=== PATIENT | female | born 1965 | race Caucasian/White ===

== ENCOUNTER 2020-10-11 16:15 | Outpatient (CLI) | payer OTHER, SELFPAY ==
--- NOTE | ~2020-10-11 | MM_ITS ---
EXAMINATION: MM screening [facility]ierra BI w gisell HISTORY: Screening TECHNIQUE: Craniocaudal and mediolateral oblique 3-D tomosynthesis images were obtained and synthetic 2-D images were generated. CAD analysis was submitted and interpreted. COMPARISON: Comparison to multiple prior studies sequentially, with oldest reviewed study dated 03/25. BREAST PARENCHYMAL COMPOSITION: There are scattered areas of fibroglandular density. FINDINGS: There is no evidence of suspicious mass, calcification, or architectural distortion to sugg est malignancy in either breast. There has been no suspicious interval change. IMPRESSION: 1. No mammographic evidence of malignancy. 2. Recommend routine screening mammography in one year. BI-RADS Category 1: Negative Reviewed, dictated and finalized at location A.
== END 2020-10-11 16:16 | disposition home or self-care (01) ==
PROVIDERS: Visit Provider Physician Assistant
DX: Z12.31 Encounter for screening mammogram for malignant neoplasm of breast (principal)
CPT/HCPCS: 77063; 77067

== ENCOUNTER 2022-01-20 09:03 | Emergency (ER) | payer OTHER, SELFPAY ==
[2022-01-20] VITALS (7 sets, daily range): BP systolic 139–167; BP diastolic 85–92; PULSE 82–97; RESP 18–20; TEMP 36.8; O2SAT 98–100
--- NOTE | ~2022-01-20 | XR_ITS ---
EXAMINATION: XR chest 2V 01/20/2022 09:48 INDICATION: Left-sided chest pain PROCEDURE: 2 view chest COMPARISON: 03/14/2020 FINDINGS: The lungs are clear. The cardiomediastinal silhouette is within normal limits. There are no pleural effusions. There is no pneumothorax suspected. IMPRESSION: 1: NO ACUTE CARDIOPULMONARY DISEASE. Reviewed, dictated and finalized at location B. A ARTIST
--- NOTE | 2022-01-20 09:04 | ECG_ITS ---
Measurements Intervals Mcgrew Rate: 92 P: 45 SC: 134 QRS: 17 QRSD: 85 T: 43 QT: 358 QTc: 443 Interpretive Statements SINUS RHYTHM BORDERLINE R WAVE PROGRESSION, ANTERIOR LEADS BORDERLINE ECG NO PREVIOUS ECG AVAILABLE FOR COMPARISON Electronically Signed On 01-20-2022 9:13:46 [employer] by Ap Hernández D.O.
[2022-01-20 09:31] LABS: Basophils Percent Auto 0.4 % (0.2-1.2); Eosinophils Absolute Auto 0.4 K/mm3 (0-0.3); Eosinophils Percent Auto 3.8 % (0-4.4); Hematocrit 39.7 % (37.0-47.0); Hemoglobin 12.9 g/dL (12.0-15.0); Immature Granulocyte Absolute 0.04 K/mm3 (0.00-0.031); Immature Granulocyte Percent A 0.4 % (0-0.5); Lymphocytes Absolute Auto 2.27 K/mm3 (0.9-3.2); Lymphocytes Percent Auto 20.8 % (18.3-44.2); Mean Corpuscular HGB Conc 32.5 g/dl (32-36); Mean Corpuscular Hemoglobin 28.1 pg (26-34); Mean Corpuscular Volume 86.5 fl (80-100); Mean Platelet Volume 10.5 fl (7.4-10.4); Monocytes Absolute Auto 0.6 K/mm3 (0.1-0.6); Monocytes Percent Auto 5.3 % (2.6-8.5); Neutrophils Absolute Auto 7.6 K/mm3 (1.3-6.7); Neutrophils Percent Auto 69.3 % (45.5-73.1); Platelet Count Result 225 k/mm3 (150-375); Red Blood Count 4.59 M/mm3 (4.2-5.4); Red Cell Distribution Width 13.8 % (11.5-14.5); White Blood Count 10.9 K/mm3 (4.5-10.0)
[2022-01-20 09:41] LABS: Prothrombin Time 12.6 Seconds (11.1-14.7)
[2022-01-20 10:07] LABS: Alanine Aminotransferase 33 U/L (6-35); Albumin Level 4.5 g/dL (3.5-5.1); Alkaline Phosphatase 107 U/L (38-126); Anion Gap 9 mmol/L (8-16); Aspartate Amino Transferase 24 U/L (14-36); Bilirubin,Total 0.4 mg/dL (0.2-1.3); Blood Urea Nitrogen 19 mg/dL (7-17); Calcium 9.3 mg/dL (8.4-10.2); Carbon Dioxide 26 mmol/L (22-30); Chloride 103 mmol/L (98-107); Estimated CRCL calculation 116 ml/min; Estimated Glomerular Filt Rate > 60; Glucose 112 mg/dL (65-110); Lipase 119 U/L (23-300); Sodium 138 mmol/L (137-145); Troponin I < 0.012 ng/mL (0.000-0.034)
--- NOTE | 2022-01-20 11:24 | ED.GENADULT ---
HPI - General Adult General Chief complaint: Chest Pain Stated complaint: chest pain Time Seen by Provider: 01/20/22 10:07 History of Present Illness HPI narrative: 56-year-old female with a past medical history of hypertension presents for evaluation of nonexertional left-sided chest pain that is reproducible with palpation over rib #3. Pain has been consistent for the past 24 hours there are no aggravating or alleviating factors. There is no radiation. Related Data Allergies Allergy/AdvReac Type Severity Reaction Status Date / Time No Known Allergies Allergy Unknown Unverified 05/31/17 01:16 Review of Systems Review of Systems: CONSTITUTIONAL: Denies fever, chills, or sweats. EYES: Denies visual changes, redness, or discharge. ENT: Denies rhinorrhea, congestion, sore throat, or otalgia. CARDIOVASCULAR: Denies chest pain, palpitations, or edema. RESPIRATORY: Denies cough or dyspnea. GASTROINTESTINAL: Denies abdominal pain, nausea, vomiting, or diarrhea. GENITOURINARY: Denies dysuria or hematuria. SKIN: Denies rash or itching. MUSCULOSKELETAL: Denies back pain, joint pain, or myalgia. NEUROLOGIC: Denies headache, numbness, or weakness. PSYCHIATRIC: Denies anxiety or depression. [facility] Family History Family History (Updated 09/28/15 @ 23:19 by DOCTOR UNKNOWN) Father Family history of alcoholism Family history of diabetes mellitus in first degree relative Family history of malignant neoplasm of brain Social History Social History Smoking status: Never smoker Alcohol intake: never Exam Narrative: GENERAL: Well-appearing, well-nourished, and in no acute distress. HEAD: Normocephalic, atraumatic. EYES: PERRLA and EOMI. ENT: Nares clear, no rhinorrhea or epistaxis. Mucous membranes moist. NECK: Supple. CHEST: Clear to auscultation. No respiratory distress. HEART: Regular rate and rhythm. No murmur heard. Normal peripheral pulses. ABDOMEN: Soft, nontender, nondistended, normal active bowel sounds. EXTREMITIES: Normal range of motion. No edema. SKIN: Warm, dry, no rash. NEURO: No focal deficits. Alert and oriented x3. PSYCH: Normal mood and affect. Course Vital Signs Vital signs: Vital Signs Temperature 98.3 F 01/20/22 09:08 Pulse Rate 94 01/20/22 09:08 Respiratory Rate 18 01/20/22 09:08 Blood Pressure 167/88 H 01/20/22 09:08 Pulse Oximetry 100 01/20/22 09:08 Oxygen Delivery Room Air 01/20/22 09:08 Temperature 98.3 F 01/20/22 09:08 Pulse Rate 88 01/20/22 10:47 Respiratory Rate 18 01/20/22 10:47 Blood Pressure 152/92 H 01/20/22 10:47 Pulse Oximetry 98 01/20/22 10:47 Oxygen Delivery Room Air 01/20/22 09:08 Medical Decision Making MDM Narrative Medical decision making narrative: Cardiac work-up initiated upon arrival but this does seem to be a musculoskeletal chest pain. Cardiac work-up is unremarkable. Vital Signs Vital Signs: Vital Signs Temperature 98.3 F 01/20/22 09:08 Pulse Rate 94 01/20/22 09:08 Respiratory Rate 18 01/20/22 09:08 Blood Pressure 167/88 H 01/20/22 09:08 Pulse Oximetry 100 01/20/22 09:08 Oxygen Delivery Room Air 01/20/22 09:08 Temperature 98.3 F 01/20/22 09:08 Pulse Rate 88 01/20/22 10:47 Respiratory Rate 18 01/20/22 10:47 Blood Pressure 152/92 H 01/20/22 10:47 Pulse Oximetry 98 01/20/22 10:47 Oxygen Delivery Room Air 01/20/22 09:08 Lab Data Result diagrams: 01/20/22 09:21 01/20/22 09:21 Labs: Lab Results 01/20/22 01/20/22 01/20/22 Range/Units 09:21 09:21 09:21 WBC 10.9 H (4.5-10.0) K/mm3 RBC 4.59 (4.2-5.4) M/mm3 Hgb 12.9 (12.0-15.0) g/dL Hct 39.7 (37.0-47.0) % MCV 86.5 (80-100) fl MCH 28.1 (26-34) pg MCHC 32.5 (32-36) g/dl RDW 13.8 (11.5-14.5) % Plt Count 225 (150-375) k/mm3 MPV 10.5 H (7.4-10.4) fl Immature Gran % (Auto) 0.4 (0-0.5) % Neut % (Auto) 69.3 (45.5-73.1) % Lymph
== END 2022-01-20 12:02 | disposition home or self-care (01) ==
PROVIDERS: Emergency Provider Emergency Medicine; PCP Physician Assistant
DX: R07.89 Other chest pain (principal); I10 Essential (primary) hypertension; R94.31 Abnormal electrocardiogram [ECG] [EKG]
CPT/HCPCS: 36415; 71046; 80053; 83690; 84484; 85025; 85610; 85730; 93005; 99284

== ENCOUNTER 2022-03-18 07:00 | Outpatient (CLI) | payer OTHER, SELFPAY ==
[2022-03-18 07:28] LABS: Alanine Aminotransferase 31 U/L (6-35); Alkaline Phosphatase 87 U/L (38-126); Anion Gap 2 mmol/L (8-16); Aspartate Amino Transferase 22 U/L (14-36); Bilirubin,Total 0.3 mg/dL (0.2-1.3); Blood Urea Nitrogen 26 mg/dL (7-17); Calcium 8.7 mg/dL (8.4-10.2); Carbon Dioxide 31 mmol/L (22-30); Chloride 103 mmol/L (98-107); Estimated Glomerular Filt Rate > 60; Glucose 110 mg/dL (65-110); Sodium 136 mmol/L (137-145)
[2022-03-18 07:40] LABS: Creatinine Urine 116.1 mg/dL
[2022-03-18 10:48] LABS: Cholesterol 217 mg/dL (0-200); HDL Direct 45 mg/dL; Triglycerides 132 mg/dL (<150)
[2022-03-18 10:54] LABS: LDL Cholesterol Direct 125 mg/dL
== END 2022-03-18 07:01 | disposition home or self-care (01) ==
PROVIDERS: PCP Physician Assistant; Visit Provider Physician Assistant
DX: I10 Essential (primary) hypertension (principal); E78.5 Hyperlipidemia, unspecified
CPT/HCPCS: 36415; 80053; 80061; 82043

== ENCOUNTER 2022-12-09 15:28 | Outpatient (CLI) | payer OTHER, SELFPAY ==
--- NOTE | ~2022-12-09 | MM_ITS ---
EXAMINATION: MM screening [place] BI w gisell HISTORY: Screening mammogram TECHNIQUE: Craniocaudal and mediolateral oblique 3-D tomosynthesis images were obtained and synthetic 2-D images were generated. CAD analysis was submitted and interpreted. COMPARISON: 10/11/2020, 03/24/2017 bilateral screening mammogram examinations BREAST PARENCHYMAL COMPOSITION: There are scattered areas of fibroglandular density. FINDINGS: There is no evidence of suspicious mass, calcification, or architectural distortion to sugg est malignancy in either breast. There has been no suspicious interval change. IMPRESSION: 1. No mammographic evidence of malignancy. 2. Recommend routine screening mammography in one year. BI-RADS Category 1: Negative Reviewed, dictated and finalized at location A.
== END 2022-12-09 15:29 | disposition home or self-care (01) ==
PROVIDERS: PCP Physician Assistant; Visit Provider Physician Assistant
DX: Z12.31 Encounter for screening mammogram for malignant neoplasm of breast (principal)
CPT/HCPCS: 77063; 77067

== ENCOUNTER 2023-06-13 09:11 | Inpatient (IN) | payer OTHER, SELFPAY ==
[2023-06-13] VITALS (7 sets, daily range): BP systolic 139–153; BP diastolic 66–82; PULSE 96–103; RESP 16–20; TEMP 36.9–39.3; O2SAT 97–100; BMI 29.5
--- NOTE | ~2023-06-13 | XR_ITS ---
EXAMINATION: XR abdomen gastric tube insert DATE: 06/18/2023 11:38 INDICATION: Nasogastric tube placement TECHNIQUE: A supine view of the abdomen and lower chest was obtained for evaluation of feeding tube placement. COMPARISON: None. FINDINGS: Nasogastric tube tip in the body the stomach with proximal side-port just above the level of the vinnie roesophageal junction. Cholecystectomy clips in right upper quadrant. There is persistent gaseous dis tention of the colon consistent with distal colonic obstruction. Small linear band of discoid atelect asis/scarring at the right costophrenic angle. Heart size is normal. No pleural effusion. IMPRESSION: 1. Nasogastric tube tip in the body the stomach. Consider advancement by [address] the proximal s wendy-port below level of the gastroesophageal junction. 2. Persistent gaseous distention of the colon consistent with distal colonic obstruction. Reviewed, dictated and finalized at location A. IMPRESSION: 1. Nasogastric tube tip in the body the stomach. Consider advancement by [address] the proximal side-port below level of the gastroesophageal junction. 2. Persistent gaseous distention of the colon consistent with distal colonic ob struction.
--- NOTE | ~2023-06-13 | XR_ITS ---
EXAMINATION: XR abdomen/kub 1V DATE: 06/22/2023 07:01 INDICATION: Abdominal pain. TECHNIQUE: A supine view of the abdomen on 3 radiographs was obtained. COMPARISON: Abdomen radiographs 06/20/23 FINDINGS: There are dilated loops of small bowel. The colon is decompressed. Skin rishabh are noted. Surgical clips in the right upper quadrant are likely from cholecystectomy. The nasogastric tube tip is in the stomach. IMPRESSION: 1. Dilated small bowel, consistent with adynamic ileus. Reviewed, dictated and finalized at location E.
--- NOTE | ~2023-06-13 | CT_ITS ---
EXAMINATION: CT abdomen pelvis w con DATE: 06/13/2023 10:43 INDICATION: Left lower quadrant abdominal pain TECHNIQUE: Computed tomography (CT) of the abdomen and pelvis was performed without intravenous contr ast. Automated exposure control and iterative reconstruction technique were employed. The dose-length product was 1198.91 mGy-cm. COMPARISON: None FINDINGS: Calcified right lower lobe nodule and calcified right hilar lymph nodes consistent with old granuloma tous disease. Heart size is normal. No pericardial or pleural effusion. Cholecystectomy clips the gal lbladder fossa. Liver, spleen, pancreas, right adrenal gland and right kidney are normal. 11 mm left renal cyst. There is mild thickening of the left adrenal gland without discrete nodule. Small fat-con taining umbilical hernia and immediately adjacent moderate-sized fat-containing infraumbilical ventra l hernia. There is colonic wall thickening beginning in the distal transverse colon with some surroun ding paracolonic inflammatory stranding which becomes progressively all of consistent with a distal c olitis. In addition there several scattered colonic diverticula without adjacent or focal inflammator y stranding to suggest diverticulitis. Small bowel and appendix are normal. 2.3 similar fibroid at th e left side of the uterine body. Bilateral adnexa and the bladder are unremarkable. No abscess or tali e intraperitoneal gas or fluid. No pathologically enlarged abdominal or pelvic lymphadenopathy. Mild scattered nonhemodynamically significant atherosclerotic plaque in the abdominal aorta, bilateral com mon iliac arteries and at the origins of the celiac axis and right renal artery. Mild lumbar and paul re lumbosacral spondylosis. IMPRESSION: 1. Distal colitis which could be infectious, inflammatory or less likely ischemic in etiology. 2. Small fat-containing umbilical and moderate-sized infraumbilical ventral hernias. 3. Uterine fibroid. Reviewed, dictated and finalized at location A. IMPRESSION: 1. Distal colitis which could be infectious, inflammatory or less likely ischem ic in etiology. 2. Small fat-containing umbilical and moderate-sized infraumbilical ventral her nias. 3. Uterine fibroid.
--- NOTE | ~2023-06-13 | XR_ITS ---
XR abdomen/kub 1V 06/20/2023 09:45 Indication: Abdominal pain and bloating Procedure: KUB Comparison: 06/17/2023 Findings: Status post recent laparotomy. There are cholecystectomy clips. There is moderate gas throu ghout the small bowel which is mildly dilated measuring up to 3.5 cm. The colon is relatively decompr essed. Impression: 1: Dilated small bowel with air-fluid levels, most likely postoperative ileus. Reviewed, dictated and finalized at location A. Impression: 1: Dilated small bowel with air-fluid levels, most likely postoperative ileus.
--- NOTE | ~2023-06-13 | XR_ITS ---
Supine and upright views of the abdomen Clinical history: Colitis Findings: There is extensive air distention of large bowel, with decompression of the distal sigmoid colon and rectum. No free air evident. No abnormal mass lesion or calcification is seen. Osseous stru ctures are intact. Impression: Extensive air distention of large bowel with decompression of distal sigmoid colon and rectum. This c orrelates with the transition point at the proximal to mid sigmoid colon seen on CT scan. Reviewed, dictated and finalized at location M. Impression: Extensive air distention of large bowel with decompression of distal sigmoid co anuj and rectum. This correlates with the transition point at the proximal to mi d sigmoid colon seen on CT scan.
--- NOTE | ~2023-06-13 | XR_ITS ---
XR abdomen gastric tube insert INDICATION: Evaluate NG tube position. TECHNIQUE: Limited KUB perform for evaluating NG tube . COMPARISON: 06/18/2023 FINDINGS: NG tube tip in the stomach. Visualized bowel gas pattern is unremarkable. IMPRESSION: 1: NG tube tip in the stomach. Reviewed, dictated and finalized at location A.
--- NOTE | ~2023-06-13 | US_ITS ---
EXAMINATION: US venous doppler UE DATE: 06/22/2023 14:55 INDICATION: Left arm swelling and pain . TECHNIQUE: Grayscale ultrasound images without and with compression and Doppler ultrasound images of the upper extremity veins were obtained. COMPARISON: None. FINDINGS: Examination limited by bandage material on the upper arm. Axillary and basilic veins demonstrated no flow or compressibility and are dilated by heterogeneous intraluminal material, with scattered echoge nicities, some of which have dirty posterior shadowing. The visualized portions of the left internal jugular vein, subclavian vein, brachial veins, cephalic vein, radial vein, and ulnar vein are patent. IMPRESSION: Deep venous thrombosis involving the left axillary and basilic veins, likely acute or subacute. Suspe cted foci of gas within the thrombus, may be secondary to venous access or infection. An indwelling c atheter was not definitively identified during this examination but is reportedly present. Reviewed, dictated and finalized at location K. IMPRESSION: Deep venous thrombosis involving the left axillary and basilic veins, likely ac [place] or subacute. Suspected foci of gas within the thrombus, may be secondary to venous access or infection. An indwelling catheter was not definitively identi fied during this examination but is reportedly present.
--- NOTE | ~2023-06-13 | CT_ITS ---
EXAMINATION: CTA chest PE abdomen pel DATE: 06/23/2023 16:46 INDICATION: Shortness of breath and fever TECHNIQUE: Computed tomography (CT) pulmonary angiogram of the chest was performed with 100 mL Omnipa que-350 intravenous contrast. Additional 3D reconstructions utilizing coronal maximum intensity proje ction (MIP) were performed. CT of the abdomen and pelvis was performed with intravenous contrast util izing the same contrast bolus following a short delay. Automated exposure control and iterative recon struction technique were employed. The dose-length product was 1792.59 mGy-cm. COMPARISON: None FINDINGS: Chest: Adequate but suboptimal contrast desiccation of the pulmonary arteries but when combined with moderat e scattered respiratory motion artifact limits evaluation in the segmental and subsegmental pulmonary arteries. No definitive pulmonary embolism. Mild discoid atelectasis at the right middle and lower l obes. Calcified right lower lobe nodule and calcified right hilar and mediastinal lymph nodes consist ent with old granulomatous disease. No pneumonia, pulmonary edema or pleural effusion. Heart size is normal. No pericardial effusion. Thoracic aorta is normal caliber with no dissection. Mild thoracic a nd moderate lower cervical spondylosis. Abdomen/pelvis: Nasogastric tube coiled in the stomach. Cholecystectomy clips the gallbladder fossa. Liver, spleen, p ancreas, right adrenal gland and kidney are normal. Mild thickening of the left adrenal gland without discrete nodule. 11 mm cyst at the lower pole of the left kidney. Status post subtotal colectomy wit h fluid within a Armijo's pouch and the pelvis and right lower quadrant and ileostomy. No bowel obst ruction. Anteverted uterus and bilateral adnexa are unremarkable. Small amount of gas and a Arias cat heter within the decompressed bladder. There is a small amount of ascites scattered throughout the ab domen and pelvis. No abscess or free intraperitoneal gas. Couple small likely postoperative fluid col lections at the site of the ostomy and the repaired infraumbilical ventral hernia along with some dinah rounding stranding and a few tiny foci of likely residual postoperative gas subcutaneous tissues of t he abdominal wall. No pathologically enlarged abdominal or pelvic lymphadenopathy. Severe spondylosis at the lumbosacral junction with mild spondylosis more cephalad lumbar spine. IMPRESSION: 1. Postoperative change consistent with recent subtotal colectomy with right lower quadrant and ileos josue and repair of a prior infraumbilical fat-containing ventral hernia. 2. Small amount of nonloculated ascites scattered throughout the abdomen and pelvis. No abscess or fr ee intraperineal gas. 2. No evident pulmonary embolism with sensitivity decreased in the segmental pulmonary arteries and e ssentially nondiagnostic in the subsegmental pulmonary arteries due to primarily to a moderate amount of diffuse respiratory motion artifact. Reviewed, dictated and finalized at location A. IMPRESSION: 1. Postoperative change consistent with recent subtotal colectomy with right lo wer quadrant and ileostomy and repair of a prior infraumbilical fat-containing ventral hernia. 2. Small amount of nonloculated ascites scattered throughout the abdomen and pe lvis. No abscess or free intraperineal gas. 2. No evident pulmonary embolism with sensitivity decreased in the segmental pu lmonary arteries and essentially nondiagnostic in the subsegmental pulmonary ar teries due to primarily to a moderate amount of diffuse respiratory motion suzie fact.
--- NOTE | ~2023-06-13 | CT_ITS ---
Non-contrast CT scan of the Abdomen and Pelvis Clinical indication: Abdominal pain Technique: 2.5 mm axial scans were obtained through the abdomen and pelvis without intravenous or or al contrast. Dose reduction technique was used on this scan by utilizing automated exposure control a nd iterative reconstruction technique. The dose-length product (DLP) was 1295.67 mGy-cm. COMPARISON: 06/13/2023 Findings: Images through the lung bases reveal no abnormalities. Probable punctate nonobstructing right renal stone. No left renal stone. No ureteral stone or hydrone phrosis on either side.. The liver, spleen, pancreas, and right adrenal gland appear normal. Stable probable left adrenal nodu le. Cholecystectomy clips are present. There are atherosclerotic calcifications of the aorta. There is extensive distention of the majority of large bowel, with transition point at the distal sig moid colon/proximal rectum. There is apparent wall thickening of the rectum in this region. No absces s or free air evident. Probable mild wall thickening of the distended portions of the large bowel. Mo derate sized fat-containing umbilical hernia present. Small bowel nondistended. Images through the pelvis were performed. There is no evidence of ascites or lymphadenopathy. Urinary bladder unremarkable. No adnexal mass evident. Impression: Extensive distention of large bowel with transition point in the distal sigmoid colon, with extensive wall thickening of the rectum at this region. Diagnostic considerations include acute infectious/inf lammatory distal sigmoid/rectal colitis versus possibly chronic stricture or underlying neoplasm resu lting in partial large bowel obstruction. Correlate clinically. Consider colonoscopy for direct inspe ction as indicated. Probable mild wall thickening of the distended portions of large bowel, which could reflect superimpo sed mild infectious/infarct or colitis. Moderate sized fat-containing umbilical hernia. Punctate nonobstructing right renal stone. Reviewed, dictated and finalized at [facility]. Impression: Extensive distention of large bowel with transition point in the distal sigmoid colon, with extensive wall thickening of the rectum at this region. Diagnostic considerations include acute infectious/inflammatory distal sigmoid/rectal col itis versus possibly chronic stricture or underlying neoplasm resulting in part ial large bowel obstruction. Correlate clinically. Consider colonoscopy for dir ect inspection as indicated. Probable mild wall thickening of the distended portions of large bowel, which c ould reflect superimposed mild infectious/infarct or colitis. Moderate sized fat-containing umbilical hernia. Punctate nonobstructing right renal stone.
--- NOTE | ~2023-06-13 | US_ITS ---
EXAMINATION:US venous doppler LE BI INDICATION:Calf pain TECHNIQUE: Multiple grayscale, color flow and Doppler images of the right and left lower extremity de ep venous systems were obtained and reviewed. COMPARISON:No prior studies for comparison. FINDINGS: The common femoral, superficial femoral and popliteal veins demonstrate normal respiratory variation, augmentation and compressibility. Color flow is also seen within the posterior tibial, pe roneal, greater saphenous and profunda veins. IMPRESSION: 1: No lower extremity deep venous thrombosis. Reviewed, dictated and finalized at location B.
--- NOTE | ~2023-06-13 | XR_ITS ---
EXAMINATION: XR enema water soluble DATE: 06/15/2023 13:26 INDICATION: Large bowel obstruction TECHNIQUE: A repacker radiograph was obtained. A catheter was inserted into the patient's rectum. Water- soluble contrast was infused by gravity. Fluoroscopic spot images and conventional radiographs were o btained. Fluoroscopy exposure time was 1.4 minutes. A total of 13 fluoroscopic images and 3 overhead radiographs were obtained. Total DAP was 58.6 Gycm^2 COMPARISON: None. FINDINGS: There is a high-grade stricture at the junction of the descending and sigmoid colon which required ap proximately 1 minute for the contrast to begin to transit the stricture into the dilated descending c olon. Given the severity of the stricture it was elected to terminate the study prior to passage of a significant quantity of contrast beyond the stricture. There is irregular mucosal contour at the lev el of the stricture with small loculated extraluminal extension of contrast potentially within a dive rticulum at the distal margin of the region of stricture. IMPRESSION: 1. High-grade stenosis at the junction of the descending and sigmoid colon which raises concern for m alignancy. Differential would also include stricture related to diverticulitis, colitis or other infl ammatory etiology. Recommend colonoscopy for further evaluation. Reviewed, dictated and finalized at location A. IMPRESSION: 1. High-grade stenosis at the junction of the descending and sigmoid colon whic h raises concern for malignancy. Differential would also include stricture rela jamaal to diverticulitis, colitis or other inflammatory etiology. Recommend colono scopy for further evaluation.
--- NOTE | 2023-06-13 09:32 | ED.ABDPAIN ---
HPI - Abdominal Pain General Chief Complaint: Abdominal Pain <Abhijeet Alcocer APRN - Last Filed: 06/13/23 13:39> Stated Complaint: ABD Pain <Abhijeet Alcocer APRN - Last Filed: 06/13/23 13:39> Time Seen by Provider: 06/13/23 09:23 <Abhijeet Alcocer APRN - Last Filed: 06/13/23 13:39> Source: patient <Abhijeet Alcocer APRN - Last Filed: 06/13/23 13:39> Mode of arrival: ambulatory <Abhijeet Alcocer APRN - Last Filed: 06/13/23 13:39> Limitations: no limitations <Abhijeet Alcocer APRN - Last Filed: 06/13/23 13:39> History of Present Illness HPI narrative: Felipa is a 58-year-old female patient presenting to the ER today with complaints of mid lower and left lower quadrant abdominal pain since around noon yesterday. She reports she does have history of diverticulitis. Denies any fever has had some chills and body aches. Rates her pain currently a 5/10 and it comes in waves. Last bowel movement was 1 hour go it was loose without blood. Not currently experiencing any nausea or vomiting but did vomit this morning when she was brushing her teeth. She denies any urinary symptoms. <Abhijeet Alcocer APRN - Last Filed: 06/13/23 13:39> Related Data Allergies/Adverse Reactions: Allergies Allergy/AdvReac Type Severity Reaction Status Date / Time No Known Allergies Allergy Unknown Unverified 06/13/23 09:26 <Abhijeet Alcocer APRN - Last Filed: 06/13/23 13:39> Review of Systems Review of Systems: Pertinent positives per HPI. Patient denies any fever, rash, headache, visual changes, dizziness, cough, runny nose, sore throat, shortness of breath, chest pain, palpitations, diarrhea, constipation, or any urinary issues. <Abhijeet Alcocer APRN - Last Filed: 06/13/23 13:39> [facility] Family History Family History: Family History Father Family history of alcoholism Family history of diabetes mellitus in first degree relative Family history of malignant neoplasm of brain <Abhijeet Alcocer APRN - Last Filed: 06/13/23 13:39> Social History Social History: Social History Smoking status: Never smoker Alcohol intake: never <Abhijeet Alcocer APRN - Last Filed: 06/13/23 13:39> Comments At the time of my signature, I reviewed and agree with the nursing past medical, surgical, social, and family history. There is no relevant family history pertinent to the patient complaint. <Abhijeet Alcocer APRN - Last Filed: 06/13/23 13:39> Exam Narrative: General: Well-developed, well nourished, in no apparent distress. Head: Normocephalic, atraumatic. Cardio: Regular rate and rhythm, s1 and s2 normal, no murmur appreciated. Resp: Clear to auscultation bilaterally, no rhonchi, rales, wheezing or rubs. Abdomen: Soft, pliable, bowel sounds present in all quadrants, tender to palpation over the mid and left lower abdomen, no organomegly, no CVAT tenderness. <Abhijeet Alcocer APRN - Last Filed: 06/13/23 13:39> Course Course Emergency Course: Portions of this record may have been created with voice recognition software. <Abhijeet Alcocer APRN - Last Filed: 06/13/23 13:39> OPERATIONAL TRAINER/PA Physician Supervision This visit was performed by both a physician and an APC. I performed all aspects of the MDM as documented. <Camille Gonzalez MD - Last Filed: 06/13/23 13:40> Vital Signs Vital signs: Vital Signs Temperature 99.0 F 06/13/23 09:17 Pulse Rate 97 06/13/23 09:17 Respiratory Rate 20 06/13/23 09:17 Blood Pressure 148/82 H 06/13/23 09:17 Pulse Oximetry 97 06/13/23 09:17 Oxygen Delivery Room Air 06/13/23 09:17 Temperature 99.0 F 06/13/23 09:17 Pulse Rate 103 H 06/13/23 10:05 Respiratory Rate 20 06/13/23 10:05 Blood Pressure 140/80 06/13/23 10:05 Pulse Oximetry 100 06/13/23 10:05 Oxy
[2023-06-13] MEDS: SODIUM CHLORIDE 0.9% IV 1,000 ML 999 ML IV CONT ×2 (09:51→11:56)
[2023-06-13 09:53] LABS: Hematocrit 38.9 % (37.0-47.0); Hemoglobin 12.9 g/dL (12.0-15.0); Mean Corpuscular HGB Conc 33.2 g/dl (32-36); Mean Corpuscular Hemoglobin 28.1 pg (26-34); Mean Corpuscular Volume 84.7 fl (80-100); Mean Platelet Volume 10.7 fl (7.4-10.4); Platelet Count Result 273 k/mm3 (150-375); Red Blood Count 4.59 M/mm3 (4.2-5.4); Red Cell Distribution Width 14.1 % (11.5-14.5); White Blood Count 25.2 K/mm3 (4.5-10.0)
[2023-06-13] MEDS: ONDANSETRON INJ 4 MG/2 ML VIAL IV PUSH ×3 (10:00→21:05)
[2023-06-13] MEDS: HYDROmorphone HCL INJ (*CRX) 1 MG/ML SYR 0.5 MG IV PUSH ×2 (10:00→12:44)
[2023-06-13 10:03] LABS: Alanine Aminotransferase 41 U/L (6-35); Albumin Level 4.3 g/dL (3.5-5.1); Alkaline Phosphatase 96 U/L (38-126); Anion Gap 9 mmol/L (4-12); Aspartate Amino Transferase 29 U/L (14-36); Bilirubin,Total 0.8 mg/dL (0.2-1.3); Blood Urea Nitrogen 25 mg/dL (7-17); Calcium 9.2 mg/dL (8.4-10.2); Carbon Dioxide 22 mmol/L (22-30); Chloride 104 mmol/L (98-107); Estimated CRCL calculation 107 ml/min; Estimated Glomerular Filt Rate > 60; Glucose 152 mg/dL (65-110); Lipase 66 U/L (23-300); Potassium 3.6 mmol/L (3.4-5.0); Sodium 135 mmol/L (137-145)
[2023-06-13 10:25] LABS: Band Neutrophils Percent 21 % (0-6); Lymphocytes Absolute Manual 2.01 K/mm3 (1.1-4.5); Monocytes Absolute Manual 1.51 K/mm3 (0.1-0.90); Monocytes Percent Manual 6 % (3-9); Neutrophils Absolute Manual 21.67 K/mm3 (1.7-7.2); Neutrophils Percent Manual 65 % (46-73); Platelet Estimate Adequate (Adequate); Schistocytes None Seen; Total Cells Counted 100
[2023-06-13] MEDS: CEFEPIME 2 GM/NS 50 ML 2 GM/50 ML BAG IVPB ×2 (11:56→21:04)
[2023-06-13 12:11] LABS: Lactic Acid Reflex 1.9 mmol/L (0.7-2.0)
[2023-06-13 12:14] LABS: Appearance Urine Clear (Clear); Bilirubin Urine Negative (Negative); Blood Urine Negative (Negative); Color Urine Yellow (Yellow); Glucose Urine UA Negative (Negative); Ketones Urine Negative (Negative); Leukocyte Esterase Ur Negative LEU/UL (Negative); Nitrate Urine Negative (Negative); Protein Urine Negative (Negative); Urobilinogen Urine 0.2 mg/dL (<2.0); pH Urine 5.5 (5.0-9.0)
[2023-06-13] MEDS: metroNIDAZOLE 500 MG/ISO 100ML 500 MG/100 ML BAG 100 MG IVPB ×2 (12:25→21:04)
[2023-06-13 12:41] LABS: Add Urine Microscopic? NO
--- NOTE | 2023-06-13 12:58 | PM.IMHP ---
H&P: HPI History of Present Illness Date/Time: 06/13/23 12:58 Chief Complaint: Abdominal pain Narrative: This is a 58-year-old female with a significant past medical history of hypertension and diverticulosis who presented to the hospital today with complaints of abdominal pain. Patient states that her pain started yesterday afternoon and got much worse after eating a cheeseburger from [employer]. She states that her pain is mostly in the left and right lower quadrants and radiates to her lower back. Her abdomen is distended, soft, with hypoactive bowel sounds. She states she is passing gas and had a loose stool today. She denies any fever, chills, vomiting, shortness of breath, or chest pain. She reports nausea, abdominal pain that is 5/10 currently, headache, lightheadedness, and diarrhea. She states she was told she has diverticulosis from a previous colonoscopy that was performed over 7 years ago. She does not follow with a GI doctor. I asked her about recent antibiotics and she stated that her PCP put her on Augmentin recently for an upper respiratory infection. Workup in the hospital included CT of abdomen pelvis which showed distal colitis which could be infectious, inflammatory, small fat containing umbilical and moderate size infraumbilical ventral hernias, uterine fibroid. Initial labs show a white blood cell count of 25.2, band neutrophils 21, sodium 135, ALT 41. UA was obtained and was normal. Blood cultures were obtained and are pending. EKG shows sinus rhythm with a rate of 92, QTC 443. Patient was given 2 L normal saline, Dilaudid and Zofran while in the ED. She will continue on IV fluids, was started on cefepime, and Flagyl. We will check a C. diff and get stool cultures. Review of Systems Review of Systems: All systems reviewed & are unremarkable except as noted in HPI and below Constitutional: Constitutional: Reports as per HPI and Reports no additional constitutional complaints Eyes: Eyes: Reports as per HPI and Reports no additional eye complaints ENT: Reports system reviewed and no additional complaints, except as documented and Reports as per HPI Cardiovascular: Cardiovascular: Reports as per HPI and Reports no additional cardiovascular complaints Respiratory: Respiratory: Reports as per HPI and Reports no additional respiratory complaints Gastrointestinal: Gastrointestinal: Reports as per HPI and Reports no additional gastrointestinal complaints Genitourinary: Genitourinary: Reports no additional female genitourinary complaints and Reports as per HPI Musculoskeletal: Musculoskeletal: Reports no additional musculoskeletal complaints and Reports as per HPI Integumentary/Breasts: Skin/Breast: Reports system reviewed and no additional complaints, except as docu and Reports as per HPI Neurologic: Reports system reviewed and no additional complaints, except as documented and Reports as per HPI Psychiatric: Psychiatric: Reports no additional psychiatric complaints and Reports as per HPI PMFSH Past Medical History Medical History Diverticulosis Family History Family History Father Family history of alcoholism Family history of diabetes mellitus in first degree relative Family history of malignant neoplasm of brain Social History Social History Smoking status: Never smoker Alcohol intake: never Substance use: never Do You Feel Safe in your Home?: Yes Lack of Transportation: No Lack of Food: Never True Current Housing: I Have Housing Concerned About Future Housing: No Difficulty Paying Gas/Electric Bills: No Difficulty Paying for Meds: No Currently Unemployed: No Education: High School Diploma/GED Difficulty w/ Childcare or Family Care: No Spiritual care concerns: No Meds Home Medications and Allergies Home Me
--- NOTE | 2023-06-13 13:30 | PC.NURSE ---
Pt to OR via stretcher. Family present at bedside.
[2023-06-13] MEDS: SODIUM CHLORIDE 0.9% IV 1,000 ML 125 ML IV CONT ×2 (15:18→21:11)
--- NOTE | 2023-06-13 15:22 | ADMGEN ---
This patient, Felipa Kendall, was admitted to 3 [facility] Surg Room 320-01. Patient/family oriented to hospital policies and general routines including ID bracelet, bed and alarms, visiting hours, pain management, procedures, bathroom and other care routines, personal items, smoking policy, room service/diet, and visiting hours. Information on how to activate the Rapid Response Team has been discussed. Patient/Family are encouraged to report perceived risks to care and to ask questions if they do not understand what they are told or what they should do.
[2023-06-13] MEDS: HYDROmorphone HCL INJ (*CRX) 1 MG/ML SYR IV PUSH ×2 (15:27→21:05)
[2023-06-13] MEDS: ACETAMINOPHEN 325 MG TABLET 650 MG PO (15:31)
[2023-06-13] MEDS: LOSARTAN POTASSIUM 50 MG TABLET PO (17:41)
[2023-06-13 19:09] LABS: Toxigenic C. Diff POSITIVE (NEGATIVE)
[2023-06-13] MEDS: FIDAXOMICIN 200 MG TABLET PO (21:04)
[2023-06-14] MEDS: HYDROmorphone HCL INJ (*CRX) 1 MG/ML SYR IV PUSH ×4 (02:17→21:38)
[2023-06-14] MEDS: metroNIDAZOLE 500 MG/ISO 100ML 500 MG/100 ML BAG 100 MG IVPB (05:03)
[2023-06-14] MEDS: CEFEPIME 2 GM/NS 50 ML 2 GM/50 ML BAG IVPB (05:04)
[2023-06-14 05:52] VITALS: BP 148/73; PULSE 94; RESP 24; TEMP 36.4; O2SAT 97
[2023-06-14 08:17] LABS: Hemoglobin 11.5 g/dL (12.0-15.0); Mean Corpuscular HGB Conc 32.9 g/dl (32-36); Mean Corpuscular Hemoglobin 28.2 pg (26-34); Mean Corpuscular Volume 85.8 fl (80-100); Mean Platelet Volume 10.7 fl (7.4-10.4); Platelet Count Result 224 k/mm3 (150-375); Red Blood Count 4.08 M/mm3 (4.2-5.4); Red Cell Distribution Width 14.1 % (11.5-14.5); White Blood Count 11.8 K/mm3 (4.5-10.0)
[2023-06-14 08:32] LABS: Alanine Aminotransferase 76 U/L (6-35); Albumin Level 3.2 g/dL (3.5-5.1); Alkaline Phosphatase 84 U/L (38-126); Anion Gap 7 mmol/L (4-12); Aspartate Amino Transferase 59 U/L (14-36); Bilirubin,Total 0.9 mg/dL (0.2-1.3); Blood Urea Nitrogen 27 mg/dL (7-17); Carbon Dioxide 20 mmol/L (22-30); Chloride 106 mmol/L (98-107); Estimated CRCL calculation 126 ml/min; Estimated Glomerular Filt Rate > 60; Glucose 139 mg/dL (65-110); Potassium 3.1 mmol/L (3.4-5.0); Sodium 133 mmol/L (137-145)
[2023-06-14] MEDS: FIDAXOMICIN 200 MG TABLET PO ×2 (08:45→21:34)
[2023-06-14] MEDS: LOSARTAN POTASSIUM 50 MG TABLET PO (08:45)
[2023-06-14 09:22] LABS: Band Neutrophils Percent 52 % (0-6); Metamyelocytes Percent 7 %; Monocytes Percent Manual 6 % (3-9); Neutrophils Absolute Manual 9.55 K/mm3 (1.7-7.2); Neutrophils Percent Manual 29 % (46-73); Platelet Estimate Adequate (Adequate); Total Cells Counted 100
[2023-06-14 09:23] LABS: Schistocytes None Seen
[2023-06-14] MEDS: POTASSIUM CHLORIDE INJ 40 MEQ in SODIUM CHLORIDE 0.9% IV 500 ML 80 MEQ IVPB (10:35)
[2023-06-14] MEDS: ONDANSETRON INJ 4 MG/2 ML VIAL IV PUSH ×2 (11:32→21:38)
--- NOTE | 2023-06-14 12:08 | PM.IMPN ---
Progress Note: A&P Assessment and Plan (1) Colitis: Code(s): K52.9 - Noninfective gastroenteritis and colitis, unspecified Status: Acute Assessment and Plan: Patient complaining of abdominal pain. CT of the abdomen pelvis shows distal colitis which could be infectious versus inflammatory, small fat containing umbilical and moderate-sized infraumbilical ventral hernias, uterine fibroid Initial white blood cell count 25.2 with left shift Continue with IV fluids @100 cc/hr Continue with pain control Advance diet as tolerated to a regular diet C Diff positive and Dificid started (cefepime and Flagyl discontinued) Stool cultures pending. Consider GI consult if no improvement (2) Bandemia: Code(s): D72.825 - Bandemia Status: Acute Assessment and Plan: 06/12 WBC count 25.2, band count 21 06/13 WBC count 11.8, band count 52 (3) Leukocytosis: Qualifiers: Leukocytosis type: unspecified Qualified Code(s): D72.829 - Elevated white blood cell count, unspecified Code(s): D72.829 - Elevated white blood cell count, unspecified Status: Acute Assessment and Plan: WBC count 25.2 WBC count 11.8 (4) Abdominal pain: Qualifiers: Abdominal location: lower abdomen, unspecified Qualified Code(s): R10.30 - Lower abdominal pain, unspecified Code(s): R10.9 - Unspecified abdominal pain Status: Acute Assessment and Plan: Likely due to C. diff infection [place] 5-325 q4h pain 4-6 Dilaudid 1 mg ordered q3h for pain rated 7-10 (5) Hypertension: Code(s): I10 - Essential (primary) hypertension Status: Acute Assessment and Plan: Continue Losartan Subjective Date/time seen: 06/14/23 12:08 Interval history: Patient is still experiencing severe abdominal pain. Bentyl on to patient's medication regimen. She is having diarrhea approximately every hour. Added Imodium with parameters of not using if patient is having less than 5 bowel movements daily. Patient is having abdominal extension. Patient's white count improved today. Patient having dry heaves and nausea. Exam Narrative: GENERAL: Uncomfortable, visilely in pain HENMT: moist mucous membranes EYES: EOM intact b/l NECK: no lymphadenopathy RESPIRATORY: clear to auscultation, no increased respiratory effort CARDIO: Regular rate and rhythm GI: distention, diffuse tenderness hypoactive bowel sounds SKIN/EXTREMITIES: no rashes, no edema, no redness or tenderness NEURO: PROM intact, answers questions appropriately, A&O x4 Objective Data Vital Signs Vital Signs: Vital Signs - 24 hr 06/13/23 13:44 06/13/23 15:31 06/13/23 15:43 Temperature 102.8 F H Pulse Rate 100 Respiratory Rate 20 Blood Pressure 146/82 H Pulse Oximetry 100 Oxygen Delivery Room Air 06/13/23 14:45 06/13/23 16:31 06/13/23 20:36 Temperature 102.8 F H 99.7 F H 98.5 F Pulse Rate 96 102 H Respiratory Rate 18 16 Blood Pressure 153/80 H 139/66 Pulse Oximetry 98 98 Oxygen Delivery 06/14/23 05:52 Temperature 97.5 F L Pulse Rate 94 Respiratory Rate 24 H Blood Pressure 148/73 H Pulse Oximetry 97 Oxygen Delivery Intake/Output Intake/Output: Intake & Output 06/11/23 06/12/23 06/13/23 06/14/23 23:59 23:59 23:59 23:59 Intake Total 3035.4 1500 Balance 3035.4 1500 Meds/Results Medications: Active Medications Generic Name Dose Route Start Last Admin Trade Name Freq PRN Reason Stop Dose Admin Acetaminophen 650 mg 06/13/23 13:05 06/13/23 15:31 Acetaminophen 325 Mg Tablet PO 650 mg Q4H PRN Administration Mild Pain (1-3) or Fever Dicyclomine HCl 20 mg 06/14/23 11:22 Dicyclomine Hcl 10 Mg Capsule PO QID PRN Abdominal Cramping Enoxaparin Sodium 40 mg 06/14/23 09:00 06/14/23 08:54 Enoxaparin 40 Mg/0.4 Ml Syringe SUB-Q Not Given DAILY BISMARK Fidaxomicin 200 mg 06/13/23 21:00 06/14/23
[2023-06-14] MEDS: DICYCLOMINE HCL 10 MG CAPSULE 20 MG PO (13:32)
[2023-06-14 14:00] VITALS: BP 137/78; PULSE 98; RESP 22; TEMP 36.6; O2SAT 98
[2023-06-14] MEDS: BELLADONNA ALK/PHENOB ELIX 10 ML, MAG HYDROX/ALUMINUM HYD/SIMETH 30 ML, LIDOCAINE HCL 2... PO (14:59)
[2023-06-14 15:44] VITALS: O2SAT 96
[2023-06-14] MEDS: HYDROcodone/acetaminophen (*CRX) 5-325 MG TABLET 1 TAB PO ×2 (16:09→21:34)
[2023-06-14] MEDS: LIDOCAINE HCL 1% LOCAL INJ 2 ML AMPUL 5 ML INFILTRATE (18:43)
[2023-06-14] MEDS: SALINE LOCK FLUSH 10 ML IV PUSH (21:34)
[2023-06-14] MEDS: SODIUM CHLORIDE 0.9% IV 1,000 ML 125 ML IV CONT (21:34)
[2023-06-14 22:00] VITALS: BP 136/84; PULSE 105; RESP 22; TEMP 36.8; O2SAT 97
[2023-06-15 05:50] VITALS: BP 142/79; PULSE 98; RESP 12; TEMP 36.3; O2SAT 97
[2023-06-15 05:55] LABS: Hematocrit 35.7 % (37.0-47.0); Hemoglobin 11.6 g/dL (12.0-15.0); Mean Corpuscular HGB Conc 32.5 g/dl (32-36); Mean Corpuscular Volume 86.2 fl (80-100); Mean Platelet Volume 10.9 fl (7.4-10.4); Platelet Count Result 235 k/mm3 (150-375); Red Blood Count 4.14 M/mm3 (4.2-5.4); Red Cell Distribution Width 14.5 % (11.5-14.5); White Blood Count 11.2 K/mm3 (4.5-10.0)
[2023-06-15 06:17] LABS: Alanine Aminotransferase 115 U/L (6-35); Albumin Level 3.1 g/dL (3.5-5.1); Alkaline Phosphatase 119 U/L (38-126); Anion Gap 5 mmol/L (4-12); Aspartate Amino Transferase 88 U/L (14-36); Bilirubin,Total 0.8 mg/dL (0.2-1.3); Blood Urea Nitrogen 25 mg/dL (7-17); Calcium 8.2 mg/dL (8.4-10.2); Carbon Dioxide 23 mmol/L (22-30); Chloride 105 mmol/L (98-107); Estimated CRCL calculation 126 ml/min; Estimated Glomerular Filt Rate > 60; Glucose 153 mg/dL (65-110); Potassium 3.4 mmol/L (3.4-5.0); Sodium 133 mmol/L (137-145)
[2023-06-15 08:10] LABS: Band Neutrophils Percent 41 % (0-6); Eosinophils Absolute Manual 0.22 K/mm3 (0.02-0.50); Eosinophils Percent Manual 2 % (0-4); Lymphocytes Absolute Manual 1.79 K/mm3 (1.1-4.5); Monocytes Absolute Manual 1.45 K/mm3 (0.1-0.90); Monocytes Percent Manual 13 % (3-9); Neutrophils Absolute Manual 7.72 K/mm3 (1.7-7.2); Neutrophils Percent Manual 28 % (46-73); Total Cells Counted 100
[2023-06-15 08:11] LABS: Platelet Estimate Adequate (Adequate); Schistocytes None Seen
[2023-06-15 08:12] LABS: Burr Cells 1+
[2023-06-15] MEDS: HYDROmorphone HCL INJ (*CRX) 1 MG/ML SYR IV PUSH ×4 (08:13→20:48)
--- NOTE | 2023-06-15 08:31 | WPDGICN ---
Assessment and Plan Assessment and plan (1) Abdominal pain, bilateral lower quadrant: Code(s): R10.31 - Right lower quadrant pain; R10.32 - Left lower quadrant pain Status: Acute (2) C. difficile colitis: Code(s): A04.72 - Enterocolitis due to Clostridium difficile, not specified as recurrent Status: Acute (3) Normocytic anemia: Code(s): D64.9 - Anemia, unspecified Status: Acute (4) Elevated liver transaminase level: Code(s): R74.01 - Elevation of levels of liver transaminase levels Status: Acute (5) Hyponatremia: Code(s): E87.1 - Hypo-osmolality and hyponatremia Status: Acute (6) Abdominal distention: Code(s): R14.0 - Abdominal distension (gaseous) Status: Acute (7) Large bowel obstruction: Code(s): K56.609 - Unspecified intestinal obstruction, unspecified as to partial versus complete obstruction Status: Acute Plan 1) BLQ abdominal pain/ abdominal distention/ Abnormal imaging digestive/ C-Diff colitis/ concern for large bowel obstruction: Last colonoscopy > 7 years ago Per patient she was diagnosed with diverticulosis at that time. Family history negative for CRC or IBD. No primary GI provider. Acute onset of lower abdominal pain that started Thursday. Recently diagnosed with COVID after and was having diarrhea since then with more than 5 liquid BM's per day. Treated with Augmentin for URI. CT on admission showed distal colitis and small fat containing umbilical and moderate-sized ventral hernias. Stool studies noted to be positive for C diff 13. Repeat CT this morning showed extensive distention of the small bowel transition point in the distal sigmoid colon, with extensive wall thickening of the rectum at this region. Patient has significant abdominal distention and generalized tenderness to palpation. Patient states she has been unable to pass gas but has been having excessive belching. She had a small amount of yellow stool this morning but does not feel like she is completely evacuating. Admits to excessive NSAID use taking Aleve and ibuprofen multiple times daily over the past few weeks. Denies any aspirin or anticoagulant use. Denies any hematochezia or melena. -Continue antibiotics -Consult surgery -Unclear if acute inflammation is causing the bowel narrowing noted on CT but will try to hold off on endoscopy at this time given her increased risk for complication -Avoid narcotics -Keep patient NPO -If not done this admission, patient will need to have an outpatient colonoscopy once stable 2) Normocytic anemia: Labs today showed Hgb 12, Hct 36, MCV 86 and platelets 235. No signs of active GI bleeding at this time. -May be dilational -Primary care team to continue monitoring and transfuse as needed to keep Hgb > 7 3) Elevated liver transaminase: No prior history of liver disease or transaminase elevation. Normal appearing liver on CT. Labs today showed normal bilirubin and alkaline phosphatase, AST 88, ALT 115, albumin 3.1. -Likely acute elevation secondary to infection vs medication -If transaminase continue to increase will consider liver workup 4) Hyponatremia: Mild with sodium at 133. -May be secondary to GI fluid loss -Primary care team to continue monitoring and correct GI Consult Note Consult date/time: 06/15/23 08:31 HPI: Felipa Kendall is a 58 year old female who presented to the ER with complaints of lower abdominal pain. Past medical surgical history includes hypertension, cholecystectomy and diverticulosis. GI consulted for C-Diff. Patient seen with mother, daughter and son in law at [facility] throughout the entire visit. Patient with an acute onset of lower abdominal pain starting yesterday afternoon after eating a cheeseburger. Pain was occurring in both the left and right lower quadrant pain radiating to her lower back. Prior history of diverticulosis noted on colonoscopy performed greater
--- NOTE | 2023-06-15 08:45 | PC.NURSE ---
To CT per hospital bed.
[2023-06-15] MEDS: LOSARTAN POTASSIUM 50 MG TABLET PO (09:12)
[2023-06-15] MEDS: ENOXAPARIN 40 MG/0.4 ML SYRINGE SUB-Q (09:12)
[2023-06-15] MEDS: FIDAXOMICIN 200 MG TABLET PO ×2 (09:12→20:48)
[2023-06-15] MEDS: SODIUM CHLORIDE 0.9% IV 1,000 ML 125 ML IV CONT (10:08)
[2023-06-15] MEDS: ONDANSETRON INJ 4 MG/2 ML VIAL IV PUSH (11:20)
--- NOTE | 2023-06-15 12:13 | PC.NURSE ---
To radiology per hospital bed,
--- NOTE | 2023-06-15 12:34 | PM.IMPN ---
Progress Note: A&P Assessment and Plan (1) Colitis: Code(s): K52.9 - Noninfective gastroenteritis and colitis, unspecified Status: Acute Assessment and Plan: Patient complaining of abdominal pain. CT of the abdomen pelvis shows distal colitis which could be infectious versus inflammatory, small fat containing umbilical and moderate-sized infraumbilical ventral hernias, uterine fibroid Initial white blood cell count 25.2 with left shift Continue with IV fluids @100 cc/hr Continue with pain control C Diff positive and Dificid started (cefepime and Flagyl discontinued) Stool cultures pending. 06/14 CT abdomen pelvis showing distension of large bowel. Extensive wall thickening of the rectum causing partial large bowel obstruction. GI consult and they recommended a general surgery consult. General surgery recommending in a for partial large bowel obstruction. Patient will need colonoscopy as an outpatient once she is healed. NPO diet. (2) Bandemia: Code(s): D72.825 - Bandemia Status: Acute Assessment and Plan: 06/12 WBC count 25.2, band count 21 06/13 WBC count 11.8, band count 52 (3) Leukocytosis: Qualifiers: Leukocytosis type: unspecified Qualified Code(s): D72.829 - Elevated white blood cell count, unspecified Code(s): D72.829 - Elevated white blood cell count, unspecified Status: Acute Assessment and Plan: WBC count 25.2 -> 11.8 -> 11.2 (4) Abdominal pain: Qualifiers: Abdominal location: lower abdomen, unspecified Qualified Code(s): R10.30 - Lower abdominal pain, unspecified Code(s): R10.9 - Unspecified abdominal pain Status: Acute Assessment and Plan: Likely due to C. diff infection [place] 5-325 q4h pain 4-6 Dilaudid 1 mg ordered q3h for pain rated 7-10 (5) Hypertension: Code(s): I10 - Essential (primary) hypertension Status: Acute Assessment and Plan: Continue Losartan Subjective Date/time seen: 06/15/23 12:34 Interval history: Patient in an extensive amount of pain. She has abdominal distension and tenderness. She is belching quite a bit but not passing any gas. She is having small amount of stool production and describes it as yellow. She continues to have nausea with vomiting yellow bile. GI consult the patient today. After GI saw the patient general surgery was then consulted due to patient's partial large bowel obstruction. Exam Narrative: GENERAL: Uncomfortable, visilely in pain HENMT: moist mucous membranes EYES: EOM intact b/l NECK: no lymphadenopathy RESPIRATORY: clear to auscultation, no increased respiratory effort CARDIO: Regular rate and rhythm GI: distention, diffuse tenderness, hypoactive bowel sounds SKIN/EXTREMITIES: no rashes, no edema, no redness or tenderness NEURO: PROM intact, answers questions appropriately, A&O x4 Objective Data Vital Signs Vital Signs: Vital Signs - 24 hr 06/14/23 15:44 06/14/23 14:00 06/14/23 22:00 Temperature 97.8 F 98.3 F Pulse Rate 98 105 H Respiratory Rate 22 H 22 H Blood Pressure 137/78 136/84 Pulse Oximetry 96 98 97 Oxygen Delivery Room Air 06/14/23 20:00 06/15/23 05:50 06/15/23 08:00 Temperature 97.4 F L Pulse Rate 98 Respiratory Rate 12 Blood Pressure 142/79 H Pulse Oximetry 97 Oxygen Delivery Room Air Room Air Intake/Output Intake/Output: Intake & Output 06/12/23 06/13/23 06/14/23 06/15/23 23:59 23:59 23:59 23:59 Intake Total 3035.4 3062 1550 Balance 3035.4 3062 1550 Meds/Results Medications: Active Medications Generic Name Dose Route Start Last Admin Trade Name Freq PRN Reason Stop Dose Admin Acetaminophen 650 mg 06/13/23 13:05 06/13/23 15:31 Acetaminophen 325 Mg Tablet PO 650 mg Q4H PRN Administration Mild Pain (1-3) or Fever Hydrocodone Bitart/Acetaminophen 1 tab 06/14/23 12:28 06/14/23 21:34 [place]
--- NOTE | 2023-06-15 13:02 | PC.NURSE ---
Returned to room per hospital bed from Radiology.
--- NOTE | 2023-06-15 13:14 | PM.CNGS ---
Assessment and Plan Assessment and plan (1) Large bowel obstruction: Code(s): K56.609 - Unspecified intestinal obstruction, unspecified as to partial versus complete obstruction Status: Acute Assessment and Plan: Repeat CT today showed possible large bowel obstruction. Bowel function slowed since yesterday and no longer having diarrhea today. Abdominal distention is worse and still having nausea and vomiting today. Recommended NG tube placement, patient refused at this time. Keep NPO with IV fluids. GI consulted, no plans for endoscopic evaluation at this time. Will order Hypaque enema now to further evaluate the possible large bowel obstruction. Discussed with nursing to place NG if patient is agreeable after Hypaque enema. Further plan depending on imaging. (2) C. difficile colitis: Code(s): A04.72 - Enterocolitis due to Clostridium difficile, not specified as recurrent Status: Acute Assessment and Plan: Continue abx, GI consulted, trend labs (3) Hypertension: Code(s): I10 - Essential (primary) hypertension Status: Chronic Plan I have discussed the patient's case and plan of care with Dr. Arndt. Thank you for allowing us to see the patient in consultation and we will continue to follow along with you. History of Present Illness Consult details Consult date: 06/15/23 Reason for consult: other (Large bowel obstruction) Requesting physician: Lindsey Olvera, NORA Narrative: This is a 58-year-old woman with a history of hypertension, who we have been asked to see in surgical consultation for a large bowel obstruction. She presented to the ER 2 days ago with complaints of lower abdominal pain. She was recently treated with a course of Augmentin for an upper respiratory infection. She began to notice lower abdominal pain, bloating, nausea, and vomiting. Workup in the ER showed [place]ocytosis [place] [id number] scan of the abdomen and pelvis showed distal colitis, small fat containing umbilical and moderate-sized infraumbilical ventral hernias, and uterine fibroid. She was admitted. Stool studies showed she was positive for C diff. She is currently on fidaxomicin. Her abdominal pain and bloating has gotten progressively worse over the last 2 days. She feels more distended. She was in the bathroom dry heaving prior to my evaluation. She had a repeat CT scan today that showed extensive distention of large bowel with transition point in the distal sigmoid colon with extensive wall thickening of the rectum at this region, could be acute infectious/inflammatory distal sigmoid/rectal colitis versus possibly chronic stricture or underlying neoplasm resulting in partial large bowel obstruction. Probable mild wall thickening of the distended portions of large bowel, which could reflect superimposed mild infectious/infarct or colitis. GI has been consulted and recommended continuing antibiotics and surgery consult. They are not planning endoscopy at this time. She was seen on the medical floor and feels like her abdominal pain has gotten worse since being admitted. She reports over 10 liquid stools yesterday. She feels like she is not completely evacuating. Today, she had tiny pebble like stools. Denies any blood in her stool. White blood cell count trending down to 11,000 today. Lactic acid on admission was normal. Review of Systems Review of Systems: All systems reviewed & are unremarkable except as noted in HPI and below PMFSH Past Medical History Medical History Diverticulosis Hypertension Surgical History Surgical History History of delivery History of cholecystectomy Family History Family History Father Family history of alcoholism Family history of diabetes mellitus in first degree rela
[2023-06-15 14:00] VITALS: BP 150/75; PULSE 95; RESP 20; TEMP 36.6; O2SAT 100
[2023-06-15] MEDS: SALINE LOCK FLUSH 10 ML IV PUSH (20:50)
[2023-06-15 21:10] VITALS: BP 126/64; PULSE 100; RESP 18; TEMP 35.7; O2SAT 100
[2023-06-16] VITALS (7 sets, daily range): BP systolic 147–166; BP diastolic 75–96; PULSE 85–105; RESP 16–24; TEMP 35.6–37.2; O2SAT 96–100; BMI 29.5
[2023-06-16] MEDS: HYDROmorphone HCL INJ (*CRX) 1 MG/ML SYR IV PUSH ×5 (01:27→22:03)
[2023-06-16] MEDS: SALINE LOCK FLUSH 10 ML IV PUSH ×2 (06:05→16:05)
[2023-06-16] MEDS: SODIUM CHLORIDE 0.9% IV 1,000 ML 125 ML IV CONT (06:17)
[2023-06-16 07:06] LABS: Hematocrit 36.1 % (37.0-47.0); Hemoglobin 11.9 g/dL (12.0-15.0); Mean Corpuscular Hemoglobin 27.9 pg (26-34); Mean Corpuscular Volume 84.5 fl (80-100); Platelet Count Result 315 k/mm3 (150-375); Red Blood Count 4.27 M/mm3 (4.2-5.4); Red Cell Distribution Width 14.9 % (11.5-14.5); White Blood Count 13.1 K/mm3 (4.5-10.0)
[2023-06-16 07:17] LABS: Alanine Aminotransferase 233 U/L (6-35); Alkaline Phosphatase 187 U/L (38-126); Anion Gap 7 mmol/L (4-12); Aspartate Amino Transferase 143 U/L (14-36); Bilirubin,Total 0.8 mg/dL (0.2-1.3); Blood Urea Nitrogen 29 mg/dL (7-17); Calcium 8.1 mg/dL (8.4-10.2); Carbon Dioxide 22 mmol/L (22-30); Chloride 106 mmol/L (98-107); Estimated CRCL calculation 126 ml/min; Estimated Glomerular Filt Rate > 60; Glucose 144 mg/dL (65-110); Magnesium 2.8 mg/dL (1.6-2.3); Potassium 3.4 mmol/L (3.4-5.0); Sodium 135 mmol/L (137-145)
[2023-06-16 07:25] LABS: Lactic Acid Reflex 1.2 mmol/L (0.7-2.0)
[2023-06-16 07:57] LABS: Band Neutrophils Percent 47 % (0-6); Eosinophils Absolute Manual 0.39 K/mm3 (0.02-0.50); Eosinophils Percent Manual 3 % (0-4); Lymphocytes Absolute Manual 2.09 K/mm3 (1.1-4.5); Monocytes Absolute Manual 1.57 K/mm3 (0.1-0.90); Monocytes Percent Manual 12 % (3-9); Neutrophils Absolute Manual 9.03 K/mm3 (1.7-7.2); Neutrophils Percent Manual 22 % (46-73); Platelet Estimate Adequate (Adequate); Schistocytes None Seen; Total Cells Counted 100
[2023-06-16] MEDS: diphenhydrAMINE HCl INJ 50 MG/ML VIAL IV PUSH (10:19)
--- NOTE | 2023-06-16 12:57 | P.PNIM_ITS ---
Progress Note: A&P Assessment and Plan (1) Colitis: Code(s): K52.9 - Noninfective gastroenteritis and colitis, unspecified Status: Acute Assessment and Plan: Patient complaining of abdominal pain. CT of the abdomen pelvis shows distal colitis which could be infectious versus inflammatory, small fat containing umbilical and moderate-sized infraumbilical ventral hernias, uterine fibroid * Initial white blood cell count 25.2 with left shift * Continue with IV fluids @100 cc/hr * Continue with pain control * C Diff positive and Dificid started (cefepime and Flagyl discontinued) * Stool cultures pending. * 06/14 CT abdomen pelvis showing distension of large bowel. Extensive wall thickening of the rectum causing partial large bowel obstruction. * GI consult and they recommended a general surgery consult. * General surgery consulted for partial large bowel obstruction. * Water-soluble enema revealing stricture of the sigmoid colon. * NPO diet. * 06/15 Plan for sigmoidoscopy this afternoon. * Monitor for signs of toxic megacolon * Surgery recommending starting TPN. (2) Bandemia: Code(s): D72.825 - Bandemia Status: Acute Assessment and Plan: * 06/12 WBC count 25.2, band count 21 * 06/13 WBC count 11.8, band count 52 * 06/15 WBC count 13.1, band count 47 (3) Leukocytosis: Qualifiers: Leukocytosis type: unspecified Qualified Code(s): D72.829 - Elevated white blood cell count, unspecified Code(s): D72.829 - Elevated white blood cell count, unspecified Status: Acute Assessment and Plan: * WBC count 25.2 -> 11.8 -> 11.2 -> 13.1 (4) Abdominal pain: Qualifiers: Abdominal location: lower abdomen, unspecified Qualified Code(s): R10.30 - Lower abdominal pain, unspecified Code(s): R10.9 - Unspecified abdominal pain Status: Acute Assessment and Plan: Likely due to C. diff infection * [employer] 5-325 q4h pain 4-6 * Dilaudid 1 mg ordered q3h for pain rated 7-10 (5) Hypertension: Code(s): I10 - Essential (primary) hypertension Status: Chronic Assessment and Plan: * Continue Losartan Subjective Date/time seen: 04/16/24 12:58 Interval history: Patient extremely uncomfortable and abdomen is distended when in the room. Peritoneal signs present. She is not passing any gas but is still having liquid bowel movements. After her enema yesterday she did not have any formed stool. Enema did show patient with a colonic stricture. She is planning to get sigmoidoscopy later this afternoon. Monitor for signs toxic megacolon. Exam Narrative: GENERAL: Uncomfortable, visilely in pain HENMT: moist mucous membranes EYES: EOM intact b/l NECK: no lymphadenopathy RESPIRATORY: clear to auscultation, no increased respiratory effort CARDIO: Regular rate and rhythm GI: distention, diffuse tenderness, hypoactive bowel sounds, peritoneal signs SKIN/EXTREMITIES: no rashes, no edema, no redness or tenderness NEURO: PROM intact, answers questions appropriately, A&O x4 Objective Data Vital Signs Vital Signs: Vital Signs - 24 hr 06/15/23 14:00 06/15/23 21:10 06/15/23 20:00 Temperature 97.8 F 96.3 F L Pulse Rate 95 100 Respiratory Rate 20 18 Blood Pressure 150/75 H 126/64 Pulse Oximetry 100 100 Oxygen Delivery Room Air
--- NOTE | 2023-06-16 12:57 | PM.IMPN ---
Progress Note: A&P Assessment and Plan (1) Colitis: Code(s): K52.9 - Noninfective gastroenteritis and colitis, unspecified Status: Acute Assessment and Plan: Patient complaining of abdominal pain. CT of the abdomen pelvis shows distal colitis which could be infectious versus inflammatory, small fat containing umbilical and moderate-sized infraumbilical ventral hernias, uterine fibroid Initial white blood cell count 25.2 with left shift Continue with IV fluids @100 cc/hr Continue with pain control C Diff positive and Dificid started (cefepime and Flagyl discontinued) Stool cultures pending. 06/14 CT abdomen pelvis showing distension of large bowel. Extensive wall thickening of the rectum causing partial large bowel obstruction. GI consult and they recommended a general surgery consult. General surgery consulted for partial large bowel obstruction. Water-soluble enema revealing stricture of the sigmoid colon. NPO diet. 06/15 Plan for sigmoidoscopy this afternoon. Monitor for signs of toxic megacolon Surgery recommending starting TPN. (2) Bandemia: Code(s): D72.825 - Bandemia Status: Acute Assessment and Plan: 06/12 WBC count 25.2, band count 21 06/13 WBC count 11.8, band count 52 06/15 WBC count 13.1, band count 47 (3) Leukocytosis: Qualifiers: Leukocytosis type: unspecified Qualified Code(s): D72.829 - Elevated white blood cell count, unspecified Code(s): D72.829 - Elevated white blood cell count, unspecified Status: Acute Assessment and Plan: WBC count 25.2 -> 11.8 -> 11.2 -> 13.1 (4) Abdominal pain: Qualifiers: Abdominal location: lower abdomen, unspecified Qualified Code(s): R10.30 - Lower abdominal pain, unspecified Code(s): R10.9 - Unspecified abdominal pain Status: Acute Assessment and Plan: Likely due to C. diff infection [place] 5-325 q4h pain 4-6 Dilaudid 1 mg ordered q3h for pain rated 7-10 (5) Hypertension: Code(s): I10 - Essential (primary) hypertension Status: Chronic Assessment and Plan: Continue Losartan Subjective Date/time seen: 06/16/23 12:58 Interval history: Patient extremely uncomfortable and abdomen is distended when in the room. Peritoneal signs present. She is not passing any gas but is still having liquid bowel movements. After her enema yesterday she did not have any formed stool. Enema did show patient with a colonic stricture. She is planning to get sigmoidoscopy later this afternoon. Monitor for signs toxic megacolon. Exam Narrative: GENERAL: Uncomfortable, visilely in pain HENMT: moist mucous membranes EYES: EOM intact b/l NECK: no lymphadenopathy RESPIRATORY: clear to auscultation, no increased respiratory effort CARDIO: Regular rate and rhythm GI: distention, diffuse tenderness, hypoactive bowel sounds, peritoneal signs SKIN/EXTREMITIES: no rashes, no edema, no redness or tenderness NEURO: PROM intact, answers questions appropriately, A&O x4 Objective Data Vital Signs Vital Signs: Vital Signs - 24 hr 06/15/23 14:00 06/15/23 21:10 06/15/23 20:00 Temperature 97.8 F 96.3 F L Pulse Rate 95 100 Respiratory Rate 20 18 Blood Pressure 150/75 H 126/64 Pulse Oximetry 100 100 Oxygen Delivery Room Air 06/16/23 05:00 06/16/23 08:00 Temperature 96.1 F L Pulse Rate 85 Respiratory Rate 20 Blood Pressure 166/91 H Pulse Oximetry 97 Oxygen Delivery Room Air Intake/Output Intake/Output: Intake & Output 06/13/23 06/14/23 06/15/23 06/16/23 23:59 23:59 23:59 23:59 Intake Total 3035.4 3062 3100 Balance 3035.4 3062 3100 Meds/Results Medications: Active Medications Generic Name Dose Route Start Last Admin Trade Name Justusq PRN Reason Stop Dose Admin Acetaminophen 650 mg 06/13/23 13:05 06/13/23 15:31 Acetaminophen 325 Mg Tablet PO 650 mg Q4H PRN Administrat
--- NOTE | 2023-06-16 12:58 | PM.PNGS ---
Progress Note: A&P Assessment and Plan (1) Large bowel obstruction: Code(s): K56.609 - Unspecified intestinal obstruction, unspecified as to partial versus complete obstruction Status: Acute Assessment and Plan: Hypaque enema showed high-grade stenosis at the junction of the descending and sigmoid, raising concern for malignancy or other inflammatory stricture. We spoke with GI, who is planning sigmoidoscopy today to further evaluate. Will await these results. Patient refused NG tube, continue bowel rest, IV fluids. Recommend starting Clinimix/TPN as she has been about 5 days without nutrition and will not have any oral intake again today. (2) C. difficile colitis: Code(s): A04.72 - Enterocolitis due to Clostridium difficile, not specified as recurrent Status: Acute Assessment and Plan: Continue abx Plan I have discussed the patient's case and plan of care with Dr. Arndt. Subjective Subjective Date/Time Seen: 06/16/23 12:58 Patient reports: still having pain Interval history: Patient seen today and appears more comfortable than when I saw her yesterday. No more vomiting, but still feels nauseous. She refused NG tube placement. She reports lots of belching. Still not passing any gas. She does report having about 6 very tiny heart/yellow liquid stools in the past 12 hours. She does not feel like she is evacuating. She feels like her abdominal distension and pain is worse today. She is also complaining of generalized weakness. WBC up slightly to 13,000, lactic acid normal today. Exam Const: General: no acute distress and uncomfortable Orientation/consciousness: patient oriented x3 GI: Inspection: distended and other (raised red scattered rash around the RUQ and RLQ) GI Palp: Yes Soft to palpation, Yes Tenderness to palpation present (GI) (diffusely tender), No Guarding due to palpation present (GI) and No Rebound tenderness present Percussion: Yes tympanic to percussion Auscultation: absent bowel sounds Objective Data Vital Signs Vital Signs: Vital Signs - 24 hr 06/15/23 14:00 06/15/23 21:10 06/15/23 20:00 Temperature 97.8 F 96.3 F L Pulse Rate 95 100 Respiratory Rate 20 18 Blood Pressure 150/75 H 126/64 Pulse Oximetry 100 100 Oxygen Delivery Room Air 06/16/23 05:00 06/16/23 08:00 Temperature 96.1 F L Pulse Rate 85 Respiratory Rate 20 Blood Pressure 166/91 H Pulse Oximetry 97 Oxygen Delivery Room Air Intake/Output Intake/Output: Intake & Output 06/13/23 06/14/23 06/15/23 06/16/23 23:59 23:59 23:59 23:59 Intake Total 3035.4 3062 3100 Balance 3035.4 3062 3100 Meds/Results Medications: Active Medications Generic Name Dose Route Start Last Admin Trade Name Freq PRN Reason Stop Dose Admin Acetaminophen 650 mg 06/13/23 13:05 06/13/23 15:31 Acetaminophen 325 Mg Tablet PO 650 mg Q4H PRN Administration Mild Pain (1-3) or Fever Hydrocodone Bitart/Acetaminophen 1 tab 06/14/23 12:28 06/14/23 21:34 Hydrocodone/Acetaminophen (*Crx) 5-325 Mg Tablet PO 1 tab Q4H PRN Administration Pain Rated 4-6 Dicyclomine HCl 20 mg 06/14/23 11:22 06/14/23 13:32 Dicyclomine Hcl 10 Mg Capsule PO 20 mg QID PRN Administration Abdominal Cramping Enoxaparin Sodium 40 mg 06/14/23 09:00 06/15/23 09:12 Enoxaparin 40 Mg/0.4 Ml Syringe SUB-Q 40 mg DAILY BISMARK Administration Fidaxomicin 200 mg 06/13/23 21:00 06/15/23 20:48 Fidaxomicin 200 Mg Tablet PO 200 mg Q12HR BISMARK Administration Hydromorphone HCl 1 mg 06/13/23 14:43 06/16/23 09:56 Hydromorphone Hcl Inj (*Crx) 1 Mg/Ml Syr IV PUSH 1 mg Q3H PRN Administration Pain Rated 7-10 Sodium Chloride 1,000 mls @ 100 mls/hr 06/13/23 11:55 06/16/23 08:30 Normal Saline Iv IV CONT Not Given .Q10H BISMARK Loperamide HCl 2 mg 06/14/23 11:23 Loperamide Hcl 2 Mg Capsule PO PRN PRN Diarrhea Losartan Potassium 50 mg
--- NOTE | 2023-06-16 13:30 | PC.NURSE ---
To GI lab per tim.
[2023-06-16] MEDS: LACTATED RINGERS 1,000 ML 150 ML IV CONT (14:03)
--- NOTE | 2023-06-16 14:08 | WPDANESEPPF ---
Anes - Initial Pre Proc Eval Procedure: Operation Date: 06/16/23 15:30 Proposed Procedures p Sigmoidoscopy - Parrish Farris MD Date/Time: 06/16/23 14:08 Surgeon: Shiraz Kurtz MD Pre Op Diagnosis: Colitis/Abdomen/Leukocytosis Patient Data Age: 58 Gender: F Height: 1.75 m Weight: 90.9 kg Last Vital Signs Temp 98.9 F 06/16/23 14:00 Pulse 102 H 06/16/23 14:00 Resp 20 06/16/23 14:00 BP 161/96 H 06/16/23 14:00 Pulse Ox 98 06/16/23 14:00 O2 Del Method Room Air 06/16/23 14:00 Allergies Allergy/AdvReac Type Severity Reaction Status Date / Time No Known Allergies Allergy Unknown Unverified 06/16/23 13:59 Home Medications Medication Instructions Recorded Confirmed Type losartan 50 mg tablet 50 mg PO DAILY 06/13/23 06/13/23 History Laboratory Tests 06/16/23 06:47 WBC 13.1 H K/mm3 (4.5-10.0) RBC 4.27 M/mm3 (4.2-5.4) Hgb 11.9 L g/dL (12.0-15.0) Hct 36.1 L % (37.0-47.0) MCV 84.5 fl (80-100) MCH 27.9 pg (26-34) MCHC 33.0 g/dl (32-36) RDW 14.9 H % (11.5-14.5) Plt Count 315 k/mm3 (150-375) MPV 11.0 H fl (7.4-10.4) Immature Gran % (Auto) Not Reportable Neut % (Auto) Not Reportable Lymph % (Auto) Not Reportable [place] % (Auto) Not Reportable Eos % (Auto) Not Reportable Baso % (Auto) Not Reportable Lymph # (Auto) Not Reportable [place] # (Auto) Not Reportable Eos # (Auto) Not Reportable Baso # (Auto) Not Reportable Abs Immat Gran (auto) Not Reportable Absolute Neuts (auto) Not Reportable Absolute Nucleated RBC Not Reportable Total Counted 100 Neutrophils % (Manual) 22 L % (46-73) Band Neutrophils % 47 H % (0-6) Lymphocytes % (Manual) 16.0 L % (18-44) Monocytes % (Manual) 12 H % (3-9) Eosinophils % (Manual) 3 % (0-4) Nucleated RBC % Not Reportable Abs Neuts (Manual) 9.03 H K/mm3 (1.7-7.2) Abs Lymphs (Manual) 2.09 K/mm3 (1.1-4.5) Abs Monocytes (Manual) 1.57 H K/mm3 (0.1-0.90) Absolute Eos (Manual) 0.39 K/mm3 (0.02-0.50) Platelet Estimate Adequate (Adequate) Schistocytes None seen Sodium 135 L mmol/L (137-145) Potassium 3.4 mmol/L (3.4-5.0) Chloride 106 mmol/L (98-107) Carbon Dioxide 22 mmol/L (22-30) Anion Gap 7 mmol/L (4-12) BUN 29 H mg/dL (7-17) Creatinine 0.50 L mg/dL (0.7-1.0) Estim Creat Clear Calc 126 ml/min Estimated GFR > 60 (59 - ) Glucose 144 H mg/dL (65-110) Lactic Acid 1.2 mmol/L (0.7-2.0) Calcium 8.1 L mg/dL (8.4-10.2) Magnesium 2.8 H mg/dL (1.6-2.3) Total Bilirubin 0.8 mg/dL (0.2-1.3) AST 143 H U/L (14-36) ALT 233 H U/L (6-35) Alkaline Phosphatase 187 H U/L (38-126) Total Protein 6.0 L g/dL (6.3-8.2) Albumin 3.0 L g/dL (3.5-5.1) Patient hx anesthesia problems: none Family hx anesthesia problems: none Results Review: All pre-operative results and documents have been reviewed as part of the pre-operative evaluation. [facility] Past Medical History Medical History Diverticulosis Hypertension Surgical History Surgical History History of delivery History of cholecystectomy Family History Family History Father Family history of alcoholism Family history of diabetes mellitus in first degree relative Family history of malignant neoplasm of brain Social History Social History Smoking status: Never smoker Alcohol intake: never Substance use: never Do You Feel Safe in your Home?: Yes Lack of Transportation: No Lack of Food: Never True Current Housing: I Have Housing Concerned Abou
--- NOTE | 2023-06-16 15:38 | PC.NURSE ---
Returned to room per stretcher from GI Lab.
[2023-06-16] MEDS: LOSARTAN POTASSIUM 50 MG TABLET PO (16:04)
[2023-06-16] MEDS: ENOXAPARIN 40 MG/0.4 ML SYRINGE SUB-Q (16:05)
[2023-06-16] MEDS: FIDAXOMICIN 200 MG TABLET PO (16:05)
[2023-06-16] MEDS: FAT EMULSIONS IV 20% 250 ML 20.83 ML IVPB (16:05)
[2023-06-16] MEDS: metroNIDAZOLE 500 MG/ISO 100ML 500 MG/100 ML BAG 100 MG IVPB ×2 (16:12→22:06)
[2023-06-16] MEDS: AMINO ACIDS 4.25%/D5W/LYTES/CA 2,000 ML 80 ML IV CONT (17:38)
[2023-06-16 18:28] LABS: Glucose Point of Care 138 mg/dl (65-105)
[2023-06-16 23:32] LABS: Hematocrit 36.4 % (37.0-47.0); Hemoglobin 11.8 g/dL (12.0-15.0); Mean Corpuscular HGB Conc 32.4 g/dl (32-36); Mean Corpuscular Hemoglobin 27.9 pg (26-34); Mean Corpuscular Volume 86.1 fl (80-100); Mean Platelet Volume 10.9 fl (7.4-10.4); Platelet Count Result 323 k/mm3 (150-375); Red Blood Count 4.23 M/mm3 (4.2-5.4); Red Cell Distribution Width 14.9 % (11.5-14.5); White Blood Count 17.2 K/mm3 (4.5-10.0)
[2023-06-16 23:42] LABS: Alanine Aminotransferase 179 U/L (6-35); Albumin Level 2.9 g/dL (3.5-5.1); Alkaline Phosphatase 156 U/L (38-126); Anion Gap 7 mmol/L (4-12); Aspartate Amino Transferase 60 U/L (14-36); Bilirubin,Total 0.4 mg/dL (0.2-1.3); Blood Urea Nitrogen 31 mg/dL (7-17); Calcium 8.2 mg/dL (8.4-10.2); Carbon Dioxide 23 mmol/L (22-30); Chloride 105 mmol/L (98-107); Estimated CRCL calculation 167 ml/min; Estimated Glomerular Filt Rate > 60; Glucose 158 mg/dL (65-110); Magnesium 2.7 mg/dL (1.6-2.3); Partial Thromboplastin Time 25.4 Seconds (22.3-36.8); Potassium 3.2 mmol/L (3.4-5.0); Sodium 135 mmol/L (137-145)
[2023-06-16 23:49] LABS: Transferrin 144 mg/dL (206-381)
[2023-06-16 23:55] LABS: Band Neutrophils Percent 27 % (0-6); Lymphocytes Absolute Manual 2.23 K/mm3 (1.1-4.5); Metamyelocytes Percent 1 %; Monocytes Absolute Manual 0.86 K/mm3 (0.1-0.90); Monocytes Percent Manual 5 % (3-9); Neutrophils Absolute Manual 13.93 K/mm3 (1.7-7.2); Neutrophils Percent Manual 54 % (46-73); Platelet Estimate Adequate (Adequate); Total Cells Counted 100
[2023-06-16 23:58] LABS: Anisocytosis 1+; Burr Cells 1+; Hypochromasia 1+; Schistocytes None Seen
[2023-06-17 00:14] LABS: Glucose Point of Care 161 mg/dl (65-105)
[2023-06-17] MEDS: DICYCLOMINE HCL 10 MG CAPSULE 20 MG PO ×3 (01:50→20:50)
[2023-06-17] MEDS: HYDROcodone/acetaminophen (*CRX) 5-325 MG TABLET 1 TAB PO ×3 (04:39→12:55)
[2023-06-17] MEDS: hydrOXYzine HCl 50 MG/ML VIAL IM (04:39)
[2023-06-17] MEDS: FIDAXOMICIN 200 MG TABLET PO (04:40)
[2023-06-17] MEDS: HYDROmorphone HCL INJ (*CRX) 1 MG/ML SYR IV PUSH ×4 (05:43→20:35)
[2023-06-17] MEDS: metroNIDAZOLE 500 MG/ISO 100ML 500 MG/100 ML BAG 100 MG IVPB ×3 (05:44→20:53)
[2023-06-17 06:00] VITALS: BP 146/80; PULSE 103; RESP 14; TEMP 36.5; O2SAT 97
[2023-06-17 06:32] LABS: Hematocrit 36.4 % (37.0-47.0); Mean Corpuscular Hemoglobin 27.7 pg (26-34); Mean Corpuscular Volume 84.1 fl (80-100); Mean Platelet Volume 10.9 fl (7.4-10.4); Platelet Count Result 316 k/mm3 (150-375); Red Blood Count 4.33 M/mm3 (4.2-5.4); White Blood Count 20.2 K/mm3 (4.5-10.0)
[2023-06-17 06:40] LABS: Lactic Acid Reflex 1.2 mmol/L (0.7-2.0)
[2023-06-17 06:41] LABS: Anion Gap 4 mmol/L (4-12); Blood Urea Nitrogen 30 mg/dL (7-17); Calcium 8.2 mg/dL (8.4-10.2); Carbon Dioxide 25 mmol/L (22-30); Chloride 103 mmol/L (98-107); Estimated CRCL calculation 167 ml/min; Estimated Glomerular Filt Rate > 60; Glucose 150 mg/dL (65-110); Phosphorus 1.5 mg/dL (2.5-4.5); Potassium 3.2 mmol/L (3.4-5.0); Sodium 132 mmol/L (137-145)
[2023-06-17] MEDS: POTASSIUM CHLORIDE INJ 40 MEQ in SODIUM CHLORIDE 0.9% IV 500 ML 130 MEQ IVPB (06:46)
[2023-06-17] MEDS: SALINE LOCK FLUSH 10 ML IV PUSH ×2 (06:47→20:53)
--- NOTE | 2023-06-17 07:25 | WPDANESPN ---
Anes - Prog Note Post-Op Date/Time: 06/17/23 07:25 Cardiovascular status: normal Respiratory status: normal Airway patency: baseline Mental status: baseline Post-Op hydration status: normal Vital Signs: Last Vital Signs Temp 97.7 F 06/17/23 06:00 Pulse 103 H 06/17/23 06:00 Resp 14 06/17/23 06:00 BP 146/80 H 06/17/23 06:00 Pulse Ox 97 06/17/23 06:00 O2 Del Method Room Air 06/16/23 20:00 Pain Score (VAS): 0/10 I/O: Intake & Output 06/16/23 06/16/23 06/17/23 15:59 23:59 07:59 Intake Total 0 200 Balance 0 200 Laboratory Tests 06/17/23 06:01 06/17/23 06:01 06/16/23 06/16/23 06/16/23 06:47 18:25 23:18 WBC 13.1 H 17.2 H RBC 4.27 4.23 Hgb 11.9 L 11.8 L Hct 36.1 L 36.4 L MCV 84.5 86.1 MCH 27.9 27.9 MCHC 33.0 32.4 RDW 14.9 H 14.9 H Plt Count 315 323 MPV 11.0 H 10.9 H Immature Gran % (Auto) Not Reportable Not Reportable Neut % (Auto) Not Reportable Not Reportable Lymph % (Auto) Not Reportable Not Reportable [place] % (Auto) Not Reportable Not Reportable Eos % (Auto) Not Reportable Not Reportable Baso % (Auto) Not Reportable Not Reportable Lymph # (Auto) Not Reportable Not Reportable [place] # (Auto) Not Reportable Not Reportable Eos # (Auto) Not Reportable Not Reportable Baso # (Auto) Not Reportable Not Reportable Abs Immat Gran (auto) Not Reportable Not Reportable Absolute Neuts (auto) Not Reportable Not Reportable Absolute Nucleated RBC Not Reportable Not Reportable Total Counted 100 100 Neutrophils % (Manual) 22 L 54 Band Neutrophils % 47 H 27 H Lymphocytes % (Manual) 16.0 L 13.0 L Monocytes % (Manual) 12 H 5 Eosinophils % (Manual) 3 Metamyelocytes % 1 Nucleated RBC % Not Reportable Not Reportable Abs Neuts (Manual) 9.03 H 13.93 H Abs Lymphs (Manual) 2.09 2.23 Abs Monocytes (Manual) 1.57 H 0.86 Absolute Eos (Manual) 0.39 Platelet Estimate Adequate Adequate Hypochromasia 1+ Anisocytosis 1+ [place] Cells 1+ Schistocytes None seen None seen APTT 25.4 Sodium 135 L Potassium 3.2 L Chloride 105 Carbon Dioxide 23 Anion Gap 7 BUN 31 H Creatinine 0.40 L Estim Creat Clear Calc 167 Estimated GFR > 60 Glucose 158 H POC Capillary Glucose 138 H Lactic Acid 1.2 Calcium 8.2 L Phosphorus Magnesium 2.7 H Transferrin 144 L Total Bilirubin 0.4 AST 60 H ALT 179 H Alkaline Phosphatase 156 H Total Protein 5.0 L Albumin 2.9 L 06/17/23 06/17/23 00:11 06:01 WBC 20.2 H RBC 4.33 Hgb 12.0 Hct 36.4 L MCV 84.1 MCH 27.7 MCHC 33.0 RDW 15.0 H Plt Count 316 MPV 10.9 H Immature Gran % (Auto) Neut % (Auto) Lymph % (Auto) [place] % (Auto) Eos % (Auto) Baso % (Auto) Lymph # (Auto) [place] # (Auto) Eos # (Auto) Baso # (Auto) Abs Immat Gran (auto) Absolute Neuts (auto) Absolute Nucleated RBC Total Counted Neutrophils % (Manual) Band Neutrophils % Lymphocytes % (Manual) Monocytes % (Manual) Eosinophils % (Manual) Metamyelocytes % Nucleated RBC % Abs Neuts (Manual) Abs Lymphs (Manual) Abs Monocytes (Manual) Absolute Eos (Manual) Platelet Estimate Hypochromasia Anisocytosis [place] Cells Schistocytes APTT Sodium 132 L Potassium 3.2 L Chloride 103 Carbon Dioxide 25 Anion Gap 4 BUN 30 H Creatinine 0.40 L Estim Creat Clear Calc 167 Estimated GFR > 60 Glucose 150 H POC Capillary Glucose 161 H Lactic Acid 1.2 Calcium 8.2 L Phosphorus 1.5 L Magnesium Transferrin Total Bilirubin AST ALT Alkaline Phosphatase Total Protein Albumin Microbiology 06/13/23 17:19 Stool Escherichia coli Shiga Toxins - Final 06/13/23 17:19 Stool Salmonella/Shigella Culture - Final 06/13/23 17:19 Stool Campylobacter Antigen Assay - Final Post-procedural complaints: none Patient Fe
--- NOTE | 2023-06-17 08:08 | PM.IMPN ---
Progress Note: A&P Assessment and Plan (1) Colitis: Code(s): K52.9 - Noninfective gastroenteritis and colitis, unspecified Status: Acute (2) Bandemia: Code(s): D72.825 - Bandemia Status: Acute (3) Leukocytosis: Qualifiers: Leukocytosis type: unspecified Qualified Code(s): D72.829 - Elevated white blood cell count, unspecified Code(s): D72.829 - Elevated white blood cell count, unspecified Status: Acute (4) Abdominal pain: Qualifiers: Abdominal location: lower abdomen, unspecified Qualified Code(s): R10.30 - Lower abdominal pain, unspecified Code(s): R10.9 - Unspecified abdominal pain Status: Acute (5) Hypertension: Code(s): I10 - Essential (primary) hypertension Status: Chronic (6) C. difficile colitis: Code(s): A04.72 - Enterocolitis due to Clostridium difficile, not specified as recurrent Status: Acute (7) Large bowel obstruction: Code(s): K56.609 - Unspecified intestinal obstruction, unspecified as to partial versus complete obstruction Status: Acute (8) Diverticulitis: Code(s): K57.92 - Diverticulitis of intestine, part unspecified, without perforation or abscess without bleeding Status: Acute Plan Diverticulitis/bowel obstruction/C diff colitis WBC trending up today 06/16 Continue with IV fluids @100 cc/hr Continue with pain control C Diff positive and Dificid started Flagyl/Zosyn IV IV fluids Stool cultures pending no growth 06/14? CT abdomen pelvis showing distension of large bowel.? Extensive wall thickening of the rectum causing partial large bowel obstruction. GI consult and they recommended a general surgery consult. General surgery consulted for partial large bowel obstruction. Water-soluble enema revealing stricture of the sigmoid colon. NPO diet. 06/15 Plan for sigmoidoscopy showed C diff colitis and diverticulitis. Monitor for signs of toxic megacolon TPN strated. PPI BID With worsening WBC and abdominal pain patient likely needs surgical intervention with a subtotal colectomy Attempting transfer for fecal transplant [facility] Hypertension Takes losartan at home currently NPO Will add hydralazine 20 mg IV for systolics over 160 until patient tolerating oral intake BP per unit protocol Code status: Full code per patient DVT prophylaxis: SCD Stress ulcer prophylaxis: Protonix 40 BID PT/OT notes: Pending Disposition: Patient continues admission for severe C diff colitis sigmoid stricture wbc's worsening when after antibiotic and medical treatment we will continue with NPO status and bowel rest will attempt to transfer for possible fecal transplant in attempt to avoid a partial colectomy. Time Spent With Patient Time with patient: 15 - 25 minutes Subjective Date/time seen: 06/17/23 08:08 Interval history: 06/16: Patient continues with ABD distention, pain and no BM or gas. Encouraged NG tube placement but patient still refusing. sigmoidoscopy performed yesterday that showed severe c-diff colitis unable to advance past the past the sigmoid colon, general surgery spoke with patient regarding the need for partial colectomy since no responce to medical treatment. The only other option would we a possible fecal transplant at a tertiary hospital as requested by patient she would like to try and avoid a partial colectomy. Spoke with [facility] transfer line, also called [facility] who stated they only do fecal transplants outpatient LM with office. WBC climbing 20.3 today switched PO vancomycin, IV flaygl and zosyn. Review of Systems Review of Systems: All systems reviewed & are unremarkable except as noted in HPI and below Exam Narrative: Physical Exam: GENERAL: Alert and oriented x 3. No acute distress. Well-nourished. EYES: EOMI. No scleral icterus. PERRLA. HEENT: Moist mucous membranes. LUNGS: Clear to auscultation bilaterally.
[2023-06-17] MEDS: PIPERACILLN/TAZ 3.375GM/NS50ML 3.375 GM/50 ML BAG IVPB ×2 (08:23→12:58)
[2023-06-17] MEDS: LOSARTAN POTASSIUM 50 MG TABLET PO (08:23)
[2023-06-17] MEDS: ENOXAPARIN 40 MG/0.4 ML SYRINGE SUB-Q (08:23)
[2023-06-17] MEDS: PANTOPRAZOLE SODIUM IV 40 MG VIAL IV PUSH ×2 (08:24→20:35)
--- NOTE | 2023-06-17 12:35 | PM.PNGS ---
Progress Note: A&P Assessment and Plan (1) Large bowel obstruction: Code(s): K56.609 - Unspecified intestinal obstruction, unspecified as to partial versus complete obstruction Status: Acute Assessment and Plan: Sigmoidoscopy showed findings consistent with severe C diff colitis and unable to get past the sigmoid colon. No significant clinical improvement after 4 days of antibiotic treatment. IV Flagyl added yesterday. White blood cell count climbing to 20,000 today. Still no peritoneal signs and lactic acid normal. Discussed again with Dr. Arndt today. We discussed options of subtotal colectomy, which patient really wants to avoid. Discussed the only other treatment for severe CDI not responding to medical treatment could be fecal transplantation, which would be done at a tertiary care facility. Patient would prefer to see if she is a candidate, which was discussed with the hospitalist and they will work on trying to transfer her. Discussed with the patient that her infection is complicated by the obstruction, which may limit her from being a candidate. (2) C. difficile colitis: Code(s): A04.72 - Enterocolitis due to Clostridium difficile, not specified as recurrent Status: Acute Assessment and Plan: Continue abx, WBC trending up Plan I have discussed the patient's case and plan of care with Dr. Arndt. Subjective Subjective Date/Time Seen: 06/17/23 12:35 Patient reports: still having pain, no flatus and afebrile (since 06/12) Interval history: Patient reports feeling about the same today. Still diffuse abdominal pain and distention. No significant improvement. Nausea improved and no vomiting for two days. Still having very small liquid heart stools, no flatus or significant bowel movements. Feels like she cannot evacuate. Review of Systems Review of Systems: All systems reviewed & are unremarkable except as noted in HPI and below Exam Const: General: comfortable and no acute distress Orientation/consciousness: patient oriented x3 GI: Inspection: non-distended and other (scattered erythematous flat rash diffusely across her abdomen) GI Palp: Yes Soft to palpation, No Firmness to palpation present (GI), Yes Tenderness to palpation present (GI) (diffusely tender ), No Guarding due to palpation present (GI), No Rigid due to palpation and No Rebound tenderness present Auscultation: High-pitched bowel sounds present (very hypoactive) Objective Data Vital Signs Vital Signs: Vital Signs - 24 hr 06/16/23 13:50 06/16/23 14:00 06/16/23 15:00 Temperature 97.4 F L 98.9 F Pulse Rate 105 H 102 H 101 H Respiratory Rate 16 20 20 Blood Pressure 147/80 H 161/96 H 150/75 H Pulse Oximetry 96 98 100 Oxygen Delivery Room Air Room Air 06/16/23 15:21 06/16/23 15:10 06/16/23 20:00 Temperature Pulse Rate 102 H 102 H Respiratory Rate 24 H 24 H Blood Pressure 152/85 H 156/96 H Pulse Oximetry 100 100 Oxygen Delivery Room Air Room Air Room Air 06/16/23 21:23 06/17/23 06:00 06/17/23 08:20 Temperature 97.5 F L 97.7 F Pulse Rate 95 103 H Respiratory Rate 18 14 Blood Pressure 149/80 H 146/80 H Pulse Oximetry 96 97 Oxygen Delivery Room Air Intake/Output Intake/Output: Intake & Output 06/14/23 06/15/23 06/16/23 06/17/23 23:59 23:59 23:59 23:59 Intake Total 3062 3100 200 50 Balance 3062 3100 200 50 Meds/Results Medications: Active Medications Generic Name Dose Route Start Last Admin Trade Name Freq PRN Reason Stop Dose Admin Acetaminophen 650 mg 06/13/23 13:05 06/13/23 15:31 Acetaminophen 325 Mg Tablet PO 650 mg Q4H PRN Administration Mild Pain (1-3) or Fever Hydrocodone Bitart/Acetaminophen 1 tab 06/14/23 12:28 06/17/23 08:25 Hydrocodone/Acetaminophen (*Crx) 5-325 Mg Tablet PO 1 tab Q4H PRN Administration Pain Rated 4-6 Dicyclomine HCl 20 mg 06/14/23 11:22 06/17/23 01:50 Dicyclomine Hcl 10 Mg Capsule PO 20 mg
[2023-06-17] MEDS: VANCOMYCIN HCL 250 MG ORAL CAPSULE 500 MG PO ×2 (12:52→17:27)
[2023-06-17] MEDS: FAT EMULSIONS IV 20% 250 ML 20.83 ML IVPB (12:55)
[2023-06-17] MEDS: AMINO ACIDS 4.25%/D5W/LYTES/CA 2,000 ML 80 ML IV CONT (12:55)
[2023-06-17 13:09] LABS: Glucose Point of Care 141 mg/dl (65-105)
[2023-06-17 13:11] LABS: Triglycerides 318 mg/dL (<150)
[2023-06-17 14:00] VITALS: BP 157/87; PULSE 100; RESP 16; TEMP 36.4; O2SAT 98
--- NOTE | 2023-06-17 14:23 | WPDGIPROGNO ---
Progress Note: A&P Assessment and Plan (1) C. difficile colitis: Code(s): A04.72 - Enterocolitis due to Clostridium difficile, not specified as recurrent Status: Acute Assessment and Plan: she has severe C diff colitis, today normal renal function and lactic acid on iv flagyl and oral vancomycin, avoid other systemic antibiotic- zosyn discontinued KUB with Extensive air distention of large bowel with decompression of distal sigmoid colon and rectum surgery on board, ? stool transplant at another institution (2) SIRS (systemic inflammatory response syndrome): Code(s): R65.10 - Systemic inflammatory response syndrome (SIRS) of non-infectious origin without acute organ dysfunction Status: Acute Assessment and Plan: worsening wbc, severe c diff colitis (3) Abdominal distention: Code(s): R14.0 - Abdominal distension (gaseous) Status: Acute Assessment and Plan: still npo on parenteral nutrition for now (4) Elevated LFTs: Code(s): R79.89 - Other specified abnormal findings of blood chemistry Status: Acute Assessment and Plan: probably from active infection (5) Normocytic anemia: Code(s): D64.9 - Anemia, unspecified Status: Acute (6) Leukocytosis: Qualifiers: Leukocytosis type: unspecified Qualified Code(s): D72.829 - Elevated white blood cell count, unspecified Code(s): D72.829 - Elevated white blood cell count, unspecified Status: Acute Assessment and Plan: monitor Subjective Date/time seen: 06/17/23 14:23 Interval history: sigmoidoscopy yesterday with severe colitis/inflammation/edema, no mass but could not advance past sigmoid. Findings consistent with severe C diff colitis still with abdominal distension, slighly better than yesterday Review of Systems Review of Systems: All systems reviewed & are unremarkable except as noted in HPI and below Exam Const: General: no acute distress Orientation/consciousness: patient oriented x3 HENMT: Face/Nose/Sinus: Normal nares present Eyes: Sclera: sclerae normal Neck: Neck: supple Resp: Effort & Inspection: normal respiratory effort Cardio: Rate: regular rate GI: Inspection: non-distended and other (scattered erythematous flat rash diffusely across her abdomen) GI Palp: Yes Soft to palpation, No Firmness to palpation present (GI), Yes Tenderness to palpation present (GI) (diffusely tender ), No Guarding due to palpation present (GI), No Rigid due to palpation and No Rebound tenderness present Auscultation: High-pitched bowel sounds present (very hypoactive) Skin: General skin exam: normal color Neuro: Speech: normal speech Motor exam (neuro): 5/5 motor strength present throughout Extrem: General: normal to inspection Psych: Mental Status: mental status grossly normal Objective Data Vital Signs Vital Signs: Vital Signs - 24 hr 06/16/23 15:00 06/16/23 15:21 06/16/23 15:10 Temperature Pulse Rate 101 H 102 H 102 H Respiratory Rate 20 24 H 24 H Blood Pressure 150/75 H 152/85 H 156/96 H Pulse Oximetry 100 100 100 Oxygen Delivery Room Air Room Air Room Air 06/16/23 20:00 06/16/23 21:23 06/17/23 06:00 Temperature 97.5 F L 97.7 F Pulse Rate 95 103 H Respiratory Rate 18 14 Blood Pressure 149/80 H 146/80 H Pulse Oximetry 96 97 Oxygen Delivery Room Air 06/17/23 08:20 Temperature Pulse Rate Respiratory Rate Blood Pressure Pulse Oximetry Oxygen Delivery Room Air Intake/Output Intake/Output: Intake & Output 06/14/23 06/15/23 06/16/23 06/17/23 23:59 23:59 23:59 23:59 Intake Total 3062 3100 200 1991.7 Balance 3062 3100 200 7 Meds/Results Medications: Active Medications Generic Name Dose Route Start Last Admin Trade Name Freq PRN Reason Stop Dose Admin Acetaminophen 650 mg 06/13/23 13:05 06/13/23 15:31 Acetaminophen 325 Mg Tablet PO 650 mg Q4H PRN Administration Mild Pain
[2023-06-17 17:02] LABS: Glucose Point of Care 151 mg/dl (65-105)
[2023-06-17] MEDS: hydrALAZINE HCL 20 MG/ML VIAL IV PUSH (17:28)
[2023-06-17 20:00] VITALS: PULSE 100; RESP 16; O2SAT 98
[2023-06-17 22:00] VITALS: BP 150/74; PULSE 120; RESP 18; TEMP 36.4; O2SAT 98
[2023-06-17 23:10] LABS: Glucose Point of Care 150 mg/dl (65-105)
[2023-06-18] VITALS (17 sets, daily range): BP systolic 138–164; BP diastolic 67–88; PULSE 103–120; RESP 14–20; TEMP 36.2–37.1; O2SAT 94–100
[2023-06-18] MEDS: HYDROmorphone HCL INJ (*CRX) 1 MG/ML SYR IV PUSH ×6 (01:00→20:27)
[2023-06-18] MEDS: VANCOMYCIN HCL 250 MG ORAL CAPSULE 500 MG PO ×2 (01:01→05:54)
[2023-06-18] MEDS: DICYCLOMINE HCL 10 MG CAPSULE 20 MG PO (02:50)
[2023-06-18] MEDS: metroNIDAZOLE 500 MG/ISO 100ML 500 MG/100 ML BAG 100 MG IVPB ×2 (05:52→20:27)
[2023-06-18] MEDS: SALINE LOCK FLUSH 10 ML IV PUSH ×2 (05:54→21:00)
[2023-06-18 06:18] LABS: Hematocrit 35.9 % (37.0-47.0); Hemoglobin 11.9 g/dL (12.0-15.0); Mean Corpuscular HGB Conc 33.1 g/dl (32-36); Mean Corpuscular Volume 84.5 fl (80-100); Mean Platelet Volume 11.2 fl (7.4-10.4); Platelet Count Result 306 k/mm3 (150-375); Red Blood Count 4.25 M/mm3 (4.2-5.4); Red Cell Distribution Width 15.5 % (11.5-14.5); White Blood Count 23.8 K/mm3 (4.5-10.0)
[2023-06-18 06:27] LABS: Glucose Point of Care 138 mg/dl (65-105)
[2023-06-18 06:39] LABS: Alanine Aminotransferase 105 U/L (6-35); Albumin Level 2.9 g/dL (3.5-5.1); Alkaline Phosphatase 129 U/L (38-126); Anion Gap 3 mmol/L (4-12); Aspartate Amino Transferase 37 U/L (14-36); Bilirubin,Total 0.4 mg/dL (0.2-1.3); Blood Urea Nitrogen 28 mg/dL (7-17); Calcium 8.6 mg/dL (8.4-10.2); Carbon Dioxide 26 mmol/L (22-30); Chloride 103 mmol/L (98-107); Estimated CRCL calculation 167 ml/min; Estimated Glomerular Filt Rate > 60; Glucose 165 mg/dL (65-110); Phosphorus 2.2 mg/dL (2.5-4.5); Potassium 3.4 mmol/L (3.4-5.0); Sodium 132 mmol/L (137-145)
--- NOTE | 2023-06-18 08:10 | P.PNIM_ITS ---
Progress Note: A&P Assessment and Plan (1) Colitis: Code(s): K52.9 - Noninfective gastroenteritis and colitis, unspecified Status: Acute (2) Bandemia: Code(s): D72.825 - Bandemia Status: Acute (3) Leukocytosis: Qualifiers: Leukocytosis type: unspecified Qualified Code(s): D72.829 - Elevated white blood cell count, unspecified Code(s): D72.829 - Elevated white blood cell count, unspecified Status: Acute (4) Abdominal pain: Qualifiers: Abdominal location: lower abdomen, unspecified Qualified Code(s): R10.30 - Lower abdominal pain, unspecified Code(s): R10.9 - Unspecified abdominal pain Status: Acute (5) Hypertension: Code(s): I10 - Essential (primary) hypertension Status: Chronic (6) C. difficile colitis: Code(s): A04.72 - Enterocolitis due to Clostridium difficile, not specified as recurrent Status: Acute (7) Large bowel obstruction: Code(s): K56.609 - Unspecified intestinal obstruction, unspecified as to partial versus complete obstruction Status: Acute (8) Diverticulitis: Code(s): K57.92 - Diverticulitis of intestine, part unspecified, without perforation or abscess without bleeding Status: Acute Plan Diverticulitis/bowel obstruction/C diff colitis * WBC trending up * Continue with IV fluids @100 cc/hr * Continue with pain control * C Diff positive and Dificid started * Flagyl * IV fluids * Stool cultures pending no growth * 06/14? CT abdomen pelvis showing distension of large bowel.? Extensive wall thickening of the rectum causing partial large bowel obstruction. * GI consult and they recommended a general surgery consult. * General surgery consulted for partial large bowel obstruction. * Water-soluble enema revealing stricture of the sigmoid colon. * NPO diet. * 06/15 Plan for sigmoidoscopy showed C diff colitis and diverticulitis. * Monitor for signs of toxic megacolon * TPN * PPI BID * With worsening WBC and abdominal pain patient likely needs surgical intervention with a subtotal colectomy * Attempting transfer for fecal transplant [facility] 06/17: * WBC 23.3 * zosyn d/c GI recommends avoiding systemic ABX * on PO Vanc 500 Q6hr and flaygl * Dr. Garcia at [facility] accepted patient for transfer * Will attempt to have NG tube placed * Patient agreed to subtotal colectomy * Surgery scheduled 1600 Hypertension * Takes losartan at home currently NPO * Will add hydralazine 20 mg IV for systolics over 160 until patient tolerating oral intake * BP per unit protocol Code status: Full code per patient DVT prophylaxis: SCD Stress ulcer prophylaxis: Protonix 40 BID PT/OT notes: Pending Disposition: Patient continues admission for severe C diff colitis sigmoid stricture wbc's worsening when after antibiotic and medical treatment we will continue with NPO status and bowel rest [facility] in attempt to avoid a partial colectomy, Patient however has requested to move forward with subtotal colectomy. Time Spent With Patient Time with patient: 15 - 25 minutes Subjective Date/time seen: 06/18/23 08:10 Interval history: 06/16: Patient continues with ABD distention, pain and no BM or gas. Encouraged NG tube placement but patient still refusing. sigmoidoscopy performed yesterday that showed severe c-diff colitis unable to advance past the past the sigmoid colon, general surgery spoke with patient regarding
--- NOTE | 2023-06-18 08:10 | PM.IMPN ---
Progress Note: A&P Assessment and Plan (1) Colitis: Code(s): K52.9 - Noninfective gastroenteritis and colitis, unspecified Status: Acute (2) Bandemia: Code(s): D72.825 - Bandemia Status: Acute (3) Leukocytosis: Qualifiers: Leukocytosis type: unspecified Qualified Code(s): D72.829 - Elevated white blood cell count, unspecified Code(s): D72.829 - Elevated white blood cell count, unspecified Status: Acute (4) Abdominal pain: Qualifiers: Abdominal location: lower abdomen, unspecified Qualified Code(s): R10.30 - Lower abdominal pain, unspecified Code(s): R10.9 - Unspecified abdominal pain Status: Acute (5) Hypertension: Code(s): I10 - Essential (primary) hypertension Status: Chronic (6) C. difficile colitis: Code(s): A04.72 - Enterocolitis due to Clostridium difficile, not specified as recurrent Status: Acute (7) Large bowel obstruction: Code(s): K56.609 - Unspecified intestinal obstruction, unspecified as to partial versus complete obstruction Status: Acute (8) Diverticulitis: Code(s): K57.92 - Diverticulitis of intestine, part unspecified, without perforation or abscess without bleeding Status: Acute Plan Diverticulitis/bowel obstruction/C diff colitis WBC trending up Continue with IV fluids @100 cc/hr Continue with pain control C Diff positive and Dificid started Flagyl IV fluids Stool cultures pending no growth 06/14? CT abdomen pelvis showing distension of large bowel.? Extensive wall thickening of the rectum causing partial large bowel obstruction. GI consult and they recommended a general surgery consult. General surgery consulted for partial large bowel obstruction. Water-soluble enema revealing stricture of the sigmoid colon. NPO diet. 06/15 Plan for sigmoidoscopy showed C diff colitis and diverticulitis. Monitor for signs of toxic megacolon TPN PPI BID With worsening WBC and abdominal pain patient likely needs surgical intervention with a subtotal colectomy Attempting transfer for fecal transplant [facility] 06/17: WBC 23.3 zosyn d/c GI recommends avoiding systemic ABX on PO Vanc 500 Q6hr and kristin Garcia at [facility] accepted patient for transfer Will attempt to have NG tube placed Patient agreed to subtotal colectomy Surgery scheduled 1600 Hypertension Takes losartan at home currently NPO Will add hydralazine 20 mg IV for systolics over 160 until patient tolerating oral intake BP per unit protocol Code status: Full code per patient DVT prophylaxis: SCD Stress ulcer prophylaxis: Protonix 40 BID PT/OT notes: Pending Disposition: Patient continues admission for severe C diff colitis sigmoid stricture wbc's worsening when after antibiotic and medical treatment we will continue with NPO status and bowel rest Transfer to [facility] accepted for fecal transplant in attempt to avoid a partial colectomy, Patient however has requested to move forward with subtotal colectomy. Time Spent With Patient Time with patient: 15 - 25 minutes Subjective Date/time seen: 06/18/23 08:10 Interval history: 06/16: Patient continues with ABD distention, pain and no BM or gas. Encouraged NG tube placement but patient still refusing. sigmoidoscopy performed yesterday that showed severe c-diff colitis unable to advance past the past the sigmoid colon, general surgery spoke with patient regarding the need for partial colectomy since no responce to medical treatment. The only other option would we a possible fecal transplant at a tertiary hospital as requested by patient she would like to try and avoid a partial colectomy. Spoke with [facility] transfer line, also called [facility] who stated they only do fecal transplants outpatient LM with office. WBC climbing 20.3 today switched PO vancomycin, IV flaygl and zosyn. 06/17 Patient WBC still trending up 23.3 today, Dr. Garcia with [facility]
[2023-06-18] MEDS: HYDROcodone/acetaminophen (*CRX) 5-325 MG TABLET 1 TAB PO (09:22)
[2023-06-18] MEDS: POTASSIUM CHLORIDE INJ 40 MEQ in SODIUM CHLORIDE 0.9% IV 500 ML 130 MEQ IVPB (10:47)
[2023-06-18] MEDS: LOSARTAN POTASSIUM 50 MG TABLET PO (10:48)
[2023-06-18] MEDS: PANTOPRAZOLE SODIUM IV 40 MG VIAL IV PUSH ×2 (10:48→20:27)
--- NOTE | 2023-06-18 11:20 | PM.PNGS ---
Progress Note: A&P Assessment and Plan (1) Large bowel obstruction: Code(s): K56.609 - Unspecified intestinal obstruction, unspecified as to partial versus complete obstruction Status: Acute Assessment and Plan: Sigmoidoscopy showed findings consistent with severe C diff colitis and unable to get past the sigmoid colon. Still no clinical improvement with medical treatment. Abdominal distension and pain has gotten worse. White blood cell count rising to 23,000 today. Given her lack of response to medical management to the severe CDI, we discussed again subtotal colectomy as an option. Patient wishes to proceed with surgery. I called Dr. Santana and spoke with him regarding this and he is going to try adding her onto the surgery schedule and will speak with patient. (2) C. difficile colitis: Code(s): A04.72 - Enterocolitis due to Clostridium difficile, not specified as recurrent Status: Acute Assessment and Plan: Continue abx, WBC trending up Plan I have discussed the patient's case and plan of care with Dr. Arndt. Subjective Subjective Date/Time Seen: 06/18/23 11:20 Patient reports: still having pain, no flatus, no bowel movement and afebrile Interval history: Patient feeling worse today. No longer having even small liquid stools. No flatus. Abdominal distension feels about the same or possibly worse. Abdominal pain is the same. She is starting to feel short of breath, which she feels is due to the abdominal distension. White blood cell count up to 23,000. Patient apparently canceled to transfer to [facility]. She reports feeling miserable and wants to move forward with a subtotal colectomy. Review of Systems Review of Systems: All systems reviewed & are unremarkable except as noted in HPI and below Exam Const: General: acute distress mild Orientation/consciousness: patient oriented x3 GI: Inspection: distended and no visible herniation GI Palp: Yes Tenderness to palpation present (GI) (Diffusely tender), Yes Guarding due to palpation present (GI) (Voluntary guarding in the upper abdomen) and No Rebound tenderness present Auscultation: absent bowel sounds Objective Data Vital Signs Vital Signs: Vital Signs - 24 hr 06/17/23 14:00 06/17/23 20:00 06/17/23 22:00 Temperature 97.6 F 97.5 F L Pulse Rate 100 100 120 H Respiratory Rate 16 16 18 Blood Pressure 157/87 H 150/74 H Pulse Oximetry 98 98 98 Oxygen Delivery Room Air 06/18/23 05:19 Temperature 97.1 F L Pulse Rate 107 H Respiratory Rate 16 Blood Pressure 160/86 H Pulse Oximetry 99 Oxygen Delivery Intake/Output Intake/Output: Intake & Output 06/15/23 06/16/23 06/17/23 06/18/23 23:59 23:59 23:59 23:59 Intake Total 3100 200 2192.7 Balance 3100 200 2192.7 Meds/Results Medications: Active Medications Generic Name Dose Route Start Last Admin Trade Name Freq PRN Reason Stop Dose Admin Acetaminophen 650 mg 06/13/23 13:05 06/13/23 15:31 Acetaminophen 325 Mg Tablet PO 650 mg Q4H PRN Administration Mild Pain (1-3) or Fever Hydrocodone Bitart/Acetaminophen 1 tab 06/14/23 12:28 06/18/23 09:22 Hydrocodone/Acetaminophen (*Crx) 5-325 Mg Tablet PO 1 tab Q4H PRN Administration Pain Rated 4-6 Dicyclomine HCl 20 mg 06/14/23 11:22 06/18/23 02:50 Dicyclomine Hcl 10 Mg Capsule PO 20 mg QID PRN Administration Abdominal Cramping Enoxaparin Sodium 40 mg 06/14/23 09:00 06/18/23 10:48 Enoxaparin 40 Mg/0.4 Ml Syringe SUB-Q Not Given DAILY [facility] Hydralazine HCl 20 mg 06/17/23 08:14 06/17/23 17:28 Hydralazine Hcl 20 Mg/Ml Vial IV PUSH 20 mg Q6HR PRN Administration Hypertension Hydromorphone HCl 1 mg 06/13/23 14:43 06/18/23 05:53 Hydromorphone Hcl Inj (*Crx) 1 Mg/Ml Syr IV PUSH 1 mg Q3H PRN Administration Pain Rated 7-10 Sodium Chloride 1,000 mls @ 100 mls/hr 06/13/23 11:55 06/18/23 09:11 Normal Saline Iv IV CONT Not Given
[2023-06-18 12:03] LABS: Glucose Point of Care 143 mg/dl (65-105)
[2023-06-18] MEDS: LACTATED RINGERS 1,000 ML 30 ML IV CONT ×2 (13:30→16:14)
--- NOTE | 2023-06-18 13:31 | WPDHPUPDATE1 ---
History and Physical Update Update Date/Time: 06/18/23 13:31 History and Physical has been reviewed, including an updated exam of the patient. There are NO changes in the patient's condition. Risks, benefits, and alternatives have been discussed and questions answered. Patient agrees to proceed with procedure.
--- NOTE | 2023-06-18 13:49 | WPDHPUPDATE1 ---
History and Physical Update Update Date/Time: 06/18/23 13:49 History and Physical has been reviewed, including an updated exam of the patient. There are NO changes in the patient's condition. I will be starting the surgery for Dr. Arndt while his scheduled cases are being completed. I have reviewed the chart and discussed surgery with the patient. Risks, benefits, and alternatives have been discussed and questions answered. Patient agrees to proceed with procedure.
--- NOTE | 2023-06-18 13:59 | WPDANESEPPF ---
Anes - Initial Pre Proc Eval Procedure: Operation Date: 06/16/23 15:30 Proposed Procedures p Sigmoidoscopy - aPrrish Farris MD Operation Date: 06/18/23 16:00 Proposed Procedures p Subtotal Colectomy,Possible End Ileostomy - Luz Maria Arndt MD Date/Time: 06/18/23 13:59 Surgeon: Shiraz Kurtz MD Pre Op Diagnosis: Colitis/Abdomen/Leukocytosis Patient Data Age: 58 Gender: F Height: 1.75 m Weight: 108.7 kg Last Vital Signs Temp 36.2 C L 06/18/23 05:19 Pulse 107 H 06/18/23 05:19 Resp 16 06/18/23 05:19 BP 160/86 H 06/18/23 05:19 Pulse Ox 99 06/18/23 05:19 O2 Del Method Room Air 06/18/23 08:00 Allergies Allergy/AdvReac Type Severity Reaction Status Date / Time No Known Allergies Allergy Unknown Unverified 06/16/23 13:59 Home Medications Medication Instructions Recorded Confirmed Type losartan 50 mg tablet 50 mg PO DAILY 06/13/23 06/13/23 History Laboratory Tests 06/17/23 06/17/23 06/18/23 16:59 23:06 05:46 WBC 23.8 H K/mm3 (4.5-10.0) RBC 4.25 M/mm3 (4.2-5.4) Hgb 11.9 L g/dL (12.0-15.0) Hct 35.9 L % (37.0-47.0) MCV 84.5 fl (80-100) MCH 28.0 pg (26-34) MCHC 33.1 g/dl (32-36) RDW 15.5 H % (11.5-14.5) Plt Count 306 k/mm3 (150-375) MPV 11.2 H fl (7.4-10.4) Sodium 132 L mmol/L (137-145) Potassium 3.4 mmol/L (3.4-5.0) Chloride 103 mmol/L (98-107) Carbon Dioxide 26 mmol/L (22-30) Anion Gap 3 L mmol/L (4-12) BUN 28 H mg/dL (7-17) Creatinine 0.40 L mg/dL (0.7-1.0) Estim Creat Clear Calc 167 ml/min Estimated GFR > 60 (59 - ) Glucose 165 H mg/dL (65-110) POC Capillary Glucose 151 H mg/dl 150 H mg/dl (65-105) (65-105) Calcium 8.6 mg/dL (8.4-10.2) Phosphorus 2.2 L mg/dL (2.5-4.5) Total Bilirubin 0.4 mg/dL (0.2-1.3) AST 37 H U/L (14-36) ALT 105 H U/L (6-35) Alkaline Phosphatase 129 H U/L (38-126) Total Protein 5.0 L g/dL (6.3-8.2) Albumin 2.9 L g/dL (3.5-5.1) 06/18/23 06/18/23 06:24 12:01 WBC RBC Hgb Hct MCV MCH MCHC RDW Plt Count MPV Sodium Potassium Chloride Carbon Dioxide Anion Gap BUN Creatinine Estim Creat Clear Calc Estimated GFR Glucose POC Capillary Glucose 138 H mg/dl 143 H mg/dl (65-105) (65-105) Calcium Phosphorus Total Bilirubin AST ALT Alkaline Phosphatase Total Protein Albumin Patient hx anesthesia problems: none Family hx anesthesia problems: none Results Review: All pre-operative results and documents have been reviewed as part of the pre-operative evaluation. [facility] Past Medical History Medical History Diverticulosis Hypertension SIRS (systemic inflammatory response syndrome) Toxic megacolon Surgical History Surgical History History of delivery History of cholecystectomy Family History Family History Father Family history of alcoholism Family history of diabetes mellitus in first degree relative Family history of malignant neoplasm of brain Social History Social History Smoking status: Never smoker Alcohol intake: never Substance use: never Do You Feel Safe in your Home?: Yes Lack of Transportation: No Lack of Food: Never True Current Housing: I Have Housing Co
[2023-06-18] MEDS: SCOPOLAMINE 1 MG PATCH 1 PATCH TRANSDERM (14:29)
--- NOTE | 2023-06-18 14:32 | WPDGIPROGNO ---
Progress Note: A&P Assessment and Plan (1) C. difficile colitis: Code(s): A04.72 - Enterocolitis due to Clostridium difficile, not specified as recurrent Status: Acute Assessment and Plan: she has severe C diff colitis and still uncomfortable with increasing wbc despite medical therapy surgery will take her to OR (2) SIRS (systemic inflammatory response syndrome): Code(s): R65.10 - Systemic inflammatory response syndrome (SIRS) of non-infectious origin without acute organ dysfunction Status: Acute Assessment and Plan: worsening wbc, severe c diff colitis (3) Abdominal distention: Code(s): R14.0 - Abdominal distension (gaseous) Status: Acute Assessment and Plan: still npo on parenteral nutrition for now (4) Elevated LFTs: Code(s): R79.89 - Other specified abnormal findings of blood chemistry Status: Acute Assessment and Plan: probably from active infection (5) Normocytic anemia: Code(s): D64.9 - Anemia, unspecified Status: Acute (6) Leukocytosis: Qualifiers: Leukocytosis type: unspecified Qualified Code(s): D72.829 - Elevated white blood cell count, unspecified Code(s): D72.829 - Elevated white blood cell count, unspecified Status: Acute Assessment and Plan: monitor Subjective Date/time seen: 06/18/23 11:35 Interval history: more uncomfortable today and noted increasing wbc Review of Systems Review of Systems: All systems reviewed & are unremarkable except as noted in HPI and below Exam Const: General: acute distress mild Orientation/consciousness: patient oriented x3 HENMT: Face/Nose/Sinus: Normal nares present Eyes: Sclera: sclerae normal Neck: Neck: supple Resp: Auscultation: clear to auscultation bilaterally Cardio: Rate: regular rate GI: Inspection: distended and no visible herniation GI Palp: Yes Tenderness to palpation present (GI) (Diffusely tender), Yes Guarding due to palpation present (GI) (Voluntary guarding in the upper abdomen) and No Rebound tenderness present Auscultation: absent bowel sounds Skin: General skin exam: normal color Neuro: Speech: normal speech Motor exam (neuro): 5/5 motor strength present throughout Extrem: General: normal to inspection Psych: Affect: Anxious affect present Objective Data Vital Signs Vital Signs: Vital Signs - 24 hr 06/17/23 20:00 06/17/23 22:00 06/18/23 05:19 Temperature 97.5 F L 97.1 F L Pulse Rate 100 120 H 107 H Respiratory Rate 16 18 16 Blood Pressure 150/74 H 160/86 H Pulse Oximetry 98 98 99 Oxygen Delivery Room Air 06/18/23 08:00 06/18/23 14:14 Temperature 97.9 F Pulse Rate 110 H Respiratory Rate 18 Blood Pressure 161/88 H Pulse Oximetry 96 Oxygen Delivery Room Air Room Air Intake/Output Intake/Output: Intake & Output 06/15/23 06/16/23 06/17/23 06/18/23 23:59 23:59 23:59 23:59 Intake Total 3100 200 2192.7 Balance 3100 200 2192.7 Meds/Results Medications: Active Medications Generic Name Dose Route Start Last Admin Trade Name Freq PRN Reason Stop Dose Admin Acetaminophen 650 mg 06/13/23 13:05 06/13/23 15:31 Acetaminophen 325 Mg Tablet PO 650 mg Q4H PRN Administration Mild Pain (1-3) or Fever Hydrocodone Bitart/Acetaminophen 1 tab 06/14/23 12:28 06/18/23 09:22 Hydrocodone/Acetaminophen (*Crx) 5-325 Mg Tablet PO 1 tab Q4H PRN Administration Pain Rated 4-6 Dicyclomine HCl 20 mg 06/14/23 11:22 06/18/23 02:50 Dicyclomine Hcl 10 Mg Capsule PO 20 mg QID PRN Administration Abdominal Cramping Enoxaparin Sodium 40 mg 06/14/23 09:00 06/18/23 10:48 Enoxaparin 40 Mg/0.4 Ml Syringe SUB-Q Not Given DAILY BISMARK Fentanyl Citrate 25 mcg 06/18/23 14:01 Fentanyl Citrate Inj (*Crx) 100 Mcg/2 Ml Vial IV PUSH Q2M PRN Pain Hydralazine HCl 20 mg 06/17/23 08:14 06/17/23 17:28 Hydralazine Hcl 20 Mg/Ml Via
--- NOTE | 2023-06-18 16:23 | W.PM.PROC2 ---
Procedure Note - Detailed Date of Procedure 06/18/23 Pre-op Diagnosis Toxic megacolon with large bowel obstruction in distal sigmoid colon secondary to stricture, incarcerated incisional hernia Post-op Diagnosis Same Procedure Performed subtotal colectomy with creation of end ileostomy, repair of incarcerated incisional hernia measuring 3 cm Surgeon Luz Maria Arndt MD [facility] General Indications 58-year-old female presenting to the hospital with his severe C diff colitis. She initially had presented with diarrhea, however, developed a high-grade large bowel obstruction in her distal sigmoid colon secondary to what seems to be an inflammatory stricture. Despite appropriate antibiotics, the patient developed toxic megacolon and continued to worsen. Patient also with known incarcerated incisional hernia. Findings Severe C diff colitis with lara colitis, distal stricture in the distal sigmoid colon , incarcerated incisional hernia measuring, 3 cm incarcerated incisional hernia with noted viable omentum and preperitoneal fat Description of Procedure The patient was taken to the operating room and placed in the supine position. After adequate induction of general anesthesia, the patient was prepped and draped in the normal sterile fashion. A time-out was then done to verify the patient's identity, as well as the procedure being performed. Please note that Dr. Humphrey was present for the entirety of the case given the emergent nature and complexity. He assisted with the entirety of the procedure including the repair of the incarcerated hernia, all aspects of the subtotal colectomy, creation of the end ileostomy. A generous midline incision was made to include the known incisional hernia. We were able to dissect around this hernia, which was noted to be approximately 3 cm. Once dissected, the hernia sac was removed and the contents were examined. There was noted incarcerated omentum and preperitoneal fat that was viable. This was reduced back into the abdominal cavity. The remainder of the incision was then opened and access was gained into the peritoneal cavity. A large amount of ascitic fluid was noted. The entirety of the colon was noted to be very edematous and inflamed. The colon was also noted to be massively distended. These findings were all consistent with known toxic megacolon. We began by taking down the lateral attachments to the right colon by performing Zoraida maneuver. This included taking down the hepatic flexure. Again the colon was noted to be massively dilated and distended. There was evidence of serosal tears in the cecum secondary to distention. We then proceeded to get into the lesser sac and take down the attachments to the transverse colon. Once done, the splenic flexure was then taken down carefully. We then took down the lateral attachments to the left colon. In the distal sigmoid colon, there was noted to be an area severe stricture and inflammation. Using very careful dissection we were able to free this area up into the operative field. The upper rectum was noted to be unremarkable. I was able to create a defect in the mesentery distal to the area of stricture. A green contour stapler was used to transect the distal sigmoid from the upper rectum. We then used the LigaSure device to take down the mesenteric attachments of the entire colon. This was done to include approximately the distal 5-10 cm of the terminal ileum. The terminal ileum was then transected using a 55 MITUL stapler. The specimen will be sent to pathology for further review. We then copiously irrigated the abdominal cavity. No other obvious pathology was noted. Hemostasis was gained with the Bovie cautery. I then created a ileostomy site in the right lower abdomen through the right lateral rectus muscle. This was done making a fascial defect of approximately 2 finger breaths. I then brought out the terminal ileum through this ileostom
[2023-06-18] MEDS: fentaNYL CITRATE INJ (*CRX) 100 MCG/2 ML VIAL 25 MCG IV PUSH ×8 (16:27→16:49)
[2023-06-18] MEDS: FAT EMULSIONS IV 20% 250 ML 20.83 ML IVPB (18:56)
[2023-06-18] MEDS: SODIUM CHLORIDE 0.9% IV 1,000 ML 125 ML IV CONT (20:35)
[2023-06-18 23:57] LABS: Glucose Point of Care 183 mg/dl (65-105)
[2023-06-19] MEDS: HYDROmorphone HCL INJ (*CRX) 1 MG/ML SYR IV PUSH ×7 (00:30→21:50)
[2023-06-19] MEDS: metroNIDAZOLE 500 MG/ISO 100ML 500 MG/100 ML BAG 100 MG IVPB ×3 (05:38→21:51)
[2023-06-19] MEDS: SODIUM CHLORIDE 0.9% IV 1,000 ML 100 ML IV CONT ×2 (05:38→14:31)
[2023-06-19 05:41] LABS: Glucose Point of Care 159 mg/dl (65-105)
[2023-06-19 05:44] VITALS: BP 130/81; PULSE 104; RESP 17; TEMP 36.7; O2SAT 95
[2023-06-19 06:28] LABS: Mean Corpuscular HGB Conc 33.3 g/dl (32-36); Mean Corpuscular Hemoglobin 28.3 pg (26-34); Mean Corpuscular Volume 84.9 fl (80-100); Mean Platelet Volume 11.1 fl (7.4-10.4); Platelet Count Result 223 k/mm3 (150-375); Red Blood Count 3.18 M/mm3 (4.2-5.4); Red Cell Distribution Width 15.5 % (11.5-14.5); White Blood Count 24.1 K/mm3 (4.5-10.0)
[2023-06-19 06:48] LABS: Alanine Aminotransferase 55 U/L (6-35); Albumin Level 2.1 g/dL (3.5-5.1); Alkaline Phosphatase 84 U/L (38-126); Anion Gap 2 mmol/L (4-12); Aspartate Amino Transferase 28 U/L (14-36); Bilirubin,Total 0.4 mg/dL (0.2-1.3); Blood Urea Nitrogen 21 mg/dL (7-17); Calcium 7.6 mg/dL (8.4-10.2); Carbon Dioxide 27 mmol/L (22-30); Chloride 104 mmol/L (98-107); Estimated CRCL calculation 167 ml/min; Estimated Glomerular Filt Rate > 60; Glucose 153 mg/dL (65-110); Phosphorus 2.5 mg/dL (2.5-4.5); Potassium 3.8 mmol/L (3.4-5.0); Sodium 133 mmol/L (137-145)
--- NOTE | 2023-06-19 07:31 | P.PNIM_ITS ---
Progress Note: A&P Assessment and Plan (1) Colitis: Code(s): K52.9 - Noninfective gastroenteritis and colitis, unspecified Status: Acute (2) Bandemia: Code(s): D72.825 - Bandemia Status: Acute (3) Leukocytosis: Qualifiers: Leukocytosis type: unspecified Qualified Code(s): D72.829 - Elevated white blood cell count, unspecified Code(s): D72.829 - Elevated white blood cell count, unspecified Status: Acute (4) Abdominal pain: Qualifiers: Abdominal location: lower abdomen, unspecified Qualified Code(s): R10.30 - Lower abdominal pain, unspecified Code(s): R10.9 - Unspecified abdominal pain Status: Acute (5) Hypertension: Code(s): I10 - Essential (primary) hypertension Status: Chronic (6) C. difficile colitis: Code(s): A04.72 - Enterocolitis due to Clostridium difficile, not specified as recurrent Status: Acute (7) Large bowel obstruction: Code(s): K56.609 - Unspecified intestinal obstruction, unspecified as to partial versus complete obstruction Status: Acute (8) Diverticulitis: Code(s): K57.92 - Diverticulitis of intestine, part unspecified, without perforation or abscess without bleeding Status: Acute (9) Toxic megacolon due to Clostridioides difficile: Code(s): A04.72 - Enterocolitis due to Clostridium difficile, not specified as recurrent Status: Acute Plan Toxic Megacolon due to C-diff colitis * 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 vancomycin * SCDs/Lovenox * PPI b.i.d. Diverticulitis/bowel obstruction/C diff colitis * WBC trending up * Continue with IV fluids @100 cc/hr * Continue with pain control * C Diff positive and Dificid started * Flagyl * IV fluids * Stool cultures pending no growth * 06/14? CT abdomen pelvis showing distension of large bowel.? Extensive wall thickening of the rectum causing partial large bowel obstruction. * GI consult and they recommended a general surgery consult. * General surgery consulted for partial large bowel obstruction. * Water-soluble enema revealing stricture of the sigmoid colon. * NPO diet. * 06/15 Plan for sigmoidoscopy showed C diff colitis and diverticulitis. * Monitor for signs of toxic megacolon * TPN * PPI BID * With worsening WBC and abdominal pain patient likely needs surgical intervention with a subtotal colectomy * Attempting transfer for fecal transplant [facility] 06/17: * WBC 23.3 * zosyn d/c GI recommends avoiding systemic ABX * on PO Vanc 500 Q6hr and flaygl * [facility] * Will attempt to have NG tube placed * Patient agreed to subtotal colectomy * Surgery scheduled 1600 Hypertension * Takes losartan at home currently NPO * Will add hydralazine 20 mg IV for systolics over 160 until patient tolerating oral intake * BP per unit protocol Code status: Full code per patient DVT prophylaxis: SCD/lovenox post-op Stress ulcer prophylaxis: Protonix 40 BID PT/OT notes: Pending Disposition: Patient post-op day 1 subtotal colectomy with ileostomy Time Spent With Patient Time with patient: 15 - 25 minutes Subjective Date/time seen: 06/19/23 07:31 Interval history: 06/16: Patient continues with ABD distention, pain and no BM or gas. Enc
--- NOTE | 2023-06-19 07:31 | PM.IMPN ---
Progress Note: A&P Assessment and Plan (1) Colitis: Code(s): K52.9 - Noninfective gastroenteritis and colitis, unspecified Status: Acute (2) Bandemia: Code(s): D72.825 - Bandemia Status: Acute (3) Leukocytosis: Qualifiers: Leukocytosis type: unspecified Qualified Code(s): D72.829 - Elevated white blood cell count, unspecified Code(s): D72.829 - Elevated white blood cell count, unspecified Status: Acute (4) Abdominal pain: Qualifiers: Abdominal location: lower abdomen, unspecified Qualified Code(s): R10.30 - Lower abdominal pain, unspecified Code(s): R10.9 - Unspecified abdominal pain Status: Acute (5) Hypertension: Code(s): I10 - Essential (primary) hypertension Status: Chronic (6) C. difficile colitis: Code(s): A04.72 - Enterocolitis due to Clostridium difficile, not specified as recurrent Status: Acute (7) Large bowel obstruction: Code(s): K56.609 - Unspecified intestinal obstruction, unspecified as to partial versus complete obstruction Status: Acute (8) Diverticulitis: Code(s): K57.92 - Diverticulitis of intestine, part unspecified, without perforation or abscess without bleeding Status: Acute (9) Toxic megacolon due to Clostridioides difficile: Code(s): A04.72 - Enterocolitis due to Clostridium difficile, not specified as recurrent Status: Acute Plan Toxic Megacolon due to C-diff colitis 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 vancomycin SCDs/Lovenox PPI b.i.d. Diverticulitis/bowel obstruction/C diff colitis WBC trending up Continue with IV fluids @100 cc/hr Continue with pain control C Diff positive and Dificid started Flagyl IV fluids Stool cultures pending no growth 06/14? CT abdomen pelvis showing distension of large bowel.? Extensive wall thickening of the rectum causing partial large bowel obstruction. GI consult and they recommended a general surgery consult. General surgery consulted for partial large bowel obstruction. Water-soluble enema revealing stricture of the sigmoid colon. NPO diet. 4/16 Plan for sigmoidoscopy showed C diff colitis and diverticulitis. Monitor for signs of toxic megacolon TPN PPI BID With worsening WBC and abdominal pain patient likely needs surgical intervention with a subtotal colectomy Attempting transfer for fecal transplant [facility] 06/17: WBC 23.3 zosyn d/c GI recommends avoiding systemic ABX on PO Vanc 500 Q6hr and [facility] Will attempt to have NG tube placed Patient agreed to subtotal colectomy Surgery scheduled 1600 Hypertension Takes losartan at home currently NPO Will add hydralazine 20 mg IV for systolics over 160 until patient tolerating oral intake BP per unit protocol Code status: Full code per patient DVT prophylaxis: SCD/lovenox post-op Stress ulcer prophylaxis: Protonix 40 BID PT/OT notes: Pending Disposition: Patient post-op day 1 subtotal colectomy with ileostomy Time Spent With Patient Time with patient: 15 - 25 minutes Subjective Date/time seen: 06/19/23 07:31 Interval history: 06/16: Patient continues with ABD distention, pain and no BM or gas. Encouraged NG tube placement but patient still refusing. sigmoidoscopy performed yesterday that showed severe c-diff colitis unable to advance past the past the sigmoid colon, general surgery spoke with patient regarding the need for partial colectomy since no responce to medical treatment. The only other option would we a possible fecal transplant at a tertiary hospital as requested by patient she would like to try and avoid a partial colectomy. Spoke with [facility] transfer line, also called [facility] who stated they only do fec
[2023-06-19 08:00] VITALS: BP 140/70; PULSE 100; RESP 16; TEMP 36.7; O2SAT 96
--- NOTE | 2023-06-19 08:10 | WPDANESPN ---
Anes - Prog Note Post-Op Date/Time: 06/19/23 08:10 Cardiovascular status: normal Respiratory status: other (spoke with RN about ordering Incentive spirometer) Airway patency: baseline Mental status: baseline Post-Op hydration status: normal Vital Signs: Last Vital Signs Temp 36.7 C 06/19/23 05:44 Pulse 104 H 06/19/23 05:44 Resp 17 06/19/23 05:44 BP 130/81 06/19/23 05:44 Pulse Ox 95 06/19/23 05:44 O2 Del Method Room Air 06/18/23 20:00 O2 Flow Rate 10 06/18/23 16:55 Pain Score (VAS): 6/10 abdominal discomfort I/O: Intake & Output 06/18/23 06/19/23 06/19/23 23:59 07:59 15:59 Intake Total 400 1000 Balance 400 1000 Laboratory Tests 06/19/23 05:59 06/19/23 05:59 06/18/23 06/18/23 06/18/23 05:42 12:01 23:53 WBC RBC Hgb Hct MCV MCH MCHC RDW Plt Count MPV Sodium Potassium Chloride Carbon Dioxide Anion Gap BUN Creatinine Estim Creat Clear Calc Estimated GFR Glucose POC Capillary Glucose 143 H 183 H Calcium Phosphorus Total Bilirubin AST ALT Alkaline Phosphatase Total Protein Albumin Blood Type O Positive Antibody Screen Negative 06/19/23 06/19/23 05:34 05:59 WBC 24.1 H RBC 3.18 L Hgb 9.0 L Hct 27.0 L MCV 84.9 MCH 28.3 MCHC 33.3 RDW 15.5 H Plt Count 223 MPV 11.1 H Sodium 133 L Potassium 3.8 Chloride 104 Carbon Dioxide 27 Anion Gap 2 L BUN 21 H Creatinine 0.40 L Estim Creat Clear Calc 167 Estimated GFR > 60 Glucose 153 H POC Capillary Glucose 159 H Calcium 7.6 L Phosphorus 2.5 Total Bilirubin 0.4 AST 28 ALT 55 H Alkaline Phosphatase 84 Total Protein 4.0 L Albumin 2.1 L Blood Type Antibody Screen Microbiology 06/13/23 11:46 Blood Blood Culture - Final 06/13/23 11:49 Blood Blood Culture - Final Post-procedural complaints: none Patient Feedback: Patient satisfied with anesthetic care. Other Findings: NG in place, pt requesting non carbonated drinks
[2023-06-19] MEDS: ENOXAPARIN 40 MG/0.4 ML SYRINGE SUB-Q (09:16)
[2023-06-19] MEDS: PANTOPRAZOLE SODIUM IV 40 MG VIAL IV PUSH ×2 (09:17→21:49)
--- NOTE | 2023-06-19 09:20 | PC.NURSE ---
Personnel Worker spoke with Kimberlyn hospitalist at rounding. Ok for pt to not take po antihypertensive at this time and use PRN at this time.
--- NOTE | 2023-06-19 09:43 | PCNFU ---
Nutrition Follow-Up Complete: Altered GI function related to bowl obstruction as evidenced by need for alternative nutrition support via PPN. Meet 60% of estimated energy needs, 100% of protein needs via PPN Goal: Pt current nutrition is PPN 4.25/5 E with lipids @ 80 ml/h: 1153 kcal, 82 g protein, 2170 ml total volume. Nutrition recommendation: No new nutrition recommendations. Continue PPN per surgery. Last recorded weight is 108.7 kg. Bowel Motility: +8 BM 06/18/23 Labs Reviewed: Hgb 9.0, Hct 27, Alb 2.1, Na 133, BUN 21, Cre 0.4, Glu 159 Meds Noted: Lovenox, Zofran, Bentyl, protonix Skin: No pressure Additional Notes: status post subtotal colectomy with ileostomy 06/18/23 reltaed to toxic megacolon from C-diff colitis. Monitor PPN orders, labs, wts, bowel function. Follow up every Thursday and Thursday.
--- NOTE | 2023-06-19 10:07 | PM.PNGS ---
Progress Note: A&P Assessment and Plan (1) Toxic megacolon due to Clostridioides difficile: Code(s): A04.72 - Enterocolitis due to Clostridium difficile, not specified as recurrent Status: Acute Assessment and Plan: better, will clamp NG and hopefully remove later today, PT/OT, OOB/IS, clears if NG out Subjective Subjective Date/Time Seen: 06/19/23 10:07 Interval history: feels much better, incisional pain, mentation much improved Review of Systems Review of Systems: All systems reviewed & are unremarkable except as noted in HPI and below Exam Const: General: cooperative, no acute distress and ill appearing Resp: Auscultation: clear to auscultation bilaterally Cardio: Rate: regular rate Rhythm: regular rhythm GI: Inspection: normal to inspection, distended and incision GI Palp: Yes abdominal tenderness, Yes Soft to palpation and Yes Tenderness to palpation present (GI) Other: ileostomy - slightly dusky Objective Data Vital Signs Vital Signs: Vital Signs - 24 hr 06/18/23 14:14 06/18/23 16:14 06/18/23 16:25 Temperature 36.6 C 36.6 C Pulse Rate 110 H 104 H 105 H Respiratory Rate 18 19 20 Blood Pressure 161/88 H 148/81 H 156/75 H Pulse Oximetry 96 98 100 Oxygen Delivery Room Air Simple Face Mask Simple Face Mask Oxygen Flow Rate 10 10 06/18/23 16:40 06/18/23 16:55 06/18/23 17:05 Temperature Pulse Rate 107 H 110 H Respiratory Rate 20 20 Blood Pressure 164/74 H 163/83 H Pulse Oximetry 100 100 96 Oxygen Delivery Simple Face Mask Simple Face Mask Room Air Oxygen Flow Rate 10 10 06/18/23 17:10 06/18/23 17:20 06/18/23 17:35 Temperature Pulse Rate 103 H 106 H 113 H Respiratory Rate 20 18 20 Blood Pressure 151/75 H 146/79 H 153/72 H Pulse Oximetry 95 97 94 Oxygen Delivery Room Air Room Air Room Air Oxygen Flow Rate 06/18/23 17:50 06/18/23 18:35 06/18/23 18:50 Temperature 36.4 C L 36.4 C L Pulse Rate 110 H 120 H 118 H Respiratory Rate 20 16 16 Blood Pressure 152/81 H 146/80 H 146/80 H Pulse Oximetry 94 97 95 Oxygen Delivery Room Air Oxygen Flow Rate 06/18/23 19:20 06/18/23 20:00 06/18/23 20:35 Temperature 36.6 C 36.6 C Pulse Rate 108 H 115 H Respiratory Rate 16 15 Blood Pressure 151/77 H 144/75 H Pulse Oximetry 95 94 94 Oxygen Delivery Room Air Oxygen Flow Rate 06/18/23 23:56 06/19/23 05:44 Temperature 37.1 C 36.7 C Pulse Rate 105 H 104 H Respiratory Rate 14 17 Blood Pressure 138/67 130/81 Pulse Oximetry 96 95 Oxygen Delivery Oxygen Flow Rate Intake/Output Intake/Output: Intake & Output 06/16/23 06/17/23 06/18/23 06/19/23 23:59 23:59 23:59 23:59 Intake Total 1200 2192.7 750 1000 Balance 1200 2192.7 750 1000 Meds/Results Medications: Active Medications Generic Name Dose Route Start Last Admin Trade Name Freq PRN Reason Stop Dose Admin Acetaminophen 650 mg 06/13/23 13:05 06/13/23 15:31 Acetaminophen 325 Mg Tablet PO 650 mg Q4H PRN Administration Mild Pain (1-3) or Fever Hydrocodone Bitart/Acetaminophen 1 tab 06/14/23 12:28 06/18/23 09:22 Hydrocodone/Acetaminophen (*Crx) 5-325 Mg Tablet PO 1 tab Q4H PRN Administration Pain Rated 4-6 Dicyclomine HCl 20 mg 06/14/23 11:22 06/18/23 02:50 Dicyclomine Hcl 10 Mg Capsule PO 20 mg QID PRN Administration Abdominal Cramping Enoxaparin Sodium 40 mg 06/14/23 09:00 06/19/23 09:16 Enoxaparin 40 Mg/0.4 Ml Syringe SUB-Q 40 mg DAILY BISMARK Administration Hydralazine HCl 20 mg 06/17/23 08:14 06/17/23 17:28 Hydralazine Hcl 20 Mg/Ml Vial IV PUSH 20 mg Q6HR PRN Administration Hypertension Hydromorphone HCl 1 mg 06/13/23 14:43 06/19/23 06:43 Hydromorphone Hcl Inj (*Crx) 1 Mg/Ml Syr IV PUSH 1 mg Q3H PRN Administration Pain Rated 7-10 Sodium Chloride 1,000 mls @ 100 mls/hr 06/13/23 11:55 06/19/23 05:38 Normal Saline Iv IV CONT 100 mls/hr .Q10H BISMARK Administration De
[2023-06-19 10:29] LABS: Triglycerides 295 mg/dL (<150)
[2023-06-19] MEDS: VANCOMYCIN ORAL 500 MG/10 ML SYRUP FEED TUBE ×2 (11:22→17:08)
[2023-06-19 12:00] VITALS: BP 147/67; PULSE 107; RESP 16; TEMP 36.5; O2SAT 97
[2023-06-19 12:16] LABS: Glucose Point of Care 134 mg/dl (65-105)
--- NOTE | 2023-06-19 14:22 | PC.NURSE ---
Pt NG was clamped at 1025. Pt tolerated well with no N/V. Ux Architect will pull NG at this time.
[2023-06-19] MEDS: AMINO ACIDS 4.25%/D5W/LYTES/CA 2,000 ML 80 ML IV CONT (14:27)
[2023-06-19] MEDS: FAT EMULSIONS IV 20% 250 ML 20.83 ML IVPB (14:28)
[2023-06-19] MEDS: SALINE LOCK FLUSH 10 ML IV PUSH (14:29)
--- NOTE | 2023-06-19 15:14 | WPDGIPROGNO ---
Progress Note: A&P Assessment and Plan (1) Toxic megacolon due to Clostridioides difficile: Code(s): A04.72 - Enterocolitis due to Clostridium difficile, not specified as recurrent Status: Acute Assessment and Plan: underwent colectomy continue medical treatment diet per surgery (2) SIRS (systemic inflammatory response syndrome): Code(s): R65.10 - Systemic inflammatory response syndrome (SIRS) of non-infectious origin without acute organ dysfunction Status: Acute (3) Large bowel obstruction: Code(s): K56.609 - Unspecified intestinal obstruction, unspecified as to partial versus complete obstruction Status: Acute Assessment and Plan: due to severe c diff (4) Abdominal distention: Code(s): R14.0 - Abdominal distension (gaseous) Status: Acute Assessment and Plan: this improved after surgery (5) Elevated liver transaminase level: Code(s): R74.01 - Elevation of levels of liver transaminase levels Status: Acute (6) Abdominal pain, bilateral lower quadrant: Code(s): R10.31 - Right lower quadrant pain; R10.32 - Left lower quadrant pain Status: Acute (7) Leukocytosis: Qualifiers: Leukocytosis type: unspecified Qualified Code(s): D72.829 - Elevated white blood cell count, unspecified Code(s): D72.829 - Elevated white blood cell count, unspecified Status: Acute Assessment and Plan: abx, had severe c diff colitis Subjective Date/time seen: 06/19/23 15:14 Interval history: she underwent subtotal colectomy with creation of end ileostomy, repair of incarcerated incisional hernia measuring 3 cm due to toxic megacolon abdomen is less distended, NGT in place better than yesterday Review of Systems Review of Systems: All systems reviewed & are unremarkable except as noted in HPI and below Exam Const: General: cooperative, no acute distress and ill appearing HENMT: Other: ngt in place Eyes: General: appearance normal, both eyes and all related structures Neck: Neck: supple Resp: Auscultation: clear to auscultation bilaterally Cardio: Rate: regular rate Rhythm: regular rhythm GI: Inspection: normal to inspection, distended and incision GI Palp: Yes abdominal tenderness, Yes Soft to palpation and Yes Tenderness to palpation present (GI) Other: ileostomy - slightly dusky Skin: General skin exam: normal color Neuro: Speech: normal speech Motor exam (neuro): 5/5 motor strength present throughout Extrem: General: normal to inspection Psych: Mental Status: mental status grossly normal Objective Data Vital Signs Vital Signs: Vital Signs - 24 hr 06/18/23 16:14 06/18/23 16:25 06/18/23 16:40 Temperature 97.9 F Pulse Rate 104 H 105 H 107 H Respiratory Rate 19 20 20 Blood Pressure 148/81 H 156/75 H 164/74 H Pulse Oximetry 98 100 100 Oxygen Delivery Simple Face Mask Simple Face Mask Simple Face Mask Oxygen Flow Rate 10 10 10 06/18/23 16:55 06/18/23 17:05 06/18/23 17:10 Temperature Pulse Rate 110 H 103 H Respiratory Rate 20 20 Blood Pressure 163/83 H 151/75 H Pulse Oximetry 100 96 95 Oxygen Delivery Simple Face Mask Room Air Room Air Oxygen Flow Rate 10 06/18/23 17:20 06/18/23 17:35 06/18/23 17:50 Temperature Pulse Rate 106 H 113 H 110 H Respiratory Rate 18 20 20 Blood Pressure 146/79 H 153/72 H 152/81 H Pulse Oximetry 97 94 94 Oxygen Delivery Room Air Room Air Room Air Oxygen Flow Rate 06/18/23 18:35 06/18/23 18:50 06/18/23 19:20 Temperature 97.5 F L 97.5 F L 97.8 F Pulse Rate 120 H 118 H 108 H Respiratory Rate 16 16 16 Blood Pressure 146/80 H 146/80 H 151/77 H Pulse Oximetry 97 95 95 Oxygen Delivery Oxygen Flow Rate 06/18/23 20:00 06/18/23 20:35 06/18/23 23:56 Temperature 97.9 F 98.7 F Pulse Rate 115 H 105 H Respiratory Rate 15 14 Blood Pressure 144/75 H 138/67 Pulse Oximetry 94 94 96 Oxygen Delivery Room Air
--- NOTE | 2023-06-19 15:56 | PC.NURSE ---
brief writer discontinued NG tube at 1430. It appears NG insertion was not charted .
[2023-06-19 21:42] VITALS: BP 141/67; PULSE 108; RESP 16; TEMP 37.2; O2SAT 97
[2023-06-19 23:51] LABS: Glucose Point of Care 119 mg/dl (65-105)
[2023-06-20] MEDS: HYDROmorphone HCL INJ (*CRX) 1 MG/ML SYR IV PUSH ×7 (01:00→21:01)
[2023-06-20] MEDS: VANCOMYCIN ORAL 500 MG/10 ML SYRUP FEED TUBE ×4 (01:01→17:15)
[2023-06-20] MEDS: SALINE LOCK FLUSH 10 ML IV PUSH ×4 (01:02→21:03)
[2023-06-20] MEDS: HYDROcodone/acetaminophen (*CRX) 5-325 MG TABLET 1 TAB PO ×3 (03:16→21:02)
[2023-06-20 04:58] LABS: Glucose Point of Care 131 mg/dl (65-105)
[2023-06-20 05:42] VITALS: BP 145/79; PULSE 102; RESP 14; TEMP 36.2; O2SAT 95
[2023-06-20 05:54] LABS: Hematocrit 25.6 % (37.0-47.0); Hemoglobin 8.5 g/dL (12.0-15.0); Mean Corpuscular HGB Conc 33.2 g/dl (32-36); Mean Corpuscular Hemoglobin 28.1 pg (26-34); Mean Corpuscular Volume 84.8 fl (80-100); Mean Platelet Volume 10.7 fl (7.4-10.4); Platelet Count Result 194 k/mm3 (150-375); Red Blood Count 3.02 M/mm3 (4.2-5.4); Red Cell Distribution Width 15.6 % (11.5-14.5); White Blood Count 26.3 K/mm3 (4.5-10.0)
[2023-06-20 06:05] LABS: Alanine Aminotransferase 59 U/L (6-35); Albumin Level 2.3 g/dL (3.5-5.1); Alkaline Phosphatase 94 U/L (38-126); Anion Gap -2 mmol/L (4-12); Aspartate Amino Transferase 49 U/L (14-36); Bilirubin,Total 0.4 mg/dL (0.2-1.3); Blood Urea Nitrogen 16 mg/dL (7-17); Calcium 7.5 mg/dL (8.4-10.2); Carbon Dioxide 31 mmol/L (22-30); Chloride 102 mmol/L (98-107); Estimated CRCL calculation 167 ml/min; Estimated Glomerular Filt Rate > 60; Glucose 131 mg/dL (65-110); Phosphorus 3.1 mg/dL (2.5-4.5); Potassium 3.6 mmol/L (3.4-5.0); Sodium 131 mmol/L (137-145)
[2023-06-20] MEDS: metroNIDAZOLE 500 MG/ISO 100ML 500 MG/100 ML BAG 100 MG IVPB ×3 (06:38→21:01)
[2023-06-20] MEDS: SODIUM CHLORIDE 0.9% IV 1,000 ML 100 ML IV CONT ×2 (06:39→17:18)
[2023-06-20] MEDS: ONDANSETRON INJ 4 MG/2 ML VIAL IV PUSH ×3 (06:47→21:02)
[2023-06-20] MEDS: DICYCLOMINE HCL 10 MG CAPSULE 20 MG PO ×2 (06:47→21:02)
--- NOTE | 2023-06-20 08:15 | PC.NURSE ---
This RN approached pt room and heard pt moaning and crying out in pain. Pt medicated and this RN immediately called and spoke with surgeon java application developer, Dr. Humphrey, regarding pt's increased pain, distended abdomen, and little to no bowel sounds. MD to review case and assess pt shortly. No orders at this time.
[2023-06-20] MEDS: PANTOPRAZOLE SODIUM IV 40 MG VIAL IV PUSH ×2 (08:33→21:02)
--- NOTE | 2023-06-20 09:30 | PM.PNGS ---
Progress Note: A&P Assessment and Plan (1) Toxic megacolon due to Clostridioides difficile: Code(s): A04.72 - Enterocolitis due to Clostridium difficile, not specified as recurrent Status: Acute Assessment and Plan: Patient now showing signs of ileus and worsening pain. Will get KUB this AM and might need to have NG replaced. Continue antibiotics Continue TPN (2) Postoperative ileus: Code(s): K91.89 - Other postprocedural complications and disorders of digestive system; K56.7 - Ileus, unspecified Status: Acute Subjective Subjective Date/Time Seen: 06/20/23 09:30 Interval history: Patient feeling severe pain that started last night. She was doing better yesterday and NG was removed. Now feeling very bloated, says she can't possibly drink anything more. Pain severe and not controlled with Dilaudid. Exam GI: Inspection: distended, incision (intact with rishabh) and other (ileostomy pink with scant stool in bag) GI Palp: Yes Tenderness to palpation present (GI) (diffusely) Objective Data Vital Signs Vital Signs: Vital Signs - 24 hr 06/19/23 12:00 06/19/23 21:42 06/20/23 05:42 Temperature 36.5 C 37.2 C 36.2 C L Pulse Rate 107 H 108 H 102 H Respiratory Rate 16 16 14 Blood Pressure 147/67 H 141/67 H 145/79 H Pulse Oximetry 97 97 95 Intake/Output Intake/Output: Intake & Output 06/17/23 06/18/23 06/19/23 06/20/23 23:59 23:59 23:59 23:59 Intake Total 2192.7 2750 2678.3 1000 Output Total 1100 400 Balance 2192.7 2750 1578.3 600 Meds/Results Medications: Active Medications Generic Name Dose Route Start Last Admin Trade Name Freq PRN Reason Stop Dose Admin Acetaminophen 650 mg 06/13/23 13:05 06/13/23 15:31 Acetaminophen 325 Mg Tablet PO 650 mg Q4H PRN Administration Mild Pain (1-3) or Fever Hydrocodone Bitart/Acetaminophen 1 tab 06/14/23 12:28 06/20/23 08:39 Hydrocodone/Acetaminophen (*Crx) 5-325 Mg Tablet PO 1 tab Q4H PRN Administration Pain Rated 4-6 Dicyclomine HCl 20 mg 06/14/23 11:22 06/20/23 06:47 Dicyclomine Hcl 10 Mg Capsule PO 20 mg QID PRN Administration Abdominal Cramping Enoxaparin Sodium 40 mg 06/14/23 09:00 06/19/23 09:16 Enoxaparin 40 Mg/0.4 Ml Syringe SUB-Q 40 mg DAILY BISMARK Administration Hydralazine HCl 20 mg 06/17/23 08:14 06/17/23 17:28 Hydralazine Hcl 20 Mg/Ml Vial IV PUSH 20 mg Q6HR PRN Administration Hypertension Hydromorphone HCl 1 mg 06/13/23 14:43 06/20/23 08:00 Hydromorphone Hcl Inj (*Crx) 1 Mg/Ml Syr IV PUSH 1 mg Q3H PRN Administration Pain Rated 7-10 Hydromorphone HCl 1 mg 06/20/23 09:29 Hydromorphone Hcl Inj (*Crx) 1 Mg/Ml Syr IV PUSH 06/20/23 09:30 ONCE ONE Sodium Chloride 1,000 mls @ 100 mls/hr 06/13/23 11:55 06/20/23 06:39 Normal Saline Iv IV CONT 100 mls/hr .Q10H BISMARK Administration Dextrose 1,000 mls @ 50 mls/hr 06/16/23 13:19 Dextrose 10% IV CONT .Q20H PRN if PN is interrupted Amino Acids/Electrolytes/Dextrose 2,000 mls @ 80 mls/hr 06/16/23 14:00 06/19/23 14:27 Clinimix E 4.25%/5% Solution IV CONT 80 mls/hr .Q24H BISMARK Administration Protocol Fat Emulsion Intravenous 250 mls @ 20.833 mls/hr 06/16/23 14:00 06/19/23 14:28 Lipids 20% IVPB 20.83 mls/hr Q24H BISMARK Administration Metronidazole 500 mg in 100 mls @ 100 mls/hr 06/16/23 15:30 06/20/23 06:38 Flagyl 500 Mg/Iso Soln 100 Ml IVPB 100 mls/hr Q8HR BISMARK Administration Losartan Potassium 50 mg 06/13/23 17:20 06/19/23 09:13 Losartan Potassium 50 Mg Tablet PO Not Given DAILY BISMARK Miscellaneous Information 1 each 06/17/23 00:01 06/18/23 09:11 Amino Acids 4.25%/D5w/Lytes/Ca 2,000 Ml Needs To Be Renewed Or It Will Automatically Disco XX 07/17/23 00:00 Not Given [facility] Ondansetron HCl 4 mg 06/13/23 13:05 06/20/23 06:47 Ondansetron Inj 4 Mg/2 Ml Vial IV PUSH 4 mg Q6H PRN Administration
[2023-06-20] MEDS: ENOXAPARIN 40 MG/0.4 ML SYRINGE SUB-Q (11:04)
[2023-06-20 11:20] LABS: Glucose Point of Care 148 mg/dl (65-105)
--- NOTE | 2023-06-20 11:41 | P.PNIM_ITS ---
Progress Note: A&P Assessment and Plan (1) Colitis: Code(s): K52.9 - Noninfective gastroenteritis and colitis, unspecified Status: Acute (2) Bandemia: Code(s): D72.825 - Bandemia Status: Acute (3) Leukocytosis: Qualifiers: Leukocytosis type: unspecified Qualified Code(s): D72.829 - Elevated white blood cell count, unspecified Code(s): D72.829 - Elevated white blood cell count, unspecified Status: Acute (4) Abdominal pain: Qualifiers: Abdominal location: lower abdomen, unspecified Qualified Code(s): R10.30 - Lower abdominal pain, unspecified Code(s): R10.9 - Unspecified abdominal pain Status: Acute (5) Hypertension: Code(s): I10 - Essential (primary) hypertension Status: Chronic (6) C. difficile colitis: Code(s): A04.72 - Enterocolitis due to Clostridium difficile, not specified as recurrent Status: Acute (7) Large bowel obstruction: Code(s): K56.609 - Unspecified intestinal obstruction, unspecified as to partial versus complete obstruction Status: Acute (8) Diverticulitis: Code(s): K57.92 - Diverticulitis of intestine, part unspecified, without perforation or abscess without bleeding Status: Acute (9) Toxic megacolon due to Clostridioides difficile: Code(s): A04.72 - Enterocolitis due to Clostridium difficile, not specified as recurrent Status: Acute Plan Toxic Megacolon due to C-diff colitis * 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 vancomycin * SCDs/Lovenox * PPI b.i.d. 06/19: * Post-op day 2 * KUB shows air distention post-op ileus * NG tube placed * NPO Diverticulitis/bowel obstruction/C diff colitis * WBC trending up * Continue with IV fluids @100 cc/hr * Continue with pain control * C Diff positive and Dificid started * Flagyl * IV fluids * Stool cultures pending no growth * 06/14? CT abdomen pelvis showing distension of large bowel.? Extensive wall thickening of the rectum causing partial large bowel obstruction. * GI consult and they recommended a general surgery consult. * General surgery consulted for partial large bowel obstruction. * Water-soluble enema revealing stricture of the sigmoid colon. * NPO diet. * 06/15 Plan for sigmoidoscopy showed C diff colitis and diverticulitis. * Monitor for signs of toxic megacolon * TPN * PPI BID * With worsening WBC and abdominal pain patient likely needs surgical intervention with a subtotal colectomy * Attempting transfer for fecal transplant [facility] 06/17: * WBC 23.3 * zosyn d/c GI recommends avoiding systemic ABX * on PO Vanc 500 Q6hr and flaygl * [facility] * Will attempt to have NG tube placed * Patient agreed to subtotal colectomy * Surgery scheduled 1600 Hypertension * Takes losartan at home currently NPO * Will add hydralazine 20 mg IV for systolics over 160 until patient tolerating oral intake * BP per unit protocol Code status: Full code per patient DVT prophylaxis: SCD/lovenox post-op Stress ulcer prophylaxis: Protonix 40 BID PT/OT notes: Pending Disposition: Patient post-op day 2 subtotal colectomy with ileostomy, Patient with post-op ileus, NG tube replaced and NPO for bowel rest. Time Spent With Patient Time with patient: 1
--- NOTE | 2023-06-20 11:41 | PM.IMPN ---
Progress Note: A&P Assessment and Plan (1) Colitis: Code(s): K52.9 - Noninfective gastroenteritis and colitis, unspecified Status: Acute (2) Bandemia: Code(s): D72.825 - Bandemia Status: Acute (3) Leukocytosis: Qualifiers: Leukocytosis type: unspecified Qualified Code(s): D72.829 - Elevated white blood cell count, unspecified Code(s): D72.829 - Elevated white blood cell count, unspecified Status: Acute (4) Abdominal pain: Qualifiers: Abdominal location: lower abdomen, unspecified Qualified Code(s): R10.30 - Lower abdominal pain, unspecified Code(s): R10.9 - Unspecified abdominal pain Status: Acute (5) Hypertension: Code(s): I10 - Essential (primary) hypertension Status: Chronic (6) C. difficile colitis: Code(s): A04.72 - Enterocolitis due to Clostridium difficile, not specified as recurrent Status: Acute (7) Large bowel obstruction: Code(s): K56.609 - Unspecified intestinal obstruction, unspecified as to partial versus complete obstruction Status: Acute (8) Diverticulitis: Code(s): K57.92 - Diverticulitis of intestine, part unspecified, without perforation or abscess without bleeding Status: Acute (9) Toxic megacolon due to Clostridioides difficile: Code(s): A04.72 - Enterocolitis due to Clostridium difficile, not specified as recurrent Status: Acute Plan Toxic Megacolon due to C-diff colitis 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 vancomycin SCDs/Lovenox PPI b.i.d. 06/19: Post-op day 2 KUB shows air distention post-op ileus NG tube placed NPO Diverticulitis/bowel obstruction/C diff colitis WBC trending up Continue with IV fluids @100 cc/hr Continue with pain control C Diff positive and Dificid started Flagyl IV fluids Stool cultures pending no growth 06/14? CT abdomen pelvis showing distension of large bowel.? Extensive wall thickening of the rectum causing partial large bowel obstruction. GI consult and they recommended a general surgery consult. General surgery consulted for partial large bowel obstruction. Water-soluble enema revealing stricture of the sigmoid colon. NPO diet. 06/15 Plan for sigmoidoscopy showed C diff colitis and diverticulitis. Monitor for signs of toxic megacolon TPN PPI BID With worsening WBC and abdominal pain patient likely needs surgical intervention with a subtotal colectomy [facility] transplant [facility] 06[facility]: WBC 23.3 zosyn d/c GI recommends avoiding systemic ABX on PO Vanc 500 Q6hr and kristin Garcia [facility] accepted patient for transfer Will attempt to have NG tube placed Patient agreed to subtotal colectomy Surgery scheduled 1600 Hypertension Takes losartan at home currently NPO Will add hydralazine 20 mg IV for systolics over 160 until patient tolerating oral intake BP per unit protocol Code status: Full code per patient DVT prophylaxis: SCD/lovenox post-op Stress ulcer prophylaxis: Protonix 40 BID PT/OT notes: Pending Disposition: Patient post-op day 2 subtotal colectomy with ileostomy, Patient with post-op ileus, NG tube replaced and NPO for bowel rest. Time Spent With Patient Time with patient: 15 - 25 minutes Subjective Date/time seen: 06/20/23 11:41 Interval history: 06/16: Patient continues with ABD distention, pain and no BM or gas. Encouraged NG tube placement but patient still refusing. sigmoidoscopy performed yesterday that showed severe c-diff colitis unable to advance past the past the sigmoid colon, general surgery spoke with patient regarding the need for partial colectomy since no responce to medical treatment. The only other option would we a possible fecal transplant at a tertiary hos
--- NOTE | 2023-06-20 13:52 | WPDGIPROGNO ---
Progress Note: A&P Assessment and Plan (1) Postoperative ileus: Code(s): K91.89 - Other postprocedural complications and disorders of digestive system; K56.7 - Ileus, unspecified Status: Acute Assessment and Plan: now with ileus, will place NGT again and continue TPN- per surgery (2) Toxic megacolon due to Clostridioides difficile: Code(s): A04.72 - Enterocolitis due to Clostridium difficile, not specified as recurrent Status: Acute Assessment and Plan: treated with subtotal colectomy iv flagyl and oral vancomycin (3) SIRS (systemic inflammatory response syndrome): Code(s): R65.10 - Systemic inflammatory response syndrome (SIRS) of non-infectious origin without acute organ dysfunction Status: Acute (4) Large bowel obstruction: Code(s): K56.609 - Unspecified intestinal obstruction, unspecified as to partial versus complete obstruction Status: Acute Assessment and Plan: from severe c diff, treated with surgery (5) Elevated liver transaminase level: Code(s): R74.01 - Elevation of levels of liver transaminase levels Status: Acute (6) Leukocytosis: Qualifiers: Leukocytosis type: unspecified Qualified Code(s): D72.829 - Elevated white blood cell count, unspecified Code(s): D72.829 - Elevated white blood cell count, unspecified Status: Acute Subjective Date/time seen: 06/20/23 09:00 Interval history: more uncomfortable and nauseous than yesterday, NGT was removed Review of Systems Review of Systems: All systems reviewed & are unremarkable except as noted in HPI and below Exam Const: General: uncomfortable Other: more pain today HENMT: Face/Nose/Sinus: Normal nares present Eyes: General: appearance normal, both eyes and all related structures Neck: Neck: supple Resp: Effort & Inspection: normal respiratory effort Cardio: Rate: regular rate GI: Inspection: distended, incision (intact with rishabh) and other (ileostomy pink with scant stool in bag) GI Palp: Yes Tenderness to palpation present (GI) (diffusely) Auscultation: abnormal bowel sounds Skin: General skin exam: normal color Neuro: Speech: normal speech Motor exam (neuro): 5/5 motor strength present throughout Psych: Affect: Anxious affect present Objective Data Vital Signs Vital Signs: Vital Signs - 24 hr 06/19/23 21:42 06/20/23 05:42 06/20/23 08:00 Temperature 98.9 F 97.2 F L Pulse Rate 108 H 102 H Respiratory Rate 16 14 Blood Pressure 141/67 H 145/79 H Pulse Oximetry 97 95 Oxygen Delivery Room Air Intake/Output Intake/Output: Intake & Output 06/17/23 06/18/23 06/19/23 06/20/23 23:59 23:59 23:59 23:59 Intake Total 2192.7 2750 2678.3 1000 Output Total 1100 400 Balance 2192.7 2750 1578.3 600 Meds/Results Medications: Active Medications Generic Name Dose Route Start Last Admin Trade Name Freq PRN Reason Stop Dose Admin Acetaminophen 650 mg 06/13/23 13:05 06/13/23 15:31 Acetaminophen 325 Mg Tablet PO 650 mg Q4H PRN Administration Mild Pain (1-3) or Fever Hydrocodone Bitart/Acetaminophen 1 tab 06/14/23 12:28 06/20/23 08:39 Hydrocodone/Acetaminophen (*Crx) 5-325 Mg Tablet PO 1 tab Q4H PRN Administration Pain Rated 4-6 Dicyclomine HCl 20 mg 06/14/23 11:22 06/20/23 06:47 Dicyclomine Hcl 10 Mg Capsule PO 20 mg QID PRN Administration Abdominal Cramping Enoxaparin Sodium 40 mg 06/14/23 09:00 06/20/23 11:04 Enoxaparin 40 Mg/0.4 Ml Syringe SUB-Q 40 mg DAILY BISMARK Administration Hydralazine HCl 20 mg 06/17/23 08:14 06/17/23 17:28 Hydralazine Hcl 20 Mg/Ml Vial IV PUSH 20 mg Q6HR PRN Administration Hypertension Hydromorphone HCl 1 mg 06/13/23 14:43 06/20/23 12:36 Hydromorphone Hcl Inj (*Crx) 1 Mg/Ml Syr IV PUSH 1 mg Q3H PRN Administration Pain Rated 7-10 Sodium Chloride 1,000 mls @ 100 mls/hr 06/13/23 11:55 04
[2023-06-20 14:00] VITALS: BP 144/93; PULSE 59; RESP 14; TEMP 36.7; O2SAT 98
[2023-06-20] MEDS: AMINO ACIDS 4.25%/D5W/LYTES/CA 2,000 ML 80 ML IV CONT (14:06)
[2023-06-20] MEDS: FAT EMULSIONS IV 20% 250 ML 20.83 ML IVPB (14:06)
--- NOTE | 2023-06-20 14:53 | PCOTNOTE ---
The patient occupational therapy evaluation was not able to be completed on 06/19 due to patient refusing due to increased pain and exhaustion Will plan to continue with evaluation when appropriate.
--- NOTE | 2023-06-20 14:54 | PCPTNOTE ---
Attempted PT evaluation, patient declines in too much pain and too tired. Patient reports she will try to work with therapy tomorrow AM.
[2023-06-20 21:09] LABS: Glucose Point of Care 156 mg/dl (65-105)
[2023-06-20 21:24] VITALS: BP 143/78; PULSE 111; RESP 20; TEMP 36.9; O2SAT 97
[2023-06-21] MEDS: VANCOMYCIN ORAL 500 MG/10 ML SYRUP FEED TUBE ×3 (00:19→11:38)
[2023-06-21] MEDS: HYDROmorphone HCL INJ (*CRX) 1 MG/ML SYR IV PUSH ×8 (00:21→21:23)
[2023-06-21] MEDS: ONDANSETRON INJ 4 MG/2 ML VIAL IV PUSH ×3 (03:01→21:23)
[2023-06-21] MEDS: metroNIDAZOLE 500 MG/ISO 100ML 500 MG/100 ML BAG 100 MG IVPB ×3 (05:02→21:24)
[2023-06-21] MEDS: SODIUM CHLORIDE 0.9% IV 1,000 ML 100 ML IV CONT ×2 (05:03→17:14)
[2023-06-21] MEDS: HYDROcodone/acetaminophen (*CRX) 5-325 MG TABLET 1 TAB PO ×4 (05:03→21:25)
[2023-06-21 06:00] VITALS: BP 144/71; PULSE 107; RESP 20; TEMP 36.5; O2SAT 98
[2023-06-21 06:20] LABS: Hematocrit 28.4 % (37.0-47.0); Hemoglobin 8.9 g/dL (12.0-15.0); Mean Corpuscular HGB Conc 31.3 g/dl (32-36); Mean Corpuscular Hemoglobin 27.6 pg (26-34); Mean Corpuscular Volume 88.2 fl (80-100); Mean Platelet Volume 10.8 fl (7.4-10.4); Platelet Count Result 208 k/mm3 (150-375); Red Blood Count 3.22 M/mm3 (4.2-5.4); Red Cell Distribution Width 15.3 % (11.5-14.5); White Blood Count 29.2 K/mm3 (4.5-10.0)
[2023-06-21 06:35] LABS: Alanine Aminotransferase 42 U/L (6-35); Albumin Level 2.1 g/dL (3.5-5.1); Alkaline Phosphatase 87 U/L (38-126); Anion Gap 0 mmol/L (4-12); Aspartate Amino Transferase 26 U/L (14-36); Bilirubin,Total 0.3 mg/dL (0.2-1.3); Blood Urea Nitrogen 22 mg/dL (7-17); Calcium 7.5 mg/dL (8.4-10.2); Carbon Dioxide 27 mmol/L (22-30); Chloride 103 mmol/L (98-107); Estimated CRCL calculation 167 ml/min; Estimated Glomerular Filt Rate > 60; Glucose 135 mg/dL (65-110); Phosphorus 3.3 mg/dL (2.5-4.5); Potassium 4.1 mmol/L (3.4-5.0); Sodium 130 mmol/L (137-145)
--- NOTE | 2023-06-21 07:24 | P.PNIM_ITS ---
Progress Note: A&P Assessment and Plan (1) Colitis: Code(s): K52.9 - Noninfective gastroenteritis and colitis, unspecified Status: Acute (2) Bandemia: Code(s): D72.825 - Bandemia Status: Acute (3) Leukocytosis: Qualifiers: Leukocytosis type: unspecified Qualified Code(s): D72.829 - Elevated white blood cell count, unspecified Code(s): D72.829 - Elevated white blood cell count, unspecified Status: Acute (4) Abdominal pain: Qualifiers: Abdominal location: lower abdomen, unspecified Qualified Code(s): R10.30 - Lower abdominal pain, unspecified Code(s): R10.9 - Unspecified abdominal pain Status: Acute (5) Hypertension: Qualifiers: Hypertension type: primary hypertension Qualified Code(s): I10 - Essential (primary) hypertension Code(s): I10 - Essential (primary) hypertension Status: Chronic (6) C. difficile colitis: Code(s): A04.72 - Enterocolitis due to Clostridium difficile, not specified as recurrent Status: Acute (7) Large bowel obstruction: Code(s): K56.609 - Unspecified intestinal obstruction, unspecified as to partial versus complete obstruction Status: Acute (8) Diverticulitis: Code(s): K57.92 - Diverticulitis of intestine, part unspecified, without perforation or abscess without bleeding Status: Acute (9) Toxic megacolon due to Clostridioides difficile: Code(s): A04.72 - Enterocolitis due to Clostridium difficile, not specified as recurrent Status: Acute Plan Toxic Megacolon due to C-diff colitis * 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 vancomycin * SCDs/Lovenox * PPI b.i.d. 06/19: * Post-op day 2 * KUB shows air distention post-op ileus * NG tube placed * NPO 06/20: * Post-op day 3 * Encourage ambulation/PT ordered * WBC 29.3 likely secondary to inflammatory response will hopefully start to downtrend * continue with Flagyl and p.o. vanc * NG tube continued Diverticulitis/bowel obstruction/C diff colitis * WBC trending up * Continue with IV fluids @100 cc/hr * Continue with pain control * C Diff positive and Dificid started * Flagyl * IV fluids * Stool cultures pending no growth * 06/14? CT abdomen pelvis showing distension of large bowel.? Extensive wall thickening of the rectum causing partial large bowel obstruction. * GI consult and they recommended a general surgery consult. * General surgery consulted for partial large bowel obstruction. * Water-soluble enema revealing stricture of the sigmoid colon. * NPO diet. * 06/15 Plan for sigmoidoscopy showed C diff colitis and diverticulitis. * Monitor for signs of toxic megacolon * TPN * PPI BID * With worsening WBC and abdominal pain patient likely needs surgical intervention with a subtotal colectomy * Attempting transfer for fecal transplant [facility] 06/17: * WBC 23.3 * zosyn d/c GI recommends avoiding systemic ABX * on PO Vanc 500 Q6hr and flaygl * Dr. Garcia at [facility] accepted patient for transfer * Will attempt to have NG tube placed * Patient agreed to subtotal colectomy * Surgery scheduled 1600 Hypertension * Takes losartan at home currently NPO * Will add hydralazine 20 mg IV for systolics over 160 until patient tolerating oral intake * BP per unit protocol Code status: Full code per p
--- NOTE | 2023-06-21 07:24 | PM.IMPN ---
Progress Note: A&P Assessment and Plan (1) Colitis: Code(s): K52.9 - Noninfective gastroenteritis and colitis, unspecified Status: Acute (2) Bandemia: Code(s): D72.825 - Bandemia Status: Acute (3) Leukocytosis: Qualifiers: Leukocytosis type: unspecified Qualified Code(s): D72.829 - Elevated white blood cell count, unspecified Code(s): D72.829 - Elevated white blood cell count, unspecified Status: Acute (4) Abdominal pain: Qualifiers: Abdominal location: lower abdomen, unspecified Qualified Code(s): R10.30 - Lower abdominal pain, unspecified Code(s): R10.9 - Unspecified abdominal pain Status: Acute (5) Hypertension: Qualifiers: Hypertension type: primary hypertension Qualified Code(s): I10 - Essential (primary) hypertension Code(s): I10 - Essential (primary) hypertension Status: Chronic (6) C. difficile colitis: Code(s): A04.72 - Enterocolitis due to Clostridium difficile, not specified as recurrent Status: Acute (7) Large bowel obstruction: Code(s): K56.609 - Unspecified intestinal obstruction, unspecified as to partial versus complete obstruction Status: Acute (8) Diverticulitis: Code(s): K57.92 - Diverticulitis of intestine, part unspecified, without perforation or abscess without bleeding Status: Acute (9) Toxic megacolon due to Clostridioides difficile: Code(s): A04.72 - Enterocolitis due to Clostridium difficile, not specified as recurrent Status: Acute Plan Toxic Megacolon due to C-diff colitis 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 vancomycin SCDs/Lovenox PPI b.i.d. 06/19: Post-op day 2 KUB shows air distention post-op ileus NG tube placed NPO 06/20: Post-op day 3 Encourage ambulation/PT ordered WBC 29.3 likely secondary to inflammatory response will hopefully start to downtrend continue with Flagyl and p.o. vanc NG tube continued Diverticulitis/bowel obstruction/C diff colitis WBC trending up Continue with IV fluids @100 cc/hr Continue with pain control C Diff positive and Dificid started Flagyl IV fluids Stool cultures pending no growth 06/14? CT abdomen pelvis showing distension of large bowel.? Extensive wall thickening of the rectum causing partial large bowel obstruction. GI consult and they recommended a general surgery consult. General surgery consulted for partial large bowel obstruction. Water-soluble enema revealing stricture of the sigmoid colon. NPO diet. 06/15 Plan for sigmoidoscopy showed C diff colitis and diverticulitis. Monitor for signs of toxic megacolon TPN PPI BID With worsening WBC and abdominal pain patient likely needs surgical intervention with a subtotal colectomy Attempting transfer for fecal transplant [facility] 06/17: WBC 23.3 zosyn d/c GI recommends avoiding systemic ABX on PO Vanc 500 Q6hr and kristin Garcia at [facility] accepted patient for transfer Will attempt to have NG tube placed Patient agreed to subtotal colectomy Surgery scheduled 1600 Hypertension Takes losartan at home currently NPO Will add hydralazine 20 mg IV for systolics over 160 until patient tolerating oral intake BP per unit protocol Code status: Full code per patient DVT prophylaxis: SCD/lovenox post-op Stress ulcer prophylaxis: Protonix 40 BID PT/OT notes: Pending Disposition: Patient post-op day 3 subtotal colectomy with ileostomy, Patient with post-op ileus, NG tube replaced and NPO for bowel rest. Time Spent With Patient Time with patient: 15 - 25 minutes Subjective Date/time seen: 06/21/23 07:24 Interval history: 06/16: Patient continues with ABD distention, pain and no BM or gas. Encouraged NG tube placement but patient st
[2023-06-21] MEDS: PANTOPRAZOLE SODIUM IV 40 MG VIAL IV PUSH ×2 (08:29→21:24)
[2023-06-21] MEDS: ENOXAPARIN 40 MG/0.4 ML SYRINGE SUB-Q (08:29)
[2023-06-21] MEDS: LOSARTAN POTASSIUM 50 MG TABLET PO (08:33)
[2023-06-21 11:20] LABS: Glucose Point of Care 140 mg/dl (65-105)
[2023-06-21] MEDS: DICYCLOMINE HCL 10 MG CAPSULE 20 MG PO ×2 (11:38→17:13)
--- NOTE | 2023-06-21 12:37 | WPDGIPROGNO ---
Progress Note: A&P Assessment and Plan (1) Postoperative ileus: Code(s): K91.89 - Other postprocedural complications and disorders of digestive system; K56.7 - Ileus, unspecified Status: Acute Assessment and Plan: clinically better, still npo NGT in place TPN- per surgery (2) Toxic megacolon due to Clostridioides difficile: Code(s): A04.72 - Enterocolitis due to Clostridium difficile, not specified as recurrent Status: Acute Assessment and Plan: treated with subtotal colectomy iv flagyl and oral vancomycin (3) SIRS (systemic inflammatory response syndrome): Code(s): R65.10 - Systemic inflammatory response syndrome (SIRS) of non-infectious origin without acute organ dysfunction Status: Acute (4) Large bowel obstruction: Code(s): K56.609 - Unspecified intestinal obstruction, unspecified as to partial versus complete obstruction Status: Acute Assessment and Plan: from severe c diff, treated with surgery (5) Elevated liver transaminase level: Code(s): R74.01 - Elevation of levels of liver transaminase levels Status: Acute (6) Leukocytosis: Qualifiers: Leukocytosis type: unspecified Qualified Code(s): D72.829 - Elevated white blood cell count, unspecified Code(s): D72.829 - Elevated white blood cell count, unspecified Status: Acute Subjective Date/time seen: 06/21/23 12:37 Interval history: today is having a better day, NGT is back in place, abdomen less distended Review of Systems Review of Systems: All systems reviewed & are unremarkable except as noted in HPI and below Exam Const: General: no acute distress Other: less pain today HENMT: Other: ngt in place Eyes: General: appearance normal, both eyes and all related structures Neck: Neck: supple Resp: Effort & Inspection: normal respiratory effort Cardio: Rate: regular rate GI: Inspection: distended, incision (intact with rishabh) and other (ileostomy pink with scant stool in bag) GI Palp: Yes Tenderness to palpation present (GI) (diffusely) Auscultation: abnormal bowel sounds Skin: General skin exam: normal color Neuro: Speech: normal speech Motor exam (neuro): 5/5 motor strength present throughout Extrem: General: normal to inspection Psych: Affect: Anxious affect present Objective Data Vital Signs Vital Signs: Vital Signs - 24 hr 06/20/23 14:00 06/20/23 21:24 06/21/23 06:00 Temperature 98.0 F 98.4 F 97.7 F Pulse Rate 59 L 111 H 107 H Respiratory Rate 14 20 20 Blood Pressure 144/93 H 143/78 H 144/71 H Pulse Oximetry 98 97 98 Oxygen Delivery 06/21/23 08:00 06/21/23 09:43 Temperature Pulse Rate Respiratory Rate Blood Pressure Pulse Oximetry Oxygen Delivery Room Air Room Air Intake/Output Intake/Output: Intake & Output 06/18/23 06/19/23 06/20/23 06/21/23 23:59 23:59 23:59 23:59 Intake Total 2750 2678.3 4442 1000 Output Total 1100 2450 1100 Balance 2750 1578.3 1991 Meds/Results Medications: Active Medications Generic Name Dose Route Start Last Admin Trade Name Freq PRN Reason Stop Dose Admin Acetaminophen 650 mg 06/13/23 13:05 06/13/23 15:31 Acetaminophen 325 Mg Tablet PO 650 mg Q4H PRN Administration Mild Pain (1-3) or Fever Hydrocodone Bitart/Acetaminophen 1 tab 06/14/23 12:28 06/21/23 11:37 Hydrocodone/Acetaminophen (*Crx) 5-325 Mg Tablet PO 1 tab Q4H PRN Administration Pain Rated 4-6 Dicyclomine HCl 20 mg 06/14/23 11:22 06/21/23 11:38 Dicyclomine Hcl 10 Mg Capsule PO 20 mg QID PRN Administration Abdominal Cramping Enoxaparin Sodium 40 mg 06/14/23 09:00 06/21/23 08:29 Enoxaparin 40 Mg/0.4 Ml Syringe SUB-Q 40 mg DAILY BISMARK Administration Hydralazine HCl 20 mg 06/17/23 08:14 06/17/23 17:28 Hydralazine Hcl 20 Mg/Ml Vial IV PUSH 20 mg Q6HR PRN Administration Hypertension Hydromorphone HCl
[2023-06-21 13:02] LABS: Triglycerides 207 mg/dL (<150)
--- NOTE | 2023-06-21 13:02 | PM.PNGS ---
Progress Note: A&P Assessment and Plan (1) Toxic megacolon due to Clostridioides difficile: Code(s): A04.72 - Enterocolitis due to Clostridium difficile, not specified as recurrent Status: Acute Assessment and Plan: Continue NG decompression WBC still significantly elevated. Might be lagging behind from C diff and recent surgery. Oral vancomycin probably not beneficial at this point. Will switch to a low volume rectal enema and instruct nurse to administer very carefully. Continue antibiotics Continue TPN (2) Postoperative ileus: Code(s): K91.89 - Other postprocedural complications and disorders of digestive system; K56.7 - Ileus, unspecified Status: Acute Subjective Subjective Date/Time Seen: 06/21/23 13:02 Interval history: Patient feeling better after NG replacement yesterday. Having some ileostomy output but still feeling bloated. Exam GI: Inspection: distended, incision (intact with rishabh) and other (ileostomy pink with scant stool in bag) GI Palp: Yes Tenderness to palpation present (GI) (mild) Objective Data Vital Signs Vital Signs: Vital Signs - 24 hr 06/20/23 14:00 06/20/23 21:24 06/21/23 06:00 Temperature 36.7 C 36.9 C 36.5 C Pulse Rate 59 L 111 H 107 H Respiratory Rate 14 20 20 Blood Pressure 144/93 H 143/78 H 144/71 H Pulse Oximetry 98 97 98 Oxygen Delivery 06/21/23 08:00 06/21/23 09:43 Temperature Pulse Rate Respiratory Rate Blood Pressure Pulse Oximetry Oxygen Delivery Room Air Room Air Intake/Output Intake/Output: Intake & Output 06/18/23 06/19/23 06/20/23 06/21/23 23:59 23:59 23:59 23:59 Intake Total 2750 2678.3 4442 1000 Output Total 1100 2450 1100 Balance 2750 1578.3 1991 Meds/Results Medications: Active Medications Generic Name Dose Route Start Last Admin Trade Name Freq PRN Reason Stop Dose Admin Acetaminophen 650 mg 06/13/23 13:05 06/13/23 15:31 Acetaminophen 325 Mg Tablet PO 650 mg Q4H PRN Administration Mild Pain (1-3) or Fever Hydrocodone Bitart/Acetaminophen 1 tab 06/14/23 12:28 06/21/23 11:37 Hydrocodone/Acetaminophen (*Crx) 5-325 Mg Tablet PO 1 tab Q4H PRN Administration Pain Rated 4-6 Dicyclomine HCl 20 mg 06/14/23 11:22 06/21/23 11:38 Dicyclomine Hcl 10 Mg Capsule PO 20 mg QID PRN Administration Abdominal Cramping Enoxaparin Sodium 40 mg 06/14/23 09:00 06/21/23 08:29 Enoxaparin 40 Mg/0.4 Ml Syringe SUB-Q 40 mg DAILY BISMARK Administration Hydralazine HCl 20 mg 06/17/23 08:14 06/17/23 17:28 Hydralazine Hcl 20 Mg/Ml Vial IV PUSH 20 mg Q6HR PRN Administration Hypertension Hydromorphone HCl 1 mg 06/13/23 14:43 06/21/23 12:03 Hydromorphone Hcl Inj (*Crx) 1 Mg/Ml Syr IV PUSH 1 mg Q3H PRN Administration Pain Rated 7-10 Sodium Chloride 1,000 mls @ 100 mls/hr 06/13/23 11:55 06/21/23 05:03 Normal Saline Iv IV CONT 100 mls/hr .Q10H BISMARK Administration Dextrose 1,000 mls @ 50 mls/hr 06/16/23 13:19 Dextrose 10% IV CONT .Q20H PRN if PN is interrupted Amino Acids/Electrolytes/Dextrose 2,000 mls @ 80 mls/hr 06/16/23 14:00 06/20/23 14:06 Clinimix E 4.25%/5% Solution IV CONT 80 mls/hr .Q24H BISMARK Administration Protocol Fat Emulsion Intravenous 250 mls @ 20.833 mls/hr 06/16/23 14:00 06/20/23 14:06 Lipids 20% IVPB 20.83 mls/hr Q24H BISMARK Administration Metronidazole 500 mg in 100 mls @ 100 mls/hr 06/16/23 15:30 06/21/23 05:02 Flagyl 500 Mg/Iso Soln 100 Ml IVPB 100 mls/hr Q8HR BISMARK Administration Losartan Potassium 50 mg 06/13/23 17:20 06/21/23 08:33 Losartan Potassium 50 Mg Tablet PO 50 mg DAILY BISMARK Administration Miscellaneous Information 1 each 06/21/23 00:01 Amino Acids 4.25%/D5w/Lytes/Ca 2,000 Ml Needs To Be Renewed Or It Will Automatically Disco XX 07/21/23 00:00 CLARIFY BISMARK Ondansetron HCl 4 mg 06/13/23 13:05 06/21/23 08:53 Ondans
[2023-06-21] MEDS: SALINE LOCK FLUSH 10 ML IV PUSH ×2 (13:53→21:25)
[2023-06-21] MEDS: FAT EMULSIONS IV 20% 250 ML 20.83 ML IVPB (13:53)
[2023-06-21] MEDS: AMINO ACIDS 4.25%/D5W/LYTES/CA 2,000 ML 80 ML IV CONT (13:53)
[2023-06-21 14:00] VITALS: BP 145/74; PULSE 81; RESP 18; TEMP 36.8; O2SAT 99
[2023-06-21 20:41] LABS: Glucose Point of Care 108 mg/dl (65-105)
[2023-06-21 20:59] VITALS: BP 140/71; PULSE 106; RESP 20; TEMP 37.1; O2SAT 98
[2023-06-22] MEDS: HYDROmorphone HCL INJ (*CRX) 1 MG/ML SYR IV PUSH ×6 (00:46→20:38)
[2023-06-22] MEDS: SODIUM CHLORIDE 0.9% IV 1,000 ML 100 ML IV CONT (03:58)
[2023-06-22] MEDS: ONDANSETRON INJ 4 MG/2 ML VIAL IV PUSH ×2 (04:00→20:38)
[2023-06-22] MEDS: metroNIDAZOLE 500 MG/ISO 100ML 500 MG/100 ML BAG 100 MG IVPB ×3 (05:27→21:16)
[2023-06-22] MEDS: HYDROcodone/acetaminophen (*CRX) 5-325 MG TABLET 1 TAB PO ×4 (05:32→21:45)
[2023-06-22 06:00] VITALS: BP 159/79; PULSE 106; RESP 20; TEMP 37.2; O2SAT 97
[2023-06-22 06:37] LABS: Hematocrit 23.9 % (37.0-47.0); Hemoglobin 7.7 g/dL (12.0-15.0); Mean Corpuscular HGB Conc 32.2 g/dl (32-36); Mean Corpuscular Volume 86.9 fl (80-100); Mean Platelet Volume 10.4 fl (7.4-10.4); Platelet Count Result 166 k/mm3 (150-375); Red Blood Count 2.75 M/mm3 (4.2-5.4); Red Cell Distribution Width 15.2 % (11.5-14.5); White Blood Count 20.7 K/mm3 (4.5-10.0)
[2023-06-22 06:51] LABS: Alanine Aminotransferase 36 U/L (6-35); Albumin Level 2.3 g/dL (3.5-5.1); Alkaline Phosphatase 95 U/L (38-126); Anion Gap -2 mmol/L (4-12); Aspartate Amino Transferase 31 U/L (14-36); Bilirubin,Total 0.5 mg/dL (0.2-1.3); Blood Urea Nitrogen 15 mg/dL (7-17); Calcium 7.7 mg/dL (8.4-10.2); Carbon Dioxide 30 mmol/L (22-30); Chloride 102 mmol/L (98-107); Estimated CRCL calculation 145 ml/min; Estimated Glomerular Filt Rate > 60; Glucose 115 mg/dL (65-110); Phosphorus 3.1 mg/dL (2.5-4.5); Sodium 130 mmol/L (137-145)
[2023-06-22 06:56] LABS: INR 1.1; Partial Thromboplastin Time 25.4 Seconds (22.3-36.8); Prothrombin Time 14.3 Seconds (11.1-14.7); Transferrin 157 mg/dL (206-381)
[2023-06-22] MEDS: ENOXAPARIN 40 MG/0.4 ML SYRINGE SUB-Q (08:07)
[2023-06-22] MEDS: BENZOCAINE/MENTHOL (*BKC) 18 EA LOZENGE 1 LOZENGE PO (08:07)
[2023-06-22] MEDS: LOSARTAN POTASSIUM 50 MG TABLET PO (08:08)
[2023-06-22] MEDS: PANTOPRAZOLE SODIUM IV 40 MG VIAL IV PUSH ×2 (08:14→21:16)
[2023-06-22] MEDS: DICYCLOMINE HCL 10 MG CAPSULE 20 MG PO ×2 (08:16→17:28)
--- NOTE | 2023-06-22 10:41 | P.PNIM_ITS ---
Progress Note: A&P Assessment and Plan (1) Colitis: Code(s): K52.9 - Noninfective gastroenteritis and colitis, unspecified Status: Acute (2) Bandemia: Code(s): D72.825 - Bandemia Status: Acute (3) Leukocytosis: Qualifiers: Leukocytosis type: unspecified Qualified Code(s): D72.829 - Elevated white blood cell count, unspecified Code(s): D72.829 - Elevated white blood cell count, unspecified Status: Acute (4) Abdominal pain: Qualifiers: Abdominal location: lower abdomen, unspecified Qualified Code(s): R10.30 - Lower abdominal pain, unspecified Code(s): R10.9 - Unspecified abdominal pain Status: Acute (5) Hypertension: Qualifiers: Hypertension type: primary hypertension Qualified Code(s): I10 - Essential (primary) hypertension Code(s): I10 - Essential (primary) hypertension Status: Chronic (6) C. difficile colitis: Code(s): A04.72 - Enterocolitis due to Clostridium difficile, not specified as recurrent Status: Acute (7) Large bowel obstruction: Code(s): K56.609 - Unspecified intestinal obstruction, unspecified as to partial versus complete obstruction Status: Acute (8) Diverticulitis: Code(s): K57.92 - Diverticulitis of intestine, part unspecified, without perforation or abscess without bleeding Status: Acute (9) Toxic megacolon due to Clostridioides difficile: Code(s): A04.72 - Enterocolitis due to Clostridium difficile, not specified as recurrent Status: Acute Plan DVT of left arm patient complained left arm pain, patient is noted have left arm swelling, tender around the insertion site of PICC venous Doppler of left arm suggests deep venous thrombosis involving the left axillary and basilic veins, likely acute or subacute. Suspected foci of gas within the thrombus, may be secondary to venous access or infection? MANAGEMENT PER SURGEON stop TPN feeding from PICC line because of DVT Start Lovenox 1 milligram/kilos q.12 hour im Toxic Megacolon due to C-diff colitis * 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 vancomycin * SCDs/Lovenox * PPI b.i.d. 06/19: * Post-op day 2 * KUB shows air distention post-op ileus * NG tube placed * NPO 06/20: * Post-op day 3 * Encourage ambulation/PT ordered * WBC 29.3 likely secondary to inflammatory response will hopefully start to downtrend * continue with Flagyl and p.o. vanc * NG tube continued Diverticulitis/bowel obstruction/C diff colitis * WBC trending up * Continue with IV fluids @100 cc/hr * Continue with pain control * C Diff positive and Dificid started * Flagyl * IV fluids * Stool cultures pending no growth * 06/14? CT abdomen pelvis showing distension of large bowel.? Extensive wall thickening of the rectum causing partial large bowel obstruction. * GI consult and they recommended a general surgery consult. * General surgery consulted for partial large bowel obstruction. * Water-soluble enema revealing stricture of the sigmoid colon. * NPO diet. * 06/15 Plan for sigmoidoscopy showed C diff colitis and diverticulitis. * Monitor for signs of toxic megacolon * Attempt[facility] transfer for [facility] transplant [facility] 06/[facility]: * WBC 23.3 * zosyn d/c GI recommends avoiding systemic ABX * on PO Vanc 500 Q6hr and flaygl * [facility] accepted [facility] for transfer
--- NOTE | 2023-06-22 10:41 | PM.IMPN ---
Progress Note: A&P Assessment and Plan (1) Colitis: Code(s): K52.9 - Noninfective gastroenteritis and colitis, unspecified Status: Acute (2) Bandemia: Code(s): D72.825 - Bandemia Status: Acute (3) Leukocytosis: Qualifiers: Leukocytosis type: unspecified Qualified Code(s): D72.829 - Elevated white blood cell count, unspecified Code(s): D72.829 - Elevated white blood cell count, unspecified Status: Acute (4) Abdominal pain: Qualifiers: Abdominal location: lower abdomen, unspecified Qualified Code(s): R10.30 - Lower abdominal pain, unspecified Code(s): R10.9 - Unspecified abdominal pain Status: Acute (5) Hypertension: Qualifiers: Hypertension type: primary hypertension Qualified Code(s): I10 - Essential (primary) hypertension Code(s): I10 - Essential (primary) hypertension Status: Chronic (6) C. difficile colitis: Code(s): A04.72 - Enterocolitis due to Clostridium difficile, not specified as recurrent Status: Acute (7) Large bowel obstruction: Code(s): K56.609 - Unspecified intestinal obstruction, unspecified as to partial versus complete obstruction Status: Acute (8) Diverticulitis: Code(s): K57.92 - Diverticulitis of intestine, part unspecified, without perforation or abscess without bleeding Status: Acute (9) Toxic megacolon due to Clostridioides difficile: Code(s): A04.72 - Enterocolitis due to Clostridium difficile, not specified as recurrent Status: Acute Plan DVT of left arm patient complained left arm pain, patient is noted have left arm swelling, tender around the insertion site of PICC venous Doppler of left arm suggests deep venous thrombosis involving the left axillary and basilic veins, likely acute or subacute. Suspected foci of gas within the thrombus, may be secondary to venous access or infection? MANAGEMENT PER SURGEON stop TPN feeding from PICC line because of DVT Start Lovenox 1 milligram/kilos q.12 hour im Toxic Megacolon due to C-diff colitis 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 vancomycin SCDs/Lovenox PPI b.i.d. 06/19: Post-op day 2 KUB shows air distention post-op ileus NG tube placed NPO 06/20: Post-op day 3 Encourage ambulation/PT ordered WBC 29.3 likely secondary to inflammatory response will hopefully start to downtrend continue with Flagyl and p.o. vanc NG tube continued Diverticulitis/bowel obstruction/C diff colitis WBC trending up Continue with IV fluids @100 cc/hr Continue with pain control C Diff positive and Dificid started Flagyl IV fluids Stool cultures pending no growth 06/14? CT abdomen pelvis showing distension of large bowel.? Extensive wall thickening of the rectum causing partial large bowel obstruction. GI consult and they recommended a general surgery consult. General surgery consulted for partial large bowel obstruction. Water-soluble enema revealing stricture of the sigmoid colon. NPO diet. 06/15 Plan for sigmoidoscopy showed C diff colitis and diverticulitis. Monitor for signs of toxic megacolon Attempting transfer for fecal transplant [facility] 06/17: WBC 23.3 zosyn d/c GI recommends avoiding systemic ABX on PO Vanc 500 Q6hr and kristin Garcia at [facility] accepted patient for transfer Will attempt to have NG tube placed Patient agreed to subtotal colectomy Surgery scheduled 1600 Hypertension Takes losartan at home currently NPO Will add hydralazine 20 mg IV for systolics over 160 until patient tolerating oral intake BP per unit protocol Code status: Full code per patient DVT prophylaxis: SCD/lovenox post-op Stress ulcer prophylaxis: Protonix 40 BID PT/OT notes: Pending Disposition: Patient post-op day 3 alfonso
--- NOTE | 2023-06-22 12:16 | PM.PNGS ---
Progress Note: A&P Assessment and Plan (1) Toxic megacolon due to Clostridioides difficile: Code(s): A04.72 - Enterocolitis due to Clostridium difficile, not specified as recurrent Status: Acute Assessment and Plan: Continue NG decompression, bowel rest, PPN WBC trending down today Continue antibiotics, vancomycin enema (2) Postoperative ileus: Code(s): K91.89 - Other postprocedural complications and disorders of digestive system; K56.7 - Ileus, unspecified Status: Acute Assessment and Plan: Continue NG tube decompression, bowel rest, PPN Plan I have discussed the patient's case and plan of care with Dr. Arndt. Subjective Subjective Date/Time Seen: 06/22/23 12:16 Post Op day: 4 (subtotal colectomy with creation of end ileostomy, repair of incarcerated incisional hernia) Patient reports: afebrile Interval history: Chart reviewed since last seen. Over the weekend, she had an NG replaced and is still on PPN through a left upper extremity midline catheter. She reports pain in the left upper arm with swelling. She reports overall feeling less bloated and better since NG was replaced. She reports some stool was coming from her ileostomy, but the bag was recently changed this morning as it was leaking. She reports getting up and walking today. Exam GI: Inspection: incision (intact with rishabh, no erythema or drainage) and other (mildly distended) GI Palp: Yes Soft to palpation, Yes Tenderness to palpation present (GI) (diffuse tenderness and tenderness near incision) and No Guarding due to palpation present (GI) Auscultation: Hypoactive bowel sounds present Other: ileostomy with no stool or gas in bag, but bag recently changed, stoma viable Objective Data Vital Signs Vital Signs: Vital Signs - 24 hr 06/21/23 14:00 06/21/23 20:59 06/22/23 06:00 Temperature 98.3 F 98.7 F 99.0 F Pulse Rate 81 106 H 106 H Respiratory Rate 18 20 20 Blood Pressure 145/74 H 140/71 159/79 H Pulse Oximetry 99 98 97 Oxygen Delivery 06/22/23 08:00 Temperature Pulse Rate Respiratory Rate Blood Pressure Pulse Oximetry Oxygen Delivery Room Air Intake/Output Intake/Output: Intake & Output 06/19/23 06/20/23 06/21/23 06/22/23 23:59 23:59 23:59 23:59 Intake Total 2678.3 4442 4452.7 1350 Output Total 1100 2450 1100 3600 Balance 1578.3 [facility], 1928–1983 3352.7 -2250 Meds/Results Medications: Active Medications Generic Name Dose Route Start Last Admin Trade Name Freq PRN Reason Stop Dose Admin Acetaminophen 650 mg 06/13/23 13:05 06/13/23 15:31 Acetaminophen 325 Mg Tablet PO 650 mg Q4H PRN Administration Mild Pain (1-3) or Fever Hydrocodone Bitart/Acetaminophen 1 tab 06/14/23 12:28 06/22/23 05:32 Hydrocodone/Acetaminophen (*Crx) 5-325 Mg Tablet PO 1 tab Q4H PRN Administration Pain Rated 4-6 Benzocaine 1 lozenge 06/22/23 06:14 06/22/23 08:07 Benzocaine/Menthol (*Bkc) 18 Ea Lozenge PO 06/28/23 23:59 1 lozenge PRN PRN Administration Sore Throat Dicyclomine HCl 20 mg 06/14/23 11:22 06/22/23 08:16 Dicyclomine Hcl 10 Mg Capsule PO 20 mg QID PRN Administration Abdominal Cramping Enoxaparin Sodium 40 mg 06/14/23 09:00 06/22/23 08:07 Enoxaparin 40 Mg/0.4 Ml Syringe SUB-Q 40 mg DAILY BISMARK Administration Hydralazine HCl 20 mg 06/17/23 08:14 06/17/23 17:28 Hydralazine Hcl 20 Mg/Ml Vial IV PUSH 20 mg Q6HR PRN Administration Hypertension Hydromorphone HCl 1 mg 06/13/23 14:43 06/22/23 08:32 Hydromorphone Hcl Inj (*Crx) 1 Mg/Ml Syr IV PUSH 1 mg Q3H PRN Administration Pain Rated 7-10 Sodium Chloride 1,000 mls @ 40 mls/hr 06/13/23 11:55 06/22/23 03:58 Normal Saline Iv IV CONT 100 mls/hr .Q24H BISMARK Administration Dextrose 1,000 mls @ 50 mls/hr 06/16/23 13:19 Dextrose 10% IV CONT .Q20H PRN if PN is interrupted Amino Acids/Electrolytes/Dextrose 2,000 mls @ 80 mls/hr 04/
[2023-06-22 12:25] LABS: Glucose Point of Care 104 mg/dl (65-105)
--- NOTE | 2023-06-22 13:08 | PCOTNOTE ---
Attempted to see Patient at this time. Patient verbalized she is not feeling well, has a fever at this time and can not participate at this time. Patient requested therapy check back at a alter time.
[2023-06-22 13:17] VITALS: TEMP 38.8
[2023-06-22] MEDS: ACETAMINOPHEN 325 MG TABLET 650 MG PO ×2 (13:17→17:26)
[2023-06-22] MEDS: FAT EMULSIONS IV 20% 250 ML 20.83 ML IVPB (13:18)
[2023-06-22] MEDS: AMINO ACIDS 4.25%/D5W/LYTES/CA 2,000 ML 80 ML IV CONT (13:18)
[2023-06-22] MEDS: SALINE LOCK FLUSH 10 ML IV PUSH (13:19)
--- NOTE | 2023-06-22 14:05 | PCPTNOTE ---
The patient treatment was not able to be completed at this time due to patient having a fever and not feeling well at this time. Will plan to continue treatment per plan of care.
--- NOTE | 2023-06-22 15:02 | WPDGIPROGNO ---
Progress Note: A&P Assessment and Plan (1) Postoperative ileus: Code(s): K91.89 - Other postprocedural complications and disorders of digestive system; K56.7 - Ileus, unspecified Status: Acute Assessment and Plan: NGT in place for decompression TPN- per surgery (2) Toxic megacolon due to Clostridioides difficile: Code(s): A04.72 - Enterocolitis due to Clostridium difficile, not specified as recurrent Status: Acute Assessment and Plan: treated with subtotal colectomy iv flagyl and vancomycin noted fever today, monitor (3) SIRS (systemic inflammatory response syndrome): Code(s): R65.10 - Systemic inflammatory response syndrome (SIRS) of non-infectious origin without acute organ dysfunction Status: Acute (4) Large bowel obstruction: Code(s): K56.609 - Unspecified intestinal obstruction, unspecified as to partial versus complete obstruction Status: Acute Assessment and Plan: from severe c diff, treated with surgery (5) Leukocytosis: Qualifiers: Leukocytosis type: unspecified Qualified Code(s): D72.829 - Elevated white blood cell count, unspecified Code(s): D72.829 - Elevated white blood cell count, unspecified Status: Acute Assessment and Plan: trending down Subjective Date/time seen: 06/22/23 15:02 Interval history: had fever today 102F, less bloated and less distended, + stool by ileostomy, ngt in place Review of Systems Review of Systems: All systems reviewed & are unremarkable except as noted in HPI and below Exam Const: General: comfortable HENMT: Face/Nose/Sinus: Normal nares present Other: ngt + Eyes: Sclera: sclerae normal Neck: Neck: supple Resp: Effort & Inspection: normal respiratory effort Cardio: Rate: regular rate GI: Inspection: incision (intact with rishabh, no erythema or drainage) and other (mildly distended) GI Palp: Yes Soft to palpation, Yes Tenderness to palpation present (GI) (diffuse tenderness and tenderness near incision) and No Guarding due to palpation present (GI) Auscultation: Hypoactive bowel sounds present Other: ileostomy with small amount of stool in bag, stoma viable Skin: General skin exam: normal color Neuro: Speech: normal speech Motor exam (neuro): 5/5 motor strength present throughout Extrem: General: pedal edema Psych: Mental Status: mental status grossly normal Objective Data Vital Signs Vital Signs: Vital Signs - 24 hr 06/21/23 20:59 06/22/23 06:00 06/22/23 08:00 Temperature 98.7 F 99.0 F Pulse Rate 106 H 106 H Respiratory Rate 20 20 Blood Pressure 140/71 159/79 H Pulse Oximetry 98 97 Oxygen Delivery Room Air 06/22/23 13:17 Temperature 102 F H Pulse Rate Respiratory Rate Blood Pressure Pulse Oximetry Oxygen Delivery Intake/Output Intake/Output: Intake & Output 06/19/23 06/20/23 06/21/23 06/22/23 23:59 23:59 23:59 23:59 Intake Total 2678.3 4442 4452.7 3573.3 Output Total 1100 2450 1100 4650 Balance 1578.3 1992 3352.7 -1076.7 Meds/Results Medications: Active Medications Generic Name Dose Route Start Last Admin Trade Name Freq PRN Reason Stop Dose Admin Acetaminophen 650 mg 06/13/23 13:05 06/22/23 13:17 Acetaminophen 325 Mg Tablet PO 650 mg Q4H PRN Administration Mild Pain (1-3) or Fever Hydrocodone Bitart/Acetaminophen 1 tab 06/14/23 12:28 06/22/23 13:17 Hydrocodone/Acetaminophen (*Crx) 5-325 Mg Tablet PO 1 tab Q4H PRN Administration Pain Rated 4-6 Benzocaine 1 lozenge 06/22/23 06:14 06/22/23 08:07 Benzocaine/Menthol (*Bkc) 18 Ea Lozenge PO 06/28/23 23:59 1 lozenge PRN PRN Administration Sore Throat Dicyclomine HCl 20 mg 06/14/23 11:22 06/22/23 08:16 Dicyclomine Hcl 10 Mg Capsule PO 20 mg QID PRN Administration Abdominal Cramping Enoxaparin Sodium 40 mg 06/14/23 09:00 06/22/23 08:07 Enoxaparin 40 Mg/0.4 Ml Syringe FLETCHER
[2023-06-22 17:26] VITALS: TEMP 38.3
[2023-06-22 20:38] LABS: Glucose Point of Care 95 mg/dl (65-105)
[2023-06-22 20:42] VITALS: BP 143/58; PULSE 115; RESP 20; TEMP 38.4; O2SAT 97
[2023-06-22] MEDS: ENOXAPARIN 120 MG/0.8 ML SYRINGE SUB-Q (21:15)
[2023-06-23] VITALS (7 sets, daily range): BP systolic 126–154; BP diastolic 55–76; PULSE 82–113; RESP 16–22; TEMP 36.4–38.5; O2SAT 94–97
[2023-06-23] MEDS: HYDROcodone/acetaminophen (*CRX) 5-325 MG TABLET 1 TAB PO ×2 (02:59→21:14)
[2023-06-23] MEDS: ONDANSETRON INJ 4 MG/2 ML VIAL IV PUSH (05:36)
[2023-06-23] MEDS: HYDROmorphone HCL INJ (*CRX) 1 MG/ML SYR IV PUSH ×4 (05:36→21:30)
[2023-06-23] MEDS: ACETAMINOPHEN 325 MG TABLET 650 MG PO (05:36)
[2023-06-23] MEDS: metroNIDAZOLE 500 MG/ISO 100ML 500 MG/100 ML BAG 100 MG IVPB ×2 (05:37→15:25)
[2023-06-23 05:56] LABS: Glucose Point of Care 94 mg/dl (65-105)
[2023-06-23 06:16] LABS: Hematocrit 24.4 % (37.0-47.0); Hemoglobin 7.9 g/dL (12.0-15.0); Mean Corpuscular HGB Conc 32.4 g/dl (32-36); Mean Corpuscular Hemoglobin 28.1 pg (26-34); Mean Corpuscular Volume 86.8 fl (80-100); Mean Platelet Volume 10.4 fl (7.4-10.4); Platelet Count Result 145 k/mm3 (150-375); Red Blood Count 2.81 M/mm3 (4.2-5.4); White Blood Count 19.3 K/mm3 (4.5-10.0)
[2023-06-23 06:27] LABS: Alanine Aminotransferase 59 U/L (6-35); Albumin Level 2.5 g/dL (3.5-5.1); Alkaline Phosphatase 147 U/L (38-126); Anion Gap 3 mmol/L (4-12); Aspartate Amino Transferase 59 U/L (14-36); Bilirubin,Total 0.9 mg/dL (0.2-1.3); Blood Urea Nitrogen 11 mg/dL (7-17); Calcium 7.7 mg/dL (8.4-10.2); Carbon Dioxide 27 mmol/L (22-30); Chloride 98 mmol/L (98-107); Estimated CRCL calculation 145 ml/min; Estimated Glomerular Filt Rate > 60; Glucose 100 mg/dL (65-110); Phosphorus 3.1 mg/dL (2.5-4.5); Potassium 3.7 mmol/L (3.4-5.0); Sodium 128 mmol/L (137-145)
--- NOTE | 2023-06-23 08:17 | P.PNIM_ITS ---
Progress Note: A&P Assessment and Plan (1) Colitis: Code(s): K52.9 - Noninfective gastroenteritis and colitis, unspecified Status: Acute (2) Bandemia: Code(s): D72.825 - Bandemia Status: Acute (3) Leukocytosis: Qualifiers: Leukocytosis type: unspecified Qualified Code(s): D72.829 - Elevated white blood cell count, unspecified Code(s): D72.829 - Elevated white blood cell count, unspecified Status: Acute (4) Abdominal pain: Qualifiers: Abdominal location: lower abdomen, unspecified Qualified Code(s): R10.30 - Lower abdominal pain, unspecified Code(s): R10.9 - Unspecified abdominal pain Status: Acute (5) Hypertension: Qualifiers: Hypertension type: primary hypertension Qualified Code(s): I10 - Essential (primary) hypertension Code(s): I10 - Essential (primary) hypertension Status: Chronic (6) C. difficile colitis: Code(s): A04.72 - Enterocolitis due to Clostridium difficile, not specified as recurrent Status: Acute (7) Large bowel obstruction: Code(s): K56.609 - Unspecified intestinal obstruction, unspecified as to partial versus complete obstruction Status: Acute (8) Diverticulitis: Code(s): K57.92 - Diverticulitis of intestine, part unspecified, without perforation or abscess without bleeding Status: Acute (9) Toxic megacolon due to Clostridioides difficile: Code(s): A04.72 - Enterocolitis due to Clostridium difficile, not specified as recurrent Status: Acute Plan DVT of left arm patient complained left arm pain, patient is noted have left arm swelling, tender around the insertion site of PICC venous Doppler of left arm suggests deep venous thrombosis involving the left axillary and basilic veins, likely acute or subacute. Suspected foci of gas within the thrombus, may be secondary to venous access or infection? MANAGEMENT PER SURGEON stop TPN feeding from PICC line because of DVT Start Lovenox 1 milligram/kilos q.12 hour im sepsis pt has been having for over the night, patient also has a tachycardia tachypnea, blood pressure stable blood culture pending suspecting sepsis due to PICC line infection Start vancomycin IV, titrating for pharmacist new start fluid resuscitation with normal saline Hyponatremia sodium 128 Likely secondary to inadequate sodium input increased normal saline IV 125 mL/hour follow-up BMP Toxic Megacolon due to C-diff colitis * 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 vancomycin * SCDs/Lovenox * PPI b.i.d. 06/19: * Post-op day 2 * KUB shows air distention post-op ileus * NG tube placed * NPO 06/20: * Post-op day 3 * Encourage ambulation/PT ordered * WBC 29.3 likely secondary to inflammatory response will hopefully start to downtrend * continue with Flagyl and p.o. vanc * NG tube continued Diverticulitis/bowel obstruction/C diff colitis * WBC trending up * Continue with IV fluids @100 cc/hr * Continue with pain control * C Diff positive and Dificid started * Flagyl * IV fluids * Stool cultures pending no growth * 06/14? CT abdomen pelvis showing distension of large bowel.? Extensive wall thickening of the rectum causing partial large bowel obstruction. * GI consult and they recommended a general surgery consult. * General surgery con
--- NOTE | 2023-06-23 08:17 | PM.IMPN ---
Progress Note: A&P Assessment and Plan (1) Colitis: Code(s): K52.9 - Noninfective gastroenteritis and colitis, unspecified Status: Acute (2) Bandemia: Code(s): D72.825 - Bandemia Status: Acute (3) Leukocytosis: Qualifiers: Leukocytosis type: unspecified Qualified Code(s): D72.829 - Elevated white blood cell count, unspecified Code(s): D72.829 - Elevated white blood cell count, unspecified Status: Acute (4) Abdominal pain: Qualifiers: Abdominal location: lower abdomen, unspecified Qualified Code(s): R10.30 - Lower abdominal pain, unspecified Code(s): R10.9 - Unspecified abdominal pain Status: Acute (5) Hypertension: Qualifiers: Hypertension type: primary hypertension Qualified Code(s): I10 - Essential (primary) hypertension Code(s): I10 - Essential (primary) hypertension Status: Chronic (6) C. difficile colitis: Code(s): A04.72 - Enterocolitis due to Clostridium difficile, not specified as recurrent Status: Acute (7) Large bowel obstruction: Code(s): K56.609 - Unspecified intestinal obstruction, unspecified as to partial versus complete obstruction Status: Acute (8) Diverticulitis: Code(s): K57.92 - Diverticulitis of intestine, part unspecified, without perforation or abscess without bleeding Status: Acute (9) Toxic megacolon due to Clostridioides difficile: Code(s): A04.72 - Enterocolitis due to Clostridium difficile, not specified as recurrent Status: Acute Plan DVT of left arm patient complained left arm pain, patient is noted have left arm swelling, tender around the insertion site of PICC venous Doppler of left arm suggests deep venous thrombosis involving the left axillary and basilic veins, likely acute or subacute. Suspected foci of gas within the thrombus, may be secondary to venous access or infection? MANAGEMENT PER SURGEON stop TPN feeding from PICC line because of DVT Start Lovenox 1 milligram/kilos q.12 hour im sepsis pt has been having for over the night, patient also has a tachycardia tachypnea, blood pressure stable blood culture pending suspecting sepsis due to PICC line infection Start vancomycin IV, titrating for pharmacist new start fluid resuscitation with normal saline Hyponatremia sodium 128 Likely secondary to inadequate sodium input increased normal saline IV 125 mL/hour follow-up BMP Toxic Megacolon due to C-diff colitis 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 vancomycin SCDs/Lovenox PPI b.i.d. 06/19: Post-op day 2 KUB shows air distention post-op ileus NG tube placed NPO 06/20: Post-op day 3 Encourage ambulation/PT ordered WBC 29.3 likely secondary to inflammatory response will hopefully start to downtrend continue with Flagyl and p.o. vanc NG tube continued Diverticulitis/bowel obstruction/C diff colitis WBC trending up Continue with IV fluids @100 cc/hr Continue with pain control C Diff positive and Dificid started Flagyl IV fluids Stool cultures pending no growth 06/14? CT abdomen pelvis showing distension of large bowel.? Extensive wall thickening of the rectum causing partial large bowel obstruction. GI consult and they recommended a general surgery consult. General surgery consulted for partial large bowel obstruction. Water-soluble enema revealing stricture of the sigmoid colon. NPO diet. 06/15 Plan for sigmoidoscopy showed C diff colitis and diverticulitis. Monitor for signs of toxic megacolon Attempting transfer for fecal transplant [facility] 06/17: WBC 23.3 zosyn d/c GI recommends avoiding systemic ABX on PO Vanc 500 Q6hr and [facility] Will attempt to have NG tube placed Patient ag
--- NOTE | 2023-06-23 08:40 | PM.IMPN ---
Progress Note: A&P Assessment and Plan (1) Colitis: Code(s): K52.9 - Noninfective gastroenteritis and colitis, unspecified Status: Acute (2) Bandemia: Code(s): D72.825 - Bandemia Status: Acute (3) Leukocytosis: Qualifiers: Leukocytosis type: unspecified Qualified Code(s): D72.829 - Elevated white blood cell count, unspecified Code(s): D72.829 - Elevated white blood cell count, unspecified Status: Acute (4) Abdominal pain: Qualifiers: Abdominal location: lower abdomen, unspecified Qualified Code(s): R10.30 - Lower abdominal pain, unspecified Code(s): R10.9 - Unspecified abdominal pain Status: Acute (5) Hypertension: Qualifiers: Hypertension type: primary hypertension Qualified Code(s): I10 - Essential (primary) hypertension Code(s): I10 - Essential (primary) hypertension Status: Chronic (6) C. difficile colitis: Code(s): A04.72 - Enterocolitis due to Clostridium difficile, not specified as recurrent Status: Acute (7) Large bowel obstruction: Code(s): K56.609 - Unspecified intestinal obstruction, unspecified as to partial versus complete obstruction Status: Acute (8) Diverticulitis: Code(s): K57.92 - Diverticulitis of intestine, part unspecified, without perforation or abscess without bleeding Status: Acute (9) Toxic megacolon due to Clostridioides difficile: Code(s): A04.72 - Enterocolitis due to Clostridium difficile, not specified as recurrent Status: Acute (10) Postoperative ileus: Code(s): K91.89 - Other postprocedural complications and disorders of digestive system; K56.7 - Ileus, unspecified Status: Acute (11) SIRS (systemic inflammatory response syndrome): Code(s): R65.10 - Systemic inflammatory response syndrome (SIRS) of non-infectious origin without acute organ dysfunction Status: Acute (12) Hyponatremia: Code(s): E87.1 - Hypo-osmolality and hyponatremia Status: Acute (13) DVT of axillary vein, acute: Code(s): I82.A19 - Acute embolism and thrombosis of unspecified axillary vein Status: Acute (14) Anemia: Code(s): D64.9 - Anemia, unspecified Status: Acute Plan DVT LT upper extremity-06/22 Axillary and basilic vein secondary to Midline midline removed Lovenox 1mg/kg Anemia-06/22 Post-surgical, poor oral intake HGB 7.9 TPN was stopped due to midline removed lovenox started for DVT Transfuse if Hgb <7.0 Monitor H&H no overt GIB Toxic Megacolon due to C-diff colitis 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 vancomycin SCDs/Lovenox PPI b.i.d. 06/19: Post-op day 2 KUB shows air distention post-op ileus NG tube placed NPO 06/20: Post-op day 3 Encourage ambulation/PT ordered WBC 29.3 likely secondary to inflammatory response will hopefully start to downtrend continue with Flagyl and p.o. vanc NG tube continued 06/22: Febrile peaked at 102 continues with per tube acetaminophen/rectal dose ordered Patient switched to vancomycin enema WBC with down trend 19.3 F/U blood cultures ordered Midline removed Attempt clamping NG and hopefully remove and start clear liquids Hyponatermia secodnary to dehydration, NPO, and TPN stopped IV fluids started until tolerating oral intake hopefully can remove NG tube today and start clear liquids Diverticulitis/bowel obstruction/C diff colitis WBC trending up Continue with IV fluids @100 cc/hr Continue with pain control C Diff positive and Dificid started Flagyl IV fluids Stool cultures pending no growth 06/14? CT abdomen pelvis showing distension of large bowel.? Extensive wall thickening of the rectum causing partial large bowel obstruction. GI consult and the
--- NOTE | 2023-06-23 09:13 | PCOTNOTE ---
Attempted to see Patient at this time. Patient declined therapy services at this time due to stating, running a fever, feeling horrible right now . Will check back this afternoon.
[2023-06-23 09:18] LABS: Triglycerides 215 mg/dL (<150)
[2023-06-23 09:21] LABS: Magnesium 2.1 mg/dL (1.6-2.3)
[2023-06-23] MEDS: LACTATED RINGERS 1,000 ML 100 ML IV CONT (09:59)
[2023-06-23 10:10] LABS: Lactic Acid Reflex 0.8 mmol/L (0.7-2.0)
[2023-06-23] MEDS: ENOXAPARIN 120 MG/0.8 ML SYRINGE SUB-Q ×2 (11:08→21:15)
[2023-06-23] MEDS: PANTOPRAZOLE SODIUM IV 40 MG VIAL IV PUSH ×2 (11:34→21:14)
[2023-06-23 11:36] LABS: Glucose Point of Care 95 mg/dl (65-105)
--- NOTE | 2023-06-23 11:59 | PCNFU ---
Nutrition Follow-Up Complete: Altered GI function related to bowl obstruction as evidenced by need for alternative nutrition support via PPN. Goal:Meet 60% of estimated energy needs, 100% of protein needs via PPN Pt not meeting goal at this time. Pt current nutrition is NPO, PPN has been stopped. Nutrition recommendation: advance diet as tolerated PO or restart PPN Last recorded weight is 120 kg. Bowel Motility: +BM 06/22 Labs Reviewed: Hgb:7.9, HCT:24.4, Alb:2.5, NA:128, Cr:0.5 Meds Noted: lovenox, zofran, protonix Skin: no skin issues noted Additional Notes: Pt was on PPN clinimix E 4.25/5 at 80ml/hr with lipids, providing 1153kcals, 82g protein. PPN has been stopped as line was pulled. Pt is NPO at this time with plans to advance to clear liquids today. Recommend to start liquids and monitor tolerance. Monitor PPN orders, labs, wts, bowel function. Follow up every Thursday and Thursday.
--- NOTE | 2023-06-23 13:22 | PM.PNGS ---
Progress Note: A&P Assessment and Plan (1) Toxic megacolon due to Clostridioides difficile: Code(s): A04.72 - Enterocolitis due to Clostridium difficile, not specified as recurrent Status: Acute Assessment and Plan: +ileostomy fxn, exam benign, incision looks good, await CT given new fevers, persistent leukocytosis (2) DVT of axillary vein, acute: Code(s): I82.A19 - Acute embolism and thrombosis of unspecified axillary vein Status: Acute Assessment and Plan: on Lovenox (3) Fever: Code(s): R50.9 - Fever, unspecified Status: Acute Assessment and Plan: getting multiple scans per primary team Subjective Subjective Date/Time Seen: 06/23/23 13:22 Interval history: feels ok but having fevers and chills, NG currently clamped, +ileostomy fxn Review of Systems Review of Systems: All systems reviewed & are unremarkable except as noted in HPI and below Exam Const: General: cooperative, comfortable and no acute distress Resp: Auscultation: diminished lung sounds Cardio: Rate: tachycardic Rhythm: regular rhythm GI: Inspection: normal to inspection and incision GI Palp: Yes abdominal tenderness, Yes Soft to palpation, No Tenderness to palpation present (GI), No Guarding due to palpation present (GI) and No Rigid due to palpation Neuro: General: patient oriented x3 Objective Data Vital Signs Vital Signs: Vital Signs - 24 hr 06/22/23 17:26 06/22/23 20:42 06/23/23 05:36 Temperature 38.3 C H 38.4 C H 38.2 C H Pulse Rate 115 H Respiratory Rate 20 Blood Pressure 143/58 H Pulse Oximetry 97 06/23/23 06:00 Temperature 38.5 C H Pulse Rate 113 H Respiratory Rate 22 H Blood Pressure 126/55 L Pulse Oximetry 94 Intake/Output Intake/Output: Intake & Output 06/20/23 06/21/23 06/22/23 06/23/23 23:59 23:59 23:59 23:59 Intake Total 4442 4452.7 3773.3 Output Total 2450 1100 4650 4650 Balance 1991 3352.7 -876.7 -4650 Meds/Results Medications: Active Medications Generic Name Dose Route Start Last Admin Trade Name Freq PRN Reason Stop Dose Admin Acetaminophen 650 mg 06/13/23 13:05 06/23/23 05:36 Acetaminophen 325 Mg Tablet PO 650 mg Q4H PRN Administration Mild Pain (1-3) or Fever Hydrocodone Bitart/Acetaminophen 1 tab 06/14/23 12:28 06/23/23 02:59 Hydrocodone/Acetaminophen (*Crx) 5-325 Mg Tablet PO 1 tab Q4H PRN Administration Pain Rated 4-6 Benzocaine 1 lozenge 06/22/23 06:14 06/22/23 08:07 Benzocaine/Menthol (*Bkc) 18 Ea Lozenge PO 06/28/23 23:59 1 lozenge PRN PRN Administration Sore Throat Dicyclomine HCl 20 mg 06/14/23 11:22 06/22/23 17:28 Dicyclomine Hcl 10 Mg Capsule PO 20 mg QID PRN Administration Abdominal Cramping Enoxaparin Sodium 120 mg 06/22/23 21:00 06/23/23 11:08 Enoxaparin 120 Mg/0.8 Ml Syringe SUB-Q 120 mg Q12HR BISMARK Administration Hydralazine HCl 20 mg 06/17/23 08:14 06/17/23 17:28 Hydralazine Hcl 20 Mg/Ml Vial IV PUSH 20 mg Q6HR PRN Administration Hypertension Hydromorphone HCl 1 mg 06/13/23 14:43 06/23/23 11:08 Hydromorphone Hcl Inj (*Crx) 1 Mg/Ml Syr IV PUSH 1 mg Q3H PRN Administration Pain Rated 7-10 Sodium Chloride 1,000 mls @ 75 mls/hr 06/13/23 11:55 06/22/23 03:58 Normal Saline Iv IV CONT 100 mls/hr .[id number] BISMARK Administration Dextrose 1,000 mls @ 50 mls/hr 06/16/23 13:19 Dextrose 10% IV CONT .Q20H PRN if PN is interrupted Amino Acids/Electrolytes/Dextrose 2,000 mls @ 80 mls/hr 06/16/23 14:00 06/22/23 13:18 Clinimix E 4.25%/5% Solution IV CONT 80 mls/hr .Q24H BISMARK Administration Protocol Fat Emulsion Intravenous 250 mls @ 20.833 mls/hr 06/16/23 14:00 06/22/23 13:18 Lipids 20% IVPB 20.83 mls/hr Q24H BISMARK Administration Metronidazole 500 mg in 100 mls @ 100 mls/hr 06/16/23 15:30 06/23/23 05:37 Flagyl 500 Mg/Iso Soln 100 Ml IVPB 100 mls/hr Q8HR SC
[2023-06-23] MEDS: NEOMYCIN/POLYMYXIN/BACITRACIN OINTMENT PACKET 1 PACKET (13:58)
--- NOTE | 2023-06-23 14:20 | PCPTNOTE ---
Patient declined PT this afternoon. Patient states she has a fever this afternoon and is not feeling well. Patient states she would like to participate in therapy but does not feel well enough this afternoon. PT will continue to follow per plan of care.
--- NOTE | 2023-06-23 14:35 | PCOTNOTE ---
Attempted to see Patient this afternoon. Patient states she still is feeling horrible and now she is getting ready to go down for a CT scan. Patient's family member, stated, try back tomorrow, she is really sick today .
--- NOTE | 2023-06-23 15:04 | WPDGIPROGNO ---
Progress Note: A&P Assessment and Plan (1) Toxic megacolon due to Clostridioides difficile: Code(s): A04.72 - Enterocolitis due to Clostridium difficile, not specified as recurrent Status: Acute Assessment and Plan: treated with subtotal colectomy iv flagyl, also received vancomycin enema pending ct scan because fever (also noted DVT in arm which could be cause of fever) (2) SIRS (systemic inflammatory response syndrome): Code(s): R65.10 - Systemic inflammatory response syndrome (SIRS) of non-infectious origin without acute organ dysfunction Status: Acute (3) Large bowel obstruction: Code(s): K56.609 - Unspecified intestinal obstruction, unspecified as to partial versus complete obstruction Status: Acute Assessment and Plan: from severe c diff, treated with surgery ngt is clamped ileostomy working still npo (4) Leukocytosis: Qualifiers: Leukocytosis type: unspecified Qualified Code(s): D72.829 - Elevated white blood cell count, unspecified Code(s): D72.829 - Elevated white blood cell count, unspecified Status: Acute Assessment and Plan: monitor Subjective Date/time seen: 06/23/23 15:04 Interval history: had fever last 24 h, NGT is clamped, overall better, incision looks ok and ileostomy is working also noted DVT in left arm Review of Systems Review of Systems: All systems reviewed & are unremarkable except as noted in HPI and below Exam Narrative: left arm is swollen Const: General: cooperative, comfortable and no acute distress HENMT: Face/Nose/Sinus: Normal nares present Other: ngt in place Eyes: Sclera: sclerae normal Neck: Neck: supple Resp: Auscultation: diminished lung sounds Cardio: Rate: tachycardic Rhythm: regular rhythm GI: Inspection: normal to inspection and incision GI Palp: Yes abdominal tenderness, Yes Soft to palpation, No Tenderness to palpation present (GI), No Guarding due to palpation present (GI) and No Rigid due to palpation Skin: General skin exam: normal color Neuro: General: patient oriented x3 Psych: Mental Status: mental status grossly normal Objective Data Vital Signs Vital Signs: Vital Signs - 24 hr 06/22/23 17:26 06/22/23 20:42 06/23/23 05:36 Temperature 101 F H 101.2 F H 100.8 F H Pulse Rate 115 H Respiratory Rate 20 Blood Pressure 143/58 H Pulse Oximetry 97 06/23/23 06:00 06/23/23 14:00 Temperature 101.3 F H 99.2 F Pulse Rate 113 H 100 Respiratory Rate 22 H 16 Blood Pressure 126/55 L 154/72 H Pulse Oximetry 94 97 Intake/Output Intake/Output: Intake & Output 06/20/23 06/21/23 06/22/23 06/23/23 23:59 23:59 23:59 23:59 Intake Total 4442 4452.7 3773.3 Output Total 2450 1100 4650 4650 Balance 1991 3352.7 -876.7 -4650 Meds/Results Medications: Active Medications Generic Name Dose Route Start Last Admin Trade Name Freq PRN Reason Stop Dose Admin Acetaminophen 650 mg 06/13/23 13:05 06/23/23 05:36 Acetaminophen 325 Mg Tablet PO 650 mg Q4H PRN Administration Mild Pain (1-3) or Fever Hydrocodone Bitart/Acetaminophen 1 tab 06/14/23 12:28 06/23/23 02:59 Hydrocodone/Acetaminophen (*Crx) 5-325 Mg Tablet PO 1 tab Q4H PRN Administration Pain Rated 4-6 Benzocaine 1 lozenge 06/22/23 06:14 06/22/23 08:07 Benzocaine/Menthol (*Bkc) 18 Ea Lozenge PO 06/28/23 23:59 1 lozenge PRN PRN Administration Sore Throat Dicyclomine HCl 20 mg 06/14/23 11:22 06/22/23 17:28 Dicyclomine Hcl 10 Mg Capsule PO 20 mg QID PRN Administration Abdominal Cramping Enoxaparin Sodium 120 mg 06/22/23 21:00 06/23/23 11:08 Enoxaparin 120 Mg/0.8 Ml Syringe SUB-Q 120 mg Q12HR BISMARK Administration Hydralazine HCl 20 mg 06/17/23 08:14 06/17/23 17:28 Hydralazine Hcl 20 Mg/Ml Vial IV PUSH 20 mg Q6HR PRN Administration Hypertension Hydromorphone HCl 1 mg 06/13/23 14:43 06/23/23 11:08
[2023-06-23] MEDS: SALINE LOCK FLUSH 10 ML IV PUSH (15:26)
[2023-06-23] MEDS: SIMETHICONE 80 MG TAB.CHEW PO ×2 (15:26→21:14)
[2023-06-23 17:09] LABS: Glucose Point of Care 74 mg/dl (65-105)
[2023-06-23] MEDS: metroNIDAZOLE 500 MG/ISO 100ML 500 MG/100 ML BAG 200 MG IVPB (21:15)
[2023-06-24] VITALS (10 sets, daily range): BP systolic 116–141; BP diastolic 51–68; PULSE 72–106; RESP 14–18; TEMP 36.4–37.3; O2SAT 96–99
[2023-06-24] MEDS: diphenhydrAMINE HCl INJ 50 MG/ML VIAL IV PUSH (00:56)
[2023-06-24] MEDS: LORazepam INJ (*CRX) 2 MG/ML VIAL 1 MG IV PUSH (00:56)
[2023-06-24] MEDS: HYDROmorphone HCL INJ (*CRX) 1 MG/ML SYR IV PUSH (00:56)
[2023-06-24 01:34] LABS: Glucose Point of Care 86 mg/dl (65-105)
[2023-06-24] MEDS: LACTATED RINGERS 1,000 ML 100 ML IV CONT ×2 (02:34→02:50)
[2023-06-24] MEDS: DEXTROSE 10% 1,000 ML 50 ML IV CONT (02:50)
[2023-06-24] MEDS: HYDROcodone/acetaminophen (*CRX) 5-325 MG TABLET 1 TAB PO ×3 (02:51→20:10)
[2023-06-24] MEDS: SALINE LOCK FLUSH 10 ML IV PUSH (06:08)
[2023-06-24] MEDS: metroNIDAZOLE 500 MG/ISO 100ML 500 MG/100 ML BAG 200 MG IVPB ×2 (06:08→12:17)
[2023-06-24 07:17] LABS: Hematocrit 24.5 % (37.0-47.0); Hemoglobin 7.9 g/dL (12.0-15.0); Mean Corpuscular HGB Conc 32.2 g/dl (32-36); Mean Corpuscular Volume 86.9 fl (80-100); Mean Platelet Volume 10.3 fl (7.4-10.4); Platelet Count Result 183 k/mm3 (150-375); Red Blood Count 2.82 M/mm3 (4.2-5.4); Red Cell Distribution Width 15.1 % (11.5-14.5); White Blood Count 17.2 K/mm3 (4.5-10.0)
[2023-06-24 07:37] LABS: Alanine Aminotransferase 45 U/L (6-35); Albumin Level 2.5 g/dL (3.5-5.1); Alkaline Phosphatase 122 U/L (38-126); Anion Gap 1 mmol/L (4-12); Aspartate Amino Transferase 30 U/L (14-36); Bilirubin,Total 0.6 mg/dL (0.2-1.3); Blood Urea Nitrogen 10 mg/dL (7-17); Calcium 7.8 mg/dL (8.4-10.2); Carbon Dioxide 31 mmol/L (22-30); Chloride 98 mmol/L (98-107); Estimated CRCL calculation 145 ml/min; Estimated Glomerular Filt Rate > 60; Glucose 106 mg/dL (65-110); Potassium 3.5 mmol/L (3.4-5.0); Sodium 130 mmol/L (137-145)
[2023-06-24 07:59] LABS: Glucose Point of Care 125 mg/dl (65-105)
--- NOTE | 2023-06-24 08:29 | P.PNIM_ITS ---
Progress Note: A&P Assessment and Plan (1) Colitis: Code(s): K52.9 - Noninfective gastroenteritis and colitis, unspecified Status: Acute (2) Bandemia: Code(s): D72.825 - Bandemia Status: Acute (3) Leukocytosis: Qualifiers: Leukocytosis type: unspecified Qualified Code(s): D72.829 - Elevated white blood cell count, unspecified Code(s): D72.829 - Elevated white blood cell count, unspecified Status: Acute (4) Abdominal pain: Qualifiers: Abdominal location: lower abdomen, unspecified Qualified Code(s): R10.30 - Lower abdominal pain, unspecified Code(s): R10.9 - Unspecified abdominal pain Status: Acute (5) Hypertension: Qualifiers: Hypertension type: primary hypertension Qualified Code(s): I10 - Essential (primary) hypertension Code(s): I10 - Essential (primary) hypertension Status: Chronic (6) C. difficile colitis: Code(s): A04.72 - Enterocolitis due to Clostridium difficile, not specified as recurrent Status: Acute (7) Large bowel obstruction: Code(s): K56.609 - Unspecified intestinal obstruction, unspecified as to partial versus complete obstruction Status: Acute (8) Diverticulitis: Code(s): K57.92 - Diverticulitis of intestine, part unspecified, without perforation or abscess without bleeding Status: Acute (9) Toxic megacolon due to Clostridioides difficile: Code(s): A04.72 - Enterocolitis due to Clostridium difficile, not specified as recurrent Status: Acute (10) Postoperative ileus: Code(s): K91.89 - Other postprocedural complications and disorders of digestive system; K56.7 - Ileus, unspecified Status: Acute (11) SIRS (systemic inflammatory response syndrome): Code(s): R65.10 - Systemic inflammatory response syndrome (SIRS) of non-infectious origin without acute organ dysfunction Status: Acute (12) Hyponatremia: Code(s): E87.1 - Hypo-osmolality and hyponatremia Status: Acute (13) DVT of axillary vein, acute: Code(s): I82.A19 - Acute embolism and thrombosis of unspecified axillary vein Status: Acute (14) Anemia: Code(s): D64.9 - Anemia, unspecified Status: Acute Plan DVT LT upper extremity-06/22 * Axillary and basilic vein * secondary to Midline * midline removed * Lovenox 1mg/kg * can transition to Eliquis once tolerating PO * CC consult for PA Anemia-06/22 * Post-surgical, poor oral intake * HGB 7.9 * TPN was stopped due to midline removed * lovenox started for DVT * Transfuse if Hgb <7.0 * Monitor H&H * no overt GIB Toxic Megacolon due to C-diff colitis * 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 vancomycin * SCDs/Lovenox * PPI b.i.d. 06/19: * Post-op day 2 * KUB shows air distention post-op ileus * NG tube placed * NPO 06/20: * Post-op day 3 * Encourage ambulation/PT ordered * WBC 29.3 likely secondary to inflammatory response will hopefully start to downtrend * continue with Flagyl and p.o. vanc * NG tube continued 06/22: * Febrile peaked at 102 continues with per tube acetaminophen/rectal dose ordered * Patient switched to vancomycin enema * WBC with down trend 19.3 * F/U blood cultures ordered * Midline removed * Attempt clamping NG and hopefully remove and sta
--- NOTE | 2023-06-24 08:29 | PM.IMPN ---
Progress Note: A&P Assessment and Plan (1) Colitis: Code(s): K52.9 - Noninfective gastroenteritis and colitis, unspecified Status: Acute (2) Bandemia: Code(s): D72.825 - Bandemia Status: Acute (3) Leukocytosis: Qualifiers: Leukocytosis type: unspecified Qualified Code(s): D72.829 - Elevated white blood cell count, unspecified Code(s): D72.829 - Elevated white blood cell count, unspecified Status: Acute (4) Abdominal pain: Qualifiers: Abdominal location: lower abdomen, unspecified Qualified Code(s): R10.30 - Lower abdominal pain, unspecified Code(s): R10.9 - Unspecified abdominal pain Status: Acute (5) Hypertension: Qualifiers: Hypertension type: primary hypertension Qualified Code(s): I10 - Essential (primary) hypertension Code(s): I10 - Essential (primary) hypertension Status: Chronic (6) C. difficile colitis: Code(s): A04.72 - Enterocolitis due to Clostridium difficile, not specified as recurrent Status: Acute (7) Large bowel obstruction: Code(s): K56.609 - Unspecified intestinal obstruction, unspecified as to partial versus complete obstruction Status: Acute (8) Diverticulitis: Code(s): K57.92 - Diverticulitis of intestine, part unspecified, without perforation or abscess without bleeding Status: Acute (9) Toxic megacolon due to Clostridioides difficile: Code(s): A04.72 - Enterocolitis due to Clostridium difficile, not specified as recurrent Status: Acute (10) Postoperative ileus: Code(s): K91.89 - Other postprocedural complications and disorders of digestive system; K56.7 - Ileus, unspecified Status: Acute (11) SIRS (systemic inflammatory response syndrome): Code(s): R65.10 - Systemic inflammatory response syndrome (SIRS) of non-infectious origin without acute organ dysfunction Status: Acute (12) Hyponatremia: Code(s): E87.1 - Hypo-osmolality and hyponatremia Status: Acute (13) DVT of axillary vein, acute: Code(s): I82.A19 - Acute embolism and thrombosis of unspecified axillary vein Status: Acute (14) Anemia: Code(s): D64.9 - Anemia, unspecified Status: Acute Plan DVT LT upper extremity-06/22 Axillary and basilic vein secondary to Midline midline removed Lovenox 1mg/kg can transition to Eliquis once tolerating PO CC consult for PA Anemia-06/22 Post-surgical, poor oral intake HGB 7.9 TPN was stopped due to midline removed lovenox started for DVT Transfuse if Hgb <7.0 Monitor H&H no overt GIB Toxic Megacolon due to C-diff colitis 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 vancomycin SCDs/Lovenox PPI b.i.d. 06/19: Post-op day 2 KUB shows air distention post-op ileus NG tube placed NPO 06/20: Post-op day 3 Encourage ambulation/PT ordered WBC 29.3 likely secondary to inflammatory response will hopefully start to downtrend continue with Flagyl and p.o. vanc NG tube continued 06/22: Febrile peaked at 102 continues with per tube acetaminophen/rectal dose ordered Patient switched to vancomycin enema WBC with down trend 19.3 F/U blood cultures ordered Midline removed Attempt clamping NG and hopefully remove and start clear liquids 06/23: Removed NG tube advanced diet to clear liquid encourage activity Hyponatermia-IMPROVING secodnary to dehydration, NPO, and TPN stopped IV fluids started until tolerating oral intake hopefully can remove NG tube today and start clear liquids Diverticulitis/bowel obstruction/C diff colitis WBC trending up Continue with IV fluids @100 cc/hr Continue with pain control C Diff positive and Dificid started Flagyl IV fluids Stool cultures pending no growth 06/14?
[2023-06-24] MEDS: SIMETHICONE 80 MG TAB.CHEW PO ×4 (08:49→20:09)
[2023-06-24] MEDS: LOSARTAN POTASSIUM 50 MG TABLET PO (08:49)
[2023-06-24] MEDS: PANTOPRAZOLE SODIUM IV 40 MG VIAL IV PUSH ×2 (08:50→20:09)
[2023-06-24] MEDS: ENOXAPARIN 120 MG/0.8 ML SYRINGE SUB-Q ×2 (08:50→20:09)
[2023-06-24 11:36] LABS: Glucose Point of Care 126 mg/dl (65-105)
[2023-06-24] MEDS: VANCOMYCIN HCL 250 MG ORAL CAPSULE 500 MG PO ×3 (12:12→23:00)
--- NOTE | 2023-06-24 13:06 | PM.PNGS ---
Progress Note: A&P Assessment and Plan (1) Toxic megacolon due to Clostridioides difficile: Code(s): A04.72 - Enterocolitis due to Clostridium difficile, not specified as recurrent Status: Acute Assessment and Plan: much improved, cont routine postop care, ADAT, OOB/IS, PT/OT (2) Fever: Code(s): R50.9 - Fever, unspecified Status: Acute Assessment and Plan: improved and leukocytosis trending down, CT reviewed and largely unremarkable Subjective Subjective Date/Time Seen: 06/24/23 13:06 Interval history: doing much better, still c some low grade temps, NG out and davon clears Review of Systems Review of Systems: All systems reviewed & are unremarkable except as noted in HPI and below Exam Const: General: cooperative, comfortable and no acute distress Resp: Auscultation: clear to auscultation bilaterally Cardio: Rate: tachycardic Rhythm: regular rhythm GI: Inspection: normal to inspection, distended, incision and obesity GI Palp: Yes abdominal tenderness, Yes Soft to palpation and Yes Tenderness to palpation present (GI) Other: ileostomy +fxn, incision C/D/I Objective Data Vital Signs Vital Signs: Vital Signs - 24 hr 06/23/23 14:00 06/23/23 16:00 06/23/23 21:07 Temperature 37.3 C 36.4 C L Pulse Rate 100 100 93 Respiratory Rate 16 16 Blood Pressure 154/72 H 150/76 H Pulse Oximetry 97 96 Oxygen Delivery 06/23/23 20:00 06/24/23 05:57 06/24/23 00:00 Temperature 36.7 C Pulse Rate 82 101 H 82 Respiratory Rate 16 Blood Pressure 141/68 H Pulse Oximetry 96 Oxygen Delivery 06/24/23 04:00 06/24/23 08:00 06/24/23 08:00 Temperature Pulse Rate 72 105 H Respiratory Rate Blood Pressure Pulse Oximetry Oxygen Delivery Room Air 06/24/23 12:07 Temperature 37.3 C Pulse Rate Respiratory Rate Blood Pressure Pulse Oximetry Oxygen Delivery Intake/Output Intake/Output: Intake & Output 06/21/23 06/22/23 06/23/23 06/24/23 23:59 23:59 23:59 23:59 Intake Total 4452.7 3773.3 1300 126.7 Output Total 1100 4650 6550 3300 Balance 3352.7 -876.7 -5250 -3173.3 Meds/Results Medications: Active Medications Generic Name Dose Route Start Last Admin Trade Name Freq PRN Reason Stop Dose Admin Acetaminophen 650 mg 06/13/23 13:05 06/23/23 05:36 Acetaminophen 325 Mg Tablet PO 650 mg Q4H PRN Administration Mild Pain (1-3) or Fever Hydrocodone Bitart/Acetaminophen 1 tab 06/14/23 12:28 06/24/23 02:51 Hydrocodone/Acetaminophen (*Crx) 5-325 Mg Tablet PO 1 tab Q4H PRN Administration Pain Rated 4-6 Benzocaine 1 lozenge 06/22/23 06:14 06/22/23 08:07 Benzocaine/Menthol (*Bkc) 18 Ea Lozenge PO 06/28/23 23:59 1 lozenge PRN PRN Administration Sore Throat Dicyclomine HCl 20 mg 06/14/23 11:22 06/22/23 17:28 Dicyclomine Hcl 10 Mg Capsule PO 20 mg QID PRN Administration Abdominal Cramping Enoxaparin Sodium 120 mg 06/22/23 21:00 06/24/23 08:50 Enoxaparin 120 Mg/0.8 Ml Syringe SUB-Q 120 mg Q12HR BISMARK Administration Hydralazine HCl 20 mg 06/17/23 08:14 06/17/23 17:28 Hydralazine Hcl 20 Mg/Ml Vial IV PUSH 20 mg Q6HR PRN Administration Hypertension Hydromorphone HCl 1 mg 06/13/23 14:43 06/24/23 00:56 Hydromorphone Hcl Inj (*Crx) 1 Mg/Ml Syr IV PUSH 1 mg Q3H PRN Administration Pain Rated 7-10 Sodium Chloride 1,000 mls @ 125 mls/hr 06/13/23 11:55 06/22/23 03:58 Normal Saline Iv IV CONT 100 mls/hr .Q8H BISMARK Administration Dextrose 1,000 mls @ 50 mls/hr 06/16/23 13:19 06/24/23 02:50 Dextrose 10% IV CONT 50 mls/hr .Q20H PRN Administration if PN is interrupted Amino Acids/Electrolytes/Dextrose 2,000 mls @ 80 mls/hr 06/16/23 14:00 06/24/23 11:09 Clinimix E 4.25%/5% Solution IV CONT Not Given .Q24H BISMARK Protocol Fat Emulsion Intravenous 250 mls @ 20.833 mls/hr 06/16/23 14:00 06/24/23 11:09 Lipid
--- NOTE | 2023-06-24 16:18 | WPDGIPROGNO ---
Progress Note: A&P Assessment and Plan (1) Toxic megacolon due to Clostridioides difficile: Code(s): A04.72 - Enterocolitis due to Clostridium difficile, not specified as recurrent Status: Acute Assessment and Plan: treated with subtotal colectomy iv flagyl, also received vancomycin enema repeat CT scan with no major acute findings (it was done because of fever) (2) SIRS (systemic inflammatory response syndrome): Code(s): R65.10 - Systemic inflammatory response syndrome (SIRS) of non-infectious origin without acute organ dysfunction Status: Acute (3) Large bowel obstruction: Code(s): K56.609 - Unspecified intestinal obstruction, unspecified as to partial versus complete obstruction Status: Acute Assessment and Plan: from severe c diff, treated with surgery tolerating liquid diet- per surgery ileostomy working (4) Leukocytosis: Qualifiers: Leukocytosis type: unspecified Qualified Code(s): D72.829 - Elevated white blood cell count, unspecified Code(s): D72.829 - Elevated white blood cell count, unspecified Status: Acute Assessment and Plan: monitor, trending down (5) Fever: Code(s): R50.9 - Fever, unspecified Status: Acute Assessment and Plan: improved CT scan no acute findings (6) DVT of axillary vein, acute: Code(s): I82.A19 - Acute embolism and thrombosis of unspecified axillary vein Status: Acute Subjective Date/time seen: 06/24/23 16:18 Interval history: better today, ngt and tolerated liquid diet pain at stoma Review of Systems Review of Systems: All systems reviewed & are unremarkable except as noted in HPI and below Exam Const: General: cooperative, comfortable and no acute distress HENMT: Face/Nose/Sinus: Normal nares present Eyes: General: appearance normal, both eyes and all related structures Neck: Neck: supple Resp: Auscultation: clear to auscultation bilaterally Cardio: Rate: tachycardic Rhythm: regular rhythm GI: Inspection: normal to inspection, distended, incision and obesity GI Palp: Yes abdominal tenderness, Yes Soft to palpation and Yes Tenderness to palpation present (GI) Other: ileostomy +fxn, incision C/D/I Skin: General skin exam: normal color Neuro: Speech: normal speech Motor exam (neuro): 5/5 motor strength present throughout Extrem: General: normal to inspection Psych: Mental Status: mental status grossly normal Objective Data Vital Signs Vital Signs: Vital Signs - 24 hr 06/23/23 21:07 06/23/23 20:00 06/24/23 05:57 Temperature 97.5 F L 98.1 F Pulse Rate 93 82 101 H Respiratory Rate 16 16 Blood Pressure 150/76 H 141/68 H Pulse Oximetry 96 96 Oxygen Delivery 06/24/23 00:00 06/24/23 04:00 06/24/23 08:00 Temperature Pulse Rate 82 72 105 H Respiratory Rate Blood Pressure Pulse Oximetry Oxygen Delivery 06/24/23 08:00 06/24/23 12:07 Temperature 99.1 F Pulse Rate Respiratory Rate Blood Pressure Pulse Oximetry Oxygen Delivery Room Air Intake/Output Intake/Output: Intake & Output 06/21/23 06/22/23 06/23/23 06/24/23 23:59 23:59 23:59 23:59 Intake Total 4452.7 3773.3 1300 626.7 Output Total 1100 4650 6550 4900 Balance 3352.7 -876.7 -5250 -4273.3 Meds/Results Medications: Active Medications Generic Name Dose Route Start Last Admin Trade Name Freq PRN Reason Stop Dose Admin Acetaminophen 650 mg 06/13/23 13:05 06/23/23 05:36 Acetaminophen 325 Mg Tablet PO 650 mg Q4H PRN Administration Mild Pain (1-3) or Fever Hydrocodone Bitart/Acetaminophen 1 tab 06/14/23 12:28 06/24/23 14:00 Hydrocodone/Acetaminophen (*Crx) 5-325 Mg Tablet PO 1 tab Q4H PRN Administration Pain Rated 4-6 Benzocaine 1 lozenge 06/22/23 06:14 06/22/23 08:07 Benzocaine/Menthol (*Bkc) 18 Ea Lozenge PO 06/28/23 23:59 1 lozenge PRN PRN Administration Sore Throat Di
[2023-06-24] MEDS: NEOMYCIN/POLYMYXIN/BACITRACIN OINTMENT PACKET 1 PACKET (16:19)
[2023-06-24 17:15] LABS: Glucose Point of Care 110 mg/dl (65-105)
[2023-06-24] MEDS: MELATONIN 3 MG TABLET PO (22:01)
[2023-06-24] MEDS: metroNIDAZOLE 500 MG/ISO 100ML 500 MG/100 ML BAG 100 MG IVPB (22:01)
[2023-06-25] VITALS: PULSE 88
[2023-06-25] MEDS: HYDROmorphone HCL INJ (*CRX) 1 MG/ML SYR IV PUSH (01:23)
[2023-06-25 02:02] VITALS: PULSE 100; RESP 14; O2SAT 99
[2023-06-25 04:00] VITALS: PULSE 86
[2023-06-25 05:38] VITALS: BP 116/51; PULSE 86; RESP 13; TEMP 36.4; O2SAT 97
[2023-06-25] MEDS: metroNIDAZOLE 500 MG/ISO 100ML 500 MG/100 ML BAG 100 MG IVPB ×3 (05:55→21:02)
[2023-06-25] MEDS: VANCOMYCIN HCL 250 MG ORAL CAPSULE 500 MG PO ×4 (05:56→23:43)
[2023-06-25] MEDS: HYDROcodone/acetaminophen (*CRX) 5-325 MG TABLET 1 TAB PO ×3 (05:56→18:52)
[2023-06-25 06:10] LABS: Hematocrit 23.2 % (37.0-47.0); Hemoglobin 7.6 g/dL (12.0-15.0); Mean Corpuscular HGB Conc 32.8 g/dl (32-36); Mean Corpuscular Hemoglobin 28.3 pg (26-34); Mean Corpuscular Volume 86.2 fl (80-100); Mean Platelet Volume 10.2 fl (7.4-10.4); Platelet Count Result 230 k/mm3 (150-375); Red Blood Count 2.69 M/mm3 (4.2-5.4); Red Cell Distribution Width 15.2 % (11.5-14.5); White Blood Count 11.7 K/mm3 (4.5-10.0)
[2023-06-25 06:21] LABS: Alanine Aminotransferase 36 U/L (6-35); Albumin Level 2.5 g/dL (3.5-5.1); Alkaline Phosphatase 112 U/L (38-126); Anion Gap 0 mmol/L (4-12); Aspartate Amino Transferase 24 U/L (14-36); Bilirubin,Total 0.4 mg/dL (0.2-1.3); Blood Urea Nitrogen 8 mg/dL (7-17); Calcium 7.8 mg/dL (8.4-10.2); Carbon Dioxide 33 mmol/L (22-30); Chloride 98 mmol/L (98-107); Estimated CRCL calculation 145 ml/min; Estimated Glomerular Filt Rate > 60; Glucose 116 mg/dL (65-110); Potassium 3.4 mmol/L (3.4-5.0); Sodium 131 mmol/L (137-145)
[2023-06-25] MEDS: SIMETHICONE 80 MG TAB.CHEW PO ×4 (09:18→21:02)
[2023-06-25] MEDS: PANTOPRAZOLE SODIUM IV 40 MG VIAL IV PUSH ×2 (09:18→21:02)
[2023-06-25] MEDS: ENOXAPARIN 120 MG/0.8 ML SYRINGE SUB-Q ×2 (09:18→21:02)
[2023-06-25] MEDS: LOSARTAN POTASSIUM 50 MG TABLET PO (09:18)
[2023-06-25] MEDS: SALINE LOCK FLUSH 10 ML IV PUSH ×2 (09:19→14:03)
--- NOTE | 2023-06-25 10:26 | WPDGIPROGNO ---
Progress Note: A&P Assessment and Plan (1) Toxic megacolon due to Clostridioides difficile: Code(s): A04.72 - Enterocolitis due to Clostridium difficile, not specified as recurrent Status: Acute Assessment and Plan: treated with subtotal colectomy iv flagyl, also oral vancomycin repeat CT scan with no major acute findings (it was done because of fever) she is eating more and feeling better (2) SIRS (systemic inflammatory response syndrome): Code(s): R65.10 - Systemic inflammatory response syndrome (SIRS) of non-infectious origin without acute organ dysfunction Status: Acute Assessment and Plan: no more fever (3) Large bowel obstruction: Code(s): K56.609 - Unspecified intestinal obstruction, unspecified as to partial versus complete obstruction Status: Acute Assessment and Plan: from severe c diff, treated with surgery tolerating more consistent diet ileostomy working (4) Leukocytosis: Qualifiers: Leukocytosis type: unspecified Qualified Code(s): D72.829 - Elevated white blood cell count, unspecified Code(s): D72.829 - Elevated white blood cell count, unspecified Status: Acute Assessment and Plan: monitor, keeps trending down (5) Fever: Code(s): R50.9 - Fever, unspecified Status: Acute Assessment and Plan: improved CT scan no acute findings (6) DVT of axillary vein, acute: Code(s): I82.A19 - Acute embolism and thrombosis of unspecified axillary vein Status: Acute Subjective Date/time seen: 06/25/23 10:26 Interval history: continues to get better, tolerated diet Review of Systems Review of Systems: All systems reviewed & are unremarkable except as noted in HPI and below Exam Const: General: cooperative, comfortable and no acute distress HENMT: Face/Nose/Sinus: Normal nares present Eyes: General: appearance normal, both eyes and all related structures Neck: Neck: supple Resp: Auscultation: clear to auscultation bilaterally Cardio: Rhythm: regular rhythm GI: Inspection: normal to inspection, distended, incision and obesity GI Palp: Yes abdominal tenderness (less tender) and Yes Soft to palpation Other: ileostomy +fxn, incision C/D/I Skin: General skin exam: normal color Neuro: Speech: normal speech Motor exam (neuro): 5/5 motor strength present throughout Extrem: General: normal to inspection Psych: Mental Status: mental status grossly normal Objective Data Vital Signs Vital Signs: Vital Signs - 24 hr 06/24/23 12:07 06/24/23 17:44 06/24/23 12:00 Temperature 99.1 F 97.5 F L Pulse Rate 99 106 H Respiratory Rate 18 Blood Pressure 139/66 Pulse Oximetry 97 Oxygen Delivery 06/24/23 16:00 06/24/23 22:00 06/24/23 20:00 Temperature 98.2 F Pulse Rate 99 100 96 Respiratory Rate 14 Blood Pressure 116/51 L Pulse Oximetry 99 Oxygen Delivery 06/24/23 20:00 06/25/23 02:02 06/25/23 00:00 Temperature Pulse Rate 100 88 Respiratory Rate 14 Blood Pressure Pulse Oximetry 99 99 Oxygen Delivery Room Air Room Air 06/25/23 04:00 06/25/23 05:38 Temperature 97.6 F Pulse Rate 86 86 Respiratory Rate 13 Blood Pressure 116/51 L Pulse Oximetry 97 Oxygen Delivery Intake/Output Intake/Output: Intake & Output 06/22/23 06/23/23 06/24/23 06/25/23 23:59 23:59 23:59 23:59 Intake Total 3773.3 1550 2196.7 Output Total 4650 6550 5650 150 [facility] -876.7 -5000 -3453.3 -150 Meds/Results Medications: Active Medications Generic Name Dose Route Start Last Admin Trade Name Freq PRN Reason Stop Dose Admin Acetaminophen 650 mg 06/13/23 13:05 06/23/23 05:36 Acetaminophen 325 Mg Tablet PO 650 mg Q4H PRN Administration Mild Pain (1-3) or Fever Hydrocodone Bitart/Acetaminophen 1 tab 06/14/23 12:28 06/25/23 05:56 Hydrocodone/Acetaminophen (*Crx) 5-325 Mg Tablet PO 1 tab Q4H PRN Administration
[2023-06-25] MEDS: POTASSIUM CHLORIDE 20 MEQ PACKET (FOR LIQUID) 40 MEQ PO (12:20)
--- NOTE | 2023-06-25 12:41 | PM.PNGS ---
Progress Note: A&P Assessment and Plan (1) Toxic megacolon due to Clostridioides difficile: Code(s): A04.72 - Enterocolitis due to Clostridium difficile, not specified as recurrent Status: Acute Assessment and Plan: doing much better, lali vogt, PT/OT, care coordination to setup rehab Subjective Subjective Date/Time Seen: 06/25/23 12:41 Interval history: feels much better, davon diet, ambulating better Review of Systems Review of Systems: All systems reviewed & are unremarkable except as noted in HPI and below Exam Const: General: cooperative, comfortable and no acute distress Resp: Auscultation: clear to auscultation bilaterally Cardio: Rate: regular rate Rhythm: regular rhythm GI: Inspection: normal to inspection, distended and incision GI Palp: Yes abdominal tenderness, Yes Soft to palpation and Yes Tenderness to palpation present (GI) Other: ileostomy - +fxn Objective Data Vital Signs Vital Signs: Vital Signs - 24 hr 06/24/23 17:44 06/24/23 16:00 06/24/23 22:00 Temperature 36.4 C L 36.8 C Pulse Rate 99 99 100 Respiratory Rate 18 14 Blood Pressure 139/66 116/51 L Pulse Oximetry 97 99 Oxygen Delivery 06/24/23 20:00 06/24/23 20:00 06/25/23 02:02 Temperature Pulse Rate 96 100 Respiratory Rate 14 Blood Pressure Pulse Oximetry 99 99 Oxygen Delivery Room Air Room Air 06/25/23 00:00 06/25/23 04:00 06/25/23 05:38 Temperature 36.4 C Pulse Rate 88 86 86 Respiratory Rate 13 Blood Pressure 116/51 L Pulse Oximetry 97 Oxygen Delivery Intake/Output Intake/Output: Intake & Output 06/22/23 06/23/23 06/24/23 06/25/23 23:59 23:59 23:59 23:59 Intake Total 3773.3 1550 2196.7 240 Output Total 4650 6524 5681 150 Balance -876.7 -5000 -3453.3 90 Meds/Results Medications: Active Medications Generic Name Dose Route Start Last Admin Trade Name Freq PRN Reason Stop Dose Admin Acetaminophen 650 mg 06/13/23 13:05 06/23/23 05:36 Acetaminophen 325 Mg Tablet PO 650 mg Q4H PRN Administration Mild Pain (1-3) or Fever Hydrocodone Bitart/Acetaminophen 1 tab 06/14/23 12:28 06/25/23 05:56 Hydrocodone/Acetaminophen (*Crx) 5-325 Mg Tablet PO 1 tab Q4H PRN Administration Pain Rated 4-6 Benzocaine 1 lozenge 06/22/23 06:14 06/22/23 08:07 Benzocaine/Menthol (*Bkc) 18 Ea Lozenge PO 06/28/23 23:59 1 lozenge PRN PRN Administration Sore Throat Dicyclomine HCl 20 mg 06/14/23 11:22 06/22/23 17:28 Dicyclomine Hcl 10 Mg Capsule PO 20 mg QID PRN Administration Abdominal Cramping Enoxaparin Sodium 120 mg 06/22/23 21:00 06/25/23 09:18 Enoxaparin 120 Mg/0.8 Ml Syringe SUB-Q 120 mg Q12HR BISMARK Administration Hydralazine HCl 20 mg 06/17/23 08:14 06/17/23 17:28 Hydralazine Hcl 20 Mg/Ml Vial IV PUSH 20 mg Q6HR PRN Administration Hypertension Hydromorphone HCl 1 mg 06/13/23 14:43 06/25/23 01:23 Hydromorphone Hcl Inj (*Crx) 1 Mg/Ml Syr IV PUSH 1 mg Q3H PRN Administration Pain Rated 7-10 Dextrose 1,000 mls @ 50 mls/hr 06/16/23 13:19 06/24/23 02:50 Dextrose 10% IV CONT 50 mls/hr .Q20H PRN Administration if PN is interrupted Metronidazole 500 mg in 100 mls @ 100 mls/hr 06/16/23 15:30 06/25/23 05:55 Flagyl 500 Mg/Iso Soln 100 Ml IVPB 100 mls/hr Q8HR BISMARK Administration Losartan Potassium 50 mg 06/13/23 17:20 06/25/23 09:18 Losartan Potassium 50 Mg Tablet PO 50 mg DAILY BISMARK Administration Melatonin 3 mg 06/24/23 21:42 06/24/23 22:01 Melatonin 3 Mg Tablet PO 3 mg HS BISMARK Administration Miscellaneous Information 1 each 06/23/23 00:01 06/25/23 00:05 Norco_ Needs To Be Renewed Or It Will Automatically Discontinue. XX 07/23/23 00:00 Not Given CLARIFY BISMARK Miscellaneous Information 1 each 06/23/23 00:01 06/25/23 00:04 Clinamix Needs To Be Renewed Or It Will Automatically Discontinue. XX 07/23/23 00:00 Not Giv
--- NOTE | 2023-06-25 13:28 | PM.IMPN ---
Progress Note: A&P Assessment and Plan (1) Colitis: Code(s): K52.9 - Noninfective gastroenteritis and colitis, unspecified Status: Acute (2) Bandemia: Code(s): D72.825 - Bandemia Status: Acute (3) Leukocytosis: Qualifiers: Leukocytosis type: unspecified Qualified Code(s): D72.829 - Elevated white blood cell count, unspecified Code(s): D72.829 - Elevated white blood cell count, unspecified Status: Acute (4) Abdominal pain: Qualifiers: Abdominal location: lower abdomen, unspecified Qualified Code(s): R10.30 - Lower abdominal pain, unspecified Code(s): R10.9 - Unspecified abdominal pain Status: Acute (5) Hypertension: Qualifiers: Hypertension type: primary hypertension Qualified Code(s): I10 - Essential (primary) hypertension Code(s): I10 - Essential (primary) hypertension Status: Chronic (6) C. difficile colitis: Code(s): A04.72 - Enterocolitis due to Clostridium difficile, not specified as recurrent Status: Acute (7) Large bowel obstruction: Code(s): K56.609 - Unspecified intestinal obstruction, unspecified as to partial versus complete obstruction Status: Acute (8) Diverticulitis: Code(s): K57.92 - Diverticulitis of intestine, part unspecified, without perforation or abscess without bleeding Status: Acute (9) Toxic megacolon due to Clostridioides difficile: Code(s): A04.72 - Enterocolitis due to Clostridium difficile, not specified as recurrent Status: Acute (10) Postoperative ileus: Code(s): K91.89 - Other postprocedural complications and disorders of digestive system; K56.7 - Ileus, unspecified Status: Acute (11) SIRS (systemic inflammatory response syndrome): Code(s): R65.10 - Systemic inflammatory response syndrome (SIRS) of non-infectious origin without acute organ dysfunction Status: Acute (12) Hyponatremia: Code(s): E87.1 - Hypo-osmolality and hyponatremia Status: Acute (13) DVT of axillary vein, acute: Code(s): I82.A19 - Acute embolism and thrombosis of unspecified axillary vein Status: Acute (14) Anemia: Code(s): D64.9 - Anemia, unspecified Status: Acute Plan DVT LT upper extremity Axillary and basilic vein secondary to Midline midline removed Lovenox 1mg/kg can transition to Eliquis prior to discharge Toxic Megacolon due to C-diff colitis NG tube has been removed Tolerating p.o. Surgery and GI following PT/OT Continue with oral vancomycin Supplement potassium Monitor leukocytosis, improving Hyponatermia IMPROVING Hypertension Stable Continue with losartan Code status: Full code DVT prophylaxis: On therapeutic Lovenox as mentioned above Disposition: Will likely need rehab placement, case folder working on it Time Spent With Patient Time with patient: 15 - 25 minutes Subjective Date/time seen: 06/25/23 13:28 Interval history: No acute events overnight Review of Systems Review of Systems: All systems reviewed & are unremarkable except as noted in HPI and below Exam Narrative: GENERAL: Alert and oriented x 3. No acute distress. Well-nourished. EYES: EOMI. No scleral icterus. PERRLA. HEENT: Moist mucous membranes. LUNGS: Clear to auscultation bilaterally. No accessory muscle use. CARDIOVASCULAR: Regular rate and rhythm. No murmur. No JVD. S1-S2 ABDOMEN: mideline surgical incision and RT red beefy stoma, surgical wound dry and clean, bowel sounds, liquid stooling from ileostomy EXTREMITIES: No edema. left arm edema, tender around PICC line was removed SKIN: No rashes or lesions. Skin warm, dry. NEUROLOGIC: No focal neurological deficits. PSYCHIATRIC: Appropriate mood and affect. Objective Data Vital Signs Vital Signs: Vital Signs - 24 hr 06/24/23 17:44 06/24/23 16:00 06/24/23 22:00 Temperature 97.5
[2023-06-25 14:06] VITALS: BP 119/69; PULSE 92; RESP 17; TEMP 36.5; O2SAT 100
[2023-06-25] MEDS: ACIDOPHILUS/BULGARICUS CHEWABLE TABLET 1 TABLET PO ×2 (17:37→21:02)
[2023-06-25] MEDS: MELATONIN 3 MG TABLET PO (21:02)
[2023-06-25 21:55] VITALS: BP 127/67; PULSE 89; RESP 14; TEMP 36.8; O2SAT 99
[2023-06-26] MEDS: HYDROcodone/acetaminophen (*CRX) 5-325 MG TABLET 1 TAB PO ×4 (02:51→21:00)
[2023-06-26] MEDS: metroNIDAZOLE 500 MG/ISO 100ML 500 MG/100 ML BAG 100 MG IVPB ×2 (05:55→13:24)
[2023-06-26] MEDS: VANCOMYCIN HCL 250 MG ORAL CAPSULE 500 MG PO ×4 (05:56→23:00)
[2023-06-26] MEDS: SALINE LOCK FLUSH 10 ML IV PUSH ×2 (05:56→13:25)
[2023-06-26 06:00] VITALS: BP 124/68; PULSE 88; RESP 14; TEMP 36.6; O2SAT 99
[2023-06-26 06:46] LABS: Basophils Absolute Auto 0.1 K/mm3 (0.0-0.1); Basophils Percent Auto 0.6 % (0.2-1.2); Eosinophils Absolute Auto 0.5 K/mm3 (0-0.3); Eosinophils Percent Auto 4.7 % (0-4.4); Hematocrit 24.2 % (37.0-47.0); Hemoglobin 7.7 g/dL (12.0-15.0); Immature Granulocyte Absolute 0.47 K/mm3 (0.00-0.031); Immature Granulocyte Percent A 4.5 % (0-0.5); Lymphocytes Absolute Auto 1.66 K/mm3 (0.9-3.2); Lymphocytes Percent Auto 15.8 % (18.3-44.2); Mean Corpuscular HGB Conc 31.8 g/dl (32-36); Mean Corpuscular Hemoglobin 27.9 pg (26-34); Mean Corpuscular Volume 87.7 fl (80-100); Mean Platelet Volume 10.3 fl (7.4-10.4); Monocytes Absolute Auto 0.8 K/mm3 (0.1-0.6); Monocytes Percent Auto 7.2 % (2.6-8.5); Neutrophils Absolute Auto 7.1 K/mm3 (1.3-6.7); Neutrophils Percent Auto 67.2 % (45.5-73.1); Platelet Count Result 323 k/mm3 (150-375); Red Blood Count 2.76 M/mm3 (4.2-5.4); Red Cell Distribution Width 15.5 % (11.5-14.5); White Blood Count 10.5 K/mm3 (4.5-10.0)
[2023-06-26 06:56] LABS: Anion Gap 3 mmol/L (4-12); Blood Urea Nitrogen 7 mg/dL (7-17); Calcium 8.3 mg/dL (8.4-10.2); Carbon Dioxide 28 mmol/L (22-30); Chloride 102 mmol/L (98-107); Estimated CRCL calculation 176 ml/min; Estimated Glomerular Filt Rate > 60; Glucose 113 mg/dL (65-110); Potassium 3.5 mmol/L (3.4-5.0); Sodium 133 mmol/L (137-145)
[2023-06-26] MEDS: ENOXAPARIN 120 MG/0.8 ML SYRINGE SUB-Q ×2 (07:57→21:01)
[2023-06-26] MEDS: ACIDOPHILUS/BULGARICUS CHEWABLE TABLET 1 TABLET PO ×3 (07:58→21:00)
[2023-06-26] MEDS: LOSARTAN POTASSIUM 50 MG TABLET PO (07:58)
[2023-06-26] MEDS: SIMETHICONE 80 MG TAB.CHEW PO ×4 (07:58→21:00)
[2023-06-26] MEDS: PANTOPRAZOLE SODIUM IV 40 MG VIAL IV PUSH (07:59)
[2023-06-26 08:00] VITALS: BP 156/84; PULSE 83; RESP 16; TEMP 36.5; O2SAT 95
--- NOTE | 2023-06-26 10:07 | PM.IMPN ---
Progress Note: A&P Assessment and Plan (1) Colitis: Code(s): K52.9 - Noninfective gastroenteritis and colitis, unspecified Status: Acute (2) Bandemia: Code(s): D72.825 - Bandemia Status: Acute (3) Leukocytosis: Qualifiers: Leukocytosis type: unspecified Qualified Code(s): D72.829 - Elevated white blood cell count, unspecified Code(s): D72.829 - Elevated white blood cell count, unspecified Status: Acute (4) Abdominal pain: Qualifiers: Abdominal location: lower abdomen, unspecified Qualified Code(s): R10.30 - Lower abdominal pain, unspecified Code(s): R10.9 - Unspecified abdominal pain Status: Acute (5) Hypertension: Qualifiers: Hypertension type: primary hypertension Qualified Code(s): I10 - Essential (primary) hypertension Code(s): I10 - Essential (primary) hypertension Status: Chronic (6) C. difficile colitis: Code(s): A04.72 - Enterocolitis due to Clostridium difficile, not specified as recurrent Status: Acute (7) Large bowel obstruction: Code(s): K56.609 - Unspecified intestinal obstruction, unspecified as to partial versus complete obstruction Status: Acute (8) Diverticulitis: Code(s): K57.92 - Diverticulitis of intestine, part unspecified, without perforation or abscess without bleeding Status: Acute (9) Toxic megacolon due to Clostridioides difficile: Code(s): A04.72 - Enterocolitis due to Clostridium difficile, not specified as recurrent Status: Acute (10) Postoperative ileus: Code(s): K91.89 - Other postprocedural complications and disorders of digestive system; K56.7 - Ileus, unspecified Status: Acute (11) SIRS (systemic inflammatory response syndrome): Code(s): R65.10 - Systemic inflammatory response syndrome (SIRS) of non-infectious origin without acute organ dysfunction Status: Acute (12) Hyponatremia: Code(s): E87.1 - Hypo-osmolality and hyponatremia Status: Acute (13) DVT of axillary vein, acute: Code(s): I82.A19 - Acute embolism and thrombosis of unspecified axillary vein Status: Acute (14) Anemia: Code(s): D64.9 - Anemia, unspecified Status: Acute Plan DVT LT upper extremity Axillary and basilic vein secondary to Midline midline removed Lovenox 1mg/kg can transition to Eliquis prior to discharge Toxic Megacolon due to C-diff colitis NG tube has been removed Tolerating p.o. Surgery and GI following PT/OT Continue with oral vancomycin Supplement potassium Monitor leukocytosis, improving Hyponatermia IMPROVING Hypertension Stable Continue with losartan Code status: Full code DVT prophylaxis: On therapeutic Lovenox as mentioned above Disposition: Will likely need rehab placement, case maker working on it Subjective Date/time seen: 06/26/23 10:07 Interval history: I saw exam patient today, denies abdomen pain, nausea vomiting, patient still has decreased stooling on from colostomy. Patient afebrile, blood pressure stable, mild leukocytosis 10,500 which is trending down Exam Narrative: GENERAL: Alert and oriented x 3. No acute distress. Well-nourished. EYES: EOMI. No scleral icterus. PERRLA. HEENT: Moist mucous membranes. LUNGS: Clear to auscultation bilaterally. No accessory muscle use. CARDIOVASCULAR: Regular rate and rhythm. No murmur. No JVD. S1-S2 ABDOMEN: mideline surgical incision and RT red beefy stoma, surgical wound dry and clean, bowel sounds, liquid stooling from ileostomy EXTREMITIES: No edema. left arm edema, tender around PICC line was removed SKIN: No rashes or lesions. Skin warm, dry. NEUROLOGIC: No focal neurological deficits. PSYCHIATRIC: Appropriate mood and affect. Objective Data Vital Signs Vital Signs: Vital Signs - 24 hr 06/25/23 14:06 06/25/23 21:55 06/26/23 06:00 Temperat
--- NOTE | 2023-06-26 11:41 | PCNFU ---
Nutrition Follow-Up Complete: Altered GI function related to bowl obstruction as evidenced by need for alternative nutrition support via PPN. Goal:Meet 60% of estimated energy needs, 100% of protein needs via PPN - no longer goal as PPN has been d/c'd New goal: 75% intake of meals Pt current nutrition is Heart healthy. Nutrition recommendation: Add Ensure compact BID for an additional 220kcals, 9g protein per shake Last recorded weight is 119.5 kg. Bowel Motility: +BM 06/24 Labs Reviewed: Hgb:7.7, HCT:24.2, NA:133, Cr:0.4, Glu:113 Meds Noted: lovenox, zofran, protonix Skin: WNL Additional Notes: PPN has been stopped, diet was advanced and tolerated, now is upgraded to heart healthy. PO intake good 50-75% most meals, pt reports getting full quickly. Will add Ensure compact BID for supplement. Monitor intake, wt, labs. Follow up in 3 days.
[2023-06-26 14:03] VITALS: BP 126/71; PULSE 86; RESP 17; TEMP 36.7; O2SAT 99
--- NOTE | 2023-06-26 14:15 | PC.NURSE ---
all documentation done by Bibiana Palomino has been reviewed and approved.
--- NOTE | 2023-06-26 14:31 | PC.NURSE ---
PSYCHIATRIC students caring for pts this a.m, care assumed, agree with previous assessment
--- NOTE | 2023-06-26 15:12 | PM.PNGS ---
Progress Note: A&P Assessment and Plan (1) Toxic megacolon due to Clostridioides difficile: Code(s): A04.72 - Enterocolitis due to Clostridium difficile, not specified as recurrent Status: Acute Assessment and Plan: doing well, path reviewed, cont routine postop care, awaiting rehab placement Subjective Subjective Date/Time Seen: 06/26/23 15:12 Interval history: no acute issues, appetite slowly improving Review of Systems Review of Systems: All systems reviewed & are unremarkable except as noted in HPI and below Exam Const: General: cooperative, comfortable and no acute distress Resp: Auscultation: clear to auscultation bilaterally Cardio: Rate: regular rate Rhythm: regular rhythm GI: Inspection: normal to inspection, non-distended and incision GI Palp: Yes abdominal tenderness and Yes Soft to palpation Other: ileostomy - +fxn Objective Data Vital Signs Vital Signs: Vital Signs - 24 hr 06/25/23 21:55 06/26/23 06:00 06/26/23 08:00 Temperature 36.8 C 36.6 C 36.5 C Pulse Rate 89 88 83 Respiratory Rate 14 14 16 Blood Pressure 127/67 124/68 156/84 H Pulse Oximetry 99 99 95 06/26/23 14:03 Temperature 36.7 C Pulse Rate 86 Respiratory Rate 17 Blood Pressure 126/71 Pulse Oximetry 99 Intake/Output Intake/Output: Intake & Output 06/23/23 06/24/23 06/25/23 06/26/23 23:59 23:59 23:59 23:59 Intake Total 1550 2196.7 900 440 Output Total 6550 5650 1600 50 Balance -5000 -3453.3 -700 390 Meds/Results Medications: Active Medications Generic Name Dose Route Start Last Admin Trade Name Freq PRN Reason Stop Dose Admin Acetaminophen 650 mg 06/13/23 13:05 06/23/23 05:36 Acetaminophen 325 Mg Tablet PO 650 mg Q4H PRN Administration Mild Pain (1-3) or Fever Hydrocodone Bitart/Acetaminophen 1 tab 06/14/23 12:28 06/26/23 12:34 Hydrocodone/Acetaminophen (*Crx) 5-325 Mg Tablet PO 1 tab Q4H PRN Administration Pain Rated 4-6 Benzocaine 1 lozenge 06/22/23 06:14 06/22/23 08:07 Benzocaine/Menthol (*Bkc) 18 Ea Lozenge PO 06/28/23 23:59 1 lozenge PRN PRN Administration Sore Throat Dicyclomine HCl 20 mg 06/14/23 11:22 06/22/23 17:28 Dicyclomine Hcl 10 Mg Capsule PO 20 mg QID PRN Administration Abdominal Cramping Enoxaparin Sodium 120 mg 06/22/23 21:00 06/26/23 07:57 Enoxaparin 120 Mg/0.8 Ml Syringe SUB-Q 120 mg Q12HR BISMARK Administration Hydralazine HCl 20 mg 06/17/23 08:14 06/17/23 17:28 Hydralazine Hcl 20 Mg/Ml Vial IV PUSH 20 mg Q6HR PRN Administration Hypertension Hydromorphone HCl 1 mg 06/13/23 14:43 06/25/23 01:23 Hydromorphone Hcl Inj (*Crx) 1 Mg/Ml Syr IV PUSH 1 mg Q3H PRN Administration Pain Rated 7-10 Dextrose 1,000 mls @ 50 mls/hr 06/16/23 13:19 06/24/23 02:50 Dextrose 10% IV CONT 50 mls/hr .Q20H PRN Administration if PN is interrupted Metronidazole 500 mg in 100 mls @ 100 mls/hr 06/16/23 15:30 06/26/23 13:24 Flagyl 500 Mg/Iso Soln 100 Ml IVPB 100 mls/hr Q8HR BISMARK Administration Lactobacillus Acidophilus 1 tablet 06/25/23 17:00 06/26/23 07:58 Acidophilus/Bulgaricus Chewable Tablet PO 1 tablet QID BISMARK Administration Losartan Potassium 50 mg 06/13/23 17:20 06/26/23 07:58 Losartan Potassium 50 Mg Tablet PO 50 mg DAILY BISMARK Administration Melatonin 3 mg 06/24/23 21:42 06/25/23 21:02 Melatonin 3 Mg Tablet PO 3 mg HS BISMARK Administration Ondansetron HCl 4 mg 06/13/23 13:05 06/23/23 05:36 Ondansetron Inj 4 Mg/2 Ml Vial IV PUSH 4 mg Q6H PRN Administration Nausea And Vomiting Pantoprazole Sodium 40 mg 06/17/23 09:00 06/26/23 07:59 Pantoprazole Sodium Iv 40 Mg Vial IV PUSH 40 mg Q12HR BISMARK Administration Simethicone 80 mg 06/23/23 13:45 06/26/23 13:23 Simethicone 80 Mg Tab.Chew PO 80 mg QID BISMARK Administration Sodium Chloride 10 ml 06/14/23 22:00 06/26/23 13:25 Saline Lock F
[2023-06-26 20:00] VITALS: O2SAT 99
[2023-06-26] MEDS: MELATONIN 3 MG TABLET PO (21:00)
[2023-06-26] MEDS: PANTOPRAZOLE 40 MG TABLET PO (21:01)
[2023-06-26 22:00] VITALS: BP 133/67; PULSE 91; RESP 14; TEMP 36.9; O2SAT 96
[2023-06-27] MEDS: VANCOMYCIN HCL 250 MG ORAL CAPSULE 500 MG PO ×3 (05:26→17:07)
[2023-06-27] MEDS: HYDROcodone/acetaminophen (*CRX) 5-325 MG TABLET 1 TAB PO ×2 (05:26→14:24)
[2023-06-27 06:00] VITALS: BP 136/71; PULSE 83; RESP 16; TEMP 36.9; O2SAT 97
--- NOTE | 2023-06-27 08:05 | PM.IMPN ---
Progress Note: A&P Assessment and Plan (1) Colitis: Code(s): K52.9 - Noninfective gastroenteritis and colitis, unspecified Status: Acute (2) Bandemia: Code(s): D72.825 - Bandemia Status: Acute (3) Leukocytosis: Qualifiers: Leukocytosis type: unspecified Qualified Code(s): D72.829 - Elevated white blood cell count, unspecified Code(s): D72.829 - Elevated white blood cell count, unspecified Status: Acute (4) Abdominal pain: Qualifiers: Abdominal location: lower abdomen, unspecified Qualified Code(s): R10.30 - Lower abdominal pain, unspecified Code(s): R10.9 - Unspecified abdominal pain Status: Acute (5) Hypertension: Qualifiers: Hypertension type: primary hypertension Qualified Code(s): I10 - Essential (primary) hypertension Code(s): I10 - Essential (primary) hypertension Status: Chronic (6) C. difficile colitis: Code(s): A04.72 - Enterocolitis due to Clostridium difficile, not specified as recurrent Status: Acute (7) Large bowel obstruction: Code(s): K56.609 - Unspecified intestinal obstruction, unspecified as to partial versus complete obstruction Status: Acute (8) Diverticulitis: Code(s): K57.92 - Diverticulitis of intestine, part unspecified, without perforation or abscess without bleeding Status: Acute (9) Toxic megacolon due to Clostridioides difficile: Code(s): A04.72 - Enterocolitis due to Clostridium difficile, not specified as recurrent Status: Acute (10) Postoperative ileus: Code(s): K91.89 - Other postprocedural complications and disorders of digestive system; K56.7 - Ileus, unspecified Status: Acute (11) SIRS (systemic inflammatory response syndrome): Code(s): R65.10 - Systemic inflammatory response syndrome (SIRS) of non-infectious origin without acute organ dysfunction Status: Acute (12) Hyponatremia: Code(s): E87.1 - Hypo-osmolality and hyponatremia Status: Acute (13) DVT of axillary vein, acute: Code(s): I82.A19 - Acute embolism and thrombosis of unspecified axillary vein Status: Acute (14) Anemia: Code(s): D64.9 - Anemia, unspecified Status: Acute Plan DVT LT upper extremity Axillary and basilic vein secondary to Midline midline removed Lovenox 1mg/kg can transition to Eliquis prior to discharge Toxic Megacolon due to C-diff colitis NG tube has been removed Tolerating p.o. Surgery and GI following PT/OT Continue with oral vancomycin Supplement potassium Monitor leukocytosis, improving Hyponatermia IMPROVING start sodium chloride 1 g t.i.d. p.o. magnesium and phosphate of within normal limit Hypertension Stable Continue with losartan Code status: Full code DVT prophylaxis: On therapeutic Lovenox as mentioned above Disposition: Will likely need rehab placement, adult protective caseworker working on it Subjective Date/time seen: 06/27/23 08:05 Interval history: I saw exam patient today, patient was seen in a recliner, has general weakness, patient denies abdomen pain, nausea vomiting, Patient afebrile, blood pressure stable, mild leukocytosis 10,500 which is trending down Exam Narrative: GENERAL: Alert and oriented x 3. No acute distress. Well-nourished. EYES: EOMI. No scleral icterus. PERRLA. HEENT: Moist mucous membranes. LUNGS: Clear to auscultation bilaterally. No accessory muscle use. CARDIOVASCULAR: Regular rate and rhythm. No murmur. No JVD. S1-S2 ABDOMEN: mideline surgical incision and RT red beefy stoma, surgical wound dry and clean, bowel sounds, liquid stooling from ileostomy EXTREMITIES: No edema. left arm edema, tender around PICC line was removed SKIN: No rashes or lesions. Skin warm, dry. NEUROLOGIC: No focal neurological deficits. PSYCHIATRIC: Appropriate mood and affect. Objective Data Vital Signs
[2023-06-27 08:26] LABS: Basophils Absolute Auto 0.1 K/mm3 (0.0-0.1); Basophils Percent Auto 0.8 % (0.2-1.2); Eosinophils Absolute Auto 0.5 K/mm3 (0-0.3); Eosinophils Percent Auto 4.5 % (0-4.4); Hemoglobin 8.8 g/dL (12.0-15.0); Immature Granulocyte Absolute 0.41 K/mm3 (0.00-0.031); Lymphocytes Absolute Auto 1.76 K/mm3 (0.9-3.2); Lymphocytes Percent Auto 17.4 % (18.3-44.2); Mean Corpuscular HGB Conc 31.4 g/dl (32-36); Mean Corpuscular Hemoglobin 27.8 pg (26-34); Mean Corpuscular Volume 88.6 fl (80-100); Mean Platelet Volume 9.8 fl (7.4-10.4); Monocytes Absolute Auto 0.7 K/mm3 (0.1-0.6); Monocytes Percent Auto 6.7 % (2.6-8.5); Neutrophils Absolute Auto 6.7 K/mm3 (1.3-6.7); Neutrophils Percent Auto 66.6 % (45.5-73.1); Platelet Count Result 445 k/mm3 (150-375); Red Blood Count 3.16 M/mm3 (4.2-5.4); Red Cell Distribution Width 15.4 % (11.5-14.5); White Blood Count 10.1 K/mm3 (4.5-10.0)
[2023-06-27 08:40] LABS: Anion Gap 4 mmol/L (4-12); Blood Urea Nitrogen 6 mg/dL (7-17); Calcium 8.6 mg/dL (8.4-10.2); Carbon Dioxide 30 mmol/L (22-30); Chloride 99 mmol/L (98-107); Estimated CRCL calculation 175 ml/min; Estimated Glomerular Filt Rate > 60; Glucose 122 mg/dL (65-110); Phosphorus 3.5 mg/dL (2.5-4.5); Potassium 3.6 mmol/L (3.4-5.0); Sodium 133 mmol/L (137-145)
[2023-06-27] MEDS: PANTOPRAZOLE 40 MG TABLET PO ×2 (09:35→20:39)
[2023-06-27] MEDS: ACIDOPHILUS/BULGARICUS CHEWABLE TABLET 1 TABLET PO ×4 (09:35→20:39)
[2023-06-27] MEDS: ENOXAPARIN 120 MG/0.8 ML SYRINGE SUB-Q ×2 (09:35→20:39)
[2023-06-27] MEDS: SIMETHICONE 80 MG TAB.CHEW PO ×4 (09:35→20:39)
[2023-06-27] MEDS: LOSARTAN POTASSIUM 50 MG TABLET PO (09:35)
[2023-06-27 14:00] VITALS: BP 119/60; PULSE 94; RESP 18; TEMP 36.5; O2SAT 100
[2023-06-27] MEDS: SODIUM CHLORIDE 1 GM TABLET PO (17:07)
[2023-06-27] MEDS: MELATONIN 3 MG TABLET PO (20:39)
[2023-06-27 22:00] VITALS: BP 135/67; PULSE 90; RESP 16; TEMP 37.2; O2SAT 97
[2023-06-28] MEDS: VANCOMYCIN HCL 250 MG ORAL CAPSULE 500 MG PO ×4 (00:01→17:16)
[2023-06-28] MEDS: HYDROcodone/acetaminophen (*CRX) 5-325 MG TABLET 1 TAB PO ×4 (01:51→20:37)
[2023-06-28 06:00] VITALS: BP 136/63; PULSE 87; RESP 14; TEMP 36.7; O2SAT 96
[2023-06-28 06:53] LABS: Basophils Absolute Auto 0.1 K/mm3 (0.0-0.1); Basophils Percent Auto 0.7 % (0.2-1.2); Eosinophils Absolute Auto 0.5 K/mm3 (0-0.3); Eosinophils Percent Auto 4.2 % (0-4.4); Hematocrit 26.5 % (37.0-47.0); Hemoglobin 8.2 g/dL (12.0-15.0); Immature Granulocyte Absolute 0.35 K/mm3 (0.00-0.031); Lymphocytes Absolute Auto 1.88 K/mm3 (0.9-3.2); Lymphocytes Percent Auto 16.1 % (18.3-44.2); Mean Corpuscular HGB Conc 30.9 g/dl (32-36); Mean Corpuscular Hemoglobin 27.6 pg (26-34); Mean Corpuscular Volume 89.2 fl (80-100); Monocytes Absolute Auto 0.8 K/mm3 (0.1-0.6); Monocytes Percent Auto 6.8 % (2.6-8.5); Neutrophils Absolute Auto 8.1 K/mm3 (1.3-6.7); Neutrophils Percent Auto 69.2 % (45.5-73.1); Platelet Count Result 424 k/mm3 (150-375); Red Blood Count 2.97 M/mm3 (4.2-5.4); Red Cell Distribution Width 15.7 % (11.5-14.5); White Blood Count 11.7 K/mm3 (4.5-10.0)
[2023-06-28 07:09] LABS: Anion Gap 2 mmol/L (4-12); Blood Urea Nitrogen 7 mg/dL (7-17); Calcium 8.6 mg/dL (8.4-10.2); Carbon Dioxide 30 mmol/L (22-30); Chloride 100 mmol/L (98-107); Estimated CRCL calculation 175 ml/min; Estimated Glomerular Filt Rate > 60; Glucose 112 mg/dL (65-110); Phosphorus 4.2 mg/dL (2.5-4.5); Potassium 3.8 mmol/L (3.4-5.0); Sodium 132 mmol/L (137-145)
[2023-06-28] MEDS: SIMETHICONE 80 MG TAB.CHEW PO ×4 (08:52→20:16)
[2023-06-28] MEDS: SODIUM CHLORIDE 1 GM TABLET PO (08:52)
[2023-06-28] MEDS: LOSARTAN POTASSIUM 50 MG TABLET PO (08:52)
[2023-06-28] MEDS: ACIDOPHILUS/BULGARICUS CHEWABLE TABLET 1 TABLET PO ×4 (08:52→20:17)
[2023-06-28] MEDS: PANTOPRAZOLE 40 MG TABLET PO ×2 (08:52→20:19)
[2023-06-28] MEDS: ENOXAPARIN 120 MG/0.8 ML SYRINGE SUB-Q ×2 (08:53→20:19)
--- NOTE | 2023-06-28 09:19 | PM.IMPN ---
Progress Note: A&P Assessment and Plan (1) Colitis: Code(s): K52.9 - Noninfective gastroenteritis and colitis, unspecified Status: Acute (2) Bandemia: Code(s): D72.825 - Bandemia Status: Acute (3) Leukocytosis: Qualifiers: Leukocytosis type: unspecified Qualified Code(s): D72.829 - Elevated white blood cell count, unspecified Code(s): D72.829 - Elevated white blood cell count, unspecified Status: Acute (4) Abdominal pain: Qualifiers: Abdominal location: lower abdomen, unspecified Qualified Code(s): R10.30 - Lower abdominal pain, unspecified Code(s): R10.9 - Unspecified abdominal pain Status: Acute (5) Hypertension: Qualifiers: Hypertension type: primary hypertension Qualified Code(s): I10 - Essential (primary) hypertension Code(s): I10 - Essential (primary) hypertension Status: Chronic (6) C. difficile colitis: Code(s): A04.72 - Enterocolitis due to Clostridium difficile, not specified as recurrent Status: Acute (7) Large bowel obstruction: Code(s): K56.609 - Unspecified intestinal obstruction, unspecified as to partial versus complete obstruction Status: Acute (8) Diverticulitis: Code(s): K57.92 - Diverticulitis of intestine, part unspecified, without perforation or abscess without bleeding Status: Acute (9) Toxic megacolon due to Clostridioides difficile: Code(s): A04.72 - Enterocolitis due to Clostridium difficile, not specified as recurrent Status: Acute (10) Postoperative ileus: Code(s): K91.89 - Other postprocedural complications and disorders of digestive system; K56.7 - Ileus, unspecified Status: Acute (11) SIRS (systemic inflammatory response syndrome): Code(s): R65.10 - Systemic inflammatory response syndrome (SIRS) of non-infectious origin without acute organ dysfunction Status: Acute (12) Hyponatremia: Code(s): E87.1 - Hypo-osmolality and hyponatremia Status: Acute (13) DVT of axillary vein, acute: Code(s): I82.A19 - Acute embolism and thrombosis of unspecified axillary vein Status: Acute (14) Anemia: Code(s): D64.9 - Anemia, unspecified Status: Acute Plan DVT LT upper extremity Axillary and basilic vein secondary to Midline midline removed Lovenox 1mg/kg can transition to Eliquis prior to discharge Toxic Megacolon due to C-diff colitis NG tube has been removed Tolerating p.o. Surgery and GI following PT/OT Continue with oral vancomycin patient still has liquid stools patient is afebrile, leukocytosis improving Hypokalemia Supplement potassium p.r.n. Corrected Hyponatermia IMPROVING start sodium chloride 2 g bid . p.o. magnesium and phosphate of within normal limit Hypertension Stable Continue with losartan Code status: Full code DVT prophylaxis: On therapeutic Lovenox as mentioned above Disposition: Will likely need rehab placement, trimming caser working on it Subjective Date/time seen: 06/28/23 09:19 Interval history: I saw exam patient today, patient was seen in a recliner, has some cough but denies chest pain, shortness a breath. patient denies abdomen pain, nausea vomiting, Patient afebrile, blood pressure stable, mild leukocytosis Exam Narrative: GENERAL: Alert and oriented x 3. No acute distress. Well-nourished. EYES: EOMI. No scleral icterus. PERRLA. HEENT: Moist mucous membranes. LUNGS: Clear to auscultation bilaterally. No accessory muscle use. CARDIOVASCULAR: Regular rate and rhythm. No murmur. No JVD. S1-S2 ABDOMEN: mideline surgical incision and RT red beefy stoma, surgical wound dry and clean, bowel sounds, liquid stooling from ileostomy EXTREMITIES: No edema. left arm edema, tender around PICC line was removed SKIN: No rashes or lesions. Skin warm, dry. NEUROLOGIC: No focal neurologica
[2023-06-28 14:00] VITALS: BP 138/66; PULSE 86; RESP 18; TEMP 36.5; O2SAT 100
[2023-06-28] MEDS: SODIUM CHLORIDE 1 GM TABLET 2 GM PO (17:16)
[2023-06-28 20:00] VITALS: PULSE 94; RESP 20; O2SAT 98
[2023-06-28] MEDS: MELATONIN 3 MG TABLET PO (20:16)
[2023-06-28 21:11] VITALS: BP 125/75; PULSE 94; RESP 20; TEMP 36.9; O2SAT 98
[2023-06-29] MEDS: VANCOMYCIN HCL 250 MG ORAL CAPSULE 500 MG PO ×5 (00:59→23:48)
[2023-06-29 05:45] VITALS: BP 145/77; PULSE 84; RESP 16; TEMP 36.6; O2SAT 97
[2023-06-29 07:01] LABS: Basophils Absolute Auto 0.1 K/mm3 (0.0-0.1); Basophils Percent Auto 0.7 % (0.2-1.2); Eosinophils Absolute Auto 0.5 K/mm3 (0-0.3); Eosinophils Percent Auto 5.1 % (0-4.4); Hematocrit 27.5 % (37.0-47.0); Hemoglobin 8.6 g/dL (12.0-15.0); Immature Granulocyte Percent A 3.3 % (0-0.5); Lymphocytes Percent Auto 21.1 % (18.3-44.2); Mean Corpuscular HGB Conc 31.3 g/dl (32-36); Mean Corpuscular Hemoglobin 27.8 pg (26-34); Mean Platelet Volume 9.8 fl (7.4-10.4); Monocytes Absolute Auto 0.6 K/mm3 (0.1-0.6); Monocytes Percent Auto 6.8 % (2.6-8.5); Neutrophils Absolute Auto 5.7 K/mm3 (1.3-6.7); Platelet Count Result 447 k/mm3 (150-375); Red Blood Count 3.09 M/mm3 (4.2-5.4); Red Cell Distribution Width 15.9 % (11.5-14.5)
[2023-06-29 07:19] LABS: Anion Gap 5 mmol/L (4-12); Blood Urea Nitrogen 10 mg/dL (7-17); Calcium 9.1 mg/dL (8.4-10.2); Carbon Dioxide 29 mmol/L (22-30); Chloride 101 mmol/L (98-107); Estimated CRCL calculation 175 ml/min; Estimated Glomerular Filt Rate > 60; Glucose 119 mg/dL (65-110); Magnesium 2.1 mg/dL (1.6-2.3); Phosphorus 4.2 mg/dL (2.5-4.5); Potassium 4.3 mmol/L (3.4-5.0); Sodium 135 mmol/L (137-145)
[2023-06-29 08:53] VITALS: O2SAT 97
[2023-06-29] MEDS: SIMETHICONE 80 MG TAB.CHEW PO ×4 (08:53→20:01)
[2023-06-29] MEDS: ACIDOPHILUS/BULGARICUS CHEWABLE TABLET 1 TABLET PO ×4 (08:53→20:01)
[2023-06-29] MEDS: LOSARTAN POTASSIUM 50 MG TABLET PO (08:53)
[2023-06-29] MEDS: SODIUM CHLORIDE 1 GM TABLET 2 GM PO (08:53)
[2023-06-29] MEDS: ENOXAPARIN 120 MG/0.8 ML SYRINGE SUB-Q (08:53)
[2023-06-29] MEDS: PANTOPRAZOLE 40 MG TABLET PO ×2 (08:53→20:01)
--- NOTE | 2023-06-29 10:28 | PM.PNGS ---
Progress Note: A&P Assessment and Plan (1) Toxic megacolon due to Clostridioides difficile: Code(s): A04.72 - Enterocolitis due to Clostridium difficile, not specified as recurrent Status: Acute Assessment and Plan: Doing well and surgically stable for discharge. Patient prefers to go home with home health and is transferring and ambulating independently. She is still not contributing to ostomy care, ostomy nurses coming to educate patient again today with her as well. Okay to discharge home with home health from our standpoint if felt appropriate by PT. Will remove rishabh prior to discharge and plan to follow-up with Dr. Arndt in 2 weeks. Plan I have discussed the patient's case and plan of care with Dr. Arndt. Subjective Subjective Date/Time Seen: 06/29/23 10:28 Post Op day: 11 (subtotal colectomy with creation of end ileostomy, repair of incarcerated incisional hernia measuring 3 cm) Patient reports: no new complaints, feels better, tolerating a regular diet and afebrile Interval history: Chart reviewed since last seen. She is feeling well today. She has been increasing activity through the weekend and reports getting up and ambulating on her own yesterday and today. She denies any nausea or vomiting. Ileostomy functioning well. She is still not emptying or caring for her ostomy on her own yet. Wound/ostomy nurses are going to come by again today for re-education and to educate her as well. Exam Const: General: comfortable and no acute distress GI: Inspection: non-distended and incision (incision dry and rishabh intact, no erythema ) GI Palp: Yes Soft to palpation, Yes Tenderness to palpation present (GI) (mild appropriate incisional tenderness) and No Guarding due to palpation present (GI) Auscultation: normal bowel sounds Other: Ileostomy functioning well, stoma pink Psych: Mental Status: mental status grossly normal Insight: Good insight present (Psych) Objective Data Vital Signs Vital Signs: Vital Signs - 24 hr 06/28/23 14:00 06/28/23 21:11 06/28/23 20:00 Temperature 97.7 F 98.4 F Pulse Rate 86 94 94 Respiratory Rate 18 20 20 Blood Pressure 138/66 125/75 Pulse Oximetry 100 98 98 Oxygen Delivery Room Air 06/29/23 05:45 Temperature 97.8 F Pulse Rate 84 Respiratory Rate 16 Blood Pressure 145/77 H Pulse Oximetry 97 Oxygen Delivery Intake/Output Intake/Output: Intake & Output 06/26/23 06/27/23 06/28/23 06/29/23 23:59 23:59 23:59 23:59 Intake Total 1090 800 358 218 Output Total 350 300 150 100 Balance 740 500 208 118 Meds/Results Medications: Active Medications Generic Name Dose Route Start Last Admin Trade Name Freq PRN Reason Stop Dose Admin Acetaminophen 650 mg 06/13/23 13:05 06/23/23 05:36 Acetaminophen 325 Mg Tablet PO 650 mg Q4H PRN Administration Mild Pain (1-3) or Fever Hydrocodone Bitart/Acetaminophen 1 tab 06/14/23 12:28 06/28/23 20:37 Hydrocodone/Acetaminophen (*Crx) 5-325 Mg Tablet PO 1 tab Q4H PRN Administration Pain Rated 4-6 Dicyclomine HCl 20 mg 06/14/23 11:22 06/22/23 17:28 Dicyclomine Hcl 10 Mg Capsule PO 20 mg QID PRN Administration Abdominal Cramping Enoxaparin Sodium 120 mg 06/22/23 21:00 06/29/23 08:53 Enoxaparin 120 Mg/0.8 Ml Syringe SUB-Q 120 mg Q12HR BISMARK Administration Hydralazine HCl 20 mg 06/17/23 08:14 06/17/23 17:28 Hydralazine Hcl 20 Mg/Ml Vial IV PUSH 20 mg Q6HR PRN Administration Hypertension Hydromorphone HCl 1 mg 06/13/23 14:43 06/25/23 01:23 Hydromorphone Hcl Inj (*Crx) 1 Mg/Ml Syr IV PUSH 1 mg Q3H PRN Administration Pain Rated 7-10 Dextrose 1,000 mls @ 50 mls/hr 06/16/23 13:19 06/24/23 02:50 Dextrose 10% IV CONT 50 mls/hr .Q20H PRN Administration if PN is interrupted Lactobacillus Acidophilus 1 tablet 06/25/23 17:00 06/29/23 08:53 Acidophilus/Bulgaricus Chewable Tablet PO 1 tablet QID S
--- NOTE | 2023-06-29 11:48 | PCNFU ---
Nutrition Follow-Up Complete: Altered GI function related to bowl obstruction as evidenced by need for alternative nutrition support via PPN. Goal:Meet estimated needs. Pt is progressing towards goal Pt current nutrition is Heart healthy, Ensure compact BID. Nutrition recommendation: continue with current plan of care Last recorded weight is 118.6 kg. Bowel Motility: +BM 06/28 Labs Reviewed: Hgb:7.7, HCT:24.2, NA:133, Cr:0.4, Glu:113 Meds Noted: lovenox, zofran, protonix Skin: no skin issues noted Additional Notes: Pt continues on a heart healthy diet order, intake varied from 25-75%, Ensure compact in place. Encourage good po intake. Tolerating diet. Monitor intake, labs, wts, bowel function. Follow up in 5 days
--- NOTE | 2023-06-29 13:21 | PM.IMPN ---
Progress Note: A&P Assessment and Plan (1) Colitis: Code(s): K52.9 - Noninfective gastroenteritis and colitis, unspecified Status: Acute (2) Bandemia: Code(s): D72.825 - Bandemia Status: Acute (3) Leukocytosis: Qualifiers: Leukocytosis type: unspecified Qualified Code(s): D72.829 - Elevated white blood cell count, unspecified Code(s): D72.829 - Elevated white blood cell count, unspecified Status: Acute (4) Abdominal pain: Qualifiers: Abdominal location: lower abdomen, unspecified Qualified Code(s): R10.30 - Lower abdominal pain, unspecified Code(s): R10.9 - Unspecified abdominal pain Status: Acute (5) Hypertension: Qualifiers: Hypertension type: primary hypertension Qualified Code(s): I10 - Essential (primary) hypertension Code(s): I10 - Essential (primary) hypertension Status: Chronic (6) C. difficile colitis: Code(s): A04.72 - Enterocolitis due to Clostridium difficile, not specified as recurrent Status: Acute (7) Large bowel obstruction: Code(s): K56.609 - Unspecified intestinal obstruction, unspecified as to partial versus complete obstruction Status: Acute (8) Diverticulitis: Code(s): K57.92 - Diverticulitis of intestine, part unspecified, without perforation or abscess without bleeding Status: Acute (9) Toxic megacolon due to Clostridioides difficile: Code(s): A04.72 - Enterocolitis due to Clostridium difficile, not specified as recurrent Status: Acute (10) Postoperative ileus: Code(s): K91.89 - Other postprocedural complications and disorders of digestive system; K56.7 - Ileus, unspecified Status: Acute (11) SIRS (systemic inflammatory response syndrome): Code(s): R65.10 - Systemic inflammatory response syndrome (SIRS) of non-infectious origin without acute organ dysfunction Status: Acute (12) Hyponatremia: Code(s): E87.1 - Hypo-osmolality and hyponatremia Status: Acute (13) DVT of axillary vein, acute: Code(s): I82.A19 - Acute embolism and thrombosis of unspecified axillary vein Status: Acute (14) Anemia: Code(s): D64.9 - Anemia, unspecified Status: Acute Plan DVT LT upper extremity Axillary and basilic vein secondary to Midline midline removed Lovenox 1mg/kg can transition to Eliquis today Toxic Megacolon due to C-diff colitis Tolerating p.o. Surgery and GI following PT/OT Continue with oral vancomycin and probiotics pt is sp post op day 11-subtotal colectomy with creation of end ileostomy, repair of incarcerated incisional hernia measuring 3 cm pt to have stoma education and dc soon once she is able to change stoma bags herself Hypokalemia Supplement potassium p.r.n. Corrected Hyponatermia start sodium chloride 2 g bid . p.o. corrected can dc sodium tablets Hypertension Stable Continue with losartan Subjective Date/time seen: 06/29/23 13:21 Interval history: Post Op day: 11 (subtotal colectomy with creation of end ileostomy, repair of incarcerated incisional hernia measuring 3 cm) Pt is receiving stoma education today hopeful dc tomorrow if she is able to change her stoma bags herself Review of Systems Review of Systems: No specific complaints Exam Narrative: GENERAL: Alert and oriented x 3. looking down ? depressed LUNGS: Clear to auscultation CARDIOVASCULAR: Regular rate and rhythm. No murmur. No JVD. S1-S2 ABDOMEN: midline surgical incision surgical wound dry and clean, stoma in situ EXTREMITIES: No edema. left arm edema, tender around PICC line was removed SKIN: No rashes or lesions. Skin warm, dry. NEUROLOGIC: No focal neurological deficits. PSYCHIATRIC: Appropriate mood and affect. Objective Data Vital Signs Vital Signs: Vital Signs - 24 hr 06/28/23 14:00 06/28/23 21:11 06/01
[2023-06-29 14:00] VITALS: BP 145/70; PULSE 86; RESP 20; TEMP 36.6; O2SAT 94
--- NOTE | 2023-06-29 14:09 | WPDGIPROGNO ---
Progress Note: A&P Assessment and Plan (1) Toxic megacolon due to Clostridioides difficile: Code(s): A04.72 - Enterocolitis due to Clostridium difficile, not specified as recurrent Status: Acute Assessment and Plan: treated with subtotal colectomy on oral vancomycin doing much better, home soon (2) SIRS (systemic inflammatory response syndrome): Code(s): R65.10 - Systemic inflammatory response syndrome (SIRS) of non-infectious origin without acute organ dysfunction Status: Acute Assessment and Plan: resolved (3) Large bowel obstruction: Code(s): K56.609 - Unspecified intestinal obstruction, unspecified as to partial versus complete obstruction Status: Acute Assessment and Plan: from severe c diff, treated with surgery tolerating diet ileostomy working follow-up with surgery (4) Leukocytosis: Qualifiers: Leukocytosis type: unspecified Qualified Code(s): D72.829 - Elevated white blood cell count, unspecified Code(s): D72.829 - Elevated white blood cell count, unspecified Status: Acute Assessment and Plan: resolved Subjective Date/time seen: 06/29/23 14:09 Interval history: feeling much better, good appetite, feeling like going home Review of Systems Review of Systems: All systems reviewed & are unremarkable except as noted in HPI and below Exam Const: General: comfortable and no acute distress HENMT: Face/Nose/Sinus: Normal nares present Eyes: Sclera: sclerae normal Neck: Neck: supple Resp: Effort & Inspection: normal respiratory effort Cardio: Rate: regular rate GI: Inspection: non-distended and incision (incision dry and rishabh intact, no erythema ) GI Palp: Yes Soft to palpation, Yes Tenderness to palpation present (GI) (mild appropriate incisional tenderness) and No Guarding due to palpation present (GI) Auscultation: normal bowel sounds Other: Ileostomy functioning well, stoma pink Skin: General skin exam: normal color Neuro: Speech: normal speech Motor exam (neuro): 5/5 motor strength present throughout Extrem: General: normal to inspection Psych: Mental Status: mental status grossly normal Insight: Good insight present (Psych) Objective Data Vital Signs Vital Signs: Vital Signs - 24 hr 06/28/23 21:11 06/28/23 20:00 06/29/23 05:45 Temperature 98.4 F 97.8 F Pulse Rate 94 94 84 Respiratory Rate 20 20 16 Blood Pressure 125/75 145/77 H Pulse Oximetry 98 98 97 Oxygen Delivery Room Air 06/29/23 08:53 Temperature Pulse Rate Respiratory Rate Blood Pressure Pulse Oximetry 97 Oxygen Delivery Room Air Intake/Output Intake/Output: Intake & Output 06/26/23 06/27/23 06/28/23 06/29/23 23:59 23:59 23:59 23:59 Intake Total 1090 800 358 440 Output Total 350 300 150 100 Balance 740 500 208 340 Meds/Results Medications: Active Medications Generic Name Dose Route Start Last Admin Trade Name Freq PRN Reason Stop Dose Admin Acetaminophen 650 mg 06/13/23 13:05 06/23/23 05:36 Acetaminophen 325 Mg Tablet PO 650 mg Q4H PRN Administration Mild Pain (1-3) or Fever Hydrocodone Bitart/Acetaminophen 1 tab 06/14/23 12:28 06/28/23 20:37 Hydrocodone/Acetaminophen (*Crx) 5-325 Mg Tablet PO 1 tab Q4H PRN Administration Pain Rated 4-6 Apixaban 2.5 mg 06/29/23 21:00 Apixaban 2.5 Mg Tablet PO 08/03/23 20:59 Q12HR BISMARK Dicyclomine HCl 20 mg 06/14/23 11:22 06/22/23 17:28 Dicyclomine Hcl 10 Mg Capsule PO 20 mg QID PRN Administration Abdominal Cramping Hydralazine HCl 20 mg 06/17/23 08:14 06/17/23 17:28 Hydralazine Hcl 20 Mg/Ml Vial IV PUSH 20 mg Q6HR PRN Administration Hypertension Hydromorphone HCl 1 mg 06/13/23 14:43 06/25/23 01:23 Hydromorphone Hcl Inj (*Crx) 1 Mg/Ml Syr IV PUSH 1 mg Q3H PRN Administration Pain Rated 7-10 Dextrose 1,000 mls @ 50 mls/hr 06/16/23 13:19 06/24/23 02:50
[2023-06-29] MEDS: MELATONIN 3 MG TABLET PO (20:01)
[2023-06-29] MEDS: APIXABAN 2.5 MG TABLET PO (20:01)
[2023-06-29 20:55] VITALS: BP 145/87; PULSE 99; RESP 18; TEMP 36; O2SAT 98
[2023-06-30] MEDS: VANCOMYCIN HCL 250 MG ORAL CAPSULE 500 MG PO (05:53)
[2023-06-30 06:00] VITALS: BP 147/82; PULSE 68; RESP 18; TEMP 36.2; O2SAT 94
[2023-06-30 09:30] VITALS: O2SAT 96
[2023-06-30] MEDS: PANTOPRAZOLE 40 MG TABLET PO (09:30)
[2023-06-30] MEDS: SIMETHICONE 80 MG TAB.CHEW PO (09:30)
[2023-06-30] MEDS: ACIDOPHILUS/BULGARICUS CHEWABLE TABLET 1 TABLET PO (09:30)
[2023-06-30] MEDS: APIXABAN 2.5 MG TABLET PO (09:30)
[2023-06-30] MEDS: LOSARTAN POTASSIUM 50 MG TABLET PO (09:30)
--- NOTE | 2023-06-30 11:32 | PM.PNGS ---
Progress Note: A&P Assessment and Plan (1) Toxic megacolon due to Clostridioides difficile: Code(s): A04.72 - Enterocolitis due to Clostridium difficile, not specified as recurrent Status: Acute Assessment and Plan: Okay to discharge home from a surgical standpoint. Rishabh removed today. Follow up with Dr. Arndt in 1-2 weeks. Plan I have discussed the patient's case and plan of care with Dr. Arndt. Subjective Subjective Date/Time Seen: 06/30/23 11:32 Post Op day: 12 (subtotal colectomy with creation of end ileostomy, repair of incarcerated incisional hernia measuring 3 cm) Interval history: Patient received Education from ostomy nurses again yesterday. She has been doing all of her ostomy care overnight. She is doing well with activity. No new complaints overnight. No acute issues. Exam Const: General: comfortable and no acute distress GI: Inspection: non-distended and incision (incision dry and intact, no erythema, rishabh removed) GI Palp: Yes Soft to palpation, No Tenderness to palpation present (GI) and No Guarding due to palpation present (GI) Auscultation: normal bowel sounds Other: Ileostomy functioning well, stoma pink. Rishabh removed next to stoma. Dehiscence of skin from stoma at 9:00 a.m. with small peristomal open wound. Objective Data Vital Signs Vital Signs: Vital Signs - 24 hr 06/29/23 14:00 06/29/23 20:00 06/29/23 20:55 Temperature 97.8 F 96.8 F L Pulse Rate 86 99 Respiratory Rate 20 18 Blood Pressure 145/70 H 145/87 H Pulse Oximetry 94 98 Oxygen Delivery Room Air 06/30/23 06:00 06/30/23 09:30 Temperature 97.2 F L Pulse Rate 68 Respiratory Rate 18 Blood Pressure 147/82 H Pulse Oximetry 94 96 Oxygen Delivery Room Air Intake/Output Intake/Output: Intake & Output 06/27/23 06/28/23 06/29/23 06/30/23 23:59 23:59 23:59 23:59 Intake Total 800 358 782 468 Output Total 300 150 300 Balance 500 208 482 468 Meds/Results Medications: Active Medications Generic Name Dose Route Start Last Admin Trade Name Freq PRN Reason Stop Dose Admin Acetaminophen 650 mg 06/13/23 13:05 06/23/23 05:36 Acetaminophen 325 Mg Tablet PO 650 mg Q4H PRN Administration Mild Pain (1-3) or Fever Hydrocodone Bitart/Acetaminophen 1 tab 06/14/23 12:28 06/28/23 20:37 Hydrocodone/Acetaminophen (*Crx) 5-325 Mg Tablet PO 1 tab Q4H PRN Administration Pain Rated 4-6 Apixaban 2.5 mg 06/29/23 21:00 06/30/23 09:30 Apixaban 2.5 Mg Tablet PO 08/03/23 20:59 2.5 mg Q12HR BISMARK Administration Dicyclomine HCl 20 mg 06/14/23 11:22 06/22/23 17:28 Dicyclomine Hcl 10 Mg Capsule PO 20 mg QID PRN Administration Abdominal Cramping Hydralazine HCl 20 mg 06/17/23 08:14 06/17/23 17:28 Hydralazine Hcl 20 Mg/Ml Vial IV PUSH 20 mg Q6HR PRN Administration Hypertension Hydromorphone HCl 1 mg 06/13/23 14:43 06/25/23 01:23 Hydromorphone Hcl Inj (*Crx) 1 Mg/Ml Syr IV PUSH 1 mg Q3H PRN Administration Pain Rated 7-10 Dextrose 1,000 mls @ 50 mls/hr 06/16/23 13:19 06/24/23 02:50 Dextrose 10% IV CONT 50 mls/hr .Q20H PRN Administration if PN is interrupted Lactobacillus Acidophilus 1 tablet 06/25/23 17:00 06/30/23 09:30 Acidophilus/Bulgaricus Chewable Tablet PO 1 tablet QID BISMARK Administration Losartan Potassium 50 mg 06/13/23 17:20 06/30/23 09:30 Losartan Potassium 50 Mg Tablet PO 50 mg DAILY BISMARK Administration Melatonin 3 mg 06/24/23 21:42 06/29/23 20:01 Melatonin 3 Mg Tablet PO 3 mg HS BISMARK Administration Ondansetron HCl 4 mg 06/13/23 13:05 06/23/23 05:36 Ondansetron Inj 4 Mg/2 Ml Vial IV PUSH 4 mg Q6H PRN Administration Nausea And Vomiting Pantoprazole Sodium 40 mg 06/26/23 21:00 06/30/23 09:30 Pantoprazole 40 Mg Tablet PO 40 mg Q12HR BISMARK Administration Simethicone 80 mg 06/23/23 13:45 06/30/23 09:30 Simethicone 80 Mg Tab
--- NOTE | 2023-06-30 12:45 | PM.DS ---
DS: Admitting Diagnosis Discharge Date 06/30/2023 Admitting Diagnosis Abdominal pain DS: Discharge Diagnosis Discharge Diagnosis (1) Colitis: Code(s): K52.9 - Noninfective gastroenteritis and colitis, unspecified Status: Acute (2) Bandemia: Code(s): D72.825 - Bandemia Status: Acute (3) Leukocytosis: Qualifiers: Leukocytosis type: unspecified Qualified Code(s): D72.829 - Elevated white blood cell count, unspecified Code(s): D72.829 - Elevated white blood cell count, unspecified Status: Acute (4) Abdominal pain: Qualifiers: Abdominal location: lower abdomen, unspecified Qualified Code(s): R10.30 - Lower abdominal pain, unspecified Code(s): R10.9 - Unspecified abdominal pain Status: Acute (5) Hypertension: Qualifiers: Hypertension type: primary hypertension Qualified Code(s): I10 - Essential (primary) hypertension Code(s): I10 - Essential (primary) hypertension Status: Chronic (6) C. difficile colitis: Code(s): A04.72 - Enterocolitis due to Clostridium difficile, not specified as recurrent Status: Acute (7) Large bowel obstruction: Code(s): K56.609 - Unspecified intestinal obstruction, unspecified as to partial versus complete obstruction Status: Acute (8) Diverticulitis: Code(s): K57.92 - Diverticulitis of intestine, part unspecified, without perforation or abscess without bleeding Status: Acute (9) Toxic megacolon due to Clostridioides difficile: Code(s): A04.72 - Enterocolitis due to Clostridium difficile, not specified as recurrent Status: Acute (10) Postoperative ileus: Code(s): K91.89 - Other postprocedural complications and disorders of digestive system; K56.7 - Ileus, unspecified Status: Acute (11) SIRS (systemic inflammatory response syndrome): Code(s): R65.10 - Systemic inflammatory response syndrome (SIRS) of non-infectious origin without acute organ dysfunction Status: Acute (12) Hyponatremia: Code(s): E87.1 - Hypo-osmolality and hyponatremia Status: Acute (13) DVT of axillary vein, acute: Code(s): I82.A19 - Acute embolism and thrombosis of unspecified axillary vein Status: Acute (14) Anemia: Code(s): D64.9 - Anemia, unspecified Status: Acute Plan DVT LT upper extremity Axillary and basilic vein secondary to Midline midline removed Lovenox 1mg/kg can transition to Eliquis today Toxic Megacolon due to C-diff colitis Tolerating p.o. Surgery and GI following PT/OT Continue with oral vancomycin and probiotics pt is sp post op day 11-subtotal colectomy with creation of end ileostomy, repair of incarcerated incisional hernia measuring 3 cm pt to have stoma education and dc soon once she is able to change stoma bags herself ok to dc today as per surgery team Hypokalemia Supplement potassium p.r.n. Corrected Hyponatermia start sodium chloride 2 g bid . p.o. corrected can dc sodium tablets Hypertension Stable Continue with losartan DS: Summary Hospital Course Hospital Course: 58-year-old female with a significant past medical history of hypertension and diverticulosis who presented to the hospital today with complaints of abdominal pain.? Patient states that her pain started yesterday afternoon and got much worse after eating a cheeseburger from [employer]. She states that her pain is mostly in the left and right lower quadrants and radiates to her lower back. Her abdomen is distended, soft, with hypoactive bowel sounds. She states she is passing gas and had a loose stool today. She denies any fever, chills, vomiting, shortness of breath, or chest pain. She reports nausea, abdominal pain that is 5/10 currently, headache, lightheadedness, and diarrhea. She states she was told she has diverticulosis from a previous colonoscopy that was performed ov
== END 2023-06-30 13:05 | disposition home health service (06) | DRG 330 ==
LOC: ANHED 12:11 → ANH3MEDSUR 13:40
PROVIDERS: Hospitalist; Internal Medicine; Internal Medicine Critical Care Medicine; Internal Medicine Gastroenterology; Nurse Practitioner Acute Care; Nurse Practitioner Family; Surgery; Admitting Provider Internal Medicine; Emergency Provider Nurse Practitioner Family; Visit Provider Family Medicine
PROC: 0DJD8ZZ Inspection of Lower Intestinal Tract, Via Natural or Artificial Opening Endoscopic (ICD-10-PCS; CPT 45330; principal; 2023-06-16 15:30)
PROC: 0D1B0Z4 Bypass Ileum to Cutaneous, Open Approach (ICD-10-PCS; CPT 49000; principal; 2023-06-18 16:00)
DX: A04.72 Enterocolitis due to Clostridium difficile, not specified as recurrent (principal); E87.1 Hypo-osmolality and hyponatremia; K56.609 Unspecified intestinal obstruction, unspecified as to partial versus complete obstruction; R65.10 Systemic inflammatory response syndrome (SIRS) of non-infectious origin without acute organ dysfunction; K43.0 Incisional hernia with obstruction, without gangrene; K91.89 Other postprocedural complications and disorders of digestive system; K56.7 Ileus, unspecified; T82.868A Thrombosis due to vascular prosthetic devices, implants and grafts, initial encounter; I82.622 Acute embolism and thrombosis of deep veins of left upper extremity; I82.A12 Acute embolism and thrombosis of left axillary vein; I10 Essential (primary) hypertension; K57.30 Diverticulosis of large intestine without perforation or abscess without bleeding; D25.9 Leiomyoma of uterus, unspecified; E87.6 Hypokalemia
CPT/HCPCS: 36415; 36569; 71275; 74018; 74176; 74177; 74270; 80048; 80053; 81003; 82948; 83605; 83690; 83735; 84100; 84466; 84478; 85025; 85027; 85610; 85730; 86850; 86900; 86901; 87040; 87045; 87427; 87449; 87493; 88307; 93970; 93971; 94667; 96361; 96365; 96366; 96367; 96374; 96375; 96376; 97110; 97116; 97161; 97165; 97530; 97535; 99285; A9270; C1751; C9113; G0378; J0330; J0360; J0692; J1100; J1170; J1200; J1650; J1836; J2060; J2250; J2405; J2543; J2704; J3010; J3410; J3480; J7030; J7040; J7120; Q9967

== ENCOUNTER 2023-07-02 09:20 | Emergency (ER) | payer OTHER, SELFPAY ==
[2023-07-02] VITALS (15 sets, daily range): BP systolic 134–161; BP diastolic 75–102; PULSE 93–104; RESP 17–28; TEMP 36.9; O2SAT 98–100
--- NOTE | ~2023-07-02 | CT_ITS ---
EXAMINATION: CTA chest PE protocol DATE: 07/02/2023 10:42 CDT INDICATION: Shortness of breath TECHNIQUE: Computed tomographic angiography (CTA) of the chest was performed with 100 mL Omnipaque-35 0 intravenous contrast. The dose-length product was 461.62 mGy-cm. Maximum intensity projection 3D-re constructions of the aorta and other arteries were constructed by the technologist on a separate work station. Automated exposure control and iterative reconstruction technique were employed. COMPARISON: None. FINDINGS: Study is technically adequate without evidence for pulmonary embolism. Trace right pleural effusion. There are calcified mediastinal and right hilar lymph nodes, consistent with chronic granul omatous disease. No thoracic lymphadenopathy. No endobronchial lesions. No pneumothorax. There is dependent atelectasi s. Mild thoracic spondylosis. Enlarged heterogeneous left thyroid gland with probable underlying mass es. Recommend correlation with thyroid ultrasound. IMPRESSION: 1. Small right pleural effusion with underlying compressive atelectasis. 2: No pulmonary embolism. Reviewed, dictated and finalized at location B.
--- NOTE | ~2023-07-02 | US_ITS ---
US right upper quadrant INDICATION: Elevated lipase levels. PROCEDURE: Realtime right upper abdominal ultrasound. COMPARISON: No prior studies for comparison. FINDINGS: The pancreas is normal without focal mass or pancreatic ductal dilation. Liver echotexture is increased, consistent with fatty infiltration. There is normal directional flow in the portal ve in. Gallbladder is surgically absent. Common bile duct measures 8 mm. No sonographic Valerio's sign. IMPRESSION: 1: Fatty infiltration of the liver. Reviewed, dictated and finalized at location B.
--- NOTE | 2023-07-02 09:37 | ECG_ITS ---
SEE SCANNED COPY FOR CONFIRMED REPORT MTDD
[2023-07-02] MEDS: MORPHINE SULFATE (*CRX) 4 MG/ML INJ IV PUSH (09:53)
[2023-07-02 09:56] LABS: Basophils Absolute Auto 0.1 K/mm3 (0.0-0.1); Basophils Percent Auto 0.6 % (0.2-1.2); Eosinophils Absolute Auto 0.4 K/mm3 (0-0.3); Hematocrit 32.4 % (37.0-47.0); Hemoglobin 10.1 g/dL (12.0-15.0); Immature Granulocyte Absolute 0.09 K/mm3 (0.00-0.031); Lymphocytes Absolute Auto 1.64 K/mm3 (0.9-3.2); Lymphocytes Percent Auto 18.2 % (18.3-44.2); Mean Corpuscular HGB Conc 31.2 g/dl (32-36); Mean Corpuscular Hemoglobin 27.7 pg (26-34); Mean Corpuscular Volume 88.8 fl (80-100); Mean Platelet Volume 9.7 fl (7.4-10.4); Monocytes Absolute Auto 0.8 K/mm3 (0.1-0.6); Monocytes Percent Auto 8.3 % (2.6-8.5); Neutrophils Absolute Auto 6.1 K/mm3 (1.3-6.7); Neutrophils Percent Auto 67.9 % (45.5-73.1); Platelet Count Result 424 k/mm3 (150-375); Red Blood Count 3.65 M/mm3 (4.2-5.4); Red Cell Distribution Width 15.8 % (11.5-14.5)
[2023-07-02 10:07] LABS: Prothrombin Time 13.4 Seconds (11.1-14.7)
[2023-07-02 10:08] LABS: Estimated CRCL calculation 155 ml/min; Estimated Glomerular Filt Rate > 60
[2023-07-02 10:08] LABS: Alanine Aminotransferase 38 U/L (6-35); Alkaline Phosphatase 167 U/L (38-126); Anion Gap 7 mmol/L (4-12); Aspartate Amino Transferase 33 U/L (14-36); Bilirubin,Total 0.6 mg/dL (0.2-1.3); Blood Urea Nitrogen 18 mg/dL (7-17); Calcium 9.5 mg/dL (8.4-10.2); Carbon Dioxide 27 mmol/L (22-30); Chloride 102 mmol/L (98-107); Estimated CRCL calculation 128 ml/min; Estimated Glomerular Filt Rate > 60; Glucose 116 mg/dL (65-110); Lipase 685 U/L (23-300); Potassium 4.1 mmol/L (3.4-5.0); Sodium 136 mmol/L (137-145)
[2023-07-02] MEDS: KETOROLAC 30 MG/ML VIAL (*BKC) IV PUSH (12:08)
--- NOTE | 2023-07-02 13:39 | ED.GENADULT ---
HPI - General Adult General Chief complaint: Unspecified Stated complaint: rt rib pain Time Seen by Provider: 07/02/23 09:41 History of Present Illness HPI narrative: patient is a 58-year-old female who presents ER with right-sided chest wall pain. Worsening over last 3 days. Radiating around the right side. Worse with deep breath. Recently had surgery and diagnosed with a DVT from a midline. No hemoptysis. No dyspnea. No fevers or chills or sweats. She has found no alleviating factors. Patient did have surgery related to toxic megacolon from C diff. No pain with eating or drinking. Related Data Home Medications Medication Instructions Recorded Confirmed losartan 50 mg tablet 50 mg PO DAILY 06/13/23 06/13/23 Allergies Allergy/AdvReac Type Severity Reaction Status Date / Time No Known Allergies Allergy Unknown Verified 07/02/23 09:49 Review of Systems Review of Systems: All systems reviewed & are unremarkable except as noted in HPI and below Constitutional: Constitutional: Reports no additional constitutional complaints ENT: Reports system reviewed and no additional complaints, except as documented Cardiovascular: Cardiovascular: Reports no additional cardiovascular complaints Respiratory: Respiratory: Reports no additional respiratory complaints Gastrointestinal: Gastrointestinal: Reports no additional gastrointestinal complaints Musculoskeletal: Musculoskeletal: Reports no additional musculoskeletal complaints [facility] Past Medical History Medical History (Updated 07/02/23 @ 13:44 by Mariano Roberson MD) Diverticulosis Hypertension Ileostomy present SIRS (systemic inflammatory response syndrome) Toxic megacolon Surgical History Surgical History History of delivery History of cholecystectomy Family History Family History Father Family history of alcoholism Family history of diabetes mellitus in first degree relative Family history of malignant neoplasm of brain Social History Social History Smoking status: Never smoker Alcohol intake: never Substance use: never Do You Feel Safe in your Home?: Yes Lack of Transportation: No Lack of Food: Never True Current Housing: I Have Housing Concerned About Future Housing: No Difficulty Paying Gas/Electric Bills: No Difficulty Paying for Meds: No Currently Unemployed: No Education: High School Diploma/GED Difficulty w/ Childcare or Family Care: No Spiritual care concerns: No Exam Narrative: GENERAL: Well-appearing, well-nourished, and in no acute distress. HEAD: Normocephalic, atraumatic. ENT: Mucous membranes moist. NECK: Supple. CHEST: Clear to auscultation. No respiratory distress. tender palpation right anterior chest wall inferior to her breast. HEART: Regular rate and rhythm. Normal peripheral pulses. ABDOMEN: Soft, nontender, nondistended, Ileostomy in right lower quadrant.. EXTREMITIES: Normal range of motion. No edema. SKIN: Warm, dry, no rash. NEURO: Alert and oriented x3. PSYCH: Normal mood and affect. Course Course Emergency Course: Patient given reassurance. Discussed all lab work and imaging. Nonspecific elevation in lipase. Recommend follow-up with PCP. Patient concerned about her atelectasis. Incentive spirometry provided. Also give pain medication and bronchodilators. She has been educated about the thyroid mass and need for follow-up. Vital Signs Vital signs: Vital Signs Temperature 98.5 F 07/02/23 09:32 Pulse Rate 102 H 07/02/23 09:32 Respiratory Rate 20 07/02/23 09:32 Blood Pressure 152/75 H 07/02/23 09:32 Pulse Oximetry 98 07/02/23 09:32 Oxygen Delivery Room Air 07/02/23 09:32 Temperature 98.5 F 07/02/23 09:32 Pulse Rate 104 H 07/02/23 12:35 Respiratory Rat
== END 2023-07-02 13:52 | disposition home or self-care (01) ==
PROVIDERS: Emergency Provider Emergency Medicine; PCP Physician Assistant
DX: R07.89 Other chest pain (principal); J90 Pleural effusion, not elsewhere classified; E07.9 Disorder of thyroid, unspecified; I10 Essential (primary) hypertension
CPT/HCPCS: 36415; 71275; 76705; 80053; 83690; 85025; 85610; 85730; 93005; 96374; 96375; 99284; J1885; J2270; Q9967

== ENCOUNTER 2023-07-31 08:44 | Outpatient (CLI) | payer OTHER, SELFPAY ==
--- NOTE | ~2023-07-31 | XR_ITS ---
EXAMINATION: XR enema water soluble DATE: 07/31/2023 09:57 INDICATION: Enterocolitis due to C. difficile. TECHNIQUE: A hockey scout radiograph was obtained. A catheter was inserted into the patient's rectum. Contra st was infused by gravity. Fluoroscopic spot images and conventional radiographs were obtained. Fluor oscopy exposure time was 0.5 minutes. The total number of images was 19. COMPARISON: Enema 06/15/2023, CT 06/23/2023 FINDINGS: The Zita pouch is normal. No extraluminal leakage of contrast. IMPRESSION: 1. Normal Zita pouch. Reviewed, dictated and finalized at location A. IMPRESSION: 1. Normal Zita pouch.
== END 2023-07-31 08:45 | disposition home or self-care (01) ==
PROVIDERS: PCP Physician Assistant; Visit Provider Surgery
DX: A04.72 Enterocolitis due to Clostridium difficile, not specified as recurrent (principal); Z93.2 Ileostomy status
CPT/HCPCS: 74270

== ENCOUNTER 2023-09-09 08:36 | Outpatient (CLI) | payer OTHER, SELFPAY ==
[2023-09-09 10:17] LABS: Iron 50 ug/dL (37-170)
[2023-09-09 10:27] LABS: Percent Iron Saturation 12 % (20-50)
[2023-09-09 11:12] LABS: Thyroid Stimulating Hormone 0.674 uIU/mL (0.465-4.680)
[2023-09-09 11:32] LABS: Free T4 Free Thyroxine 1.16 ng/mL (0.78-2.19)
[2023-09-09 11:49] LABS: Folic Acid > 20.0 ng/mL (2.76->20)
[2023-09-09 11:50] LABS: Vitamin D 25 Hydroxy 31.7 ng/mL
== END 2023-09-09 08:37 | disposition home or self-care (01) ==
LOC: ANHLAB 08:38
PROVIDERS: PCP Physician Assistant; Visit Provider Physician Assistant
DX: R53.83 Other fatigue (principal)
CPT/HCPCS: 36415; 82306; 82607; 82746; 83540; 83550; 84439; 84443

== ENCOUNTER 2023-11-24 04:36 | Emergency (ER) | payer OTHER, SELFPAY ==
--- NOTE | ~2023-11-24 | XR_ITS ---
Right Knee Technique: AP, lateral, and oblique views were obtained. Clinical History: Pain Findings: No fracture or dislocation is seen. Right knee arthroplasty in place. No complication evide nt. Soft tissues are unremarkable. No joint effusion is seen. Impression: No acute abnormality. Right knee arthroplasty in place. Reviewed, dictated and finalized at location . Impression: No acute abnormality. Right knee arthroplasty in place.
--- NOTE | ~2023-11-24 | XR_ITS ---
Left Knee Technique: AP, lateral, and oblique views were obtained. Clinical History: Pain Findings: No fracture or dislocation is seen. Left knee arthroplasty in place, without evidence of co mplication. Soft tissues are unremarkable. No joint effusion is seen. Impression: No acute abnormality. Left knee arthroplasty in place. Reviewed, dictated and finalized at location . Impression: No acute abnormality. Left knee arthroplasty in place.
[2023-11-24 04:41] VITALS: BP 140/92; PULSE 106; RESP 16; TEMP 36.5; O2SAT 100
[2023-11-24] MEDS: MORPHINE SULFATE (*CRX) 4 MG/ML INJ IV PUSH (05:58)
[2023-11-24] MEDS: ONDANSETRON INJ 4 MG/2 ML VIAL IV PUSH (05:59)
[2023-11-24 06:10] LABS: Basophils Percent Auto 0.2 % (0.2-1.2); Eosinophils Absolute Auto 0.2 K/mm3 (0-0.3); Eosinophils Percent Auto 1.1 % (0-4.4); Hematocrit 33.3 % (37.0-47.0); Hemoglobin 10.6 g/dL (12.0-15.0); Immature Granulocyte Absolute 0.07 K/mm3 (0.00-0.031); Immature Granulocyte Percent A 0.5 % (0-0.5); Lymphocytes Absolute Auto 1.14 K/mm3 (0.9-3.2); Lymphocytes Percent Auto 7.6 % (18.3-44.2); Mean Corpuscular HGB Conc 31.8 g/dl (32-36); Mean Corpuscular Hemoglobin 26.3 pg (26-34); Mean Corpuscular Volume 82.6 fl (80-100); Mean Platelet Volume 11.1 fl (7.4-10.4); Monocytes Absolute Auto 0.7 K/mm3 (0.1-0.6); Monocytes Percent Auto 4.8 % (2.6-8.5); Neutrophils Absolute Auto 12.8 K/mm3 (1.3-6.7); Neutrophils Percent Auto 85.8 % (45.5-73.1); Platelet Count Result 241 k/mm3 (150-375); Red Blood Count 4.03 M/mm3 (4.2-5.4); Red Cell Distribution Width 16.9 % (11.5-14.5); White Blood Count 14.9 K/mm3 (4.5-10.0)
[2023-11-24 06:28] LABS: Alanine Aminotransferase 32 U/L (6-35); Albumin Level 4.3 g/dL (3.5-5.1); Alkaline Phosphatase 96 U/L (38-126); Anion Gap 8 mmol/L (4-12); Aspartate Amino Transferase 25 U/L (14-36); Bilirubin,Total 0.5 mg/dL (0.2-1.3); Blood Urea Nitrogen 17 mg/dL (7-17); Calcium 9.7 mg/dL (8.4-10.2); Carbon Dioxide 28 mmol/L (22-30); Chloride 100 mmol/L (98-107); Estimated CRCL calculation 109 ml/min; Estimated Glomerular Filt Rate > 60; Glucose 122 mg/dL (65-110); Sodium 136 mmol/L (137-145)
[2023-11-24 06:47] LABS: Influenza A QL RT-PCR Negative (Negative); Influenza B QL RT-PCR Negative (Negative); SARS-CoV-2 RNA PCR Negative (Negative)
[2023-11-24 06:53] LABS: CRP 1.9 mg/dL (<1.0)
[2023-11-24] MEDS: KETOROLAC 15 MG/ML VIAL (*BKC) IV PUSH (07:00)
[2023-11-24 07:15] LABS: Erythrocyte Sedimentation Rate 53 mm/hr (0-20)
--- NOTE | 2023-11-24 07:30 | ED.EXTPRO ---
HPI - Extremity Problem General Chief complaint: Extremity Problem,Nontraumatic Stated complaint: massive knee pain in both, knee replacement 8 yr Time Seen by Provider: 11/24/23 04:40 History of Present Illness HPI Narrative: Patient is a 58-year-old female who presents to the emergency department this morning complaining of bilateral knee pain. Patient states that the knee pain started yesterday while she was making dinner late last night and admits that she did not take anything for the pain. Patient woke up this with worsening bilateral knee pain and decided to come to the emergency department for further evaluation. Patient admits that she had bilateral knee replacements performed by Dr. Del Cid in 2016 with no complications. Patient states that her knee replacements have been doing well since then. She denies any recent falls or trauma, denies any recent surgery, last your surgery was a colostomy reversal 2-3 months ago, denies any URI symptoms or flu-like symptoms. Patient also denies any fevers or chills. No additional symptoms or concerns at this time. Related Data Home Medications Medication Instructions Recorded Confirmed losartan 50 mg tablet 50 mg PO DAILY 06/13/23 07/15/23 Allergies Allergy/AdvReac Type Severity Reaction Status Date / Time No Known Allergies Allergy Unknown Verified 11/24/23 04:45 Review of Systems Review of Systems: All systems are reviewed and are negative unless stated otherwise in the HPI. FOR[facility]LY [facility] Past Medical History Medical History Diverticulosis Hypertension Ileostomy present SIRS (systemic inflammatory response syndrome) Toxic megacolon Surgical History Surgical History History of delivery History of cholecystectomy History of colectomy subtotal colectomy with creation of end ileostomy, repair of incarcerated incisional hernia measuring 3 cm 06/18/23 Family History Family History Father Family history of alcoholism Family history of diabetes mellitus in first degree relative Family history of malignant neoplasm of brain Social History Social History Smoking status: Never smoker Alcohol intake: never Substance use: never Do You Feel Safe in your Home?: Yes Lack of Transportation: No Lack of Food: Never True Current Housing: I Have Housing Concerned About Future Housing: No Difficulty Paying Gas/Electric Bills: No Difficulty Paying for Meds: No Currently Unemployed: No Education: High School Diploma/GED Difficulty w/ Childcare or Family Care: No Spiritual care concerns: No Exam Narrative: General: Alert, awake, afebrile, in no acute distress. HEENT: PERRL, no rhinorrhea, no post nasal drip, oropharynx clear. Cardiovascular: Regular rate and rhythm, no murmurs, rubs or gallops, no peripheral edema. Respiratory: Clear to auscultation bilaterally, no tachypnea, no wheezing, no rhonchi, no rubs, no respiratory distress. Abdomen: Soft, nontender, nondistended, no rebound, no guarding, no peritoneal signs. Musculoskeletal: No joint swelling or deformity, normal muscle tone, mild warmth to bilateral knee joint, no surrounding erythema, swelling, or any evidence of infection, no pain with passive range of motion, patient is able to flex and extend her bilateral knee joints spontaneously. Skin: No rashes or petechia, no signs of infection. Neurological: Alert and oriented to person, place, and time. Follows all commands. No focal deficits, speech is clear and fluent. Course Vital Signs Vital signs: Vital Signs Temperature 97.7 F 11/24/23 04:41 Pulse Rate 106 H 11/24/23 04:41 Respiratory Rate 16 11/24/23 04:41 Blood Pressure 140/92 H 11/24/23 04:41 Pulse Oximetry 100 11/24/23 04:41 Oxygen D
[2023-11-24 07:41] VITALS: BP 146/64; PULSE 97; RESP 16; O2SAT 97
--- NOTE | 2023-11-24 07:41 | PC.NURSE ---
PT DID RECEIVE AN ADDITIONAL DOSE OF MORPHINE 4MG IVP BY BHARGAV Mo RN AT [facility] THAT WAS WITNESSED BY BLAKE CAMPBELL RN. THE PATIENT DIDN'T REMEMBER THAT SHE GOT THE 2ND DOSE SO THIS RN INADVERTENTLY NON ADMINISTERED THE DOSE DURING DISCHARGE.
== END 2023-11-24 07:45 | disposition home or self-care (01) ==
PROVIDERS: Emergency Provider Emergency Medicine; PCP Physician Assistant
DX: M25.562 Pain in left knee (principal); M25.561 Pain in right knee; Z20.822 Contact with and (suspected) exposure to COVID-19; K57.90 Diverticulosis of intestine, part unspecified, without perforation or abscess without bleeding; I10 Essential (primary) hypertension; Z93.2 Ileostomy status
CPT/HCPCS: 36415; 73564; 80053; 85025; 85652; 86140; 87636; 96374; 96375; 99284; J1885; J2270; J2405

== ENCOUNTER 2024-06-18 09:30 | Outpatient (CLI) | payer OTHER, SELFPAY ==
--- OUTSIDE RECORDS SUMMARY | 2024-06-18 09:34 | XMS_ITS | Clinical Summary ---
Author Organization [facility] Address [address] [place] [id number] Care Team Providers Care Wheel Polisher Name Role Phone Monse, Susy Fariaa YEHUDA Primary Care Provider + Unknown, Notinfile Unavailable Unavailable Luz Maria Arndt MD Unavailable [phone] Marty Sullivan MD Unavailable [phone] Allergies No known active allergies Medications losartan (COZAAR) 50 mg tabletIndicatio ns:hypertension Take 1 tablet (50 mg total) by mouth every morning 4 Active omeprazole (PriLOSEC) 20 mg capsuleIndicati ons:Treatment of Non-Bleeding Gastric Disorder Take 1 capsule (20 mg total) by mouth blocking machine operator before breakfast Active neomycin (MYCIFRADIN) 500 mg tablet Take two tablets by mouth at 1pm, 2pm, and 10pm the day before surgery 6 tablet 4 Active Additional Information Patient taking differently:, Take two tablets by mouth at 1pm, 2pm, and 10pm the day before surgery,Indications: pre-op med for 09/28/23, Informant: Self, Reported on 09/21/2023 MULTIVITAMIN ORALIndications :supplement Take 1 tablet/capsule by mouth every morning Active docosahexaenoic acid/epa (FISH OIL ORAL)Indication s:supplement Take 1 tablet/capsule by mouth every morning Active cholecalciferol , vitD3,/vit K2 (VITAMIN D3-VITAMIN K2 ORAL)Indication s:supplement Take 1 tablet/capsule by mouth every morning Active ascorbic acid/collagen hydr (COLLAGEN SKIN RENEWAL ORAL)Indication s:supplement Take 1 tablet/capsule by mouth every morning Active acetaminophen 500 mg capsuleIndicati ons:Pain Take 2 capsules (1,000 mg total) by mouth every 6 (six) hours as needed for pain 4 Active oxyCODONE (ROXICODONE) 5 mg immediate release tabletIndicatio ns:Pain Take 1 tablet (5 mg total) by mouth every 4 (four) hours as needed for pain 15 tablet 4 Active psyllium, aspartame, SF (METAMUCIL SF) 3.4 gram packet Take 1 packet by mouth daily 4 Active loperamide (IMODIUM) 2 mg capsule Take 2 capsules (4 mg total) by mouth 4 (four) times a day as needed for diarrhea 270 capsule 3 5 Active Active Problems Problem Noted Date Diagnosed Date Ileostomy in place 09/02/2023 C. difficile colitis 06/17/2023 Encounters Date Type Department Care Team Description 05/02/2024 Orders Only [facility] Surgery [address] [place] [address] Medical Office Building [address] [place] [address] Marty Sullivan MD from Last 3 Months Surgical History Surgery Date Site/Laterality Comments CHOLECYSTECTOMY 03/02/2011 - 03/01/2012 N/A ILEOSTOMY 06/18/2023 N/A COLECTOMY 06/18/2023 N/A SECTION 1990, 1994, 2002 SIGMOIDOSCOPY 08/31/2023 - 09/30/2023 TOTAL KNEE ARTHROPLASTY 03/02/2015 - 03/01/2016 Bilatera l Medical History Medical History Date Comments Toxic megacolon due to Clostridioides difficile Hypertension PONV (postoperative nausea and vomiting) Motion sickness DVT (deep venous thrombosis) ([facility]) 06/2023 LUE from PICC line Family History Medical History Relation Name Comments Cancer Father Relation Name Status Comments Father Social History Tobacco Use Types Packs/Day Years Used Date Smoking Tobacco: Never Passive Smoke Exposure: Never Smokeless Tobacco: Never Tobacco Cessation:Counseling Given: Not Answered AUDIT-C Answer Date Recorded Q1: How often do you have a drink containing alc ohol? 2-4 times a month 09/28/2023 Q2: How many drinks containi ng alcohol do you have on a typical day when you are drinking? 1 or 2 09/28/2023 Q3: How often do you have si x or more drinks on one occasion? Never 09/28/2023 Personal Safety Answer Date Recorded Have you ever been in or are you currently in a harmful physical or emotional relationship or is someone making you feel afraid or unsafe? Denies 09/30/2023 Comments No Sex and Gender Information Value Date Recorded Sex Assigned at Not on file Legal Sex Female 12:26 PM CDT Gender Identity Not on file Sexual Orientation Not on file Obstetrics History Last Filed Vital Signs Vital Sign Reading Time Taken Comments Blood Pressure 121/68 10/03/2023 8:07 AM CDT Pulse 80 10/03/2023 8:07 AM CDT Temperature 36.7 C (98 F) 10/03/2023 8:07 AM CDT Respiratory Rate 18 10/03/2023 8:07 AM CDT Oxygen Saturation 100% 10/03/2023 8:07 AM CDT Inhaled Oxygen Concentration - - Weight 94.3 kg (207 lb 12.8 oz) 09/28/2023 6:36 AM CDT Height 175.3 cm (5' 9 ) 09/28/2023 6:36 AM CDT Body Mass Index 30.69 09/28/2023 6:36 AM CDT Plan of Treatment Health Maintenance Due Date Last Done Comments Breast Cancer Screening-Mammogram 1967 Cervical Cancer Screening 1967 Colon Cancer Screening-Colonoscopy 1967 Depression Screening 1967 Hepatitis C Screening 1967 Hepatitis B Screening 1985 Regular Well Visit/Exam 18-64 1985 Zoster Vaccine (1 of 2) 2017 Covid-19 Vaccine (3 - 2023-2 5 season) 2023 05/01/2020, 04/03/2020 Influenza Vaccine (Season Ended) 2024 12/26/2022 DTaP/Tdap/Td Vaccine (2 - Td or Tdap) 03/14/2032 03/14/2022 Pneumococcal vaccine <65 Aged Out No longer eligible based on patient's age to complete this topic Insurance [facility] H[facility]/PPO Address: [place] [address] [facility] H[facility]/PPO Address: [place] [address] [address] [phone] Advance Directives For more information, please contact: [phone] * Full Code (Latest Code Status on File) Date Activated Date Inactivated Comments 09/28/2023 2:15 PM 10/03/2023 5:00 PM * Full Code Date Activated Date Inactivated Comments 09/10/2023 1:50 PM 09/10/2023 7:17 PM Care Teams Wheel Polisher Relationship Specialty Start Date End Date Susy Shea PA PCP - General Physician Staff Consultant 07/20/23 Unknown, Notinfile 07/20/23 Luz Maria Arndt MD [address] [place] [address] Consulting Physician Surgery 08/25/23 Marty Sullivan MD [phone] [place] [address] Surgeon Colon and Rectal Surgery 08/28/23
--- OUTSIDE RECORDS SUMMARY | 2024-06-18 09:34 | XMS_ITS | Clinical Summary ---
Author Organization [facility] Address [address] [place] [address] Care Team Providers Care Sap Abap Programmer Name Role Phone Unavailable Primary Care Provider Unavailabl e Source Comments [facility],non-owned Affiliates and Associated Physician Practices is amultiple site organization consisting of ambulatory clinics and hospital sitesin [place], [place], [place] and [place]. This disclosure is being madepursuant to the Care Everywhere program and may not contain all information available regarding this patient. Last updated 17.[facility] Active Problems Problem Noted Date Diagnosed Date C. difficile colitis 06/17/2023 Social History Tobacco Use Types Packs/Day Years Used Date Smoking Tobacco: Never Assessed Comments Unknown Sex and Gender Information Value Date Recorded Sex Assigned at Not on file Legal Sex Female 1:37 PM CDT Gender Identity Not on file Sexual Orientation Not on file Plan of Treatment Health Maintenance Due Date Last Done Comments COLOGUARD (AGES 45-75) - COL ON CA SCREENING 1967 COLON MONITORING 1967 COLONOSCOPY - COLON CA SCREENING 1967 CT COLONOGRAPHY - COLON CA SCREENING 1967 Colorectal Cancer Screening 1967 FIT - COLON CA SCREENING 1967 FLEX SIG - COLON CA SCREENING 1967 LIPID TESTING 1967 MAMMOGRAM 1967 PAP SMEAR 1967 HIV SCREENING 1982 HEPATITIS C SCREENING 01/20/1985 DTAP/TDAP/TD VACCINES (1 - Tdap) 1986 HEPATITIS B VACCINE (1 of 3 - 19+ 3-dose series) 1986 PNEUMOCOCCAL VACCINE 50+ (1 of 1 - PCV) 2017 ZOSTER VACCINE (1 of 2) 2017 COVID-19 VACCINE ( - 2023-2 5 season) 2023 DEPRESSION SCREENING 03/02/2024 INFLUENZA VACCINE (Season Ended) 2024 HIB VACCINE Aged Out No longer eligi ble based on patient's age to complete this topic HPV VACCINE Aged Out No longer eligi ble based on patient's age to complete this topic MENINGOCOCCAL (Group B) VACC INE SHARED DECISION-MAKING Aged Out No longer eligibl e based on patient's age to complete this topic MENINGOCOCCAL GROUPS A/C/Y/W VACCINE Aged Out No longer eligible b ased on patient's age to complete this topic Insurance [facility] Member Subscriber Plan / Payer (Ef fective for All Dates) Name:Felipa Kendall Relation to Subscriber:Self Name:Felipa Kendall Payer ID:[id number] (NAIC) Type:PPO Address: [place] [phone] SELF PAY NO INSURANCE Member Subscriber Plan / Payer (Ef fective for All Dates) Name:Felipa Kendall Member ID:Not on file Relation to Subscriber:Not on file Name:FELIPA KENDALL Subscriber ID:Not on file (Home) Address: [address] [place], [place] [id number] Payer ID:Not on file Group ID:Not on file Type:Self Pay Address: [place], [place] [facility] SELF PAY NO INSURANCE Member Subscriber Plan / Payer (Ef fective for All Dates) Name:Felipa Kendall Member ID:Not on file Relation to Subscriber:Not on file Name:FELIPA KENDALL Subscriber ID:Not on file (Home) Address: [address] [place] [id number] Payer ID:Not on file Group ID:Not on file Type:Self Pay Address: [place], [place] [facility] SELF PAY NO INSURANCE Member Subscriber Plan / Payer (Ef fective for All Dates) Name:Felipa Kendall Member ID:Not on file Relation to Subscriber:Not on file Name:FELIPA KENDALL Subscriber ID:Not on file (Home) Address: [address] [place] [id number] Payer ID:Not on file Group ID:Not on file Type:Self Pay Address: [place], [place]
--- OUTSIDE RECORDS SUMMARY | 2024-06-18 09:34 | XMS_ITS | Referral Summary ---
Author Organization [facility] Address [address] [place] [phone] Care Team Providers Care Dye Machine Operator Name Role Phone MonseSusy farias YEHUDA Primary Care Provider + Unknown, Notinfile Unavailable Unavailable Luz Maria Arndt MD Unavailable [phone] Marty Sullivan MD Unavailable [phone] Encounters Date Type Department Care Team Description 05/02/2024 Orders Only [facility] Surgery [address] [place] [address] Medical Office Building [address] [place] [address] Marty Sullivan MD from Last 3 Months Allergies No known active allergies Medications losartan (COZAAR) 50 mg tabletIndicatio ns:hypertension Take 1 tablet (50 mg total) by mouth every morning 4 Active omeprazole (PriLOSEC) 20 mg capsuleIndicati ons:Treatment of Non-Bleeding Gastric Disorder Take 1 capsule (20 mg total) by mouth early childhood teacher before breakfast Active neomycin (MYCIFRADIN) 500 mg [...] in place 09/02/2023 C. difficile colitis 06/17/2023 Social History Tobacco [...] on file Sexual Orientation Not on file Last Filed Vital Signs Vital Sign Reading [...] 09/28/2023 6:36 AM CDT Plan of Treatment Not on file Insurance [facility] Member Subscriber Plan / Payer (Ef fective 2023-Present) Name:Felipa Kendall Relation to Subscriber:Self Name:Felipa Kendall Payer ID:[id number] (NAIC) Type:[facility] HMO/PPO Address: [place] [phone] Advance Directives For more information, please contact: [phone] * Full Code (Latest Code Status on File) Date Activated Date Inactivated Comments 09/28/2023 2:15 PM 10/03/2023 5:00 PM * Full Code Date Activated Date Inactivated Comments 09/10/2023 1:50 PM 09/10/2023 7:17 PM Care Teams Dye Machine Operator Relationship Specialty Start Date End Date Susy Shea PA PCP - General Physician Hose Stripper 07/20/23 Unknown, Notinfile 07/20/23 Luz Maria Arndt MD [address] [place] [address] Consulting Physician Surgery 08/25/23 Marty Sullivan MD [phone] [place] [address] Surgeon Colon and Rectal Surgery 08/28/23
--- OUTSIDE RECORDS SUMMARY | 2024-06-18 09:34 | XMS_ITS | Continuity of Care Document ---
Author Organization [facility] Address [address] [place] [address] Phone Care Team Providers Care Chief Clerk Shelter Name Role Phone Willam Grimaldo MD Unavailable Unavailable Allergies, Adverse Reactions, Alerts Substance Reaction Status Criticality No Known Allergies Active No Inform ation Medications Medication Instructions Dosage Effective Dates (start - stop) Status Comments Tessalon Perles 100 mg capsule take 1 capsule by oral route 3 times every day - Active losartan 50 mg tablet take 1 tablet (50M G) by oral route every day - Active Procedures Procedure Date OFFICE/OUTPATIENT VISIT, EST OFFICE/OUTPATIENT VISIT, EST OFFICE/OUTPATIENT VISIT, EST OFFICE/OUTPATIENT VISIT, EST PREV VISIT, EST, AGE 40-64 OFFICE/OUTPATIENT VISIT, EST OFFICE/OUTPATIENT VISIT, EST PREV VISIT, EST, AGE 40-64 OFFICE/OUTPATIENT VISIT, EST OFFICE/OUTPATIENT VISIT, EST Advance Directives Directive Yes / No Effective Date File Name No Information Encounters Encounter Description Practice Location Reason(s) For Visit Diagnoses Date Provider Providers Copied on Encounter OFFICE/OUTPA TIENT VISIT, EST [facility], [address] [place] [address], [id number], [place] tel:[phone] [facility] cough (chief complaint)HTN (chief complaint)Diver ticulosis (chief complaint) Dietary surveillance and counselingEsop hageal refluxHematuri a, unspecifiedDiv erticulitis of colon without mention of hemorrhageScre ening for malignant neoplasm of breast Sep-2 -201 5 Dillan Jacobo [address], [place], [place], [id number] , [place]. tel:[phone] Referring Provider: Chrissy Abre[address], [place], [place], [id number]. tel:[phone] OFFICE/OUTPA TIENT VISIT, [facility], [address], [place], [place], [id number], [place] tel:[phone] [facility] diverticulitis (chief complaint)hemat uria (chief complaint)knee pain (chief complaint) Dietary surveillance and counselingDive rticulitis of colon (without mention of hemorrhage)HEM ATURIA NOSBody Mass Index 28.0-28.9, adultPain in joint involving lower leg 5 Dillan Jacobo [address], [address], [place], [place], [id number] , [place]. tel:[phone] Referring Provider: Chrissy Abreu [address], [place], [id number]. tel:[phone] OFFICE/OUTPA TIENT VISIT, [facility], [address], [place], [place], [id number], [place] tel:[phone] [facility] hematuria (chief complaint)abdom inal pain (chief complaint) HEMATURIA NOSDiverticuli tis of colon (without mention of hemorrhage)Abd ominal Pain 5 Dillan Jacobo [address], [place], [place], [id number] , [place]. [phone] Referring Provider: Chrissy Abreu [address], [place], [place], [id number]. tel:[phone] OFFICE/OUTPA TIENT VISIT, [facility], [address], [place], [place], [id number], [place] tel:[phone] [facility] abdominal pain (chief complaint)Fatig ue (chief complaint)GERD (chief complaint)HTN (chief complaint) Dietary surveillance and counselingAbdo alia PainFatigue / MalaiseGERDHyp ertension, Unspecified 5 Dillan Quarles. [address], [place], [place], [id number] , [place]. tel:[phone] Referring Provider: Chrissy Abreu [address], [place], [place], [id number]. tel:[phone] PREV VISIT, EST, AGE 40-64 [facility], [address], [place], [place], [id number], [place] tel:[phone] [facility] Physical (chief complaint) Routine Medical ExamDietary surveillance and counselingRout ine Medical Exam 5 Dillan Quarles. [address], [place], [place], [address] , [place]. [phone] Referring Provider: Chrissy Abreu [address], [place], [place], [id number]. tel:[phone] OFFICE/OUTPA TIENT VISIT, EST [facility], [address], [place], [place], [id number], [place] tel:[phone] [facility] Knee pain (chief complaint)HTN (chief complaint)abdom inal pain (chief complaint) Dietary surveillance and counselingPain in joint involving lower legAbdominal PainHypertensi on, Unspecified 4 Dillan Quarles. [address], [place], [place], [address] , [place]. [phone] Referring Provider: Chrissy Abreu [address], [place], [place], [id number]. tel:[phone] OFFICE/OUTPA TIENT VISIT, EST [facility], [address], [place], [place], [id number], [place] tel:[phone] [facility] sciatica (chief complaint)abdom inal pain (chief complaint) Dietary surveillance and counselingScia ticaAbdominal Pain 4 Dillan Quarles. [address], [place], [place], [id number] , [place]. [phone] Referring Provider: Chrissy Abreu [address], [place], [place], [id number]. tel:[phone] PREV VISIT, EST, AGE 40-64 [facility], [address], [place], [place], [id number], [place] tel:[phone] [facility] PHysical (chief complaint) Dietary surveillance and counselingRout ine Medical ExamRoutine Medical Exam 3 Dillan Quarles. [address], [place], [place], [id number] , [place]. tel: [phone] Referring Provider: Chrissy Abre[address], [place], [place], [id number]. tel:[phone] OFFICE/OUTPA TIENT VISIT, [facility], [address], [place], [place], [id number], [place] tel:[phone] [facility] anemia (chief complaint)INsom dena (chief complaint)palpa tion (chief complaint) Dietary surveillance and counselingAnem iaPalpitations Insomnia, Other 3 Dillan Quarles. [address], [place], [place], [id number] , [place]. [phone] Referring Provider: Chrissy Abre[address], [place], [place], [id number]. tel:[phone] OFFICE/OUTPA TIENT VISIT, EST [facility], [address], [place], [place], [address], [place] tel:[phone] [facility] insomnia (chief complaint)right knee pain (chief complaint) Dietary surveillance and counselingInso mnia, OtherPain in joint involving lower leg 2 Dillan Quarles. [address], [place], [place], [id number] , [place]. tel:[phone] Family History Family Member Type Diagnosis Age At Onset Mother Problem (finding) Alive and well Father Problem (finding) Alive and well Brother Problem (finding) Alive and well Payers Payer name Insurance type Covered constitution party ID Authoriza tion(s) No Information Social History Type Description Quantity Date Captured Comments Alcohol Use Details No Caffeine Use Details Unknown Tobacco Use Status Never smoked tobacco 2014 Smoking Status Never smoker Non-Smoking Tobacco Use Details : No Details Available : No Details Available Sex Female Vital Signs Date / Time: Height Weight BMI Pulse Rate Blood Pressure Temperature Respiratory Rate Body Surface Area Head Circumference BMI percentile Pulse Ox Inhaled Ox 11:16 AM 175.26 cm 205.00 lbs 30.2 7 kg/m eter (2) 82 /min 138/86 mm[Hg] 96.8 F 18 /min Chief Complaint And Reason For Visit From encounter dated '11/23/2014 09:30'. cough (chief complaint). Description: Associated symptoms include cough. Pertinent negatives include dyspnea, fatigue, fever, heartburn, night sweats, weight loss and wheezing. Additional information: Pt c/o dry cough for 4 weeks. Pt went to ER last week and was diagnosed with bronchitis. Pt was given cefidinir and she she overall feels better but still has dry cough. Pt denies any chest pain or sOB. Pt deneis any recent travel. Pt denies any sore throat or snezzing. Pt has clear nasal dainage. HTN (chief complaint). Description: Pt has HTN and she takes losartan and her BP is stable Diverticulosis (chief complaint). Description: Pt still has not done colonsocopy yet Pt did not like Dr. Hollingsworth and she is trying to switch to [facility] so she can get it done throught Dr. Shannon Pt denies any blood in stool or any weight loss Pt denies any abd pain. Pt does have GERd symptoms and she takes omerpazole which works well. Plan Of Treatment Date Type Action Status Referral Ordered: MAMMOGRAM, SCREENING ordered Referral Ordered: Referral: Gastroentergy. ordered Referral Ordered: CT ABD & PELVIS W/O CONTRAST ordered Referral Ordered: Ortho Surg (related to Pain in joint involving lower leg) ordered Referral Ordered: Referral: Ortho Surg. ordered Referral Ordered: MRI LOWER EXTREMITY W/O DYE Left knee ordered Referral Ordered: Physical Therapy (related to Sciatica) ordered Referral Ordered: UPPER GI W/ KUB ordered Referral Referred To: Physical Therapy Ordered: Referral: Physical Therapy. ordered History Of Present Illness Encounter Date Complaint History Of Prese nt Illness Diverticulosis Pt still has not done colonsocopy yet Pt did not like Dr. Hollingsworth and she is trying to switch to meridian so she can get it done throught Dr. Shannon Pt denies any blood in stool or any weight loss Pt denies any abd pain. Pt does have GERd symptoms and she takes omerpazole which works well. HTN Pt has HTN and s he takes losartan and her BP is stable cough Associated sympt oms include cough. Pertinent negatives include dyspnea, fatigue, fever, heartburn, night sweats, weight loss and wheezing. Additional information: Pt c/o dry cough for 4 weeks. Pt went to ER last week and was diagnosed with bronchitis. Pt was given cefidinir and she she overall feels better but still has dry cough. Pt denies any chest pain or sOB. Pt deneis any recent travel. Pt denies any sore throat or snezzing. Pt has clear nasal dainage. Instructions Date Instruction Additional Infor mation Prescribed Diet Educ ation/Lifestyle Education Regarding Diet Related to Dietary Surveillance and Counseling Prescribed Activity and Exercise Education Related to Dietary Surveillance and Counseling Physical activity counseling Rel ated to Dietary surveillance counseling Decrease caloric intake Related to Dietary surveillance counseling Physical activity counseling Rel ated to Dietary surveillance counseling Decrease caloric intake Related to Dietary surveillance counseling Decrease caloric intake Related to Dietary surveillance counseling Physical activity counseling Rel ated to Dietary surveillance counseling Dietary counseling Related to Di etary surveillance counseling Decrease caloric intake Related to Dietary surveillance counseling Dietary counseling Related to Di etary surveillance counseling Decrease caloric intake Related to Dietary surveillance counseling Decrease caloric intake Related to Dietary surveillance counseling Dietary counseling Related to Di etary surveillance counseling Decrease caloric intake Related to Dietary surveillance counseling Dietary counseling Related to Di etary surveillance counseling Dietary counseling Related to Di etary surveillance counseling Decrease caloric intake Related to Dietary surveillance counseling Assessments Type Assessment Date assessment Dietary surveillance and psychologist counseling ing assessment Esophageal reflux assessment Hematuria, unspecified 15 assessment Diverticulitis of colon without mention of hemorrhage assessment Screening for malignant neoplasm of breast Mental Status Date Cognitive Assessment Orientation - [place] ed to time, place, person, situation.
--- OUTSIDE RECORDS SUMMARY | 2024-06-18 09:35 | XMS_ITS | Data Portability ---
Author Organization [facility] Jazlyn Fragoso Address [address] [place] [address] Care Team Providers Care Garnetter Name Role Phone STAS MACIAS Primary Care Provider Assessment No assessment recorded. Plan of Treatment Reminders Order Date Submit Date Provider Last Modified By Organization Details Last Modified Time Details Appointments None recorded. Lab CMP, serum or plasma 2024 025 [facility], [address], [address], [place], [address], 5 16:43:28 CBC w/ auto diff 2024 025 [facility], [address], [address], [place], [address], 5 16:43:28 lipid panel, serum 2024 025 [facility], [address], [address], [place], [address], 5 16:43:28 HbA1c (hemoglobi n A1c), blood 2024 025 [facility], [address], [address], [place], [address], 5 16:50:48 TSH + free T4, serum 2024 025 [facility], [address], [address], [place], [address], 5 16:43:29 unlisted lab - histology specimen 2022 023 [facility], [address], [address], [place], [address], 3 11:11:09 HbA1c (hemoglobi n A1c), blood 2022 023 [facility], 2022 [address]ell, [address], [place], [address], 3 16:19:58 CMP, serum or plasma 2022 023 [facility], [address], [address], [place], [address], 3 10:42:51 albumin/cr eatinine, mass ratio, urine 2022 023 [facility], 2022 [address], [address], [place], [address], 3 16:05:58 lipid panel, serum 2022 023 [facility], [address], [address], [place], [address], 3 13:00:24 Referral None recorded. Procedures colonoscop y screening (PROC) 2022 023 lissett Campbell MD, [address] [facility] [address], [address], [place], [address], 3 16:08:57 Surgeries None recorded. Imaging MAMMO, screening, bilateral 2024 025 [facility] (Imaging), [facility] [facility] [address], [place], [address], 5 08:35:20 MAMMO, screening, bilateral 2022 023 [facility] (Imaging), [address], [place], [address], 17:09:23 Medication Orders None recorded. Patient TargetsNo targets recorded. Patient Instructions Encounter Date Encounter Id Patient Instructions Last Modified By Organization Details Last Modified Time 03/14/2022 [id number] A healthy lifestyle: care instructions Not available 03/14/2022 16:05:45 I have reviewed the patient's medical record and the note from this clinical encounter. I was available by phone for the duration of the visit. I agree with the assessment and plan with the following addendum: [none]. Harshil Rodriguez MD [email or web address] Not available 03/18/2022 09:15:44 06/02/2024 [id number] A healthy lifestyle: care instructions Not available 06/04/2024 08:40:58 Reason for Referral None Reported. Results Created Date Observation Date Name Description Value Unit Range Abnormal Flag Note LastModifiedBy Organization Detail LastModifiedTime 04/11/1904/17/2022 PATHO LOGY REPOR T . Commen t Mater ial submi tted: . leg - LEFT POSTE RIOR LEG. Modif iers: left, poste rior Not Available [facility] ([facility]) [address] [place], [address], 04/17/2022 15:10:50 04/11/1904/17/2022 PATHO LOGY REPOR T . Commen t Clini more histo ry: . SKIN TAG. Not Available [facility] ([facility]) [address] [place], [address], 04/17/2022 15:10:50 04/11/1904/17/2022 PATHO LOGY REPOR T . Commen t Diagn osis: LEFT POSTE RIOR LEG: FIBRO EPITH ELIAL POLYP OF THE SKIN. CDE 04/17 1353 Local Not Available [facility] ([facility]) [address] [place], [address], 04/17/2022 15:10:50 04/11/1904/17/2022 PATHO LOGY REPOR T . Commen t Elect layton catherine d: . Damaris olivarez MD, Patho logis t Not Available [facility] ([facility]) [address], [place], [address], 04/17/2022 15:10:50 04/11/19 23 04/17/2022 PATHO LOGY REPOR T . Commen t Gross descr iptio n: . 1 Conta iner, forma shelley-f illed , label ed with patie nt ident ifica tion. LEFT POSTE RIOR LEG: RECEI DARRON IS 1 FRAGM ENT(S ) OF WRINK LED POLYP OID CAMACHO SKIN TISSU E MEASU RING 1.5 X 1.2 X 1.0 CM. THE SURGI MORE NABIL N IS INKED BLUE. THE SPECI MEN IS SECTI ONED AND SUBMI TTED IN CASSE TTE(S ) A1 - A3. MCL/M CL 04/16 0523 Local Not Available [facility] ([facility]) [address], [place], [address], 04/17/2022 15:10:50 04/11/1904/17/2022 PATHO LOGY REPOR T . Commen t Patho logis t provi ded ICD-1 0: L91.9 Not Available [facility] ([facility]) [address] [place], [address], 04/17/2022 15:10:50 04/11/19 23 04/17/2022 PATHO BENOIT CORKY Chet Ulisses ribeiro CPT . 53790 1 Not Available [facility] ([facility]) [address], [place], [address], 04/17/2022 15:10:50 12/10/19 23 12/09/2022 MAMMO , scree jake, bilat eral No observ ation record ed. [address] [facility], [place], [address], 12/17/2022 15:05:52 12/11/19 23 12/09/2022 MAMMO , scree jake, bilat eral No observ ation record ed. [address] [facility], [place], [address], 12/11/2022 10:09:06 06/13/19 24 06/13/2023 CT, abdom en + pelvi s, w/ contr ast No observ ation record ed. [address] [address], [place], [address], 06/15/2023 08:22:45 07/02/19 24 07/02/2023 CT, angio gram, abdom en + pelvi s + lower extre mity, w/wo contr ast No observ ation record ed. [address] [facility], [place], [address], 07/02/2023 13:44:13 07/02/19 24 07/02/2023 US, liver No observ ation record ed. [address], [place], [address], 07/06/2023 14:39:44 07/02/19 24 07/02/2023 lab* No observ ation record ed. [email or web address] [facility], [place], [address], 07/07/2023 07:51:47 07/31/19 24 07/31/2023 enema , water solub le (PROC ) No observ ation record ed. [address], [place], [address], 07/31/2023 11:23:34 11/24/19 24 11/24/2023 XR, knee, 3 view No observ ation record ed. [address], [place], [address], 11/24/2023 08:28:18 11/24/19 24 11/24/2023 XR, knee, 3 view No observ ation record ed. [address], [place], [address], 11/24/2023 08:28:33 Result Notes None recorded. Problems Name Problem SNOMED Code Status Onset Date Resolution Date Notes Provider Name and Address Organization Details Recorded Time Hypertensive disorder 80558142 Active 2017 Jay peterson, [place] - [facility] 8 11:17:12 Acid reflux 259530977 Active 2017 Jay peterson, [place] - [facility] 8 11:17:24 Gastroesophage al reflux disease 074880446 Active 2017 BLAKE Elizondo NP Attn: Rome wyman,[address] [place], [address], [place] - [facility] 8 11:34:25 Diverticular disease 252645846 Active 2017 BLAKE Elizondo NP Attn: Rome wyman,[address] [facility], [place], [address], [place] [facility] 8 11:34:26 Strain of trapezius muscle 827660332 Active 2022 YEHUDA EMERSON Attn: Rome wyman,[address] [facility], [place], [address], [place] [facility] 3 14:38:55 Obesity 607165723 Active 2022 YEHUDA EMERSON Attn: Rome wyman,[address] [facility], [place], [address], [facility] - [facility] 3 14:42:47 Hyperlipidemia 77395554 Active 2022 YEHUDA EMERSON Attn: Rome wyman,[address] [facility], [place], [address], [facility] - [facility] 3 14:42:49 Skin tag 612757660 Active 2022 YEHUDA EMERSON Attn: Rome wyman,[address] [facility], [place], [address], [facility] - [facility] 3 14:44:29 Problem Notes None recorded. Procedures Surgical History Date Name Laterality Status Provider Name and Address Organization Details Recorded Time 10/13/19 24 Suture/Staple removal completed YEHUDA EMERSON Attn: Accounting, [address] [facility], [place], [address], [facility] - [facility] 11/24/2023 13:40:04 06/19/19 24 excision of colon completed YEHUDA EMERSON Attn: Accounting, [address] [facility], [place], [address], [facility] - [facility] 07/30/2023 04:24:03 09/08/19 20 Cerumen Removal completed YEHUDA EMERSON Attn: Accounting, [address] [facility], [place], [address], [place] [facility] 09/08/2019 17:04:34 07/01/19 17 Date of Last Mammogram completed Briana Lyman [place] - [facility] 09/08/2019 16:13:21 09/14/19 15 colonoscopy completed Audrey Rivera [place] - [facility] 10/11/2018 14:16:39 03/02/19 14 Date of Last Pap Smear completed Briana Lyman [place] - [facility] 09/08/2019 16:13:24 delivery completed Elyssa Rangel [place] - [facility] 03/03/2017 11:18:44 Knee Surgery completed Jay Rangel [facility] 03/03/2017 11:19:20 Cholecystectomy completed Briana Lyman MA [facility] 09/08/2019 16:14:44 Imaging Results Imaging Date Name Status LastModified by Organiz ation Details LastModified Time 12/09/2022 MAMMO, screening, bilateral completed [address], [place], [address], 12/17/2022 15:05:52 12/09/2022 MAMMO, screening, bilateral completed [address], [place], [address], 12/11/2022 10:09:06 06/13/2023 CT, abdomen + pelvis, w/ contrast completed [address], [place], [address], 06/15/2023 08:22:45 07/02/2023 CT, angiogram, abdomen + pelvis + lower extremity, w/wo contrast completed [address], [place], [address], 07/02/2023 13:44:13 07/02/2023 US, liver completed [address], [place], [address], 07/06/2023 14:39:44 07/02/2023 lab* completed [email or web address], [place], [address], 07/07/2023 07:51:47 07/31/2023 enema, water soluble (PROC) completed [address], [place], [address], 07/31/2023 11:23:34 11/24/2023 XR, knee, 3 view completed [address], [place], [address], 11/24/2023 08:28:18 11/24/2023 XR, knee, 3 view completed [address], [place], [address], 11/24/2023 08:28:33 Procedure Notes None recorded. Medical Equipment None Reported. Allergies No known drug allergies Medications Name Sig Start Date Stop Date Status Note LastModified by Organization Details LastModified Time losartan 50 mg tablet TAKE 1 TABLET BY MOUTH ONCE DAILY 06/06 completed Not Available Not Available Not Available cyclobenzap rine 10 mg tablet 09/27 completed Not Available Not Available Not Available amoxicillin 500 mg capsule TAKE 4 TABLETS BY MOUTH 1 HOUR BEFORE APPOINTME NT 06/02 completed Not Available Not Available Not Available prednisone 10 mg tablet TAKE 4 TABLETS BY MOUTH DAILY FOR FIVE DAYS, THEN TAKE 2 TABLETS FOR FIVE DAYS, THEN TAKE 1 TABLET FOR FIVE DAYS, THEN STOP 08/19 completed Not Available Not Available Not Available Acetaminoph en Extra Strength 500 mg tablet Take 2 tablets every 6 hours by oral route. 06/02 completed Not Available Not Available Not Available loperamide 2 mg capsule TAKE 2 CAPSULES BY MOUTH 4 TIMES DAILY NEEDED FOR DIARRHEA active Not Available Not Available No t Available azithromyci n 250 mg tablet TAKE 2 TABLETS (500 MG) BY ORAL ROUTE ONCE DAILY FOR 1 DAY THEN 1 TABLET (250 MG) BY ORAL ROUTE ONCE DAILY FOR 4 DAYS 03/14 completed Not Available Not Available Not Available ibuprofen 800 mg tablet 09/27 completed Not Available Not Available Not Available hydrocodone 5 mg-acetamin ophen 325 mg tablet TAKE 1 TABLET BY MOUTH EVERY 6 HOURS NEEDED FOR PAIN 06/02 completed Not Available Not Available Not Available famotidine 40 mg tablet TAKE 1 TABLET BY MOUTH ONCE DAILY 09/26 completed Not Available Not Available Not Available metronidazo le 500 mg tablet TAKE ONE TABLET AT 1PM, 2PM, AND 10PM THE DAY BEFORE SURGERY 06/02 completed Not Available Not Available Not Available ciprofloxac in 500 mg tablet Take 1 tablet twice a day by oral route for 10 days. 03/28 completed Not Available Not Available Not Available sulfamethox azole 800 mg-trimetho prim 160 mg tablet TAKE 1 TABLET BY MOUTH EVERY 12 HOURS FOR 3 DAYS 08/12 completed Not Available Not Available Not Available triamcinolo ne acetonide 0.1 % topical cream APPLY A THIN LAYER TO THE AFFECTED AREA(S) TOPICALLY TWO TIMES PER DAY 06/02 completed Not Available Not Available Not Available methocarbam ol 750 mg tablet Take 1 tablet 3 times a day by oral route as needed for 5 days. 09/26 completed Not Available Not Available Not Available phenazopyri dine 100 mg tablet 08/10 completed Not Available Not Available Not Available benzonatate 100 mg capsule TAKE 1 CAPSULE BY MOUTH THREE TIMES DAILY NEEDED FOR 5 DAYS 07/28 completed Not Available Not Available Not Available pantoprazol e 40 mg tablet,arnaud yed release TAKE 1 TABLET BY MOUTH ONCE DAILY 07/28 completed Not Available Not Available Not Available Calcium-600 600 mg (as calcium carbonate 1,500 mg) tablet 09/27 completed Not Available Not Available Not Available omeprazole 20 mg capsule,del ayed release TAKE 1 CAPSULE BY MOUTH ONCE DAILY active Not Available Not Available No t Available ibuprofen 600 mg tablet TAKE 1 TABLET BY MOUTH THREE TIMES DAILY 07/28 completed Not Available Not Available Not Available methylpredn isolone 4 mg tablets in a dose pack TAKE BY MOUTH DIRECTED ON INSIDE OF PACKAGE 06/14 completed Not Available Not Available Not Available neomycin 500 mg tablet TAKE 2 TABLETS BY MOUTH AT 1PM, 2PM AND 10PM THE DAY BEFORE SURGERY 06/02 completed Not Available Not Available Not Available albuterol sulfate HFA 90 mcg/actuati on aerosol inhaler INHALE 2 PUFFS BY MOUTH 4 TIMES DAILY NEEDED FOR SHORTNESS OF BREATH OR WHEEZING 06/04 completed Not Available Not Available Not Available losartan 50 mg-hydrochl orothiazide 12.5 mg tablet Take 1 tablet every day by oral route for 90 days. 2024 active Not Available Not Available Not Avai lable Vancocin 250 mg capsule Take 1 capsule every 6 hours by oral route. 07/28 completed Not Available Not Available Not Available dicyclomine 10 mg capsule TAKE 2 CAPSULES BY MOUTH 4 TIMES DAILY NEEDED FOR ABDOMINAL CRAMPING 07/28 completed Not Available Not Available Not Available amoxicillin 875 mg-potassiu m clavulanate 125 mg tablet TAKE 1 TABLET BY MOUTH EVERY 12 HOURS FOR 7 DAYS 06/14 completed Not Available Not Available Not Available simethicone 80 mg chewable tablet TAKE 1 TABLET BY MOUTH 4 TIMES DAILY 07/28 completed Not Available Not Available Not Available oxycodone 5 mg tablet 06/02 completed Not Available Not Available Not Available topiramate 50 mg tablet Take 1 tablet every day by oral route at bedtime for 30 days. 01/19 completed Not Available Not Available Not Available nitrofurant oin monohydrate /macrocryst als 100 mg capsule Take 1 capsule every 12 hours by oral route for 5 days. 04/01 completed Not Available Not Available Not Available famotidine 1 tablet daily 03/03 completed Not Available Not Available Not Available losartan 50mg po daily 03/03 completed Not Available Not Available Not Available Eliquis 2.5 mg tablet Take 1 tablet twice a day by oral route. 06/02 completed Not Available Not Available Not Available Ozempic 0.25 mg or 0.5 mg (2 mg/1.5 mL) subcutaneou s pen injector Inject 0.25 mg every week by subcutane ous route. 06/14 completed Not Available Not Available Not Available Ozempic 0.25 mg or 0.5 mg (2 mg/3 mL) subcutaneou s pen injector Inject by subcutane ous route for 56 days. 06/14 completed Not Available Not Available Not Available Vitals Date Recorded Body weight Body mass index (BMI) Body height Heart rate Oxygen saturation Oxygen saturation in Arterial blood by Pulse oximetry Systolic blood pressure Diastolic blood pressure Provider Name and Address Organization Details Last Updated DateTime 3 998185. 61 g 33.6 kg/m2 177.8 cm 90 /min 100 % 100 % 128 mm[Hg] 86 mm[Hg] Sarah Marion MA [place] - [facility] 3 15:31:21 Date Recorded Body height Body mass index (BMI) Body weight Heart rate Oxygen saturation Oxygen saturation in Arterial blood by Pulse oximetry Systolic blood pressure Diastolic blood pressure Provider Name and Address Organization Details Last Updated DateTime 3 177.8 cm 33.6 kg/m2 759381. 61 g 88 /min 98 % 98 % 144 mm[Hg] 90 mm[Hg] Luiza Graham MA [facility] 3 15:14:46 Date Recorded Body height Body mass index (BMI) Body weight Heart rate Oxygen saturation Oxygen saturation in Arterial blood by Pulse oximetry Systolic blood pressure Diastolic blood pressure Provider Name and Address Organization Details Last Updated DateTime 4 177.8 cm 30 kg/m2 76544.8 1 g 103 /min 97 % 97 % 128 mm[Hg] 85 mm[Hg] Luiza Graham MA [facility] 4 15:33:16 Date Recorded Body height Body mass index (BMI) Body weight Heart rate Oxygen saturation Oxygen saturation in Arterial blood by Pulse oximetry Systolic blood pressure Diastolic blood pressure Provider Name and Address Organization Details Last Updated DateTime 5 177.8 cm 31.2 kg/m2 02770.6 4 g 90 /min 99 % 99 % 148 mm[Hg] 85 mm[Hg] Luiza Graham MA [facility] 5 16:19:48 Social History Question Answer Notes LastModified by Organizat ion Details LastModified Time Tobacco Smoking Status Never Smoker Jay peterson [facility] 03/03/2017 11:18:26 What Is Your Level Of Alcohol Consumption? None Information not available 09/08/2019 What Is Your Level Of Caffeine Consumption? Occasional Excedrin Information not available 09/08/2019 How Much Tobacco Do You Chew? None Information not available 09/08/2019 In The 14 Days Before Symptom Onset, Have You Had Close Contact With A Laboratory-confir med COVID-19 While That Case Was Ill? No Information not available 09/26/2020 In The 14 Days Before Symptom Onset, Have You Had Close Contact With A Person Who Is Under Investigation For COVID-19 While That Person Was Ill? No Information not available 09/26/2020 Have You Been To An Area Known To Be High Risk For COVID-19? No Information not available 09/26/2020 Which Illicit Or Recreational Drugs Have You Used? None Information not available 09/08/2019 Do You Or Have You Ever Used E-cigarettes Or Vape? 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 06/02/2024 Information not available 06/02/2024 Are You Sexually Active? Yes Information not available 09/26/2020 Do You Or Have You Ever Used Smokeless Tobacco? Never Used Smokeless Tobacco Information not available 07/06/2019 How Much Tobacco Do You Smoke? No Information not available 07/06/2019 Has Tobacco Cessation Counseling Been Provided? Yes Information not available 06/02/2024 On What Date Was Tobacco Cessation Counseling Provided? 06/02/2024 Information not available 06/02/2024 How Many Years Have You Smoked Tobacco? 0 Information not available 09/08/2019 Sex: Female Functional Status None recorded. Mental Status None recorded. Family History Relationship Description Onset Age of this Age Resolved Age Notes LastModified by Organization Details LastModified Time Father Diabetes mellitus [email or web address] Not available 2018 10:44:44 Father Malignant neoplasm of brain 71 [email or web address] Not available 2018 10:45:40 Maternal Grandmother Congestive heart failure [email or web address] Not available 2018 10:45:21 Mother Malignant melanoma 72 [email or web address] Not available 2024 16:36:38 Medical History Condition Response Coronary Artery Disease N Atrial Fibrillation N High Blood Pressure Y Thyroid Problems N Kidney or Bladder Problems N Depression N COPD N Blood Clots N GI Problems Y Skin Problems N Anemia N Heart Attack ([place]) N Diabetes N Anxiety Disorder N Muscle, Joint, or Bone Problems N Seizures/Epilepsy N Acid Reflux (GERD) Y Cancer N Stroke N Allergies N Asthma N High Cholesterol N Hepatitis N Liver Disease N Osteoporosis N Heart Failure N Gynecological History Statement/Question Response If Post Menopausal, Age at Menopause Date of Last Mammogram 06/30/2016 Flow Moderate Date of LMP Frequency of Cycle (Q days) On BCP's at Conception? N Menses Monthly N Date of Last Pap Smear 03/02/2013 Duration of Flow (days) 4 Current Control Method None LMP Approximate Obstetrics History GPAL:G 3 P 3 0 0 3 Type Value Multiple Births 0 Full Term 3 Induced 0 Spontaneous 0 Premature 0 Living 3 Ectopics 0 Total 3 Immunizations Vaccine Type Date Status Note Provider Nam e and Address Organization Details Recorded Time COVID-19, mRNA, LNP-S, PF, 100 mcg/0.5mL dose or 50 mcg/0.25mL dose 04/03/2020 completed Luiza Graham [place] null, [place] [facility] 06/01/2024 12:26:52 COVID-19, mRNA, LNP-S, PF, 100 mcg/0.5mL dose or 50 mcg/0.25mL dose 05/01/2020 completed Luiza Graham [place], [place] [facility] 06/01/2024 12:26:53 Tdap 03/14/2022 completed Harshil Rodriguez MD Attn: Accounting[address] [place], [address], [place] [facility] 03/18/2022 09:10:14 Past Encounters Encounter ID Performer Location Encounter Start Date Encounter Closed Date Diagnosis/Indication Diagnosis SNOMED-CT Code Diagnosis ICD10 Code Diagnosis Note [id number] BLAKE Elizondo NP [facility] [address] [place] [address] 03/03/2017 10:48:34 03/04/2017 15:49:21 Essential hypertension 64601512 I10 Continue losartan. Instructed to take medication s daily at the same time. Screening mammography 24 920360 Z12.31 Mammogram order given Gastroesop hageal reflux disease 458575033 K21.9 Continue famotidine Diverticular disease 397 303261 K57.90 Discussed diverticul ar disease diet. [id number] YEHUDA EMERSON [facility] [address] [place] [address] 09/27/2018 10:28:49 09/28/2018 08:02:34 Hypertensive disorder 75160394 I10 Here for refill. patient well controlled on medication . BP 118/90. - continue Losartan 50 mg- DASH diet- 30 mins excercise 5x/week Gastroesop hageal reflux disease 093467595 K21.9 Patient takes excedrin headache in the morning without food. She also drinks coffee on empty stomach. has been experience ing knawing pain unless she eats. Will do trial with omeprazole for a few weeks. - start omeprazole 20mg daily- if no improvemen t in a few weeks then will need to be scoped Weight gain 7491904 R63. 5 patient has experience d weight 20 lb weight gain in the last couple of years despite no change in diet. HAs not had TSH checked. - check TSH Prediabetes 632122628 R7 3.03 Patient has previously been pre-diabet ic. Will check A1c. - Watch sweets, potatoes, bread, rice, tortillas, chips- excercise 30 mins 5x week [id number] YEHUDA EMERSON [facility] [address] [place] [address] 10/11/2018 14:03:51 10/13/2018 08:29:52 Gynecologic examination 18635060 Z01.419 Felipa is a 53 YO f presenting for PAP. No hx of abnormal pap. Has not had a period for 2 months. we discussed perimenopa use and menopause. understand one year with no period. Normal breast exam. Normal pap exam. will call patient with results. [id number] YEHDUA EMERSON [facility] [address] [place] [address] 05/16/2019 14:42:46 05/17/2019 09:51:27 Bronchitis 24473191 J40 two weeks of cough. had fever last week. cough is wet. No personal travel or contact who have traveled to areas of heavily affected by andrews virus. Couging during exam, wet cough. afebrile. Lungs clear. - f/u if not improving- z-pack- tessalon perles- ventolin prn [id number] Luiza Graham MA [facility] [address] [place] [address] 06/08/2019 10:19:04 06/10/2019 11:38:54 Acute urinary tract infection 691756425 N39.0 [id number] YEHUDA EMERSON [facility] [address] [place] [address] 07/06/2019 13:15:23 07/07/2019 09:31:31 Fever 289088987 R50.9 patient c/o fever, chills, dry cough, slight sob. She is getting tested for COVID today. - tylenol for fever and body aches- stay hydrated- ER if sob, irretracta ble fever, chest pain [id number] TIANA GOsor-Donita mohania [address] [place] [address] 07/06/2019 15:31:26 07/06/2019 15:52:00 Fever 910123481 R50.9 [id number] YEHUDA EMERSON [facility] [address] [place] [address] 09/08/2019 16:02:49 09/13/2019 17:51:25 Acid reflux 414955591 K21.9 Patient has started having daily acid reflux with pain. Will try omeprazole for one month and see if symptoms improved. She denies vomiting, blood in sputum, coughing, trouble swallowing . Headache [id number] R51 Patient has had headaches for years. Would like to start medication to help. She is also advised to watch foods, get plenty of sleep, hydrate daily. F/U in one month. Impacted c erumen in right ear [id number] 507218 H61.21 Patient presents with decreased hearing in right ear. On exam ear is impacted. Successful ly removed ear wax during visit and patient hearing normally again. TM in tact and all landmarks identified . [id number] YEHUDA EMERSON [facility] [address] [place] [address] 01/20/2020 15:26:34 01/23/2020 10:27:19 Diverticulitis [id number] K57.92 patient presents for for flare up of diverticul itis. Has had LLQ pain x 3 days. She is to go to ER if fever, vomiting, severe pain, blood ins stool [id number] YEHUAD EMERSON [facility] [address] [place] [address] 09/26/2020 14:39:53 09/28/2020 05:59:15 Screening mammography 02202138 Z12.31 due for screening. no breast complaints . Normal in the past. Screening for malignant neoplasm of colon 676001711 Z12.11 due for screening. Did have colonoscop y Abnormal u terine bleeding [id number] 9100 N93.9 one episode of brown blood. Will work up Hypertensive disorder 38 466611 I10 Advised to check BP regularly with a goal of <140/90, if BP consistent ly >140/90, advised to contact clinic Discussed DASH diet Advised weight loss and diet is best way to control BP Advised 30 minutes of exercise minimum daily Advised tobacco, alcohol, caffeine all increase BP Advised goal for BP is <140/90 - Watch sweets, potatoes, bread, rice, tortillas, chips- exercise 30 mins 5x week [id number] Luiza Graham MA [facility] [address] [place] [address] 09/27/2020 09:24:28 09/28/2020 06:14:17 [id number] Harshil hwang MD [facility] [address] [place] [address] 03/14/2022 15:25:09 03/19/2022 16:05:06 Screening mammography 27661137 Z12.31 due for screening. no breast complaints . Normal 2021CBE performed today Screening for malignant neoplasm of colon 509289578 Z12.11 due for screening Hypertensive disorder 38 859010 I10 BP controlled today. she denies medication side effects. complaint. Advised to check BP regularly with a goal of <140/90, if BP consistent ly >140/90, advised to contact clinicDisc ussed DASH dietAdvise d weight loss and diet is best way to control BPAdvised 30 minutes of exercise minimum dailyAdvis ed tobacco, alcohol, caffeine all increase BP Hyperlipidemia 41431011 E78.5 sent home with lab order to obtain fastingTC 162, TRI 137, HDL 35, LDL 102 (08/2020) Obesity 990459274 E66.9 BMI 33.6advise d healthy eatingincr ease veggiesinc rease exercise Administra tion of diphtheria, pertussis, and tetanus vaccine 163463453 Z23 administer ed today Adult heal th examination 769313709 Z00.00 Patient presents for physical, refills and labs - mammogram due, order resent- pap UTD, 2019, normal- CBE Performed today, no abnormal findings- colonoscop y order given to patient- due for shingles, vaccine, not available here, advised [facility]- tdap given today- sent home with labs Strain of trapezius muscle 298378679 S46.811A tender on exam and states this causes headaches at times. she sees chiropract or for this. declines PT Skin tag 448010145 L91.8 large base pedunculat ed skin tag size of marble on left posterior leg under gluteal sulcus- scheduled for removal [id number] YEHUDA EMERSON [facility] [address] [place] [address] 04/11/2022 14:48:43 05/01/2022 14:41:07 Skin tag 101639386 L91.8 large base pedunculat ed skin tag size of marble on left posterior leg under gluteal sulcus. Approx 2.5 cm in height. 2% lidocaine w/ epi was used to numb the are are. [place] blade was use to remove tag at the base. Patient tolerated procedure well.biops y was sent in for pathology due to size [id number] YEHUDA EMERSON [facility] [address] [place] [address] 07/29/2023 15:20:12 07/29/2023 16:13:05 History of colectomy 747152795 Z90.49 colon resection 06/2023 [facility] from c, diff colitis.F/ U with Dr Curtis for reversal Deep venou s thrombosis of upper extremity 199029232 I82.629 L DVT UEhas 4 more days on eliquis Thyroid nodule 140601497 E04.1 found during hospital stayshe would not like to work this up We can work it up after reversal surgery Sh love has had FNA around 2011 and will get records from [facility] [id number] YEHUDA EMERSON [facility] [address] [place] [address] 10/13/2023 17:10:43 10/14/2023 08:11:27 Removal of rishabh 68224012 Z48.02 patient had removal of rishabh today. tolerated well. [id number] YEHUDA EMERSON [facility] [address] [place] [address] 06/02/2024 16:14:17 06/02/2024 17:11:03 Adult health examination 924615580 Z00.00 Patient presents for physical, refills and labs - mammogram due, order resent- pap due, 2019, normal- pneumonia vaccine next visit- sent home with labs Screening mammography 24 883696 Z12.31 due for screening. no breast complaints . Normal 1CBE performed today Obesity 692814870 E66.9 BMI 31.2advise d healthy eatingincr ease veggiesinc rease exercise Essential hypertension 60271917 I10 will check BP at home and f/umay need to increase BP medication she takes losartan 50mg Health Concerns Section Related Observation LastModified by Organization Detai ls LastModified Time None Recorded Concern Status LastModified by Organization Details LastModified Time None Recorded Advance Directives Directive None Recorded Payers Encounter Date Sequence Insurance Name Policy Number Policy Felix Covered Member ID Felix Member ID Guarantor Name 03/14/2022 1 [facility] [id number] Felipa Kendall [id number] Felipa Kendall 04/11/2022 1 [facility] [id number] Felipa Kendall [id number] Felipa Kendall 07/29/2023 1 [facility] [id number] Felipa Kendall [id number] Felipa Kendall 07/29/2023 1 [employer] [id number] Felipa Kendall [id number] Felipa Kendall 10/13/2023 1 [employer] [id number] Felipa Kendall [id number] Felipa Kendall 06/02/2024 1 R [id number] Felipa Kendall [id number] Felipa Kendall Notes Date Note Type Note Provider Name and Address Organization Details Recorded Time 03/14/2022 text/html Felipa is a 57 YO F presenting for well check and labs Patient has no concerns today. Mammogram normal UTD 2018LMP: Mar 2019 Denies coughing, sneezing, fever, chills, bloody stools, abdominal pain. Harshil Rodriguez MD Attn: [employer],[address], [place], [address], [place] [facility] 03/18/2022 09:25:31 04/11/2022 text/html Pateint presents today for biopsy YEHUDA EMERSON Attn: [employer],[address], [place], [address], [place] [facility] 04/14/2022 07:38:55 07/29/2023 text/html Felipa presents fo r f/u after C.diff colitis s/p colon resection She went to hospital ER with abdominal pain. Found to have C diff colitis with distension of colon. Had colon resection 06/19/23 with ileostomy bag placement. She developed LUE DVT and placed of eliquis. She has 4 days on eliquis. She has f/u scheduled with surgeon, dr curtis August 27 to discuss reversal. Her changes her bags. She had leaking one day and this makes her depressed. She is hopeful about reversal. She denies depression. She is cleared by surgeon to return to work. She is able to sit and walk normally. leaning forward does cause some pain if presses on bag. She will need to be able to park closer to hospital. She will also need more bathroom breaks. She has talked to her work about these and they need them in a letter. she declines workup at this tie for thyroid nodule. She has had FNA in 2011 that was normal. YEHUDA EMERSON Attn: [employer],[address], [place], [address], [place] [facility] 07/30/2023 04:34:27 10/13/2023 text/html Patient had reversal of her colostomy. Surgery went well and here only for removal of rishabh. denies any pain, swelling or drainage. YEHUDA EMERSON Attn: [employer] [facility], [place], [address], [place] [facility] 11/24/2023 13:40:58 06/02/2024 text/html Felipa is a 59-year-old female here for her annual exam Felipa has no complaints today. She does not check her blood pressure at home but agrees to do so. She takes losartan every day. She also takes loperamide And omeprazole from her GI. she denies chest pain shortness of breath palpitations lower extremity edema supplements: multivitamin, magnesium, biotin , vit C, vit D YEHUDA EMERSON Attn: [address] [place], [address], [facility] 06/04/2024 08:44:43 OBGyn Episode No OBEpisode recorded.
[2024-06-18 10:08] LABS: Basophils Percent Auto 0.4 % (0.2-1.2); Eosinophils Absolute Auto 0.4 K/mm3 (0-0.3); Eosinophils Percent Auto 5.7 % (0-4.4); Hematocrit 36.5 % (37.0-47.0); Hemoglobin 11.5 g/dL (12.0-15.0); Immature Granulocyte Absolute 0.02 K/mm3 (0.00-0.031); Immature Granulocyte Percent A 0.3 % (0-0.5); Lymphocytes Absolute Auto 1.86 K/mm3 (0.9-3.2); Lymphocytes Percent Auto 26.6 % (18.3-44.2); Mean Corpuscular HGB Conc 31.5 g/dl (32-36); Mean Corpuscular Hemoglobin 26.2 pg (26-34); Mean Corpuscular Volume 83.1 fl (80-100); Mean Platelet Volume 10.9 fl (7.4-10.4); Monocytes Absolute Auto 0.5 K/mm3 (0.1-0.6); Monocytes Percent Auto 6.4 % (2.6-8.5); Neutrophils Absolute Auto 4.2 K/mm3 (1.3-6.7); Neutrophils Percent Auto 60.6 % (45.5-73.1); Platelet Count Result 213 k/mm3 (150-375); Red Blood Count 4.39 M/mm3 (4.2-5.4); Red Cell Distribution Width 14.9 % (11.5-14.5)
[2024-06-18 10:19] LABS: Hemoglobin A1C 5.9 % (<5.7)
[2024-06-18 10:25] LABS: Alanine Aminotransferase 43 U/L (6-35); Albumin Level 4.2 g/dL (3.5-5.1); Alkaline Phosphatase 94 U/L (38-126); Anion Gap 6 mmol/L (4-12); Aspartate Amino Transferase 32 U/L (14-36); Bilirubin,Total 0.4 mg/dL (0.2-1.3); Blood Urea Nitrogen 23 mg/dL (7-17); Calcium 9.2 mg/dL (8.4-10.2); Carbon Dioxide 30 mmol/L (22-30); Chloride 104 mmol/L (98-107); Cholesterol 239 mg/dL (0-200); Estimated Glomerular Filt Rate > 60; Glucose 97 mg/dL (65-110); HDL Direct 62 mg/dL; Sodium 140 mmol/L (137-145); Triglycerides 138 mg/dL (<150)
[2024-06-18 10:35] LABS: LDL Cholesterol Direct 121 mg/dL
[2024-06-18 10:40] LABS: Free T4 Free Thyroxine 1.27 ng/dL (0.78-2.19)
[2024-06-18 10:53] LABS: Thyroid Stimulating Hormone 0.401 uIU/mL (0.465-4.680)
== END 2024-06-18 09:31 | disposition home or self-care (01) ==
LOC: ANHLAB 09:32
PROVIDERS: PCP Physician Assistant; Visit Provider Physician Assistant
DX: Z00.00 Encounter for general adult medical examination without abnormal findings (principal)
CPT/HCPCS: 36415; 80053; 80061; 83036; 84439; 84443; 85025

== ENCOUNTER 2025-02-04 08:23 | Outpatient (CLI) | payer OTHER, SELFPAY ==
--- NOTE | ~2025-02-04 | XR_ITS ---
XR_[id number]_CR Indication: Neck Pain, Cervicalgia Comparison: None Findings: Grade 1 anterolisthesis of C4 on C5, no fracture. Severe loss of disc height at C5-6 and C6-7. Soft tissues unremarkable Impression: No acute abnormality. Reviewed, dictated and finalized at location P. EXPERIENCE TEAM LEAD Impression: No acute abnormality.
--- OUTSIDE RECORDS SUMMARY | 2025-02-04 08:30 | XMS_ITS | Clinical Summary ---
Author Organization [facility] Address [facility] [place] [address] Care Team Providers Care Sheet Pile Hammer Operator Name Role Phone Non-Staff, Provider Primary Care Provider Mia li Social History Tobacco Use Types Packs/Day Years Used Date Smoking Tobacco: Never Assessed Comments Unknown Sex and Gender Information Value Date Recorded Sex Assigned at Female 02/01/2025 4:38 PM IT ADMINISTRATIVE ASSISTANT Legal Sex Female 4:36 PM IT ADMINISTRATIVE ASSISTANT Gender Identity Not on file Sexual Orientation Not on file Plan of Treatment Upcoming Encounters Date Type Department Care Team (Late st Contact Info) Description 02/21/2025 3:30 PM IT ADMINISTRATIVE ASSISTANT Appointment [place] [address] Dave Castaneda MD [address] [place] [address] [id number] Health Maintenance Due Date Last Done Comments Cervical Cancer Screening Pa p Smear (Age 30 to 64) Every 3 Years 1967 Colorectal Cancer Screening Colonoscopy (10 Years) 1967 Annual Physical 1970 Hepatitis C 1985 DTaP, Tdap and Td Vaccines ( 1 - Tdap) 1986 Hepatitis B Vaccines (1 of 3 - 19+ 3-dose series) 1986 Cervical Cancer Screening Pa p with HPV Testing (Age 30 to 64) Every 5 Years 1997 Cervical Cancer Screening with HPV 1997 Mammogram Screening 2007 Pneumococcal Vaccine: 50+ Ye ars (1 of 1 - PCV) 2017 Zoster Vaccines (1 of 2) 2017 COVID-19 Vaccine (2024-2 6 season) 2024 Influenza Adult (#1) 2024 Hepatitis A Vaccines Aged Out No long er eligible based on patient's age to complete this topic Meningococcal B Vaccine Aged Out No l onger eligible based on patient's age to complete this topic Meningococcal Vaccine Aged Out No anuj chelly eligible based on patient's age to complete this topic RSV Immunizations Under 20 Months Aged Out No longer eligible based on patient's age to complete this topic Insurance [facility] Care Teams Sheet Pile Hammer Operator Relationship Specialty Start Date End Date Non-Staff, Provider PCP - General UNKNOWN PHYSICIAN SPECIALTY 02/02/25
--- OUTSIDE RECORDS SUMMARY | 2025-02-04 08:30 | XMS_ITS | Clinical Summary ---
Author Organization [facility] Address [address] [place] [address] Care Team Providers Care Carrier Operator Name Role Phone Unavailable Primary Care Provider Unavailabl e Source Comments [facility],non-owned Affiliates and Associated Physician Practices is amultiple site organization consisting of ambulatory clinics and hospital sitesin [place], [place], [place] and [place]. This disclosure is being madepursuant to the Care Everywhere program and may not contain all information available regarding this patient. Last updated 17.[facility] Active Problems Problem Noted Date Diagnosed Date [...] SCREENING 1967 LIPID TESTING 1967 MAMMOGRAM 1967 HIV SCREENING 1982 HEPATITIS C SCREENING 01/20/1985 DTAP/TDAP/TD VACCINES (1 - Tdap) 1986 HEPATITIS B VACCINE (1 of 3 - 19+ 3-dose series) 1986 Cervical Cancer Screening 01/26/1988 PAP SMEAR 01/26/1988 PAP with HPV 1997 PNEUMOCOCCAL VACCINE 50+ (1 of 1 - PCV) 2017 ZOSTER VACCINE (1 of 2) 2017 DEPRESSION SCREENING 03/02/2024 COVID-19 VACCINE ( - 2024-2 6 season) 2024 INFLUENZA VACCINE (#1) 2024 HIB VACCINE Aged Out No longer [...] patient's age to complete this topic Insurance SELF PAY NO INSURANCE Member Subscriber Plan / Payer (Ef fective for All Dates) Name:Felipa Kendall Member ID:Not on file Relation to Subscriber:Not on file Name:FELIPA KENDALL Subscriber ID:Not on file (Home) Address: [address] [place] [phone] Payer ID:Not on file Group ID:Not on file Type:Self Pay Address: [facility] SELF PAY NO INSURANCE Member Subscriber Plan / Payer (Ef fective for All Dates) Name:Felipa Kendall Member ID:Not on file Relation to Subscriber:Not on file Name:FELIPA KENDALL Subscriber ID:Not on file (Home) Address: [address] [place] [phone] Payer ID:Not on file Group ID:Not on file Type:Self Pay Address: [facility] SELF PAY NO INSURANCE Member Subscriber Plan / Payer (Ef fective for All Dates) Name:Felipa Kendall Member ID:Not on file Relation to Subscriber:Not on file Name:FELIPA KENDALL Subscriber ID:Not on file (Home) Address: [address] [place] [phone] Payer ID:Not on file Group ID:Not on file Type:Self Pay Address: [facility]
[2025-02-04 09:13] LABS: Hematocrit 34.9 % (37.0-47.0); Hemoglobin 11.4 g/dL (12.0-15.0); Immature Granulocyte Percent A 0.4 % (0-0.5); Lymphocytes Absolute Auto 1.98 K/mm3 (0.9-3.2); Mean Corpuscular HGB Conc 32.7 g/dl (32-36); Mean Corpuscular Hemoglobin 28.0 pg (26-34); Mean Corpuscular Volume 85.7 fl (80-100); Nucleated Red Blood Cells Absolute Auto 0.000 K/mm3 (0.0-0.012); Nucleated Red Blood Cells Perc 0.0 % (0.0-0.2); Platelet Count Result 193 k/mm3 (150-375); Red Blood Count 4.07 M/mm3 (4.2-5.4); White Blood Count 7.1 K/mm3 (4.5-10.0)
[2025-02-04 09:26] LABS: Hemoglobin A1C 6.1 % (<5.7)
[2025-02-04 09:36] LABS: Alanine Aminotransferase 72 U/L (6-35); Albumin Level 4.1 g/dL (3.5-5.1); Alkaline Phosphatase 88 U/L (38-126); Anion Gap 3 mmol/L (4-12); Aspartate Amino Transferase 47 U/L (14-36); Bilirubin,Total 0.5 mg/dL (0.2-1.3); Blood Urea Nitrogen 20 mg/dL (7-17); Calcium 9.2 mg/dL (8.4-10.2); Carbon Dioxide 29 mmol/L (22-30); Chloride 105 mmol/L (98-107); Cholesterol 224 mg/dL (0-200); Estimated Glomerular Filt Rate > 60; Glucose 103 mg/dL (65-110); HDL Direct 54 mg/dL; Potassium 3.9 mmol/L (3.4-5.0); Sodium 137 mmol/L (137-145); Total Protein 7.3 g/dL (6.3-8.2); Triglycerides 190 mg/dL (<150)
[2025-02-04 09:50] LABS: MALB Creatinine Ratio 6.5 mg/g (0-30)
[2025-02-04 09:51] LABS: Free T4 Free Thyroxine 1.20 ng/dL (0.78-2.19)
[2025-02-04 10:12] LABS: Thyroid Stimulating Hormone 0.713 uIU/mL (0.465-4.680)
[2025-02-04 10:16] LABS: HIV 1/2 Ab P24 Ag Result Negative (Negative)
== END 2025-02-04 08:24 | disposition home or self-care (01) ==
LOC: ANHLAB 08:28
PROVIDERS: PCP Physician Assistant
DX: Z11.4 Encounter for screening for human immunodeficiency virus [HIV] (principal); I10 Essential (primary) hypertension; E78.5 Hyperlipidemia, unspecified
CPT/HCPCS: 36415; 72040; 80053; 80061; 82043; 83036; 84439; 84443; 85025; 86703; G0432